=== PATIENT | female | born 1965 | race Caucasian/White ===

== ENCOUNTER 2017-12-05 13:42 | Inpatient (IN) | payer OTHER, SELFPAY ==
[2017-12-05 13:44] VITALS: BP 165/96; PULSE 108; RESP 18; TEMP 37.6; O2SAT 100; BMI 48.0
[2017-12-05 14:12] LABS: Bacteria 0 SEEN /hpf (None Seen); Mucous, Urine 0 SEEN /hpf (<or=2+); Red Blood Cells-Urine 0 SEEN /hpf (0-5); Squamous Epithelial Cells - UA 0 SEEN /hpf (5-10)
[2017-12-05 14:16] LABS: Color, Urine Yellow (Yellow); Glucose, Dipstick Normal (Normal); Ketone-Dipstick Negative (Negative); Leukocyte Esterase-Dipstick 500 /ul (Negative); Nitrite-Dipstick Negative (Negative); Occult Blood-Urine 150 /ul (Negative); Protein-Dipstick 100 mg/dl (Negative); Specific Gravity, Urine 1.005 (1.002-1.030); Urine Bilirubin Dipstick Negative (Negative); Urine Clarity Sl. Cloudy (Clear); Urine Urobilinogen Normal (Normal)
[2017-12-05 14:27] LABS: White Blood Cells 25-50 SEEN /hpf (0-5)
--- NOTE | 2017-12-05 15:10 | CT_ITS ---
STUDY: CT ABDOMEN AND PELVIS WITHOUT CONTRAST REASON FOR EXAM: Female, 52 years old. Bilateral flank pain RADIATION DOSAGE (If Supplied By Facility): CTDIvol = ( 32.87 ) mGy, DLP = ( 1847.12 ) mGycm TECHNIQUE: Transaxial images were obtained from the dome of the diaphragm to the symphysis pubis without oral contrast, and without intravenous contrast. Sagittal and coronal images were reconstructed. Individualized dose optimization techniques were used for this CT. COMPARISON: None. FINDINGS: The visualized lung bases are unremarkable. The visualized portions of the heart are within normal limits. Normal liver. There are surgical clips in the gallbladder fossa consistent with a prior cholecystectomy. Normal spleen. Normal pancreas. Normal bilateral adrenal glands. Large renal calculi noted in both lower poles of the kidneys. Moderate right renal atrophy. Bilateral perinephric fat stranding and edema. Mild bilateral hydronephrosis and hydroureter. No discrete evidence of stone in either ureter. Underdistended bladder with wall thickening. Cystitis with bilateral pyelonephritis cannot be excluded. Largest stone on the right measuring 1.4 cm and largest on the left measuring 1.1 cm. Normal visualized stomach. Normal small intestine. Normal colon. The appendix is visualized and appears normal. Normal abdominal aorta. Normal inferior vena cava. Normal retroperitoneum. Unremarkable uterus Normal abdominal wall. Normal osseous structures. CT/Abdomen/Pelvis without Cont IMPRESSION: Large bilateral lower pole nephrolithiasis. Bilateral hydronephrosis and hydroureter. No stones seen in either ureter. Underdistended bladder however, wall thickening suggesting cystitis. Findings are suggestive of infection. Electronically Signed: Rich Strauss DO at 15:52 EDT Tel , Service support ,
--- NOTE | 2017-12-05 15:12 | ED.VISSUMM ---
- ER Visit Summary Date of Service: 12/05/17 Chief Complaint: Urinary symptoms History of Present Illness: The patient is a 52 F who presents for 2 weeks of urinary symptoms, including dysuria, frequency and urgency. Patient has had intermittent symptoms with bilateral back pain, and has completed a course of Cipro and Macrobid without any improvement. For the last 2 days she has been having chills and urinary frequency. Today she is having nausea and bilateral flank pain radiating around into the abdomen. She has a prior history of kidney stones. She denies any chest pain or shortness of breath. No vomiting or diarrhea. Physical Examination: Vital signs: afebrile, hemodynamically stable, no hypoxia on room air General: well nourished, well developed, in no distress Skin: warm, dry, no rash, no pallor HEENT: normocephalic and atraumatic; PERRL, EOMI, moist mucous membranes Cardiovascular: Tachycardic rate and regular rhythm without murmurs, no peripheral edema, 2+ pulses all distal extremities Respiratory: No increased work of breathing, lungs are clear to auscultation bilaterally, no rales, rhonchi or wheezing Abdominal: Abdomen is soft, mildly tender with normoactive bowel sounds, no guarding or rebound, no masses, positive right-sided CVA tenderness MSK: Moves all extremities, no deformities, normal strength Neuro: Awake and alert, oriented ?4. No facial droop, sensation and motor function intact and symmetric Test Results: Abnormal Lab Results 12/05/17 12/05/17 12/05/17 14:05 14:25 14:25 WBC 7.6 RBC 3.94 L Hgb 10.9 L Hct 33.5 L MCV 85.0 MCH 27.7 MCHC 32.5 RDW 14.9 H RDW Differential 45.3 H Plt Count 202 MPV 10.8 Immature Gran % (Auto) 0.300 Neut % (Auto) 73.6 H Lymph % (Auto) 8.3 L [place] % (Auto) 10.3 H Eos % (Auto) 7.0 H Baso % (Auto) 0.5 Absolute Neuts (auto) 5.6 Absolute Lymphs (auto) 0.63 L Total Counted Not Reportable Sodium 140 Potassium 3.9 Chloride 109 H Carbon Dioxide 22.0 Anion Gap 9 BUN 29 H Creatinine 2.71 H Estim Creat Clear Calc 23.08 Est GFR (MDRD) Af Amer 24 L Est GFR (MDRD) Non-Af 19 L BUN/Creatinine Ratio 10.7 Glucose 100 Lactic Acid Calcium 8.5 Urine Color Yellow Urine Clarity Sl. Cloudy Urine pH 7.0 Ur Specific [place] 1.005 Urine Protein 100 H Urine Glucose (UA) Normal Urine Ketones Negative Urine Occult Blood 150 H Urine Nitrite Negative Urine Bilirubin Negative Urine Urobilinogen Normal Ur Leukocyte Esterase 500 H Urine RBC 0 SEEN Urine WBC 25-50 SEEN Ur Squamous Epith Cells 0 SEEN Urine Bacteria 0 SEEN Urine Mucus 0 SEEN 12/05/17 14:25 WBC RBC Hgb Hct MCV MCH MCHC RDW RDW Differential Plt Count MPV Immature Gran % (Auto) Neut % (Auto) Lymph % (Auto) [place] % (Auto) Eos % (Auto) Baso % (Auto) Absolute Neuts (auto) Absolute Lymphs (auto) Total Counted Sodium Potassium Chloride Carbon Dioxide Anion Gap BUN Creatinine Estim Creat Clear Calc Est GFR (MDRD) Af Amer Est GFR (MDRD) Non-Af BUN/Creatinine Ratio Glucose Lactic Acid 0.9 Calcium Urine Color Urine Clarity Urine pH Ur Specific [place] Urine Protein Urine Glucose (UA) Urine Ketones Urine Occult Blood Urine Nitrite Urine Bilirubin Urine Urobilinogen Ur Leukocyte Esterase Urine RBC Urine WBC Ur Squamous Epith Cells Urine Bacteria Urine Mucus Clinical Impression(s) from Imaging Studies Abdomen/Pelvis CT 12/05/17 15:10 IMPRESSION: Large bilateral lower pole nephrolithiasis. Bilateral hydronephrosis and hydroureter. No stones seen in either ureter. Underdistended bladder however, wall thickening suggesting cystitis. Findings are suggestive of infection. Electronically Signed: Rich Strauss DO at 15:52 EDT Tel , Service support , Medications Given Discontinued Medications Ceftriaxone Sodium (Rocephin) 1 gm in 50 mls @ 100 mls/hr IV X1 ONE Stop: 12/05/17 16:50 Last Admin: 12/05/17 16:34 Dose: 100 mls/hr Ketorolac Tromethamine (Toradol) 15 mg IV X1 ONE Stop: 12/05/17 15:11 Last Admin: 12/05/17 15:18 Dose: 15 mg Ondansetron HCl (Zofran) 4 mg IV X1 ONE Stop: 12/05/17 15:11 Last Admin: 12/05/17 15:18 Dose: 4 mg Emergency Department Course and Treatment: Patient presents with symptoms concerning for possible pyelonephritis. Urinalysis was positive for infection. Patient had no leukocytosis. Lactate was normal. Creatinine was 2.7, which is significantly elevated from patient's last measurement, however she has had remote creatinine elevation like this in the past. No hepatic derangements. Blood cultures and urine cultures pending. CT flank was performed to evaluate for any possible obstructing stones. It showed findings consistent with pyelonephritis and acute cystitis. Because patient has already been on a course of ciprofloxacin outpatient as well as Macrobid, she is failed outpatient treatment. She was started on Rocephin. Patient discussed with for admission for treatment of pyelonephritis, acute on chronic renal insufficiency, and failed outpatient treatment. Treatment Plan: [] Disposition: [] Impression: pyelonephritis, acute on chronic renal insufficiency failed outpatient treatment This note was generated with [employer] dictation software. It may contain incorrect words, spelling, and punctuation that were not noted in review of the chart prior to signing ED Disposition - Plan for ED Patient: Disposition: Acute Care [facility] Chief Complaint: Complaint
[2017-12-05] MEDS: Ketorolac 30 MG/ML Syringe 15 MG IV (15:18)
[2017-12-05] MEDS: 0.9% Normal Saline 1,000 ML 250 ML IV (15:18)
[2017-12-05] MEDS: Ondansetron 4 MG/2 ML Vial IV (15:18)
[2017-12-05 15:40] LABS: Absolute Lymphocyte Count 0.63 X10^3/ul (0.83-4.51); Absolute Neutrophil Count 5.6 X10^3/uL (2.0-7.7); Basophil# 0.04 X10^3/uL; Basophil% 0.5 % (0-1); Eosinophil# 0.53 X10^3/uL; Hematocrit 33.5 % (37-47); Hemoglobin 10.9 g/dl (12.0-15.0); Lymphocyte # 0.63 X10^3/ul (4.0); Lymphocyte % 8.3 % (19-41); Mean Corp Hgb Conc 32.5 g/gl (32-36); Mean Corpuscular Hgb 27.7 pg (27.0-32.0); Mean Platelet Vol. 10.8 fl (6.2-12.0); Monocyte# 0.78 X10^3/uL; Monocyte% 10.3 % (0-10); Neutrophil # 5.58 X10^3/uL (2.7-7.7); Neutrophil % 73.6 % (47-70); Platelet Count 202 K/mm3 (150-450); RBC Distribution Width CV 14.9 % (11.6-14.6); RBC Distribution Width SD 45.3 fl (35.1-43.9); Red Blood Count 3.94 M/mm3 (4.2-5.4); White Blood Count 7.6 K/mm3 (4.4-11.0)
[2017-12-05 15:42] LABS: Anion Gap 9 (5-15); BUN 29 mg/dL (7-18); BUN/Creat Ratio 10.7 RATIO (10-20); Calcium,Total 8.5 mg/dL (8.5-10.1); Chloride 109 mmol/L (98-107); Creatinine, Serum 2.71 mg/dL (0.55-1.02); EST Glomerular Filtration Rate 19 mL/min (>60); Est Glom Filt Rate - Afr Amer 24 mL/min (>60); Estimated Creatinine Clearance 23.08 ml/min; Glucose 100 mg/dL (74-106); POSITIVE COUNT NO; POSITIVE DIFFERENTIAL NO; POSITIVE MORPHOLOGY NO; Potassium 3.9 mmol/L (3.5-5.1); Sodium Level 140 mmol/L (136-145)
[2017-12-05 15:45] LABS: Lactic Acid 0.9 mmol/L (0.4-2.0)
--- NOTE | 2017-12-05 16:27 | HP.PCM_ITS ---
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 She started having symptoms of frequency of urination and dysuria 1 week ago was initially prescribed a 3- day course of ciprofloxacin by her PCP. However this is not work and so she was given another 5-day course of Macrobid but symptoms still persisted. One day ago she started experiencing fever and chills with Reiger's and had bilateral flank pain which gradually worsened. She has a long-standing history of recurrent kidney stools and last passed kidney stones about 2 years ago. She is also had several surgical procedures done by Dr. Talavera before he retired. She denied any shortness of breath, abdominal pain, chest pain, palpitations, diarrhea or vomiting. 12 point review of systems was otherwise negative. Vitals in the ED was significant for temperature of 99.7 Fahrenheit and BMP was significant for creatinine of 2.71 with baseline being around 2. CBC showed no leukocytosis and showed anemia with hemoglobin of 10.9. CT abdomen pelvis showed large renal calculi noted in both lower poles of the kidney with moderate right renal atrophy and bilateral perinephric fat stranding and edema. Also had mild bilateral hydronephrosis and hydroureter with no discrete evidence of stone in either ureter. She had under distended bladder with wall thickening and largest on the right measuring 1.4 cm. The largest on the left measured 1.1 cm. She was started on IV ceftriaxone in the ED and she has been admitted to be managed for pyelonephritis and FLORIN on CKD. [] Past Medical History Past Medical History (Chronic Problems): Chronic Problems Goiter (Chronic) Obesity (Chronic) Benign essential hypertension (Chronic) Allergies Penicillins [PCN] Allergy (Verified 12/05/17 13:43) Rash acetaminophen [From Percocet] Adverse Reaction (Verified 12/05/17 13:43) Vomiting oxycodone [From Percocet] Adverse Reaction (Verified 12/05/17 13:43) Vomiting Home Medications: Ambulatory Orders Medication Instructions Recorded Bumetanide 0.5 mg PO DAILY 12/05/17 Levothyroxine [Synthroid] 200 mcg PO DAILY 12/05/17 Omeprazole 40 mg PO DAILY 12/05/17 Surgical History: cholecystectomy, - - thyroidectomy, surgery for kidney stones Lives: With Family Smoking Status: Former smoker Alcohol: Occasional Drugs: None Review of Systems Constitutional: Reports: Chills, Fever, Malaise. Denies: Anorexia, Weight Change HEENT: Denies: Head Aches, Sinus Congestion, Sinus Drainage Cardiovascular: Denies: Chest Pain, Chest Pressure, Chest Tightness, Heaviness, Light Headedness, Palpitations Respiratory: Denies: Cough, Shortness of breath at rest, Sputum production Gastrointestinal: Reports: Nausea, - - bilateral costophrenic angle tenderness, worse on the left than right. Denies: Abdominal Pain, Diarrhea, Melena, Vomiting Genitourinary: Reports: Dysuria, Frequency. Denies: Incontinence, Nocturia, Urgency Musculoskeletal: Denies: Joint Pain, Joint Tenderness Skin: Denies: Rash, Wounds Neurological: Denies: Numbness, Tingling, Focal weakness Psychiatric: Denies: Anxiety, Depression, Homicidal Ideations, Suicidal Ideations Endocrine: Reports: - - history of thyroid mass and anterior mediastinal mass s/p thyroidectomy Hematologic/ Lymphatic: Denies: Easy Bruising, Easy Bleeding VTE Information - Inpt Only VTE Present on Admission: No VTE Mechan Device Prophylaxis: None VTE Pharm Prophylaxis ordered?: Yes - Physical Exam General: Alert, Oriented x3, Cooperative HEENT: Atraumatic, PERRLA, EOMI, Normocephalic Oral: Moist Mucosa Neck: Supple, No JVD, Negative Carotid Bruits Lungs: Clear to auscultation, Normal air movement, No rhonchi, No wheeze, No rales Cardiovascular: Regular rate, Regular Rhythm, Normal S1, Normal S2, No murmurs Abdomen: Bowel Sounds Present, Soft, Non Tender, Non-Distended, No Hepato- splenomegaly, Obese, - - bilateral costophrenic angle tenderness Extremities: No clubbing, No cyanosis, No edema, Capillary Refill Less than 3 Seconds Skin: No rashes, No breakdown Musculoskeletal: No Tenderness to Palpation of Joints or Extremities Lymphatic: No Cervical, Supraclavicular, or Inguinal Adenopathy Neurological: Cranial nerves II-XII grossly intact, Neuro grossly intact, Motor Exam 5/5 strength throughout Psych/Mental Status: Normal Affect, Appropriate, Alert and oriented to time, place, person, mood and affect Vital Signs Temp Pulse Resp BP Pulse Ox 99.7 F H 108 H 18 165/96 H 100 12/05/17 13:44 12/05/17 13:44 12/05/17 13:44 12/05/17 13:44 12/05/17 13:44 Oxygen Delivery Method Room Air Weight: 306 lb 14.135 oz Body Mass Index (BMI) 48.0 Laboratory Tests Past 24 Hrs 12/05/17 12/05/17 12/05/17 14:05 14:25 14:25 WBC 7.6 RBC 3.94 L Hgb 10.9 L Hct 33.5 L MCV 85.0 MCH 27.7 MCHC 32.5 RDW 14.9 H RDW Differential 45.3 H Plt Count 202 MPV 10.8 Immature Gran % (Auto) 0.300 Neut % (Auto) 73.6 H Lymph % (Auto) 8.3 L [place] % (Auto) 10.3 H Eos % (Auto) 7.0 H Baso % (Auto) 0.5 Absolute Neuts (auto) 5.6 Absolute Lymphs (auto) 0.63 L Total Counted Not Reportable Sodium 140 Potassium 3.9 Chloride 109 H Carbon Dioxide 22.0 Anion Gap 9 BUN 29 H Creatinine 2.71 H Estim Creat Clear Calc 23.08 Est GFR (MDRD) Af Amer 24 L Est GFR (MDRD) Non-Af 19 L BUN/Creatinine Ratio 10.7 Glucose 100 Lactic Acid Calcium 8.5 Urine Color Yellow Urine Clarity Sl. Cloudy Urine pH 7.0 Ur Specific [place] 1.005 Urine Protein 100 H Urine Glucose (UA) Normal Urine Ketones Negative Urine Occult Blood 150 H Urine Nitrite Negative Urine Bilirubin Negative Urine Urobilinogen Normal Ur Leukocyte Esterase 500 H Urine RBC 0 SEEN Urine WBC 25-50 SEEN Ur Squamous Epith Cells 0 SEEN Urine Bacteria 0 SEEN Urine Mucus 0 SEEN 12/05/17 14:25 WBC RBC Hgb Hct MCV MCH MCHC RDW RDW Differential Plt Count MPV Immature Gran % (Auto) Neut % (Auto) Lymph % (Auto) [place] % (Auto) Eos % (Auto) Baso % (Auto) Absolute Neuts (auto) Absolute Lymphs (auto) Total Counted Sodium Potassium Chloride Carbon Dioxide Anion Gap BUN Creatinine Estim Creat Clear Calc Est GFR (MDRD) Af Amer Est GFR (MDRD) Non-Af BUN/Creatinine Ratio Glucose Lactic Acid 0.9 Calcium Urine Color Urine Clarity Urine pH Ur Specific [place] Urine Protein Urine Glucose (UA) Urine Ketones Urine Occult Blood Urine Nitrite Urine Bilirubin Urine Urobilinogen Ur Leukocyte Esterase Urine RBC Urine WBC Ur Squamous Epith Cells Urine Bacteria Urine Mucus Diagnostic Data Abdomen/Pelvis CT 12/05/17 15:10 IMPRESSION: Large bilateral lower pole nephrolithiasis. Bilateral hydronephrosis and hydroureter. No stones seen in either ureter. Underdistended bladder however, wall thickening suggesting cystitis. Findings are suggestive of infection. Electronically Signed: Rich Strauss DO at 15:52 EDT Tel , Service support , Assessment/Plan All Active Problems Fever (Acute) Chills (Acute) Bilateral flank pain (Acute) 52-year-old female with a history of recurrent kidney stones and hypothyroidism after thyroidectomy presents with a 1 day history of fever and chills,and bilateral flank tenderness. after being unsuccessfully treated for UTI symptoms over the past week. 1. Bilateral pyelonephritis * fever and chills of 1 day * has bilateral costophrenic angle tenderness * CT abdomen: Bilateral large renal calculi in both lower poles of the kidneys with largest on the right measure 1.4 cm in largest on the left measuring 1.1 cm. Bilateral Fatty stranding and edema. Mild bilateral hydronephrosis and hydroureter. Underdistended bladder with wall thickening. * UA: wbc of 25-50, urine occult blood of 150, no bacteria seen. * Admit to MedSurg floor * Hydrated with IV fluids normal saline at 150 cc/h. * Blood and urine cultures ordered. * Continue IV ceftriaxone 1 g every 12 * Tylenol for fever * Urology consult, to have large bilateral kidney stones. Will benefit from shockwave lithotripsy as these stones wont be able to pass on their own due to size and location. * counselled to drink lots of fluid; ~ 3L every day * 2. FLORIN on CKD likely due to dehydration from nausea and decreased intake * Cr is 2.71; baseline is ~ 1.8 * will hydrate with IVF NS ~ 150cc/hr and monitor urine output * check urine urea and urine Cr to assess FeUrea; on bumetanide so wont check FeNa * 3. HYpothyroidism * s/p thyroidectomy anterior mediastinal mass which turned out to be thyroid * on synthroid 175mcg; will continue * 4.GERD: on PPI 5. GI prophylaxis: PPI 6. DVT prophylaxis: heparin Code status: full code. * Patient, and daughter counselled about different types of code status,and about differences between full code, DNRCC and DNRCCA. Patient elects to be full code. total face to face time 16 mins. * Code Visit Inpatient E&M: 56866 Subs Hosp L3 Procedures: 28686 Advncd Care Plan 30 Min
[2017-12-05] MEDS: Ceftriaxone 1 GM/50 ML BAG IV ×2 (16:34→21:39)
[2017-12-05 16:35] VITALS: BP 144/77; PULSE 98; RESP 14; O2SAT 100
[2017-12-05 17:17] VITALS: BMI 48.2
[2017-12-05 17:22] VITALS: BMI 48.2
[2017-12-05 18:11] LABS: Urea Nitrogen, Urine 190 mg/dL (NO RANGE EST.)
[2017-12-05 19:42] VITALS: BP 122/67; PULSE 87; RESP 16; TEMP 36.8; O2SAT 100
[2017-12-05] MEDS: Morphine 2 MG/ML Syringe 1 MG IV (19:43)
[2017-12-05] MEDS: 0.9% NaCl Peripheral Flush Adult/Peds IV (19:44)
[2017-12-05] MEDS: 0.9% Normal Saline 1,000 ML 150 ML IV (20:29)
[2017-12-05] MEDS: Heparin Injection (Vial) 5,000 UNIT/ML VIAL 5000 UNIT SC (21:40)
[2017-12-06] MEDS: 0.9% NaCl Peripheral Flush Adult/Peds IV (00:08)
[2017-12-06] MEDS: Morphine 2 MG/ML Syringe IV (00:09)
[2017-12-06 01:42] VITALS: BP 112/64; PULSE 86; RESP 16; TEMP 37.3; O2SAT 99
[2017-12-06] MEDS: 0.9% Normal Saline 1,000 ML 150 ML IV ×4 (03:33→23:45)
[2017-12-06 05:33] LABS: Absolute Lymphocyte Count 1.04 X10^3/ul (0.83-4.51); Absolute Neutrophil Count 3.2 X10^3/uL (2.0-7.7); Basophil# 0.03 X10^3/uL; Basophil% 0.5 % (0-1); Eosinophil# 0.59 X10^3/uL; Eosinophils% 10.7 % (0-5); Hemoglobin 9.6 g/dl (12.0-15.0); Lymphocyte # 1.04 X10^3/ul (4.0); Lymphocyte % 18.9 % (19-41); Mean Corpuscular Hgb 27.7 pg (27.0-32.0); Mean Corpuscular Volume 86.5 fL (81-99); Mean Platelet Vol. 10.6 fl (6.2-12.0); Monocyte# 0.66 X10^3/uL; Neutrophil # 3.18 X10^3/uL (2.7-7.7); Neutrophil % 57.7 % (47-70); Platelet Count 180 K/mm3 (150-450); RBC Distribution Width CV 15.1 % (11.6-14.6); RBC Distribution Width SD 45.7 fl (35.1-43.9); Red Blood Count 3.47 M/mm3 (4.2-5.4); White Blood Count 5.5 K/mm3 (4.4-11.0)
[2017-12-06 05:43] LABS: POSITIVE COUNT NO; POSITIVE DIFFERENTIAL NO; POSITIVE MORPHOLOGY NO
[2017-12-06] MEDS: Levothyroxine 100 MCG Tablet 200 MCG PO (05:44)
[2017-12-06 05:50] LABS: Anion Gap 10 (5-15); BUN 31 mg/dL (7-18); BUN/Creat Ratio 10.1 RATIO (10-20); Calcium,Total 8.1 mg/dL (8.5-10.1); Chloride 109 mmol/L (98-107); Creatinine, Serum 3.08 mg/dL (0.55-1.02); EST Glomerular Filtration Rate 17 mL/min (>60); Est Glom Filt Rate - Afr Amer 20 mL/min (>60); Estimated Creatinine Clearance 19.55 ml/min; Glucose 106 mg/dL (74-106); Potassium 4.1 mmol/L (3.5-5.1); Sodium Level 140 mmol/L (136-145)
[2017-12-06 07:19] VITALS: BP 97/52; PULSE 82; RESP 16; TEMP 36.8; O2SAT 96
--- NOTE | 2017-12-06 07:54 | CON.PCM_ITS ---
Problem List (1) Pyelonephritis Status: Acute Reason for Consult Date of Consultation: 12/06/17 Reason for Consultation: Pyelonephritis History of Present Illness: The patient is a 52 year old female who is known to me for prior staghorn calculus. In 2012 she had a 5 cm staghorn calculus that was removed percutaneously. At that time she had lower pole stones in both kidneys the stones are stuck in the parenchyma. On CT scan and comparing to 2013 stones have not changed. She is only had one infection in the last year and a half has not been having recurrent infections. However she developed pyelonephritis with fevers and chills and not feeling well and was admitted after failure to clear the infection with Cipro and Macrobid. Clinically she is stable but my concern is her creatinine is up to 3.08, recent baseline is reported to be a 1.8, in 2013 her creatinine is 1.2. She does have chronic renal insufficiency and I think she best served by seeing nephrology. She does not have any obstruction and therefore I am going to hold off on placing stents. She does not have any obstructing ureteral calculi she does have some mild dilation of the ureters but this is probably from pyelonephritis. Past Medical History Past Medical History (Chronic Problems): Chronic Problems Goiter (Chronic) Obesity (Chronic) Benign essential hypertension (Chronic) Allergies Penicillins [PCN] Allergy (Verified 12/05/17 13:43) Rash acetaminophen [From Percocet] Adverse Reaction (Verified 12/05/17 13:43) Vomiting oxycodone [From Percocet] Adverse Reaction (Verified 12/05/17 13:43) Vomiting Home Medications: Ambulatory Orders Medication Instructions Recorded Bumetanide 0.5 mg PO DAILY 12/05/17 Etodolac [Lodine] 400 mg PO TID PRN PRN 12/05/17 Levothyroxine [Synthroid] 200 mcg PO DAILY 12/05/17 Omeprazole 40 mg PO DAILY 12/05/17 Surgical History: cholecystectomy, - - thyroidectomy, surgery for kidney stones Psychiatric History: No pertinent psych hx 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 Lives: With Family Smoking Status: Former smoker Tobacco Use: Cigarettes Alcohol: Occasional Drugs: None Review of Systems Constitutional: Reports: Chills, Fever HEENT: Denies: Head Aches, Sinus Congestion, Sinus Drainage Cardiovascular: Denies: Chest Pain, Palpitations Respiratory: Denies: Cough, Shortness of breath at rest, Sputum production Gastrointestinal: Denies: Abdominal Pain, Nausea, Vomiting Genitourinary: Reports: Dysuria Musculoskeletal: Denies: Joint Pain, Joint Tenderness Skin: Denies: Rash, Wounds Neurological: Denies: Numbness, Tingling, Focal weakness Psychiatric: Denies: Anxiety, Depression, Homicidal Ideations, Suicidal Ideations Hematologic/ Lymphatic: Denies: Easy Bruising, Easy Bleeding Physical Exam - Physical Exam Vital Signs Temp 98.3 F 12/06/17 07:19 Pulse 82 12/06/17 07:19 Resp 16 12/06/17 07:19 BP 97/52 L 12/06/17 07:19 Pulse Ox 96 12/06/17 07:19 Intake & Output 12/04/17 12/05/17 12/06/17 23:59 23:59 23:59 Intake Total 5042 / 5042 Output Total 2049 Balance 2992 / 2992 Weight: 139.2 kg Intake: Oral 2920 / 2920 IV fluid/meds 2121 Output: Urine 2049 General: Alert, Oriented x3, Cooperative HEENT: Atraumatic Oral: Moist Mucosa Neck: Supple, No JVD Lungs: Normal air movement Cardiovascular: Regular rate, Regular Rhythm Abdomen: Soft, Obese Rectal: Exam deferred Psych/Mental Status: Normal Affect Laboratory Tests Past 24 Hrs 12/05/17 12/05/17 12/05/17 14:05 14:05 14:05 WBC RBC Hgb Hct MCV MCH MCHC RDW RDW Differential Plt Count MPV Immature Gran % (Auto) Neut % (Auto) Lymph % (Auto) [place] % (Auto) Eos % (Auto) Baso % (Auto) Absolute Neuts (auto) Absolute Lymphs (auto) Total Counted Sodium Potassium Chloride Carbon Dioxide Anion Gap BUN Creatinine Estim Creat Clear Calc Est GFR (MDRD) Af Amer Est GFR (MDRD) Non-Af BUN/Creatinine Ratio Glucose Lactic Acid Calcium Urine Color Yellow Urine Clarity Sl. Cloudy Urine pH 7.0 Ur Specific [place] 1.005 Urine Protein 100 H Urine Glucose (UA) Normal Urine Ketones Negative Urine Occult Blood 150 H Urine Nitrite Negative Urine Bilirubin Negative Urine Urobilinogen Normal Ur Leukocyte Esterase 500 H Urine RBC 0 SEEN Urine WBC 25-50 SEEN Ur Squamous Epith Cells 0 SEEN Urine Bacteria 0 SEEN Urine Mucus 0 SEEN Urine Creatinine 30.00 Urine Urea Nitrogen 190 12/05/17 12/05/17 12/05/17 14:25 14:25 14:25 WBC 7.6 RBC 3.94 L Hgb 10.9 L Hct 33.5 L MCV 85.0 MCH 27.7 MCHC 32.5 RDW 14.9 H RDW Differential 45.3 H Plt Count 202 MPV 10.8 Immature Gran % (Auto) 0.300 Neut % (Auto) 73.6 H Lymph % (Auto) 8.3 L [place] % (Auto) 10.3 H Eos % (Auto) 7.0 H Baso % (Auto) 0.5 Absolute Neuts (auto) 5.6 Absolute Lymphs (auto) 0.63 L Total Counted Not Reportable Sodium 140 Potassium 3.9 Chloride 109 H Carbon Dioxide 22.0 Anion Gap 9 BUN 29 H Creatinine 2.71 H Estim Creat Clear Calc 23.08 Est GFR (MDRD) Af Amer 24 L Est GFR (MDRD) Non-Af 19 L BUN/Creatinine Ratio 10.7 Glucose 100 Lactic Acid 0.9 Calcium 8.5 Urine Color Urine Clarity Urine pH Ur Specific [place] Urine Protein Urine Glucose (UA) Urine Ketones Urine Occult Blood Urine Nitrite Urine Bilirubin Urine Urobilinogen Ur Leukocyte Esterase Urine RBC Urine WBC Ur Squamous Epith Cells Urine Bacteria Urine Mucus Urine Creatinine Urine Urea Nitrogen 12/06/17 12/06/17 05:03 05:03 WBC 5.5 RBC 3.47 L Hgb 9.6 L Hct 30.0 L MCV 86.5 MCH 27.7 MCHC 32.0 RDW 15.1 H RDW Differential 45.7 H Plt Count 180 MPV 10.6 Immature Gran % (Auto) 0.200 Neut % (Auto) 57.7 Lymph % (Auto) 18.9 L [place] % (Auto) 12.0 H Eos % (Auto) 10.7 H Baso % (Auto) 0.5 Absolute Neuts (auto) 3.2 Absolute Lymphs (auto) 1.04 Total Counted Not Reportable Sodium 140 Potassium 4.1 Chloride 109 H Carbon Dioxide 21.0 Anion Gap 10 BUN 31 H Creatinine 3.08 H Estim Creat Clear Calc 19.55 Est GFR (MDRD) Af Amer 20 L Est GFR (MDRD) Non-Af 17 L BUN/Creatinine Ratio 10.1 Glucose 106 Lactic Acid Calcium 8.1 L Urine Color Urine Clarity Urine pH Ur Specific [place] Urine Protein Urine Glucose (UA) Urine Ketones Urine Occult Blood Urine Nitrite Urine Bilirubin Urine Urobilinogen Ur Leukocyte Esterase Urine RBC Urine WBC Ur Squamous Epith Cells Urine Bacteria Urine Mucus Urine Creatinine Urine Urea Nitrogen Assessment/Plan All Active Problems Fever (Acute) Chills (Acute) Bilateral flank pain (Acute) Pyelonephritis (Acute) 52-year-old female with a complicated history history of Staghorn calculus in the past required percutaneous removal, after the procedure she did failed to follow-up and keep appointments with me in the office. Presented to the hospital with probably pyelonephritis failed outpatient treatment. Cultures are pending. Her white blood count is really not that high for pyelonephritis. It be interesting to see what her cultures show out. She does have chronic renal sufficiency and a at this point has acute on chronic renal sufficiency because of the acute rise in creatinine is unclear could be for pyelonephritis could be from medications. I would recommend nephrology see the patient for further evaluation. For now I am not going to place any stents in her kidneys since she has no obstruction I think her creatinine probably will resolve with gentle hydration and time hopefully will return to her baseline. I am not sure if there is one episode of pyelonephritis is going to require removal of those stone fragments in both kidneys certainly their risk factors for getting more pyelonephritis. The stone fragments would be quite difficult to remove since there probably parenchymal stones and not clearly connected to the collecting system or probably an diverticular pockets in the lower pole of the kidneys. This could be accomplished if she gets more infections. At this point I am going to hold off on doing any intervention on the lower pole stone until her creatinine has returned to its baseline and her infection is completely clear. She can follow-up with nephrology. Call me with questions.
[2017-12-06] MEDS: Pantoprazole Sodium 40 MG Tablet PO (08:28)
--- NOTE | 2017-12-06 09:35 | PCM.PN.HOSP ---
Patient Problems: Active and Suspected Problems Pyelonephritis (Acute) Subjective: Patient seen and examined. She still had fever last night but denied any chills. She still has flank pain but is relatively better. She denies any cough or chest pain, shortness of breath, abdominal pain, diarrhea or vomiting. 12 point review of systems is otherwise negative. Labs and vitals reviewed. Creatinine noted to be trending up. Vitals/I&O's: Vital Signs Temp Pulse Resp BP Pulse Ox 98.3 F 82 16 97/52 L 96 12/06/17 07:19 12/06/17 07:19 12/06/17 07:19 12/06/17 07:19 12/06/17 07:19 Oxygen Delivery Method Room Air Weight: 306 lb 14.135 oz Body Mass Index (BMI) 48.2 Intake and Output for Last 24 Hours 12/04/17 12/05/17 12/06/17 23:59 23:59 23:59 Intake Total 5042 / 5042 Output Total 2049 / 2049 Balance 2992 / 2992 General: Alert, Oriented x3, Cooperative, No apparent distress HEENT: Atraumatic, PERRLA, EOMI, Normocephalic Oral: Moist Mucosa Neck: Supple, No JVD, Negative Carotid Bruits Lungs: Clear to auscultation, Normal air movement, No rhonchi, No wheeze, No rales Cardiovascular: Regular rate, Regular Rhythm, Normal S1, Normal S2, No murmurs Abdomen: Bowel Sounds Present, Soft, Non Tender, Non-Distended, No Hepato-splenomegaly, - - mild bilateral flank tenderness Extremities: No clubbing, No cyanosis, No edema, Capillary Refill Less than 3 Seconds Skin: No rashes, No breakdown Musculoskeletal: No Tenderness to Palpation of Joints or Extremities Lymphatic: No Cervical, Supraclavicular, or Inguinal Adenopathy Neurological: Cranial nerves II-XII grossly intact, Neuro grossly intact, Motor Exam 5/5 strength throughout Psych/Mental Status: Normal Affect, Appropriate, Alert and oriented to time, place, person, mood and affect Laboratory Results 12/05/17 14:05: Urine Color Yellow, Urine Clarity Sl. Cloudy, Urine pH 7.0, Ur Specific [place] 1.005, Urine Protein 100 H, Urine Glucose (UA) Normal, Urine Ketones Negative, Urine Occult Blood 150 H, Urine Nitrite Negative, Urine Bilirubin Negative, Urine Urobilinogen Normal, Ur Leukocyte Esterase 500 H, Urine RBC 0 SEEN, Urine WBC 25-50 SEEN, Ur Squamous Epith Cells 0 SEEN, Urine Bacteria 0 SEEN, Urine Mucus 0 SEEN 12/05/17 14:05: Urine Creatinine 30.00 12/05/17 14:05: Urine Urea Nitrogen 190 12/05/17 14:25: WBC 7.6, RBC 3.94 L, Hgb 10.9 L, Hct 33.5 L, MCV 85.0, MCH 27.7, MCHC 32.5, RDW 14.9 H, RDW Differential 45.3 H, Plt Count 202, MPV 10.8, Immature Gran % (Auto) 0.300, Neut % (Auto) 73.6 H, Lymph % (Auto) 8.3 L, [place] % (Auto) 10.3 H, Eos % (Auto) 7.0 H, Baso % (Auto) 0.5, Absolute Neuts (auto) 5.6, Absolute Lymphs (auto) 0.63 L, Total Counted Not Reportable 12/05/17 14:25: Sodium 140, Potassium 3.9, Chloride 109 H, Carbon Dioxide 22.0, Anion Gap 9, BUN 29 H, Creatinine 2.71 H, Estim Creat Clear Calc 23.08, Est GFR (MDRD) Af Amer 24 L, Est GFR (MDRD) Non-Af 19 L, BUN/Creatinine Ratio 10.7, Glucose 100, Calcium 8.5 12/05/17 14:25: Lactic Acid 0.9 12/06/17 05:03: WBC 5.5, RBC 3.47 L, Hgb 9.6 L, Hct 30.0 L, MCV 86.5, MCH 27.7, MCHC 32.0, RDW 15.1 H, RDW Differential 45.7 H, Plt Count 180, MPV 10.6, Immature Gran % (Auto) 0.200, Neut % (Auto) 57.7, Lymph % (Auto) 18.9 L, [place] % (Auto) 12.0 H, Eos % (Auto) 10.7 H, Baso % (Auto) 0.5, Absolute Neuts (auto) 3.2, Absolute Lymphs (auto) 1.04, Total Counted Not Reportable 12/06/17 05:03: Sodium 140, Potassium 4.1, Chloride 109 H, Carbon Dioxide 21.0, Anion Gap 10, BUN 31 H, Creatinine 3.08 H, Estim Creat Clear Calc 19.55, Est GFR (MDRD) Af Amer 20 L, Est GFR (MDRD) Non-Af 17 L, BUN/Creatinine Ratio 10.1, Glucose 106, Calcium 8.1 L Diagnostic Data Abdomen/Pelvis CT 12/05/17 15:10 IMPRESSION: Large bilateral lower pole nephrolithiasis. Bilateral hydronephrosis and hydroureter. No stones seen in either ureter. Underdistended bladder however, wall thickening suggesting cystitis. Findings are suggestive of infection. Electronically Signed: Rich Strauss DO at 15:52 EDT Tel , Service support , Current Medications Acetaminophen (Tylenol) 650 mg PO Q6H PRN PRN PRN Reason: Non-cardiac pain (mod-severe) Heparin Sodium (Porcine) (Heparin Na) 5,000 unit SC Q8 [facility] Last Admin: 12/06/17 05:25 Dose: Not Given Ceftriaxone Sodium (Rocephin) 1 gm in 50 mls @ 100 mls/hr IV Q12 [facility] Last Admin: 12/05/17 21:39 Dose: 100 mls/hr Sodium Chloride () 1,000 mls @ 150 mls/hr IV .Q6H40M [facility] Levothyroxine Sodium (Synthroid) 200 mcg PO DAILY@0600 [facility] Last Admin: 12/06/17 05:44 Dose: 200 mcg Magnesium Hydroxide (Milk Of Magnesia) 30 ml PO DAILY PRN PRN PRN Reason: Constipation Morphine Sulfate () 2 - 4 mg IV Q4H PRN PRN PRN Reason: SEVERE PAIN (6-10/10) Last Admin: 12/06/17 00:09 Dose: 4 mg Morphine Sulfate () 2 - 4 mg IV Q4H PRN PRN PRN Reason: SEVERE PAIN (6-10/10) Ondansetron HCl (Zofran) 4 mg IV Q6H PRN PRN PRN Reason: NAUSEA/VOMITING Oxycodone HCl (Oxyir) 5 - 10 mg PO Q4H PRN PRN PRN Reason: SEVERE PAIN (6-1010) Pantoprazole Sodium (Protonix) 40 mg PO DAILY [facility] Last Admin: 12/06/17 08:28 Dose: 40 mg Promethazine HCl (Phenergan) 12.5 mg IV Q4H PRN PRN PRN Reason: NAUSEA/VOMITING Sodium Chloride () 5 - 30 ml IV UD PRN PRN Reason: SALINE FLUSH Last Admin: 12/06/17 00:08 Dose: 10 ml Medical Necessity - Tobacco Use Smoking Status: Former smoker Tobacco Use: Cigarettes Assessment/Plan All Active Problems Fever (Acute) Chills (Acute) Bilateral flank pain (Acute) Pyelonephritis (Acute) 52-year-old female with a history of recurrent kidney stones and hypothyroidism after thyroidectomy presents with a 1 day history of fever and chills,and bilateral flank tenderness. after being unsuccessfully treated for UTI symptoms over the past week. 1. Bilateral pyelonephritis Had fever overnight but without chills. Still has mild bilateral costophrenic angle tenderness. Urine and blood cultures pending. IV ceftriaxone 1 g every 12. tylenol for fever 2. Recurrent kidney stones Has a long history of recurrent kidney stones. States she last passed stones about [address] abdomen showed Bilateral large renal calculi in both lower poles of the kidneys with largest on the right measure 1.4 cm in largest on the left measuring 1.1 cm. Bilateral Fatty stranding and edema. Mild bilateral hydronephrosis and hydroureter. Underdistended bladder with wall thickening. Urology consulted. Plan is for conservative managements now as location of stones is in the lower pole and is chronic, continue IVF administration and monitor counselled on adequate oral fluid intake 3. FLORIN on CKD likely due to dehydration from nausea and decreased intake Admitting Cr was 2.71; Cr trended up to 3 today. baseline is 1.8 FeUrea-59.2%, indicating intrinsic renal disease as it is >35% Patient had been on ciprofloxacin and Macrobid which may possibly have had an effect on the kidneys. Not sure if this is a worsening of her CKD and as such this may be her new baseline continue iVF and consult nephrology 4. HYpothyroidism s/p thyroidectomy anterior mediastinal mass which turned out to be thyroid mass on synthroid 175mcg; will continue 5. Anemia: Hb was 10.9 on admission, now down to 9.6 baseline seems to be around 8-9 Check iron panel. 6.GERD: on PPI 7. GI prophylaxis: PPI 8. DVT prophylaxis: heparin Code Visit Inpatient E&M: [id number] [facility] L3
--- NOTE | 2017-12-06 09:41 | PN_ITS ---
Patient Problems: Active and Suspected Problems Pyelonephritis (Acute) Subjective: Patient seen and examined. She still had fever last night but denied any chills. She still has flank pain but is relatively better. She denies any cough or chest pain, shortness of breath, abdominal pain, diarrhea or vomiting. 12 point review of systems is otherwise negative. Labs and vitals reviewed. Creatinine noted to be trending up. Vitals/I&O's: Vital Signs Temp Pulse Resp BP Pulse Ox 98.3 F 82 16 97/52 L 96 12/06/17 07:19 12/06/17 07:19 12/06/17 07:19 12/06/17 07:19 12/06/17 07:19 Oxygen Delivery Method Room Air Weight: 306 lb 14.135 oz Body Mass Index (BMI) 48.2 Intake and Output for Last 24 Hours 12/04/17 12/05/17 12/06/17 23:59 23:59 23:59 Intake Total 5042 / 5042 Output Total 2049 / 2049 Balance 2992 / 2992 General: Alert, Oriented x3, Cooperative, No apparent distress HEENT: Atraumatic, PERRLA, EOMI, Normocephalic Oral: Moist Mucosa Neck: Supple, No JVD, Negative Carotid Bruits Lungs: Clear to auscultation, Normal air movement, No rhonchi, No wheeze, No rales Cardiovascular: Regular rate, Regular Rhythm, Normal S1, Normal S2, No murmurs Abdomen: Bowel Sounds Present, Soft, Non Tender, Non-Distended, No Hepato- splenomegaly, - - mild bilateral flank tenderness Extremities: No clubbing, No cyanosis, No edema, Capillary Refill Less than 3 Seconds Skin: No rashes, No breakdown Musculoskeletal: No Tenderness to Palpation of Joints or Extremities Lymphatic: No Cervical, Supraclavicular, or Inguinal Adenopathy Neurological: Cranial nerves II-XII grossly intact, Neuro grossly intact, Motor Exam 5/5 strength throughout Psych/Mental Status: Normal Affect, Appropriate, Alert and oriented to time, place, person, mood and affect Laboratory Results 12/05/17 14:05: Urine Color Yellow, Urine Clarity Sl. Cloudy, Urine pH 7.0, Ur Specific [place] 1.005, Urine Protein 100 H, Urine Glucose (UA) Normal, Urine Ketones Negative, Urine Occult Blood 150 H, Urine Nitrite Negative, Urine Bilirubin Negative, Urine Urobilinogen Normal, Ur Leukocyte Esterase 500 H, Urine RBC 0 SEEN, Urine WBC 25-50 SEEN, Ur Squamous Epith Cells 0 SEEN, Urine Bacteria 0 SEEN, Urine Mucus 0 SEEN 12/05/17 14:05: Urine Creatinine 30.00 12/05/17 14:05: Urine Urea Nitrogen 190 12/05/17 14:25: WBC 7.6, RBC 3.94 L, Hgb 10.9 L, Hct 33.5 L, MCV 85.0, MCH 27.7, MCHC 32.5, RDW 14.9 H, RDW Differential 45.3 H, Plt Count 202, MPV 10.8, Immature Gran % (Auto) 0.300, Neut % (Auto) 73.6 H, Lymph % (Auto) 8.3 L, [place] % (Auto) 10.3 H, Eos % (Auto) 7.0 H, Baso % (Auto) 0.5, Absolute Neuts (auto) 5.6, Absolute Lymphs (auto) 0.63 L, Total Counted Not Reportable 12/05/17 14:25: Sodium 140, Potassium 3.9, Chloride 109 H, Carbon Dioxide 22.0, Anion Gap 9, BUN 29 H, Creatinine 2.71 H, Estim Creat Clear Calc 23.08, Est GFR (MDRD) Af Amer 24 L, Est GFR (MDRD) Non-Af 19 L, BUN/Creatinine Ratio 10.7, Glucose 100, Calcium 8.5 12/05/17 14:25: Lactic Acid 0.9 12/06/17 05:03: WBC 5.5, RBC 3.47 L, Hgb 9.6 L, Hct 30.0 L, MCV 86.5, MCH 27.7, MCHC 32.0, RDW 15.1 H, RDW Differential 45.7 H, Plt Count 180, MPV 10.6, Immature Gran % (Auto) 0.200, Neut % (Auto) 57.7, Lymph % (Auto) 18.9 L, [place] % (Auto) 12.0 H, Eos % (Auto) 10.7 H, Baso % (Auto) 0.5, Absolute Neuts (auto) 3.2, Absolute Lymphs (auto) 1.04, Total Counted Not Reportable 12/06/17 05:03: Sodium 140, Potassium 4.1, Chloride 109 H, Carbon Dioxide 21.0, Anion Gap 10, BUN 31 H, Creatinine 3.08 H, Estim Creat Clear Calc 19.55, Est GFR (MDRD) Af Amer 20 L, Est GFR (MDRD) Non-Af 17 L, BUN/Creatinine Ratio 10.1, Glucose 106, Calcium 8.1 L Diagnostic Data Abdomen/Pelvis CT 12/05/17 15:10 IMPRESSION: Large bilateral lower pole nephrolithiasis. Bilateral hydronephrosis and hydroureter. No stones seen in either ureter. Underdistended bladder however, wall thickening suggesting cystitis. Findings are suggestive of infection. Electronically Signed: Rich Strauss DO at 15:52 EDT Tel , Service support , Current Medications Acetaminophen (Tylenol) 650 mg PO Q6H PRN PRN PRN Reason: Non-cardiac pain (mod-severe) Heparin Sodium (Porcine) (Heparin Na) 5,000 unit SC Q8 [facility] Last Admin: 12/06/17 05:25 Dose: Not Given Ceftriaxone Sodium (Rocephin) 1 gm in 50 mls @ 100 mls/hr IV Q12 [facility] Last Admin: 12/05/17 21:39 Dose: 100 mls/hr Sodium Chloride () 1,000 mls @ 150 mls/hr IV .Q6H40M [facility] Levothyroxine Sodium (Synthroid) 200 mcg PO DAILY@0600 [facility] Last Admin: 12/06/17 05:44 Dose: 200 mcg Magnesium Hydroxide (Milk Of Magnesia) 30 ml PO DAILY PRN PRN PRN Reason: Constipation Morphine Sulfate () 2 - 4 mg IV Q4H PRN PRN PRN Reason: SEVERE PAIN (6-10/10) Last Admin: 12/06/17 00:09 Dose: 4 mg Morphine Sulfate () 2 - 4 mg IV Q4H PRN PRN PRN Reason: SEVERE PAIN (6-10/10) Ondansetron HCl (Zofran) 4 mg IV Q6H PRN PRN PRN Reason: NAUSEA/VOMITING Oxycodone HCl (Oxyir) 5 - 10 mg PO Q4H PRN PRN PRN Reason: SEVERE PAIN (6-10) Pantoprazole Sodium (Protonix) 40 mg PO DAILY [facility] Last Admin: 12/06/17 08:28 Dose: 40 mg Promethazine HCl (Phenergan) 12.5 mg IV Q4H PRN PRN PRN Reason: NAUSEA/VOMITING Sodium Chloride () 5 - 30 ml IV UD PRN PRN Reason: SALINE FLUSH Last Admin: 12/06/17 00:08 Dose: 10 ml Medical Necessity - Tobacco Use Smoking Status: Former smoker Tobacco Use: Cigarettes Assessment/Plan All Active Problems Fever (Acute) Chills (Acute) Bilateral flank pain (Acute) Pyelonephritis (Acute) 52-year-old female with a history of recurrent kidney stones and hypothyroidism after thyroidectomy presents with a 1 day history of fever and chills,and bilateral flank tenderness. after being unsuccessfully treated for UTI symptoms over the past week. 1. Bilateral pyelonephritis * Had fever overnight but without chills. * Still has mild bilateral costophrenic angle tenderness. * Urine and blood cultures pending. * IV ceftriaxone 1 g every 12. * tylenol for fever * 2. Recurrent kidney stones * Has a long history of recurrent kidney stones. States she last passed stones about 2 years ago. * CT abdomen showed Bilateral large renal calculi in both lower poles of the kidneys with largest on the right measure 1.4 cm in largest on the left measuring 1.1 cm. Bilateral Fatty stranding and edema. Mild bilateral hydronephrosis and hydroureter. Underdistended bladder with wall thickening. * Urology consulted. Plan is for conservative managements now as location of stones is in the lower pole and is chronic, * continue IVF administration and monitor * counselled on adequate oral fluid intake * * 3. FLORIN on CKD likely due to dehydration from nausea and decreased intake * Admitting Cr was 2.71; Cr trended up to 3 today. baseline is 1.8 * FeUrea-59.2%, indicating intrinsic renal disease as it is >35% * Patient had been on ciprofloxacin and Macrobid which may possibly have had an effect on the kidneys. * Not sure if this is a worsening of her CKD and as such this may be her new baseline * continue iVF and consult nephrology * * 4. HYpothyroidism * s/p thyroidectomy anterior mediastinal mass which turned out to be thyroid mass * on synthroid 175mcg; will continue * 5. Anemia: * Hb was 10.9 on admission, now down to 9.6 baseline seems to be around 8-9 * Check iron panel. 6.GERD: on PPI 7. GI prophylaxis: PPI 8. DVT prophylaxis: heparin Code Visit Inpatient E&M: [id number] [facility] L3
[2017-12-06] MEDS: Ceftriaxone 1 GM/50 ML BAG IV ×2 (10:07→21:43)
--- NOTE | 2017-12-06 11:34 | CM.UR ---
Met face to face with patient. introduced myself and explained my role. Denies any needs at this time. States that her is supposed to try to locate the living will and DPOA then he will bring it in. Instructed that case mgmt will remain available should any needs arise. Verb understanding. Yaron taylor RN, CCM.
[2017-12-06] MEDS: Heparin Injection (Vial) 5,000 UNIT/ML VIAL 5000 UNIT SC ×2 (13:07→21:44)
[2017-12-06 13:45] VITALS: BP 106/46; PULSE 81; RESP 18; TEMP 36.8; O2SAT 96
[2017-12-06] MEDS: Magnesium Hydroxide 30 ML UDC PO (13:51)
[2017-12-06 14:18] LABS: Ferritin 60 ng/mL (8-252); Iron 51 ug/dL (50-170); Iron Binding Capacity,Total 285 ug/dL (250-450); PERCENT IRON SATURATION 17.9 % (15.0-55.0)
--- NOTE | 2017-12-06 14:24 | CON.PCM_ITS ---
Consultation - Renal 12/06/17 PCP/ Referring MD: Requesting physician: Dr Karina CRABTREE Primary care physician: Bruce Rascon MD Reason for Consultation:: acute renal failure on chronic - History of Present Illness History of Present Illness: The patient is a 52 year old F with a history of kidney stones admitted on 12/05 for bilateral flank pain with fever, chills past several days. She complained of urinary frequency, urgency and dysuria 2 weeks ago treated with cipro for 3 days followed by Macrobid for 5 days due to persistent symptoms. She has a history of staghorn calculus years ago when she was in college. She has a long-standing history of recurrent kidney stones, passed kidney stones spontaneously about 2 years ago. She also had several surgical procedures done by Dr. Talavera before he retired. She had ureteral stents and PNT placement years ago. Creatinine was 2.71 on admit increased to 3.0 today. Baseline creatinine appears to be at 1.6-2.0 in 2013 on review of [facility] records. She had blood work done by her PCP early this year and thinks her creatinine was at 2.0. She was started on iv rocephin with iv hydration during hospitalization. CT abdomen pelvis w/o contrast showed large renal calculi noted in both lower poles of the kidney with moderate right renal atrophy and bilateral perinephric fat stranding and edema.Mild bilateral hydronephrosis and hydroureter with no discrete evidence of stone in either ureter. She denies gross hematuria. She has a FH significant for stones in her mother, daughter and son. She has no history of kidney disease in the family. She is on bumex at home. She stopped using NSAIDs early this year. - Allergies Allergies: Allergies Penicillins [PCN] Allergy (Verified 12/05/17 13:43) Rash acetaminophen [From Percocet] Adverse Reaction (Verified 12/05/17 13:43) Vomiting oxycodone [From Percocet] Adverse Reaction (Verified 12/05/17 13:43) Vomiting - Current Medications Current Medications: Current Medications Acetaminophen (Tylenol) 650 mg PO Q6H PRN PRN PRN Reason: Non-cardiac pain (mod-severe) Heparin Sodium (Porcine) (Heparin Na) 5,000 unit SC Q8 [facility] Last Admin: 12/06/17 13:07 Dose: 5,000 unit Ceftriaxone Sodium (Rocephin) 1 gm in 50 mls @ 100 mls/hr IV Q12 [facility] Last Admin: 12/06/17 10:07 Dose: 100 mls/hr Sodium Chloride () 1,000 mls @ 150 mls/hr IV .Q6H40M [facility] Last Admin: 12/06/17 10:07 Dose: 150 mls/hr Levothyroxine Sodium (Synthroid) 200 mcg PO DAILY@0600 [facility] Last Admin: 12/06/17 05:44 Dose: 200 mcg Magnesium Hydroxide (Milk Of Magnesia) 30 ml PO DAILY PRN PRN PRN Reason: Constipation Last Admin: 12/06/17 13:51 Dose: 30 ml Morphine Sulfate () 2 - 4 mg IV Q4H PRN PRN PRN Reason: SEVERE PAIN (6-10/10) Last Admin: 12/06/17 00:09 Dose: 4 mg Morphine Sulfate () 2 - 4 mg IV Q4H PRN PRN PRN Reason: SEVERE PAIN (6-10/10) Ondansetron HCl (Zofran) 4 mg IV Q6H PRN PRN PRN Reason: NAUSEA/VOMITING Oxycodone HCl (Oxyir) 5 - 10 mg PO Q4H PRN PRN PRN Reason: SEVERE PAIN (6-10/10) Pantoprazole Sodium (Protonix) 40 mg PO DAILY [facility] Last Admin: 12/06/17 08:28 Dose: 40 mg Promethazine HCl (Phenergan) 12.5 mg IV Q4H PRN PRN PRN Reason: NAUSEA/VOMITING Sodium Chloride () 5 - 30 ml IV UD PRN PRN Reason: SALINE FLUSH Last Admin: 12/06/17 00:08 Dose: 10 ml - Past Medical History Past Medical History (Chronic Problems): Chronic Problems Goiter (Chronic) Obesity (Chronic) Benign essential hypertension (Chronic) - Past Surgical History Surgical History: cholecystectomy, - - thyroidectomy, surgery for kidney stones, ureteral stent, PNT years ago - Social History Smoking Status: Former smoker Alcohol: Occasional Drugs: None - Family History Paternal History Items: Diabetes, Hypertension Maternal History Items: - - kidney stones Review of Systems Constitutional: Reports: Chills, Fever. Denies: Anorexia, Weakness Cardiovascular: Denies: Chest Pain, Edema Respiratory: Denies: Cough, Shortness of Breath Gastrointestinal: Denies: Abdominal Pain, Constipation, Diarrhea, Nausea, Vomiting Genitourinary: Reports: Dysuria, Frequency, - - hx stones. Denies: Hematuria, Hesitancy, Incontinence Musculoskeletal: Reports: Back Pain - flank pain Skin: Denies: Rash Neurological: Denies: Balance problems Psychiatric: Denies: Anxiety, Depression Hematologic/ Lymphatic: Reports: Anemia. Denies: Hx of blood clot Patient Problems: Active and Suspected Problems Hydronephrosis (Acute) Kidney stones (Acute) Pyelonephritis (Acute) - Physical Exam General: Alert, Oriented x3, Cooperative, No apparent distress, - - morbidly obese HEENT: PERRLA, EOMI Oral: Dry Mucosa Neck: Supple Lungs: Clear to auscultation Cardiovascular: Regular rate Abdomen: Bowel Sounds Present, Soft, Non Tender, Non-Distended, Obese Extremities: No edema Skin: No rashes, - - tattoo right foot Musculoskeletal: No Muscle Wasting Neurological: Cranial nerves II-XII grossly intact Psych/Mental Status: Normal Affect, Appropriate, Alert and oriented to time, place, person, mood and affect Vital Signs Temp Pulse Resp BP Pulse Ox 98.2 F 81 18 106/46 L 96 12/06/17 13:45 12/06/17 13:45 12/06/17 13:45 12/06/17 13:45 12/06/17 13:45 Oxygen Delivery Method Room Air Weight: 139.2 kg Body Mass Index (BMI) 48.2 Intake and Output for Last 24 Hours 12/04/17 12/05/17 12/06/17 23:59 23:59 23:59 Intake Total 7033 / 7033 Output Total 3050 / 3050 Balance 3983 / 3983 Laboratory Tests Past 24 Hrs 12/05/17 12/05/17 12/05/17 14:05 14:05 14:05 WBC RBC Hgb Hct MCV MCH MCHC RDW RDW Differential Plt Count MPV Immature Gran % (Auto) Neut % (Auto) Lymph % (Auto) Crawford % (Auto) Eos % (Auto) Baso % (Auto) Absolute Neuts (auto) Absolute Lymphs (auto) Total Counted Sodium Potassium Chloride Carbon Dioxide Anion Gap BUN Creatinine Estim Creat Clear Calc Est GFR (MDRD) Af Amer Est GFR (MDRD) Non-Af BUN/Creatinine Ratio Glucose Lactic Acid Calcium Iron TIBC Iron Saturation Ferritin Urine Color Yellow Urine Clarity Sl. Cloudy Urine pH 7.0 Ur Specific [employer] 1.005 Urine Protein 100 H Urine Glucose (UA) Normal Urine Ketones Negative Urine Occult Blood 150 H Urine Nitrite Negative Urine Bilirubin Negative Urine Urobilinogen Normal Ur Leukocyte Esterase 500 H Urine RBC 0 SEEN Urine WBC 25-50 SEEN Ur Squamous Epith Cells 0 SEEN Urine Bacteria 0 SEEN Urine Mucus 0 SEEN Urine Creatinine 30.00 Urine Urea Nitrogen 190 12/05/17 12/05/17 12/05/17 14:25 14:25 14:25 WBC 7.6 RBC 3.94 L Hgb 10.9 L Hct 33.5 L MCV 85.0 MCH 27.7 MCHC 32.5 RDW 14.9 H RDW Differential 45.3 H Plt Count 202 MPV 10.8 Immature Gran % (Auto) 0.300 Neut % (Auto) 73.6 H Lymph % (Auto) 8.3 L Crawford % (Auto) 10.3 H Eos % (Auto) 7.0 H Baso % (Auto) 0.5 Absolute Neuts (auto) 5.6 Absolute Lymphs (auto) 0.63 L Total Counted Not Reportable Sodium 140 Potassium 3.9 Chloride 109 H Carbon Dioxide 22.0 Anion Gap 9 BUN 29 H Creatinine 2.71 H Estim Creat Clear Calc 23.08 Est GFR (MDRD) Af Amer 24 L Est GFR (MDRD) Non-Af 19 L BUN/Creatinine Ratio 10.7 Glucose 100 Lactic Acid 0.9 Calcium 8.5 Iron TIBC Iron Saturation Ferritin Urine Color Urine Clarity Urine pH Ur Specific [employer] Urine Protein Urine Glucose (UA) Urine Ketones Urine Occult Blood Urine Nitrite Urine Bilirubin Urine Urobilinogen Ur Leukocyte Esterase Urine RBC Urine WBC Ur Squamous Epith Cells Urine Bacteria Urine Mucus Urine Creatinine Urine Urea Nitrogen 12/06/17 12/06/17 12/06/17 05:03 05:03 05:03 WBC 5.5 RBC 3.47 L Hgb 9.6 L Hct 30.0 L MCV 86.5 MCH 27.7 MCHC 32.0 RDW 15.1 H RDW Differential 45.7 H Plt Count 180 MPV 10.6 Immature Gran % (Auto) 0.200 Neut % (Auto) 57.7 Lymph % (Auto) 18.9 L Crawford % (Auto) 12.0 H Eos % (Auto) 10.7 H Baso % (Auto) 0.5 Absolute Neuts (auto) 3.2 Absolute Lymphs (auto) 1.04 Total Counted Not Reportable Sodium 140 Potassium 4.1 Chloride 109 H Carbon Dioxide 21.0 Anion Gap 10 BUN 31 H Creatinine 3.08 H Estim Creat Clear Calc 19.55 Est GFR (MDRD) Af Amer 20 L Est GFR (MDRD) Non-Af 17 L BUN/Creatinine Ratio 10.1 Glucose 106 Lactic Acid Calcium 8.1 L Iron Pending TIBC Pending Iron Saturation Pending Ferritin Pending Urine Color Urine Clarity Urine pH Ur Specific [employer] Urine Protein Urine Glucose (UA) Urine Ketones Urine Occult Blood Urine Nitrite Urine Bilirubin Urine Urobilinogen Ur Leukocyte Esterase Urine RBC Urine WBC Ur Squamous Epith Cells Urine Bacteria Urine Mucus Urine Creatinine Urine Urea Nitrogen Clinical Impression(s) from Imaging Studies Abdomen/Pelvis CT 12/05/17 15:10 IMPRESSION: Large bilateral lower pole nephrolithiasis. Bilateral hydronephrosis and hydroureter. No stones seen in either ureter. Underdistended bladder however, wall thickening suggesting cystitis. Findings are suggestive of infection. Electronically Signed: Rich Strauss DO at 15:52 EDT Tel , Service support , Assessment/Plan All Active Problems Hydronephrosis (Acute) Kidney stones (Acute) Fever (Acute) Chills (Acute) Bilateral flank pain (Acute) Pyelonephritis (Acute) 1. Acute on CKD stage 3 due to obstructive nephropathy, pyelonephritis. baseline creatinine 1.6-2.0 now at 3.0 with bilateral hydroureter and hydronephrosis on CT abdomen. Currently nonoliguric. Will continue with iv fluids and antibx. May need nephrostomy tubes if creatinine continues to worsen. Included in differential for FLORIN is FLORIN from antibiotics +/- infection. 2. Hx frequent kidney stones, staghorn stone with UTI. Continue with IV antibiotics. Consider 24-hour urine for metabolic workup at a later date as an outpatient. Advised to follow a low-sodium diet. Family history significant for kidney stones. Evaluate for Cystine stones. Check uric acid and intact PTH. 3. Hypertension with stable blood pressures on Bumex with history of fluid retention. Hold bumex 4. History of goiter status post thyroidectomy 5. Morbid obesity
[2017-12-06 20:42] VITALS: BP 112/67; PULSE 82; RESP 16; TEMP 36.9; O2SAT 99
[2017-12-06] MEDS: Acetaminophen 325 MG Tablet 650 MG PO (20:47)
[2017-12-07 03:30] VITALS: BP 113/73; PULSE 70; RESP 18; TEMP 36.4; O2SAT 100
[2017-12-07] MEDS: Levothyroxine 100 MCG Tablet 200 MCG PO (05:28)
[2017-12-07] MEDS: Heparin Injection (Vial) 5,000 UNIT/ML VIAL 5000 UNIT SC ×3 (05:28→22:31)
[2017-12-07] MEDS: Magnesium Hydroxide 30 ML UDC PO (05:29)
[2017-12-07] MEDS: 0.9% Normal Saline 1,000 ML 150 ML IV (05:29)
[2017-12-07 07:08] LABS: Albumin, Serum 2.4 g/dL (3.2-5.0); BUN 30 mg/dL (7-18); BUN/Creat Ratio 8.6 RATIO (10-20); Calcium,Total 7.9 mg/dL (8.5-10.1); Chloride 113 mmol/L (98-107); Creatinine, Serum 3.49 mg/dL (0.55-1.02); EST Glomerular Filtration Rate 15 mL/min (>60); Est Glom Filt Rate - Afr Amer 18 mL/min (>60); Estimated Creatinine Clearance 17.25 ml/min; Glucose 94 mg/dL (74-106); Phosphorus 4.2 mg/dL (2.5-4.9); Potassium 4.5 mmol/L (3.5-5.1); Sodium Level 143 mmol/L (136-145); Uric Acid 4.3 mg/dL (2.6-6.0)
--- NOTE | 2017-12-07 07:41 | PCM.PN.HOSP ---
Patient Problems: Active and Suspected Problems Hydronephrosis (Acute) Kidney stones (Acute) Pyelonephritis (Acute) Subjective: Patient was admitted for pyelonephritis. She has history of kidney stones in the past and had lithotripsy and nephrostomy tube. Today, patient denies flank pain. She had ultrasound of kidneys in the morning showed improvement in hydronephrosis. Denies burning micturition. Urine culture reported mixed gram-positive organism. Patient was seen by Dr. Salas and Dr. Berg. Vitals/I&O's: Vital Signs Temp Pulse Resp BP Pulse Ox 97.6 F L 70 18 113/73 100 12/07/17 03:30 12/07/17 03:30 12/07/17 03:30 12/07/17 03:30 12/07/17 03:30 Oxygen Delivery Method Room Air Weight: 306 lb 14.135 oz Body Mass Index (BMI) 48.2 Intake and Output for Last 24 Hours 12/05/17 12/06/17 12/07/17 23:59 23:59 23:59 Intake Total 9398 / 9398 1438 / 1438 Output Total 6075 / 6075 1100 / 1100 Balance 3323 / 3323 338 / 338 General: Alert, Oriented x3, Cooperative HEENT: Atraumatic, PERRLA, EOMI, Normocephalic Neck: Supple, No JVD, Negative Carotid Bruits Lungs: Clear to auscultation, Normal air movement Cardiovascular: Regular rate, Regular Rhythm, Normal S1, Normal S2, No murmurs Abdomen: Bowel Sounds Present, Soft, Non Tender, Non-Distended Extremities: No edema, Capillary Refill Less than 3 Seconds Skin: No rashes, No breakdown Musculoskeletal: No Tenderness to Palpation of Joints or Extremities Neurological: Cranial nerves II-XII grossly intact Psych/Mental Status: Normal Affect, Appropriate Laboratory Results 12/06/17 05:03: Iron 51, TIBC 285, Iron Saturation 17.9, Ferritin 60 12/07/17 06:10: Sodium 143, Potassium 4.5, Chloride 113 H, Carbon Dioxide 21.0, BUN 30 H, Creatinine 3.49 H, Estim Creat Clear Calc 17.25, Est GFR (MDRD) Af Amer 18 L, Est GFR (MDRD) Non-Af 15 L, BUN/Creatinine Ratio 8.6 L, Glucose 94, Uric Acid 4.3, Calcium 7.9 L, Phosphorus 4.2, Albumin 2.4 L 12/07/17 06:10: PTH Intact Pending Current Medications Acetaminophen (Tylenol) 650 mg PO Q6H PRN PRN PRN Reason: Non-cardiac pain (mod-severe) Last Admin: 12/06/17 20:47 Dose: 650 mg Heparin Sodium (Porcine) (Heparin Na) 5,000 unit SC Q8 [facility] Last Admin: 12/07/17 05:28 Dose: 5,000 unit Ceftriaxone Sodium (Rocephin) 1 gm in 50 mls @ 100 mls/hr IV Q12 [facility] Last Admin: 12/06/17 21:43 Dose: 100 mls/hr Sodium Chloride () 1,000 mls @ 150 mls/hr IV .Q6H40M [facility] Last Admin: 12/07/17 05:29 Dose: 150 mls/hr Levothyroxine Sodium (Synthroid) 200 mcg PO DAILY@0600 [facility] Last Admin: 12/07/17 05:28 Dose: 200 mcg Magnesium Hydroxide (Milk Of Magnesia) 30 ml PO DAILY PRN PRN PRN Reason: Constipation Last Admin: 12/07/17 05:29 Dose: 30 ml Morphine Sulfate () 2 - 4 mg IV Q4H PRN PRN PRN Reason: SEVERE PAIN (6-10/10) Last Admin: 12/06/17 00:09 Dose: 4 mg Morphine Sulfate () 2 - 4 mg IV Q4H PRN PRN PRN Reason: SEVERE PAIN (6-10/10) Ondansetron HCl (Zofran) 4 mg IV Q6H PRN PRN PRN Reason: NAUSEA/VOMITING Oxycodone HCl (Oxyir) 5 - 10 mg PO Q4H PRN PRN PRN Reason: SEVERE PAIN (6-10/10) Pantoprazole Sodium (Protonix) 40 mg PO DAILY [facility] Last Admin: 12/06/17 08:28 Dose: 40 mg Promethazine HCl (Phenergan) 12.5 mg IV Q4H PRN PRN PRN Reason: NAUSEA/VOMITING Sodium Chloride () 5 - 30 ml IV UD PRN PRN Reason: SALINE FLUSH Last Admin: 12/06/17 00:08 Dose: 10 ml Medical Necessity - Tobacco Use Smoking Status: Former smoker Tobacco Use: Cigarettes Assessment/Plan All Active Problems Hydronephrosis (Acute) Kidney stones (Acute) Fever (Acute) Chills (Acute) Bilateral flank pain (Acute) Pyelonephritis (Acute) 52-year-old female with a history of recurrent kidney stones and hypothyroidism after thyroidectomy was admitted with a 1 day history of fever and chills,and bilateral flank tenderness, features suggestive of bilateral pyelonephritis. CT abdomen showed bilateral large renal calculi in both lower poles of the kidneys with largest on the right measure 1.4 cm in largest on the left measuring 1.1 cm. Bilateral Fatty stranding and edema. Mild bilateral hydronephrosis and hydroureter. Underdistended bladder with wall thickening. Urologist and childcare provider were consulted. Prior to admission, patient was treated with 3 days of Cipro and 5 days of Macrobid. 1. Bilateral pyelonephritis Today, no renal angle tenderness. CT abdomen there is suspicion of cystitis and bilateral pyelonephritis, therefore continue IV antibiotics even though urine culture shows mixed gram-positive organism. Blood cultures x2 are pending negative for about 48 hours. IV ceftriaxone 1 g every 12. tylenol for fever 2. Acute kidney injury on CKD stage III most probably secondary to obstructive uropathy, ATN/pyelonephritis with high suspicion of AIN: CBC shows eosinophilia. Patient had Cipro. UA negative for isosthenuria. Discussed with the childcare provider, Dr. Berg. Advised prednisone 40 mg daily. UA for eosinophil ordered. As per urologist, there is no obstructive calculi but the stones are in the lower pole and is stuck to renal parenchyma. Ureters are not dilated. An acute kidney injury most probably secondary to ATN/pyelonephritis. Continue ceftriaxone. Creatinine worsened from 2.71-3.49 but still non-oliguric. Total urine output last 24 hours about 2800 mL 3. Recurrent kidney stones Has a long history of recurrent kidney stones. States she last passed stones about [address] abdomen showed Bilateral large renal calculi in both lower poles of the kidneys Urology consulted and rest as mentioned above. PTH 74. Albumin 2.4. 4. HYpothyroidism s/p thyroidectomy anterior mediastinal mass which turned out to be thyroid mass on synthroid 175mcg; will continue 5. Anemia: Hb was 10.9 on admission, 9.6. Iron profile is suggestive of anemia of chronic disease/CKD. 6.GERD: on PPI 7. GI prophylaxis: PPI 8. DVT prophylaxis: heparin Code Visit Inpatient E&M: 91862 Subs Hosp L3
[2017-12-07 08:41] LABS: PTHIN 74.3 pg/mL (18.4-80.1)
[2017-12-07] MEDS: Pantoprazole Sodium 40 MG Tablet PO (08:44)
[2017-12-07] MEDS: Ceftriaxone 1 GM/50 ML BAG IV ×2 (08:46→22:31)
[2017-12-07 08:58] VITALS: BP 103/59; PULSE 78; RESP 16; TEMP 36.6; O2SAT 98
--- NOTE | 2017-12-07 09:05 | US_ITS ---
STUDY: RENAL ULTRASOUND - COMPLETE REASON FOR EXAM: Female, 52 years old. History of hydronephrosis and bilateral renal calculi. TECHNIQUE: Ultrasound evaluation of the kidneys was performed with real-time and static schultz-scale imaging. COMPARISON: Comparison is made with prior CT scan of abdomen and pelvis dated December 05, 2017. FINDINGS: RIGHT KIDNEY: Normal location of the right kidney, which is normal in size. The right kidney measures 14.7 cm x 6.0 cm x 7.4 cm. There is a normal cortex of the right kidney. The renal cortex measures 1.7 cm. There is no right renal mass or cyst. There is a 1.9 cm x 1.7 cm calculus in the lower pole. There is no right hydronephrosis. DISTAL RIGHT URETER: There is non-visualization of the distal right ureter. There is no demonstrated right ureterovesical junction calculus. There is no demonstrated right ureteral jet. LEFT KIDNEY: Normal location of the left kidney, which is normal in size. The left kidney measures 14.2 cm x 7.6 cm x 6.8 cm. There is a normal cortex of the left kidney. The renal cortex measures 2.3 cm. There is no left renal mass or cyst. No calculi are seen in the lower pole calyx. The larger measures 2.2 cm x 2.1 cm x 1.9 cm. There is mild hydronephrosis of the left kidney. DISTAL LEFT URETER: There is non-visualization of the distal left ureter. There is no demonstrated left ureterovesical junction calculus. There is no demonstrated left ureteral jet. BLADDER: A Portillo catheter is seen within the urinary bladder. US/Kidney and Bladder IMPRESSION: Bilateral intrarenal calculi. Mild degree of left hydronephrosis. Electronically Signed: Jaime Bran MD at 15:53 EDT Tel [phone], Service support ,
[2017-12-07 09:09] VITALS: O2SAT 98
[2017-12-07 10:00] VITALS: BP 138/81; PULSE 80; RESP 16; TEMP 37; O2SAT 99
--- NOTE | 2017-12-07 11:38 | PN.RENAL_ITS ---
Subjective: renal fxn continues to decline. Creatinine 3.49 today. remains nonoliguric. No flank pain. Reviewed renal US that showed improvement in hydro. Currently without edema or uremic symptoms. - Physical Exam General: Alert, Oriented x3, Cooperative Lungs: Clear to auscultation Cardiovascular: Regular rate Abdomen: Bowel Sounds Present, Soft, Non Tender, Non-Distended, Obese Extremities: No edema Skin: No rashes Psych/Mental Status: Normal Affect, Appropriate, Alert and oriented to time, place, person, mood and affect Vital Signs Temp Pulse Resp BP Pulse Ox 97.8 F 78 16 103/59 L 98 12/07/17 08:58 12/07/17 08:58 12/07/17 08:58 12/07/17 08:58 12/07/17 09:09 Oxygen Delivery Method Room Air Weight: 139.2 kg Body Mass Index (BMI) 48.2 Intake and Output for Last 24 Hours 12/05/17 12/06/17 12/07/17 23:59 23:59 23:59 Intake Total 9398 / 9398 1438 / 1438 Output Total 6075 / 6075 1100 / 1100 Balance 3323 / 3323 338 / 338 Microbiology Past 72 Hours 12/05/17 14:05 Urine Culture - Final Urine, Clean Catch Mixed Gram Positive Organisms Laboratory Tests Past 24 Hrs 12/06/17 12/07/17 12/07/17 05:03 06:10 06:10 Sodium 143 Potassium 4.5 Chloride 113 H Carbon Dioxide 21.0 BUN 30 H Creatinine 3.49 H Estim Creat Clear Calc 17.25 Est GFR (MDRD) Af Amer 18 L Est GFR (MDRD) Non-Af 15 L BUN/Creatinine Ratio 8.6 L Glucose 94 Uric Acid 4.3 Calcium 7.9 L Phosphorus 4.2 Iron 51 TIBC 285 Iron Saturation 17.9 Ferritin 60 Albumin 2.4 L PTH Intact 74.3 Medical Necessity - Tobacco Use Smoking Status: Former smoker Tobacco Use: Cigarettes Assessment/Plan All Active Problems Hydronephrosis (Acute) Kidney stones (Acute) Fever (Acute) Chills (Acute) Bilateral flank pain (Acute) Pyelonephritis (Acute) 1. Acute on CKD stage 3 due to obstructive nephropathy, pyelonephritis, possible AIN. baseline creatinine 1.6-2.0 now at 3.5. Remains nonoliguric without uremic symptoms. No urgent indication for dialysis. Would continue with moreno to CD. Repeat renal US with improvement in bilateral hydroureter and hydronephrosis fro m today. Reviewed with radiology. Included in differential is FLORIN from AIN from antibiotics +/- infection. Pt with peripheral eosinophilia that can be from infection vs antibiotic related AIN. UA with leukocytosis without bacteria. Urine c/s mixed lucero. Check urine eosinphils. Consider empiric treatment with prednisone for possible AIN. Discussed potential side effects, risks, benefit of steroid therapy. Consider renal biopsy if renal fxn not improved 2. Hx frequent kidney stones, staghorn stone with UTI. Continue with IV antibiotics. Consider 24-hour urine for metabolic workup at a later date as an outpatient. Advised to follow a low-sodium diet. Family history significant for kidney stones. Check uric acid and intact PTH. 3. Hypertension with stable blood pressures on Bumex with history of fluid retention. Hold bumex. No edema. 4. Morbid obesity DW hospitalist and pt
[2017-12-07] MEDS: predniSONE 20 MG Tablet 40 MG PO (12:43)
[2017-12-07 16:13] VITALS: BP 111/67; PULSE 79; RESP 18; TEMP 36.8; O2SAT 94
[2017-12-07 20:11] VITALS: BP 125/71; PULSE 95; RESP 14; TEMP 36.6; O2SAT 96
[2017-12-08 03:06] VITALS: BP 115/54; PULSE 63; RESP 14; TEMP 36.6; O2SAT 97
[2017-12-08] MEDS: 0.9% NaCl Peripheral Flush Adult/Peds IV ×4 (03:08→22:33)
[2017-12-08] MEDS: Heparin Injection (Vial) 5,000 UNIT/ML VIAL 5000 UNIT SC ×3 (05:41→21:46)
[2017-12-08] MEDS: Levothyroxine 100 MCG Tablet 200 MCG PO (05:41)
[2017-12-08] MEDS: Acetaminophen 325 MG Tablet 650 MG PO (05:48)
[2017-12-08 06:26] LABS: Albumin, Serum 2.5 g/dL (3.2-5.0); BUN 29 mg/dL (7-18); BUN/Creat Ratio 8.8 RATIO (10-20); Calcium,Total 8.4 mg/dL (8.5-10.1); Chloride 113 mmol/L (98-107); EST Glomerular Filtration Rate 15 mL/min (>60); Est Glom Filt Rate - Afr Amer 19 mL/min (>60); Estimated Creatinine Clearance 18.24 ml/min; Glucose 106 mg/dL (74-106); Phosphorus 3.9 mg/dL (2.5-4.9); Potassium 4.6 mmol/L (3.5-5.1); Sodium Level 143 mmol/L (136-145)
--- NOTE | 2017-12-08 09:17 | PN_ITS ---
Patient Problems: Active and Suspected Problems Hydronephrosis (Acute) Kidney stones (Acute) Pyelonephritis (Acute) Subjective: Patient did not had fever. Ultrasound of kidneys shows decrease in bilateral hydronephrosis. Reviewed with Dr. Berg and Dr. Salas. Vitals/I&O's: Vital Signs Temp Pulse Resp BP Pulse Ox 97.9 F 63 14 115/54 L 97 12/08/17 03:06 12/08/17 03:06 12/08/17 03:06 12/08/17 03:06 12/08/17 03:06 Oxygen Delivery Method Room Air Weight: 306 lb 14.135 oz Body Mass Index (BMI) 48.2 Intake and Output for Last 24 Hours 12/06/17 12/07/17 12/08/17 23:59 23:59 23:59 Intake Total 9398 / 9398 3666 / 3666 1532 / 1532 Output Total 6075 / 6075 4525 / 4525 2750 / 2750 Balance 3323 / 3323 -859 / -859 -1218 / -1218 General: Alert, Oriented x3, Cooperative HEENT: Atraumatic, PERRLA, EOMI, Normocephalic Neck: Supple, No JVD, Negative Carotid Bruits Lungs: Clear to auscultation, Normal air movement Cardiovascular: Regular rate, Regular Rhythm, Normal S1, Normal S2, No murmurs Abdomen: Bowel Sounds Present, Soft, Non Tender, Non-Distended Extremities: No edema, Capillary Refill Less than 3 Seconds Skin: No rashes, No breakdown Musculoskeletal: No Tenderness to Palpation of Joints or Extremities Neurological: Cranial nerves II-XII grossly intact Psych/Mental Status: Normal Affect, Appropriate Microbiology Past 72 Hours 12/05/17 14:05 Urine, Clean Catch Urine Culture - Final Mixed Gram Positive Organisms Laboratory Results 12/07/17 12:20: Eos Smear Total Cells Pending 12/08/17 05:37: Sodium 143, Potassium 4.6, Chloride 113 H, Carbon Dioxide 23.0, BUN 29 H, Creatinine 3.30 H, Estim Creat Clear Calc 18.24, Est GFR (MDRD) Af Amer 19 L, Est GFR (MDRD) Non-Af 15 L, BUN/Creatinine Ratio 8.8 L, Glucose 106, Calcium 8.4 L, Phosphorus 3.9, Albumin 2.5 L Current Medications Acetaminophen (Tylenol) 650 mg PO Q6H PRN PRN PRN Reason: Non-cardiac pain (mod-severe) Last Admin: 12/08/17 05:48 Dose: 650 mg Heparin Sodium (Porcine) (Heparin Na) 5,000 unit SC Q8 [facility] Last Admin: 12/08/17 05:41 Dose: 5,000 unit Ceftriaxone Sodium (Rocephin) 1 gm in 50 mls @ 100 mls/hr IV Q12 [facility] Last Admin: 12/07/17 22:31 Dose: 100 mls/hr Levothyroxine Sodium (Synthroid) 200 mcg PO DAILY@0600 [facility] Last Admin: 12/08/17 05:41 Dose: 200 mcg Magnesium Hydroxide (Milk Of Magnesia) 30 ml PO DAILY PRN PRN PRN Reason: Constipation Last Admin: 12/07/17 05:29 Dose: 30 ml Morphine Sulfate () 2 - 4 mg IV Q4H PRN PRN PRN Reason: SEVERE PAIN (6-10/10) Last Admin: 12/06/17 00:09 Dose: 4 mg Morphine Sulfate () 2 - 4 mg IV Q4H PRN PRN PRN Reason: SEVERE PAIN (6-10/10) Ondansetron HCl (Zofran) 4 mg IV Q6H PRN PRN PRN Reason: NAUSEA/VOMITING Oxycodone HCl (Oxyir) 5 - 10 mg PO Q4H PRN PRN PRN Reason: SEVERE PAIN (6-10/10) Pantoprazole Sodium (Protonix) 40 mg PO DAILY [facility] Last Admin: 12/07/17 08:44 Dose: 40 mg Prednisone () 40 mg PO DAILY@0800 [facility] Last Admin: 12/07/17 12:43 Dose: 40 mg Promethazine HCl (Phenergan) 12.5 mg IV Q4H PRN PRN PRN Reason: NAUSEA/VOMITING Sodium Chloride () 5 - 30 ml IV UD PRN PRN Reason: SALINE FLUSH Last Admin: 12/08/17 03:08 Dose: 10 ml Medical Necessity - Tobacco Use Smoking Status: Former smoker Tobacco Use: Cigarettes Assessment/Plan All Active Problems Hydronephrosis (Acute) Kidney stones (Acute) Fever (Acute) Chills (Acute) Bilateral flank pain (Acute) Pyelonephritis (Acute) 52-year-old female with a history of recurrent kidney stones and hypothyroidism after thyroidectomy was admitted with a 1 day history of fever and chills,and bilateral flank tenderness, features suggestive of bilateral pyelonephritis. CT abdomen showed bilateral large renal calculi in both lower poles of the kidneys with largest on the right measure 1.4 cm in largest on the left measuring 1.1 cm. Bilateral Fatty stranding and edema. Mild bilateral hydronephrosis and hydroureter. Underdistended bladder with wall thickening. Urologist and project manager retail were consulted. Prior to admission, patient was treated with 3 days of Cipro and 5 days of Macrobid. 1. Bilateral pyelonephritis * Today, no renal angle tenderness. CT abdomen there is suspicion of cystitis and bilateral pyelonephritis, therefore continue IV antibiotics even though urine culture shows mixed gram-positive organism. * Ultrasound kidney shows mild left hydronephrosis. Right hydronephrosis resolved. * Discussed with urologist, Dr. Salas and advised remove Portillo catheter. * Blood cultures x2 are pending negative for about 48 hours. * IV ceftriaxone 1 g every 12. * tylenol for fever 2. Acute kidney injury on CKD stage III most probably secondary to obstructive uropathy, ATN/pyelonephritis with high suspicion of AIN: CBC shows eosinophilia. Patient had Cipro. UA negative for isosthenuria. Discussed with the project manager retail, Dr. Berg. Advised prednisone 40 mg daily. UA for eosinophil ordered. As per urologist, there is no obstructive calculi but the stones are in the lower pole and is stuck to renal parenchyma. Ureters are not dilated. An acute kidney injury most probably secondary to ATN/pyelonephritis. Continue ceftriaxone. Creatinine worsened from 2.71-3.49 and today improved to 3.3. Urine output is good. Last dose of prednisone tomorrow morning. 3. Recurrent kidney stones * Has a long history of recurrent kidney stones. States she last passed stones about 2 years ago. * CT abdomen showed Bilateral large renal calculi in both lower poles of the kidneys * Urology consulted and rest as mentioned above. PTH 74. Albumin 2.4. 4. 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 Anemia: * Hb was 10.9 on admission, 9.6. * Iron profile is suggestive of anemia of chronic disease/CKD. 6.GERD: on PPI 7. GI prophylaxis: PPI 8. DVT prophylaxis: heparin Microbiology Past 72 Hours 12/05/17 14:05 Urine, Clean Catch Urine Culture - Final Mixed Gram Positive Organisms Laboratory Results 12/07/17 12:20: Eos Smear Total Cells Pending 12/08/17 05:37: Sodium 143, Potassium 4.6, Chloride 113 H, Carbon Dioxide 23.0, BUN 29 H, Creatinine 3.30 H, Estim Creat Clear Calc 18.24, Est GFR (MDRD) Af Amer 19 L, Est GFR (MDRD) Non-Af 15 L, BUN/Creatinine Ratio 8.8 L, Glucose 106, Calcium 8.4 L, Phosphorus 3.9, Albumin 2.5 L Clinical Impression(s) from Imaging Studies Abdomen/Pelvis CT 12/05/17 15:10 IMPRESSION: Large bilateral lower pole nephrolithiasis. Bilateral hydronephrosis and hydroureter. No stones seen in either ureter. Underdistended bladder however, wall thickening suggesting cystitis. Findings are suggestive of infection. Renal Ultrasound 12/07/17 09:05 IMPRESSION: Bilateral intrarenal calculi. Mild degree of left hydronephrosis. Code Visit Inpatient E&M: 89588 Subs Hosp L3
[2017-12-08] MEDS: predniSONE 20 MG Tablet 40 MG PO (10:08)
[2017-12-08] MEDS: Pantoprazole Sodium 40 MG Tablet PO (10:08)
[2017-12-08] MEDS: Ceftriaxone 1 GM/50 ML BAG IV ×2 (10:08→21:47)
[2017-12-08 10:10] VITALS: BP 126/62; PULSE 72; RESP 16; TEMP 36.6; O2SAT 97
--- NOTE | 2017-12-08 10:33 | PCM.PN.REN ---
Patient Problems: Active and Suspected Problems Hydronephrosis (Acute) Kidney stones (Acute) Pyelonephritis (Acute) Subjective: Urine output good. Moreno in place. Creatinine slightly improved. Started on prednisone yesterday for possible AIN. - Physical Exam General: Alert, Oriented x3, Cooperative, No apparent distress Neck: Supple Lungs: Clear to auscultation Cardiovascular: Regular rate Abdomen: Bowel Sounds Present, Soft, Non Tender, Non-Distended, Obese Extremities: No edema Vital Signs Temp Pulse Resp BP Pulse Ox 97.8 F 72 16 126/62 H 97 12/08/17 10:10 12/08/17 10:10 12/08/17 10:10 12/08/17 10:10 12/08/17 10:10 Oxygen Delivery Method Room Air Weight: 139.2 kg Body Mass Index (BMI) 48.2 Intake and Output for Last 24 Hours 12/06/17 12/07/17 12/08/17 23:59 23:59 23:59 Intake Total 9398 / 9398 3666 / 3666 1532 / 1532 Output Total 6075 / 6075 4525 / 4525 2750 / 2750 Balance 3323 / 3323 -859 / -859 -1218 / -1218 Microbiology Past 72 Hours 12/05/17 14:05 Urine Culture - Final Urine, Clean Catch Mixed Gram Positive Organisms Laboratory Tests Past 24 Hrs 12/07/17 12/08/17 12:20 05:37 Eos Smear Total Cells Pending Sodium 143 Potassium 4.6 Chloride 113 H Carbon Dioxide 23.0 BUN 29 H Creatinine 3.30 H Estim Creat Clear Calc 18.24 Est GFR (MDRD) Af Amer 19 L Est GFR (MDRD) Non-Af 15 L BUN/Creatinine Ratio 8.8 L Glucose 106 Calcium 8.4 L Phosphorus 3.9 Albumin 2.5 L Medical Necessity - Tobacco Use Smoking Status: Former smoker Tobacco Use: Cigarettes Assessment/Plan All Active Problems Hydronephrosis (Acute) Kidney stones (Acute) Fever (Acute) Chills (Acute) Bilateral flank pain (Acute) Pyelonephritis (Acute) 1. Acute on CKD stage 3 due to obstructive nephropathy, pyelonephritis, possible AIN. baseline creatinine 1.6-2.0 now at 3.3. Remains nonoliguric without uremic symptoms. Prednisone 40mg today and tomorrow for possible AIN. Continue Moreno to CD 2. Hx frequent kidney stones, staghorn stone with UTI. Urine c/s no growth. 3. Hypertension with stable blood pressures on Bumex with history of fluid retention. Hold bumex. No edema. 4. Morbid obesity 5. Obstructive uropathy f/u with . Determine if dc to home with moreno
[2017-12-08 16:10] VITALS: BP 133/77; PULSE 81; RESP 16; TEMP 36.8; O2SAT 96
[2017-12-08 21:06] VITALS: BP 146/76; PULSE 65; RESP 20; TEMP 36.6; O2SAT 97
[2017-12-08 21:22] VITALS: PULSE 65
[2017-12-08] MEDS: 0.9% NaCl IVPB Med Flush (250 mL) 15 ML IV (22:33)
[2017-12-09 02:30] VITALS: BP 112/61; PULSE 60; RESP 18; TEMP 36.5; O2SAT 97
[2017-12-09] MEDS: Heparin Injection (Vial) 5,000 UNIT/ML VIAL 5000 UNIT SC (06:27)
[2017-12-09] MEDS: Levothyroxine 100 MCG Tablet 200 MCG PO (06:27)
[2017-12-09 06:47] LABS: Albumin, Serum 2.7 g/dL (3.2-5.0); BUN 29 mg/dL (7-18); BUN/Creat Ratio 10.1 RATIO (10-20); Calcium,Total 8.4 mg/dL (8.5-10.1); Chloride 112 mmol/L (98-107); Creatinine, Serum 2.87 mg/dL (0.55-1.02); EST Glomerular Filtration Rate 18 mL/min (>60); Est Glom Filt Rate - Afr Amer 22 mL/min (>60); Estimated Creatinine Clearance 20.98 ml/min; Glucose 85 mg/dL (74-106); Phosphorus 4.2 mg/dL (2.5-4.9); Potassium 4.4 mmol/L (3.5-5.1); Sodium Level 143 mmol/L (136-145)
[2017-12-09 08:05] VITALS: BP 149/76; PULSE 68; RESP 18; TEMP 36.4; O2SAT 98
[2017-12-09] MEDS: Pantoprazole Sodium 40 MG Tablet PO (08:10)
[2017-12-09] MEDS: predniSONE 20 MG Tablet 40 MG PO (08:10)
--- NOTE | 2017-12-09 08:55 | DCINST_ITS ---
- Discharge Diagnoses Current Active Problems: Current Active and Chronic Problems Pyelonephritis (Acute) You will use the following diet at home:: Cardiac Your food should be the consistency of: Regular Discharge Activity: Return to Normal Activity Call your doctor if you observe: Fever of 101 or Higher, Shortness of breath, Uncontrolled pain Allergies/Adverse Reactions: Allergies Penicillins [PCN] Allergy (Verified 12/05/17 13:43) Rash acetaminophen [From Percocet] Adverse Reaction (Verified 12/05/17 13:43) Vomiting oxycodone [From Percocet] Adverse Reaction (Verified 12/05/17 13:43) Vomiting Medications to take at Discharge Levothyroxine [Synthroid] 200 mcg PO DAILY 12/05/17 Omeprazole 40 mg PO DAILY 12/05/17 Bumetanide 0.5 mg PO DAILY PRN PRN #1 12/09/17 Cefadroxil [Duracef] 500 mg PO BID #6 cap 12/09/17 Etodolac [Lodine] 400 mg PO TID PRN PRN #0 12/09/17 The following prescriptions were given: Cefadroxil [Duracef] 500 mg PO BID #6 cap Primary Care Physician: Bruce Rascon MD [Primary Care Provider] - Please follow up with your Primary Care Physician in: in 2 weeks Test Results: Test results from this visit will be discussed in further detail at your follow- up appointment, if applicable. Please Follow Up With: Idalmis Berg DO When: in 2-4 weeks
--- NOTE | 2017-12-09 08:57 | DS.PCM_ITS ---
Discharge Date and Diagnosis Date of Admission: 12/05/17 Date of Discharge: 12/09/17 - Primary Discharge Diagnosis Active and Suspected Problems Pyelonephritis (Acute) - Secondary Discharge Diagnosis Chronic Problems Goiter (Chronic) Obesity (Chronic) Benign essential hypertension (Chronic) Hospital Course and Treatment Summary of Care Provided: The patient is a 52-year-old female with a history of recurrent kidney stones and hypothyroidism after thyroidectomy was admitted with a 1 day history of fever and chills,and bilateral flank tenderness, features suggestive of bilateral pyelonephritis. CT abdomen showed bilateral large renal calculi in both lower poles of the kidneys with largest on the right measure 1.4 cm in largest on the left measuring 1.1 cm. Bilateral Fatty stranding and edema. Mild bilateral hydronephrosis and hydroureter. Underdistended bladder with wall thickening. Urologist and rubber compounder formulator were consulted. Prior to admission, patient was treated with 3 days of Cipro and 5 days of Macrobid. Patient was seen and examined today. No complaint. No fever or renal angle pain. No fever General: Alert, Oriented x3, Cooperative HEENT: Atraumatic, PERRLA, EOMI, Normocephalic Neck: Supple, No JVD, Negative Carotid Bruits Lungs: Clear to auscultation, Normal air movement Cardiovascular: Regular rate, Regular Rhythm, Normal S1, Normal S2, No murmurs Abdomen: Bowel Sounds Present, Soft, Non Tender, Non-Distended, no renal angle tenderness/fullness. Extremities: No edema, Capillary Refill Less than 3 Seconds Skin: No rashes, No breakdown Musculoskeletal: No Tenderness to Palpation of Joints or Extremities Neurological: Cranial nerves II-XII grossly intact Psych/Mental Status: Normal Affect, Appropriate 1. Bilateral pyelonephritis * Today, no renal angle tenderness. CT abdomen there is suspicion of cystitis and bilateral pyelonephritis, therefore continue IV antibiotics even though urine culture shows mixed gram-positive organism * Ultrasound kidney shows mild left hydronephrosis. Right hydronephrosis resolved. * Discussed with urologist, Dr. Salas and advised remove Portillo catheter. * Blood cultures x2 are pending negative for about 48 hours. * IV ceftriaxone 1 g every 12. * tylenol for fever * Patient discharged on 3 more days of cefadroxil to complete a total of 7 days. 2. Acute kidney injury on CKD stage III most probably secondary to obstructive uropathy, ATN/pyelonephritis with high suspicion of AIN: CBC shows eosinophilia. Patient had Cipro. UA negative for isosthenuria. Discussed with the rubber compounder formulator, Dr. Berg. Advised prednisone 40 mg daily. UA for eosinophil ordered. As per urologist, there is no obstructive calculi but the stones are in the lower pole and is stuck to renal parenchyma. Ureters are not dilated. An acute kidney injury most probably secondary to ATN/pyelonephritis. Creatinine worsened from 2.71-3.49 and today improved to 2.87. Last dose of prednisone was given today. Patient had good urine output after removal of Portillo catheter. 3. Recurrent kidney stones * Has a long history of recurrent kidney stones. States she last passed stones about 2 years ago. * CT abdomen showed Bilateral large renal calculi in both lower poles of the kidneys * Urology consulted and rest as mentioned above. PTH 74. Albumin 2.4. 4. 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 Anemia: * Hb was 10.9 on admission, 9.6. * Iron profile is suggestive of anemia of chronic disease/CKD. 6.GERD: on PPI 7. GI prophylaxis: PPI 8. DVT prophylaxis: heparin Discussed with rubber compounder formulator. Patient is to follow-up with Dr. Berg with repeat renal lab panel on next Thursday. Discharge meds reconciliation done. Discharge follow-up instructions completed. Follow-up with the urologist, Dr. Salas in 2 weeks. Total time spent, exact 35 minutes on discharge meds reconciliation, examination, review of imaging and blood test and discussion with the patient on follow-up instructions. Discharge Activity: Return to Normal Activity Call your doctor if you observe: Fever of 101 or Higher, Shortness of breath, Uncontrolled pain Home Medications: Medications to take at Discharge Levothyroxine [Synthroid] 200 mcg PO DAILY 12/05/17 Omeprazole 40 mg PO DAILY 12/05/17 Bumetanide 0.5 mg PO DAILY PRN PRN #1 12/09/17 Cefadroxil [Duracef] 500 mg PO BID #6 cap 12/09/17 Etodolac [Lodine] 400 mg PO TID PRN PRN #0 12/09/17 Following Prescrptions Were Given to Patient: Cefadroxil [Duracef] 500 mg PO BID #6 cap Other Amb Orders: Renal Profile Time Frame: 12/14/17, Location: Laboratory Primary Care Physician: Bruce Rascon MD [Primary Care Provider] - Please follow up with your Primary Care Physician in: in 2 weeks Please Follow Up With: Idalmis Berg DO When: in 2-4 weeks Medical Necessity - Tobacco Use Smoking Status: Former smoker Tobacco Use: Cigarettes Meaningful Use Info Meaningful Use Diagnoses (Choose all that apply): None applicable Code Visit Inpatient E&M: 10017 Disch Hosp
--- NOTE | 2017-12-09 10:10 | CASEMGMT ---
Message received that [employer] Card pt has on file 12/07/17. KIRSTEN SCHULTE to room to talk to pt. Pt stated she is aware and handed KIRSTEN SCHULTE new [employer] Card. Copy made of card and card returned to pt. Faxed front and back of new [employer] Card to Registration and they confirmed they did receive it. Leonidas RENDON RN, CM
--- NOTE | 2017-12-09 10:53 | PCM.PN.REN ---
Subjective: moreno catheter removed last night. Renal function improved. Urine output good. Ok to dc to home with labs next week - Physical Exam General: Alert, Oriented x3, Cooperative, No apparent distress Lungs: Clear to auscultation Cardiovascular: Regular rate Extremities: No edema Vital Signs Temp Pulse Resp BP Pulse Ox 97.6 F L 68 18 149/76 H 98 12/09/17 08:05 12/09/17 08:05 12/09/17 08:05 12/09/17 08:05 12/09/17 08:05 Oxygen Delivery Method Room Air Weight: 139.2 kg Body Mass Index (BMI) 48.2 Intake and Output for Last 24 Hours 12/07/17 12/08/17 12/09/17 23:59 23:59 23:59 Intake Total 3666 / 3666 3032 / 3032 1130 / 1130 Output Total 4525 / 4525 7650 / 7650 2800 / 2800 Balance -859 / -859 -4618 / -4618 -1670 / -1670 Microbiology Past 72 Hours 12/05/17 15:40 Blood Culture - Preliminary Blood Culture (Wb) - Anticubital Right No growth in 48 hours. 12/05/17 14:25 Blood Culture - Preliminary Blood Culture (Wb) - Arm Left No growth in 48 hours. 12/05/17 14:05 Urine Culture - Final Urine, Clean Catch Mixed Gram Positive Organisms Laboratory Tests Past 24 Hrs 12/09/17 05:30 Sodium 143 Potassium 4.4 Chloride 112 H Carbon Dioxide 22.0 BUN 29 H Creatinine 2.87 H Estim Creat Clear Calc 20.98 Est GFR (MDRD) Af Amer 22 L Est GFR (MDRD) Non-Af 18 L BUN/Creatinine Ratio 10.1 Glucose 85 Calcium 8.4 L Phosphorus 4.2 Albumin 2.7 L Medical Necessity - Tobacco Use Smoking Status: Former smoker Tobacco Use: Cigarettes Assessment/Plan All Active Problems Hydronephrosis (Acute) Kidney stones (Acute) Fever (Acute) Chills (Acute) Bilateral flank pain (Acute) Pyelonephritis (Acute) 1. Acute on CKD stage 3 due to obstructive nephropathy, pyelonephritis, possible AIN. baseline creatinine 1.6-2.0, creatinine improved to 2.8 today. Moreno catheter removed last night. Follow up next week with labs. May need moreno reinserted if creatinine worse. 2. Hx frequent kidney stones, staghorn stone with UTI. Urine c/s no growth. 3. Hypertension with stable blood pressures on Bumex with history of fluid retention. Hold bumex. No edema.
[2017-12-09 11:49] LABS: Eosinophil Ct. Urine 33 % (.)
--- NOTE | 2017-12-10 16:02 | CASEMGMT ---
[facility] PHONE CALL NOTE. DC DATE: 12/09/2017 DISPOSITION: HOME LACE/STRATA: 02/09 Attempted call to home. no answer, and no machine to leave message. Kevan RENDON RN ACM
== END 2017-12-09 10:12 | disposition home or self-care (01) | DRG 690 ==
LOC: ED 15:11 → MS3 16:48
PROVIDERS: Internal Medicine Nephrology; Admitting Provider Student in an Organized Health Care Education/Training Program; Emergency Provider Emergency Medicine; Family Provider Family Medicine; PCP Family Medicine; Visit Provider Internal Medicine
DX: N13.6 Pyonephrosis (principal); Z68.42 Body mass index [BMI] 45.0-49.9, adult; E89.0 Postprocedural hypothyroidism; Z87.442 Personal history of urinary calculi; D63.1 Anemia in chronic kidney disease; I12.9 Hypertensive chronic kidney disease with stage 1 through stage 4 chronic kidney disease, or unspecified chronic kidney disease; N18.3 Chronic kidney disease, stage 3 (moderate); E66.01 Morbid (severe) obesity due to excess calories; N17.0 Acute kidney failure with tubular necrosis
CPT/HCPCS: 36415; 74176; 76770; 80048; 80069; 81001; 82570; 82728; 83540; 83550; 83605; 83970; 84540; 84550; 85025; 87040; 87086; 87088; 87205; 99282; J7030; J7050; A4216; J2405

== ENCOUNTER → 2017-12-14 16:17 | Outpatient (CLI) | payer OTHER, SELFPAY ==
[2017-12-14 18:03] LABS: Albumin, Serum 3.1 g/dL (3.2-5.0); BUN 31 mg/dL (7-18); BUN/Creat Ratio 13.3 RATIO (10-20); Calcium,Total 8.8 mg/dL (8.5-10.1); Chloride 111 mmol/L (98-107); Creatinine, Serum 2.33 mg/dL (0.55-1.02); EST Glomerular Filtration Rate 23 mL/min (>60); Est Glom Filt Rate - Afr Amer 28 mL/min (>60); Glucose 86 mg/dL (74-106); Phosphorus 4.1 mg/dL (2.5-4.9); Potassium 4.3 mmol/L (3.5-5.1); Sodium Level 141 mmol/L (136-145)
== END ==
PROVIDERS: Internal Medicine Nephrology; Family Provider Family Medicine; PCP Family Medicine
DX: N17.9 Acute kidney failure, unspecified (principal)
CPT/HCPCS: 36415; 80069

== ENCOUNTER → 2018-02-03 16:38 | Outpatient (CLI) | payer OTHER, SELFPAY ==
[2018-02-03 17:22] LABS: Hematocrit 34.3 % (37-47); Mean Corp Hgb Conc 32.1 g/gl (32-36); Mean Corpuscular Hgb 28.2 pg (27.0-32.0); Mean Corpuscular Volume 87.9 fL (81-99); Mean Platelet Vol. 10.8 fl (6.2-12.0); Platelet Count 250 K/mm3 (150-450); RBC Distribution Width CV 14.3 % (11.6-14.6); RBC Distribution Width SD 45.3 fl (35.1-43.9); White Blood Count 7.5 K/mm3 (4.4-11.0)
[2018-02-03 17:32] LABS: Albumin, Serum 3.4 g/dL (3.2-5.0); BUN 22 mg/dL (7-18); BUN/Creat Ratio 12.2 RATIO (10-20); Calcium,Total 8.5 mg/dL (8.5-10.1); Chloride 110 mmol/L (98-107); EST Glomerular Filtration Rate 31 mL/min (>60); Est Glom Filt Rate - Afr Amer 38 mL/min (>60); Glucose 87 mg/dL (74-106); Phosphorus 3.8 mg/dL (2.5-4.9); Potassium 3.9 mmol/L (3.5-5.1); Sodium Level 143 mmol/L (136-145)
[2018-02-03 17:34] LABS: Scan Indicated on CBC? Y/N NO
--- OUTSIDE RECORDS SUMMARY | 2018-04-01 02:43 | XMS RPT_ITS ---
:1965 Author Organization OHIP Support Name Relationship Address Phone VIKRAM SLADE Unavailable [address] + [place] [address] [employer] Unavailable [address] + [place] [address] VIKRAM SLADE Unavailable [address] + [place] [address] [employer] Unavailable [address] + [place] [address] EZVIKRAM LAMB Unavailable [address] + [place] [address] [employer] Unavailable [address] + [place] [address] VIKRAM SLADE Unavailable [address] + [place] [address] [employer] Unavailable [address] + [place] [address] EZVIKRAM LAMB Unavailable [address] + [place] [address] [employer] Unavailable [address] + [place] [address] YANYVIKRAM Unavailable [address] + [place] [address] [employer] Unavailable [address] + [place] [address] YANYVIKRAM Unavailable [address] + [place] [address] [employer] Unavailable [address] + [place] [address] VIKRAM SLADE Unavailable [address] + [place] [address] [employer] NSG Unavailable [address] + [place] [address] Care Team Providers Name Role Phone Clover Rascon Admitting Unavailable Clover Rascon Attending Unavailable Clover Rascon Primary Care Unavailable Stanton Lantigua Attending Unavailable CLOVER RASCON Primary Care Unavailable Koram, Jazmine Tala Admitting Unavailable Maritza, Charlie Consulting Unavailable Otis, Idalmis Consulting Unavailable Koram, Jazmine Tala Admitting Unavailable Karina, Jazmine Tala Attending Unavailable CLOVER RASCON Primary Care Unavailable Koram, Jazmine Tala Consulting Unavailable Koram, Jazmine Tala Admitting Unavailable Karina, Jazmine Murdocka Attending Unavailable CLOVER RASCON Primary Care Unavailable Maritza, Charlie Consulting Unavailable Otis, Idalmis Consulting Unavailable Koram, Jazmine Tala Consulting Unavailable Koram, Jazmine Tala Admitting Unavailable Grzegorz Stanton Attending Unavailable CLOVER RASCON Primary Care Unavailable Maritza, Charlie Consulting Unavailable Otis, Idalmis Consulting Unavailable Grzegorz, Stanton Consulting Unavailable Koram, Jazimne Tala Admitting Unavailable Kenji Lantiguash Attending Unavailable CLOVER RASCON Primary Care Unavailable Maritza, Charlie Consulting Unavailable Otis, Idalmis Consulting Unavailable Grzegorz, Stanton Consulting Unavailable Koram, Jazmine Tala Admitting Unavailable Grzegorz Stanton Attending Unavailable CLOVER RASCON Primary Care Unavailable Maritza, Charlie Consulting Unavailable Otis, Idalmis Consulting Unavailable Grzegorz, Stanton Consulting Unavailable LEANN PADRON Attending Unavailable LEANN PADRON Referring Unavailable CLOVER RASCON Primary Care Unavailable Idalmis Berg Attending Unavailable Israel Bergine Referring Unavailable CLOVER RASCON Primary Care Unavailable PROBLEMS PROBLEMS DATE TYPE CONDITION / CODE ATTENDING STATUS SOURCE 02/03/2018 Unknown N17.9 - Acute Idalmis Berg Active [facility] kidney failure, Community unspecified / Hospital N17.9(ICD-10) Repository 02/07/2018 Unknown N13.6 - Stanton Lantigua Active [facility] Pyonephrosis / Community N13.6(ICD-10) Hospital Repository PROCEDURES PROCEDURES No Procedure Records FoundRESULTS RESULTS RENAL PROFILE Collected: 02/03/2018 Status: F Source: [place] 4:48 PM [facility] REPOSITORY TYPE CODE TESTS RESULT OUT OF RANGE REFERENCE UNITS LAB L501.0100 74-106 mg/dL Normal GLU 87 Result Comment: Please note revised GLUCOSE reference range effective 2017. LAB L501.1000 7-18 mg/dL High BUN 22 LAB L501.1100 0.55-1.02 mg/dL High CREAT,SERUM 1.80 Result Comment: The validity of the calculated GFR AND GFRAA in patients over 70 years has not been determined. Clinical correlation is essential. LAB L501.1110 >60 mL/min Low EST GFR 31 Result Comment: Non- GFR Calc LAB L501.1115 >60 mL/min Low EST GFR - AA 38 Result Comment: GFR Calc LAB L501.1300 10-20 RATIO Normal BUN/CRE 12.2 LAB L501.1800 3.2-5.0 g/dL Normal ALB 3.4 LAB L501.2200 8.5-10.1 mg/dL CA Normal 8.5 LAB L501.2300 2.5-4.9 mg/dL Normal PHOS 3.8 LAB L501.5300 136-145 mmol/L NA Normal 143 LAB L501.5600 3.5-5.1 mmol/L K Normal 3.9 LAB L501.5900 98-107 mmol/L High CL 110 LAB L501.6100 21.0-32.0 mmol/L Normal CO2 24.0 Performed By: #### L500.3600 #### [facility] [address] [place], [address] CBC-COMPLETE BLOOD CNT Collected: 02/03/2018 Status: F Source: [place] NO DIFF 4:48 PM [facility] REPOSITORY TYPE CODE TESTS RESULT OUT OF RANGE REFERENCE UNITS LAB L100.1000 4.4-11.0 K/mm3 Normal WBC 7.5 LAB L100.1200 4.2-5.4 M/mm3 Low RBC 3.90 LAB L100.1300 12.0-15.0 g/dl Low HGB 11.0 LAB L100.1400 37-47 % Low HCT 34.3 LAB L100.1500 81-99 fL Normal MCV 87.9 LAB L100.1600 27.0-32.0 pg Normal MCH 28.2 LAB L100.1700 32-36 g/gl Normal MCHC 32.1 LAB L100.1810 11.6-14.6 % Normal RDW CV 14.3 LAB L100.1820 35.1-43.9 fl High RDW SD 45.3 LAB L100.1900 150-450 K/mm3 Normal PLT 250 LAB L100.2000 6.2-12.0 fl Normal MPV 10.8 Performed By: #### L100.0500 #### [facility] [address] [place], [place], [address] RENAL PROFILE Collected: 12/14/2017 Status: F Source: [place] 4:37 PM [facility] REPOSITORY Order Comment: Send Results To: Dr. Idalmis Berg, Blood Bank Technician Reason for Laboratory Test FLORIN TYPE CODE TESTS RESULT OUT OF RANGE REFERENCE UNITS LAB L501.0100 74-106 mg/dL Normal GLU 86 Result Comment: Please note revised GLUCOSE reference range effective 2017. LAB L501.1000 7-18 mg/dL High BUN 31 LAB L501.1100 0.55-1.02 mg/dL High CREAT,SERUM 2.33 Result Comment: The validity of the calculated GFR AND GFRAA in patients over 70 years has not been determined. Clinical correlation is essential. LAB L501.1110 >60 mL/min Low EST GFR 23 Result Comment: Non- GFR Calc LAB L501.1115 >60 mL/min Low EST GFR - AA 28 Result Comment: GFR Calc LAB L501.1300 10-20 RATIO Normal BUN/CRE 13.3 LAB L501.1800 3.2-5.0 g/dL Low ALB 3.1 LAB L501.2200 8.5-10.1 mg/dL CA Normal 8.8 LAB L501.2300 2.5-4.9 mg/dL Normal PHOS 4.1 LAB L501.5300 136-145 mmol/L NA Normal 141 LAB L501.5600 3.5-5.1 mmol/L K Normal 4.3 LAB L501.5900 98-107 mmol/L High CL 111 LAB L501.6100 21.0-32.0 mmol/L Normal CO2 23.0 Performed By: #### L500.3600 #### [facility] [address] [place], [address] DISCHARGE SUMMARY Observed: 12/09/2017 Status: F Source: [place] 5:36 PM [facility] REPOSITORY [facility] Medical Records Department [address] [place] [address] Discharge Summary 12/09/17 0856 MR#: [id number] Acct: [id number] Name: ALYSSA SLADE Rep #: [id number] : 1965 52 From: Stanton Lantigua MD PCP: Clover Rascon MD Status: DIS IN Y Location: [facility] [id number] Discharge Date and Diagnosis Date of Admission: 12/05/17 Date of Discharge: 12/09/17 - Primary Discharge Diagnosis Active and Suspected Problems Pyelonephritis (Acute) - Secondary Discharge Diagnosis Chronic Problems Goiter (Chronic) Obesity (Chronic) Benign essential hypertension (Chronic) Hospital Course and Treatment Summary of Care Provided: The patient is a 52-year-old female with a history of recurrent kidney stones and hypothyroidism after thyroidectomy was admitted with a 1 day history of fever and chills,and bilateral flank tenderness, features suggestive of bilateral pyelonephritis. CT abdomen showed bilateral large renal calculi in both lower poles of the kidneys with largest on the right measure 1.4 cm in largest on the left measuring 1.1 cm. Bilateral Fatty stranding and edema. Mild bilateral hydronephrosis and hydroureter. Underdistended bladder with wall thickening. Urologist and academic tutor were consulted. Prior to admission, patient was treated with 3 days of Cipro and 5 days of Macrobid. Patient was seen and examined today. No complaint. No fever or renal angle pain. No fever General: Alert, Oriented x3, Cooperative HEENT: Atraumatic, PERRLA, EOMI, Normocephalic Neck: Supple, No JVD, Negative Carotid Bruits Lungs: Clear to auscultation, Normal air movement Cardiovascular: Regular rate, Regular Rhythm, Normal S1, Normal S2, No murmurs Abdomen: Bowel Sounds Present, Soft, Non Tender, Non-Distended, no renal angle tenderness/fullness. Extremities: No edema, Capillary Refill Less than 3 Seconds Skin: No rashes, No breakdown Musculoskeletal: No Tenderness to Palpation of Joints or Extremities Neurological: Cranial nerves II-XII grossly intact Psych/Mental Status: Normal Affect, Appropriate 1. Bilateral pyelonephritis * Today, no renal angle tenderness. CT abdomen there is suspicion of cystitis and bilateral pyelonephritis, therefore continue IV antibiotics even though urine culture shows mixed gram-positive organism * Ultrasound kidney shows mild left hydronephrosis. Right hydronephrosis resolved. * Discussed with urologist, Dr. Salas and advised remove Portillo catheter. * Blood cultures x2 are pending negative for about 48 hours. * IV ceftriaxone 1 g every 12. * tylenol for fever * Patient discharged on 3 more days of cefadroxil to complete a total of 7 days. 2. Acute kidney injury on CKD stage III most probably secondary to obstructive uropathy, ATN/pyelonephritis with high suspicion of AIN: CBC shows eosinophilia. Patient had Cipro. UA negative for isosthenuria. Discussed with the academic tutor, Dr. Berg. Advised prednisone 40 mg daily. UA for eosinophil ordered. As per urologist, there is no obstructive calculi but the stones are in the lower pole and is stuck to renal parenchyma. Ureters are not dilated. An acute kidney injury most probably secondary to ATN/pyelonephritis. Creatinine worsened from 2.71-3.49 and today improved to 2.87. Last dose of prednisone was given today. Patient had good urine output after removal of Portillo catheter. 3. Recurrent kidney stones * Has a long history of recurrent kidney stones. States she last passed stones about 2 years ago. * CT abdomen showed Bilateral large renal calculi in both lower poles of the kidneys * Urology consulted and rest as mentioned above. PTH 74. Albumin 2.4. 4. 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 Anemia: * Hb was 10.9 on admission, 9.6. * Iron profile is suggestive of anemia of chronic disease/CKD. 6.GERD: on PPI 7. GI prophylaxis: PPI 8. DVT prophylaxis: heparin Discussed with academic tutor. Patient is to follow-up with Dr. Berg with repeat renal lab panel on next Thursday. Discharge meds reconciliation done. Discharge follow-up instructions completed. Follow-up with the urologist, Dr. Salas in 2 weeks. Total time spent, exact 35 minutes on discharge meds reconciliation, examination, review of imaging and blood test and discussion with the patient on follow-up instructions. Discharge Activity: Return to Normal Activity Call your doctor if you observe: Fever of 101 or Higher, Shortness of breath, Uncontrolled pain Home Medications: Medications to take at Discharge Levothyroxine [Synthroid] 200 mcg PO DAILY 12/05/17 Omeprazole 40 mg PO DAILY 12/05/17 Bumetanide 0.5 mg PO DAILY PRN PRN #1 12/09/17 Cefadroxil [Duracef] 500 mg PO BID #6 cap 12/09/17 Etodolac [Lodine] 400 mg PO TID PRN PRN #0 12/09/17 Following Prescrptions Were Given to Patient: Cefadroxil [Duracef] 500 mg PO BID #6 cap Other Amb Orders: Renal Profile Time Frame: 12/14/17, Location: Laboratory Primary Care Physician: Clover Rascon MD [Primary Care Provider] - Please follow up with your Primary Care Physician in: in 2 weeks Please Follow Up With: Idalmis Berg DO When: in 2-4 weeks Medical Necessity - Tobacco Use Smoking Status: Former smoker Tobacco Use: Cigarettes Meaningful Use Info Meaningful Use Diagnoses (Choose all that apply): None applicable Code Visit Inpatient E AND M: 09820 Disch Hosp 12/09/17 1736 <Electronically signed by Stanton Lantigua MD> Date Stanton Lantigua MD Cosigner Signature (if applicable): Date CC: Clover Rascon MD; Stanton Lantigua MD Signed DISCHARGE INSTRUCTION Observed: 12/09/2017 Status: F Source: [place] 9:09 AM [facility] REPOSITORY [facility] Medical Records Department [address] [place] [address] Instructions for Home/Discharge Instructions 12/09/17 0853 MR#: [id number] Acct: [id number] Name: ALYSSA SLADE Rep #: [id number] : 1965 52 From: Stanton Lantigua MD PCP: Clover Rascon MD Status: ADM IN ADDENDUM by Stanton Lantigua MD on 12/09/17 at 0909 F/U Urologist, Dr. Salas in 2 weeks 12/09/17 0909 Date Stanton Lantigua MD cc: Idalmis Berg DO; Clover Rascon MD; Hany Salas MD * Signed - Discharge Diagnoses Current Active Problems: Current Active and Chronic Problems Pyelonephritis (Acute) You will use the following diet at home:: Cardiac Your food should be the consistency of: Regular Discharge Activity: Return to Normal Activity Call your doctor if you observe: Fever of 101 or Higher, Shortness of breath, Uncontrolled pain Allergies/Adverse Reactions: Allergies Penicillins [PCN] Allergy (Verified 12/05/17 13:43) Rash acetaminophen [From Percocet] Adverse Reaction (Verified 12/05/17 13:43) Vomiting oxycodone [From Percocet] Adverse Reaction (Verified 12/05/17 13:43) Vomiting Medications to take at Discharge Levothyroxine [Synthroid] 200 mcg PO DAILY 12/05/17 Omeprazole 40 mg PO DAILY 12/05/17 Bumetanide 0.5 mg PO DAILY PRN PRN #1 12/09/17 Cefadroxil [Duracef] 500 mg PO BID #6 cap 12/09/17 Etodolac [Lodine] 400 mg PO TID PRN PRN #0 12/09/17 The following prescriptions were given: Cefadroxil [Duracef] 500 mg PO BID #6 cap Primary Care Physician: Clover Rascon MD [Primary Care Provider] - Please follow up with your Primary Care Physician in: in 2 weeks Test Results: Test results from this visit will be discussed in further detail at your follow-up appointment, if applicable. Please Follow Up With: Idalmis Berg DO When: in 2-4 weeks 12/09/17 0856 <Electronically signed by Stanton Lantigua MD> Date Stanton Lantigua MD CC: Idalmis Berg DO; Clover Rascon MD; Hany Salas MD RENAL PROFILE Collected: 12/09/2017 Status: F Source: [place] 5:30 AM [facility] REPOSITORY TYPE CODE TESTS RESULT OUT OF RANGE REFERENCE UNITS LAB L501.0100 74-106 mg/dL Normal GLU 85 Result Comment: Please note revised GLUCOSE reference range effective 2017. LAB L501.1000 7-18 mg/dL High BUN 29 LAB L501.1100 0.55-1.02 mg/dL High CREAT,SERUM 2.87 Result Comment: The validity of the calculated GFR AND GFRAA in patients over 70 years has not been determined. Clinical correlation is essential. LAB L501.1110 >60 mL/min Low EST GFR 18 Result Comment: Non- GFR Calc LAB L501.1115 >60 mL/min Low EST GFR - AA 22 Result Comment: GFR Calc LAB L501.1255 ml/min Normal Estimated CRCL 20.98 LAB L501.1300 10-20 RATIO Normal BUN/CRE 10.1 LAB L501.1800 3.2-5. g/dL Low 0 ALB 2.7 LAB L501.2200 8.5-10 mg/dL Low .1 CA 8.4 LAB L501.2300 2.5-4. mg/dL Normal 9 PHOS 4.2 LAB L501.5300 136-14 mmol/L Normal 5 NA 143 LAB L501.5600 3.5-5. mmol/L Normal 1 K 4.4 LAB L501.5900 98-107 mmol/L High CL 112 LAB L501.6100 21.0-3 mmol/L Normal 2.0 CO2 22.0 Performed By: #### L500.3600 #### [facility] [address] [place], [address] RENAL PROFILE Collected: 12/08/2017 Status: F Source: [place] 5:37 AM [facility] REPOSITORY TYPE CODE TESTS RESULT OUT OF RANGE REFERENCE UNITS LAB L501.0100 74-106 mg/dL Normal GLU 106 Result Comment: Fasting Glucose result from 100 to 125 mg/dL suggests IMPAIRED HOMEOSTASIS per A.D.A. criteria. Please note revised GLUCOSE reference range effective 2017. LAB L501.1000 7-18 mg/dL High BUN 29 LAB L501.1100 0.55-1.02 mg/dL High CREAT,SERUM 3.30 Result Comment: The validity of the calculated GFR AND GFRAA in patients over 70 years has not been determined. Clinical correlation is essential. LAB L501.1110 >60 mL/min Low EST GFR 15 Result Comment: Non- GFR Calc LAB L501.1115 >60 mL/min Low EST GFR - AA 19 Result Comment: GFR Calc LAB L501.1255 ml/min Normal Estimated CRCL 18.24 LAB L501.1300 10-20 RATIO Low BUN/CRE 8.8 LAB L501.1800 3.2-5. g/dL Low 0 ALB 2.5 LAB L501.2200 8.5-10 mg/dL Low .1 CA 8.4 LAB L501.2300 2.5-4. mg/dL Normal 9 PHOS 3.9 LAB L501.5300 136-14 mmol/L Normal 5 NA 143 LAB L501.5600 3.5-5. mmol/L Normal 1 K 4.6 LAB L501.5900 98-107 mmol/L High CL 113 LAB L501.6100 21.0-3 mmol/L Normal 2.0 CO2 23.0 Performed By: #### L500.3600 #### [facility] [address] [place], [address] URINE Collected: 12/07/2017 Status: F Source: [place] 12:20 PM [facility] REPOSITORY TYPE CODE TESTS RESULT OUT OF RANGE REFERENCE UNITS LAB L3100.6600 . % Normal [place] 467463 33 Result Comment: <5% few or none seen Performed at: - [facility], [place], [place] [id number] Accordion Maker: Eliazar Aaron PhD, Phone: [phone] Performed By: #### L3100.6600 #### [facility] (refer to report for specific site) refer to report for address and phone number CONSULTATION Observed: 12/07/2017 Status: F Source: [place] 9:16 AM [facility] REPOSITORY [facility] Medical Records Department [address] [place] [address] Consultation 12/06/17 1418 MR#: [id number] Acct: [id number] Name: ALYSSA SLADE Rep #: [id number] : 1965 52 From: Idalmis Berg DO PCP: Clover Rascon MD Status: ADM IN Y Location: [facility] [id number] Consultation - Renal 12/06/17 PCP/ Referring MD: Requesting physician: Dr Karina CRABTREE Primary care physician: Clover Rascon MD Reason for Consultation:: acute renal failure on chronic - History of Present Illness History of Present Illness: The patient is a 52 year old F with a history of kidney stones admitted on 12/05 for bilateral flank pain with fever, chills past several days. She complained of urinary frequency, urgency and dysuria 2 weeks ago treated with cipro for 3 days followed by Macrobid for 5 days due to persistent symptoms. She has a history of staghorn calculus years ago when she was in college. She has a long-standing history of recurrent kidney stones, passed kidney stones spontaneously about 2 years ago. She also had several surgical procedures done by Dr. Talavera before he retired. She had ureteral stents and PNT placement years ago. Creatinine was 2.71 on admit increased to 3.0 today. Baseline creatinine appears to be at 1.6-2.0 in 2012 on review of [facility] records. She had blood work done by her PCP early this year and thinks her creatinine was at 2.0. She was started on iv rocephin with iv hydration during hospitalization. CT abdomen pelvis w/o contrast showed large renal calculi noted in both lower poles of the kidney with moderate right renal atrophy and bilateral perinephric fat stranding and edema.Mild bilateral hydronephrosis and hydroureter with no discrete evidence of stone in either ureter. She denies gross hematuria. She has a FH significant for stones in her mother, daughter and son. She has no history of kidney disease in the family. She is on bumex at home. She stopped using NSAIDs early this year. - Allergies Allergies: Allergies Penicillins [PCN] Allergy (Verified 12/05/17 13:43) Rash acetaminophen [From Percocet] Adverse Reaction (Verified 12/05/17 13:43) Vomiting oxycodone [From Percocet] Adverse Reaction (Verified 12/05/17 13:43) Vomiting - Current Medications Current Medications: Current Medications Acetaminophen (Tylenol) 650 mg PO Q6H PRN PRN PRN Reason: Non-cardiac pain (mod-severe) Heparin Sodium (Porcine) (Heparin Na) 5,000 unit SC Q8 [facility] Last Admin: 12/06/17 13:07 Dose: 5,000 unit Ceftriaxone Sodium (Rocephin) 1 gm in 50 mls @ 100 mls/hr IV Q12 [facility] Last Admin: 12/06/17 10:07 Dose: 100 mls/hr Sodium Chloride () 1,000 mls @ 150 mls/hr IV .Q6H40M [facility] Last Admin: 12/06/17 10:07 Dose: 150 mls/hr Levothyroxine Sodium (Synthroid) 200 mcg PO DAILY@0600 [facility] Last Admin: 12/06/17 05:44 Dose: 200 mcg Magnesium Hydroxide (Milk Of Magnesia) 30 ml PO DAILY PRN PRN PRN Reason: Constipation Last Admin: 12/06/17 13:51 Dose: 30 ml Morphine Sulfate () 2 - 4 mg IV Q4H PRN PRN PRN Reason: SEVERE PAIN (6-10/10) Last Admin: 12/06/17 00:09 Dose: 4 mg Morphine Sulfate () 2 - 4 mg IV Q4H PRN PRN PRN Reason: SEVERE PAIN (6-10/10) Ondansetron HCl (Zofran) 4 mg IV Q6H PRN PRN PRN Reason: NAUSEA/VOMITING Oxycodone HCl (Oxyir) 5 - 10 mg PO Q4H PRN PRN PRN Reason: SEVERE PAIN (6-10/10) Pantoprazole Sodium (Protonix) 40 mg PO DAILY [facility] Last Admin: 12/06/17 08:28 Dose: 40 mg Promethazine HCl (Phenergan) 12.5 mg IV Q4H PRN PRN PRN Reason: NAUSEA/VOMITING Sodium Chloride () 5 - 30 ml IV UD PRN PRN Reason: SALINE FLUSH Last Admin: 12/06/17 00:08 Dose: 10 ml - Past Medical History Past Medical History (Chronic Problems): Chronic Problems Goiter (Chronic) Obesity (Chronic) Benign essential hypertension (Chronic) - Past Surgical History Surgical History: cholecystectomy, - - thyroidectomy, surgery for kidney stones, ureteral stent, PNT years ago - Social History Smoking Status: Former smoker Alcohol: Occasional Drugs: None - Family History Paternal History Items: Diabetes, Hypertension Maternal History Items: - - kidney stones Review of Systems Constitutional: Reports: Chills, Fever. Denies: Anorexia, Weakness Cardiovascular: Denies: Chest Pain, Edema Respiratory: Denies: Cough, Shortness of Breath Gastrointestinal: Denies: Abdominal Pain, Constipation, Diarrhea, Nausea, Vomiting Genitourinary: Reports: Dysuria, Frequency, - - hx stones. Denies: Hematuria, Hesitancy, Incontinence Musculoskeletal: Reports: Back Pain - flank pain Skin: Denies: Rash Neurological: Denies: Balance problems Psychiatric: Denies: Anxiety, Depression Hematologic/ Lymphatic: Reports: Anemia. Denies: Hx of blood clot Patient Problems: Active and Suspected Problems Hydronephrosis (Acute) Kidney stones (Acute) Pyelonephritis (Acute) - Physical Exam General: Alert, Oriented x3, Cooperative, No apparent distress, - - morbidly obese HEENT: PERRLA, EOMI Oral: Dry Mucosa Neck: Supple Lungs: Clear to auscultation Cardiovascular: Regular rate Abdomen: Bowel Sounds Present, Soft, Non Tender, Non-Distended, Obese Extremities: No edema Skin: No rashes, - - tattoo right foot Musculoskeletal: No Muscle Wasting Neurological: Cranial nerves II-XII grossly intact Psych/Mental Status: Normal Affect, Appropriate, Alert and oriented to time, place, person, mood and affect Vital Signs Temp Pulse Resp BP Pulse Ox 98.2 F 81 18 106/46 L 96 12/06/17 13:45 12/06/17 13:45 12/06/17 13:45 12/06/17 13:45 12/06/17 13:45 Oxygen Delivery Method Room Air Weight: 139.2 kg Body Mass Index (BMI) 48.2 Intake and Output for Last 24 Hours Intake Total 7033 / 7033 Output Total 3050 / 3050 Balance 3983 / 3983 Laboratory Tests Past 24 Hrs WBC 7.6 WBC 5.5 RBC 3.47 L Hgb 9.6 L Clinical Impression(s) from Imaging Studies Abdomen/Pelvis CT 12/05/17 15:10 IMPRESSION: Large bilateral lower pole nephrolithiasis. Bilateral hydronephrosis and hydroureter. No stones seen in either ureter. Underdistended bladder however, wall thickening suggesting cystitis. Findings are suggestive of infection. Electronically Signed: Rich Strauss DO at 15:52 EDT Tel , Service support , Assessment/Plan All Active Problems Hydronephrosis (Acute) Kidney stones (Acute) Fever (Acute) Chills (Acute) Bilateral flank pain (Acute) Pyelonephritis (Acute) 1. Acute on CKD stage 3 due to obstructive nephropathy, pyelonephritis. baseline creatinine 1.6-2.0 now at 3.0 with bilateral hydroureter and hydronephrosis on CT abdomen. Currently nonoliguric. Will continue with iv fluids and antibx. May need nephrostomy tubes if creatinine continues to worsen. Included in differential for FLORIN is FLORIN from antibiotics +/- infection. 2. Hx frequent kidney stones, staghorn stone with UTI. Continue with IV antibiotics. Consider 24-hour urine for metabolic workup at a later date as an outpatient. Advised to follow a low-sodium diet. Family history significant for kidney stones. Evaluate for Cystine stones. Check uric acid and intact PTH. 3. Hypertension with stable blood pressures on Bumex with history of fluid retention. Hold bumex 4. History of goiter status post thyroidectomy 5. Morbid obesity 12/07/17 0916 <Electronically signed by Idalmis Berg DO> Date Idalmis Berg DO Cosigner Signature (if applicable): Date CC: Idalmis Berg DO; Clover Rascon MD; Hany Salas MD Signed KIDNEY AND BLADDER Observed: 12/07/2017 Status: F Source: BILLY 9:06 AM [facility] REPOSITORY [facility] Imaging Services [address] [place] [address] Kidney and Bladder MR#: [id number] Acct: [id number] Name: ALYSSA SLADE Rep #: [id number] : 1965 F 52 From: Jaime Bran MD PCP: Clover Rascon MD Status: ADM IN Study: Kidney and Bladder Date of Exam: 12/07/17 Exam# [id number] Ordering Dr: Idalmis Berg DO STUDY: RENAL ULTRASOUND - COMPLETE REASON FOR EXAM: Female, 52 years old. History of hydronephrosis and bilateral renal calculi. TECHNIQUE: Ultrasound evaluation of the kidneys was performed with real-time and static schultz-scale imaging. COMPARISON: Comparison is made with prior CT scan of abdomen and pelvis dated December 05, 2017. FINDINGS: RIGHT KIDNEY: Normal location of the right kidney, which is normal in size. The right kidney measures 14.7 cm x 6.0 cm x 7.4 cm. There is a normal cortex of the right kidney. The renal cortex measures 1.7 cm. There is no right renal mass or cyst. There is a 1.9 cm x 1.7 cm calculus in the lower pole. There is no right hydronephrosis. DISTAL RIGHT URETER: There is non-visualization of the distal right ureter. There is no demonstrated right ureterovesical junction calculus. There is no demonstrated right ureteral jet. LEFT KIDNEY: Normal location of the left kidney, which is normal in size. The left kidney measures 14.2 cm x 7.6 cm x 6.8 cm. There is a normal cortex of the left kidney. The renal cortex measures 2.3 cm. There is no left renal mass or cyst. No calculi are seen in the lower pole calyx. The larger measures 2.2 cm x 2.1 cm x 1.9 cm. There is mild hydronephrosis of the left kidney. DISTAL LEFT URETER: There is non-visualization of the distal left ureter. There is no demonstrated left ureterovesical junction calculus. There is no demonstrated left ureteral jet. BLADDER: A Portillo catheter is seen within the urinary bladder. US/Kidney and Bladder IMPRESSION: Bilateral intrarenal calculi. Mild degree of left hydronephrosis. Electronically Signed: Jaime Bran MD at 15:53 EDT Tel [phone], Service support , CC: Idalmis Berg DO; Clover Rascon MD Tool And Die Maker: Signed RENAL PROFILE Collected: 12/07/2017 Status: F Source: BILLY 6:10 AM [facility] REPOSITORY TYPE CODE TESTS RESULT OUT OF RANGE REFERENCE UNITS LAB L501.0100 74-106 mg/dL Normal GLU 94 Result Comment: Please note revised GLUCOSE reference range effective 2017. LAB L501.1000 7-18 mg/dL High BUN 30 LAB L501.1100 0.55-1.02 mg/dL High CREAT,SERUM 3.49 Result Comment: The validity of the calculated GFR AND GFRAA in patients over 70 years has not been determined. Clinical correlation is essential. LAB L501.1110 >60 mL/min Low EST GFR 15 Result Comment: Non- GFR Calc LAB L501.1115 >60 mL/min Low EST GFR - AA 18 Result Comment: GFR Calc LAB L501.1255 ml/min Normal Estimated CRCL 17.25 LAB L501.1300 10-20 RATIO Low BUN/CRE 8.6 LAB L501.1800 3.2-5. g/dL Low 0 ALB 2.4 LAB L501.2200 8.5-10 mg/dL Low .1 CA 7.9 LAB L501.2300 2.5-4. mg/dL Normal 9 PHOS 4.2 LAB L501.5300 136-14 mmol/L Normal 5 NA 143 LAB L501.5600 3.5-5. mmol/L Normal 1 K 4.5 LAB L501.5900 98-107 mmol/L High CL 113 LAB L501.6100 21.0-3 mmol/L Normal 2.0 CO2 21.0 Performed By: #### L500.3600, L501.1400 #### [facility] [address] [place], [address] URIC ACID Collected: 12/07/2017 Status: F Source: BILLY 6:10 AM [facility] REPOSITORY TYPE CODE TESTS RESULT OUT OF RANGE REFERENCE UNITS LAB L501.1400 2.6-6.0 mg/dL Normal URIC 4.3 Result Comment: The drugs N-Acetylcysteine and Metamizole may falsely depress this assay. Performed By: #### L500.3600, L501.1400 #### [facility] [address] [place], [address] PTHIN Collected: 12/07/2017 Status: F Source: BILLY 6:10 AM [facility] REPOSITORY TYPE CODE TESTS RESULT OUT OF RANGE REFERENCE UNITS LAB L509.1000 18.4-80.1 pg/mL Normal PTHIN 74.3 Performed By: #### L509.1000 #### [facility] [address] [place], [address] CONSULTATION Observed: 12/06/2017 Status: F Source: BILLY 7:54 AM [facility] REPOSITORY [facility] Medical Records Department [address] [place] [address] Consultation 12/06/17 0747 MR#: [id number] Acct: [id number] Name: CARONYOUSIFALYSSA Stephanie Rep #: [id number] : 1965 52 From: Hany Salas MD PCP: Clover Rascon MD Status: ADM IN Location: [facility] GD422-2 Problem List (1) Pyelonephritis Status: Acute Reason for Consult Date of Consultation: 12/06/17 Reason for Consultation: Pyelonephritis History of Present Illness: The patient is a 52 year old female who is known to me for prior staghorn calculus. In 2012 she had a 5 cm staghorn calculus that was removed percutaneously. At that time she had lower pole stones in both kidneys the stones are stuck in the parenchyma. On CT scan and comparing to 2013 stones have not changed. She is only had one infection in the last year and a half has not been having recurrent infections. However she developed pyelonephritis with fevers and chills and not feeling well and was admitted after failure to clear the infection with Cipro and Macrobid. Clinically she is stable but my concern is her creatinine is up to 3.08, recent baseline is reported to be a 1.8, in 2013 her creatinine is 1.2. She does have chronic renal insufficiency and I think she best served by seeing nephrology. She does not have any obstruction and therefore I am going to hold off on placing stents. She does not have any obstructing ureteral calculi she does have some mild dilation of the ureters but this is probably from pyelonephritis. Past Medical History Past Medical History (Chronic Problems): Chronic Problems Goiter (Chronic) Obesity (Chronic) Benign essential hypertension (Chronic) Allergies Penicillins [PCN] Allergy (Verified 12/05/17 13:43) Rash acetaminophen [From Percocet] Adverse Reaction (Verified 12/05/17 13:43) Vomiting oxycodone [From Percocet] Adverse Reaction (Verified 12/05/17 13:43) Vomiting Home Medications: Ambulatory Orders Medication Instructions Recorded Surgical History: cholecystectomy, - - thyroidectomy, surgery for kidney stones Psychiatric History: No pertinent psych hx CERTIFIED SCRUM MASTER History: No pertinent CERTIFIED SCRUM MASTER history Lives: With Family Smoking Status: Former smoker Tobacco Use: Cigarettes Alcohol: Occasional Drugs: None Review of Systems Constitutional: Reports: Chills, Fever HEENT: Denies: Head Aches, Sinus Congestion, Sinus Drainage Cardiovascular: Denies: Chest Pain, Palpitations Respiratory: Denies: Cough, Shortness of breath at rest, Sputum production Gastrointestinal: Denies: Abdominal Pain, Nausea, Vomiting Genitourinary: Reports: Dysuria Musculoskeletal: Denies: Joint Pain, Joint Tenderness Skin: Denies: Rash, Wounds Neurological: Denies: Numbness, Tingling, Focal weakness Psychiatric: Denies: Anxiety, Depression, Homicidal Ideations, Suicidal Ideations Hematologic/ Lymphatic: Denies: Easy Bruising, Easy Bleeding Physical Exam - Physical Exam Vital Signs Temp 98.3 F 12/06/17 07:19 Pulse 82 12/06/17 07:19 Resp 16 12/06/17 07:19 BP 97/52 L 12/06/17 07:19 Pulse Ox 96 12/06/17 07:19 Intake AND Output Intake Total 5042 / 5042 General: Alert, Oriented x3, Cooperative HEENT: Atraumatic Oral: Moist Mucosa Neck: Supple, No JVD Lungs: Normal air movement Cardiovascular: Regular rate, Regular Rhythm Abdomen: Soft, Obese Rectal: Exam deferred Psych/Mental Status: Normal Affect Laboratory Tests Past 24 Hrs WBC RBC Hgb Hct MCV MCH MCHC RDW RDW Differential Plt Count WBC 5.5 RBC 3.47 L Hgb 9.6 L Hct 30.0 L MCV 86.5 MCH 27.7 MCHC 32.0 RDW 15.1 H Assessment/Plan All Active Problems Fever (Acute) Chills (Acute) Bilateral flank pain (Acute) Pyelonephritis (Acute) 52-year-old female with a complicated history history of Staghorn calculus in the past required percutaneous removal, after the procedure she did failed to follow-up and keep appointments with me in the office. Presented to the hospital with probably pyelonephritis failed outpatient treatment. Cultures are pending. Her white blood count is really not that high for pyelonephritis. It be interesting to see what her cultures show out. She does have chronic renal sufficiency and a at this point has acute on chronic renal sufficiency because of the acute rise in creatinine is unclear could be for pyelonephritis could be from medications. I would recommend nephrology see the patient for further evaluation. For now I am not going to place any stents in her kidneys since she has no obstruction I think her creatinine probably will resolve with gentle hydration and time hopefully will return to her baseline. I am not sure if there is one episode of pyelonephritis is going to require removal of those stone fragments in both kidneys certainly their risk factors for getting more pyelonephritis. The stone fragments would be quite difficult to remove since there probably parenchymal stones and not clearly connected to the collecting system or probably an diverticular pockets in the lower pole of the kidneys. This could be accomplished if she gets more infections. At this point I am going to hold off on doing any intervention on the lower pole stone until her creatinine has returned to its baseline and her infection is completely clear. She can follow-up with nephrology. Call me with questions. 12/06/17 9184 <Electronically signed by Hany Salas MD> Date Hany Salas MD Cosigner Signature (if applicable): Date CC: Clover Rascon MD; Hany Salas MD Signed CBC W/DIFF, AUTOMATED Collected: 12/06/2017 Status: F Source: BILLY 5:03 AM [facility] REPOSITORY TYPE CODE TESTS RESULT OUT OF RANGE REFERENCE UNITS LAB L100.1000 4.4-11.0 K/mm3 Normal WBC 5.5 LAB L100.1200 4.2-5.4 M/mm3 Low RBC 3.47 LAB L100.1300 12.0-15.0 g/dl Low HGB 9.6 LAB L100.1400 37-47 % Low HCT 30.0 LAB L100.1500 81-99 fL Normal MCV 86.5 LAB L100.1600 27.0-32.0 pg Normal MCH 27.7 LAB L100.1700 32-36 g/gl Normal MCHC 32.0 LAB L100.1810 11.6-14.6 % High RDW CV 15.1 LAB L100.1820 35.1-43.9 fl High RDW SD 45.7 LAB L100.1900 150-450 K/mm3 Normal PLT 180 LAB L100.2000 6.2-12.0 fl Normal MPV 10.6 LAB L100.2100 47-70 % Normal NEUT% 57.7 LAB L100.2200 19-41 % Low LY% 18.9 LAB L100.2300 0-10 % High MONO% 12.0 LAB L100.2400 0-5 % High EO% 10.7 LAB L100.2500 0-1 % Normal BASO% 0.5 LAB L100.2550 0.0-0.9 % Normal IM GRAN % 0.200 Result Comment: IG% - Immature Granulocytes (promyelocytes, myelocytes and metamyelocytes) > 1% indicates that a LEFT SHIFT is Present. LAB L100.2620 2.0-7.7 X10 3/uL Normal Absolute Neut 3.2 LAB L100.2720 0.83-4.51 X10 3/ul Normal Absolute Lymph 1.04 Performed By: #### L100.0100 #### [facility] [address] [place], [address] BASIC METABOLIC Collected: 12/06/2017 Status: F Source: [place] PROFILE (BMP) 5:03 AM [facility] REPOSITORY TYPE CODE TESTS RESULT OUT OF RANGE REFERENCE UNITS LAB L501.0100 74-106 mg/dL Normal GLU 106 Result Comment: Fasting Glucose result from 100 to 125 mg/dL suggests IMPAIRED HOMEOSTASIS per A.D.A. criteria. Please note revised GLUCOSE reference range effective 2017. LAB L501.1000 7-18 mg/dL High BUN 31 LAB L501.1100 0.55-1.02 mg/dL High CREAT,SERUM 3.08 Result Comment: The validity of the calculated GFR AND GFRAA in patients over 70 years has not been determined. Clinical correlation is essential. LAB L501.1110 >60 mL/min Low EST GFR 17 Result Comment: Non- GFR Calc LAB L501.1115 >60 mL/min Low EST GFR - AA 20 Result Comment: GFR Calc LAB L501.1255 ml/min Normal Estimated CRCL 19.55 LAB L501.1300 10-20 RATIO Normal BUN/CRE 10.1 LAB L501.2200 8.5-10 mg/dL Low .1 CA 8.1 LAB L501.5300 136-14 mmol/L Normal 5 NA 140 LAB L501.5600 3.5-5. mmol/L Normal 1 K 4.1 LAB L501.5900 98-107 mmol/L High CL 109 LAB L501.6100 21.0-3 mmol/L Normal 2.0 CO2 21.0 LAB L501.6200 5-15 Normal GAP 10 Performed By: #### L500.2500 #### [facility] [address] [place], [address] IRON+IRON BINDING Collected: 12/06/2017 Status: F Source: BILLY CAPACITY 5:03 AM [facility] REPOSITORY TYPE CODE TESTS RESULT OUT OF RANGE REFERENCE UNITS LAB L503.6075 250-450 ug/dL TIBC Normal 285 LAB L503.6150 50-170 ug/dL IRON Normal 51 LAB L503.6250 15.0-55.0 % IRON Normal SATURATION 17.9 Performed By: #### L503.6030, L503.6550 #### [facility] [address] [place], [address] FERRITIN Collected: 12/06/2017 Status: F Source: [place] 5:03 AM [facility] REPOSITORY TYPE CODE TESTS RESULT OUT OF RANGE REFERENCE UNITS LAB L503.6550 8-252 ng/mL Normal FERRITIN 60 Performed By: #### L503.6030, L503.6550 #### [facility] [address] [place], [address] EMERGENCY DEPARTMENT Observed: 12/05/2017 Status: F Source: [place] SUMMARY 5:31 PM [facility] REPOSITORY [facility] Medical Records Department [address] [facility] [place] [address] Emergency Department Summary 12/05/17 1512 MR#: [id number] Acct: [id number] Name: ALYSSA SLADE Rep #: [id number] : 1965 52 From: Elva Jimenez MD PCP: Clover Rascon MD Status: ADM IN - ER Visit Summary Date of Service: 12/05/17 Chief Complaint: Urinary symptoms History of Present Illness: The patient is a 52 F who presents for 2 weeks of urinary symptoms, including dysuria, frequency and urgency. Patient has had intermittent symptoms with bilateral back pain, and has completed a course of Cipro and Macrobid without any improvement. For the last 2 days she has been having chills and urinary frequency. Today she is having nausea and bilateral flank pain radiating around into the abdomen. She has a prior history of kidney stones. She denies any chest pain or shortness of breath. No vomiting or diarrhea. Physical Examination: Vital signs: afebrile, hemodynamically stable, no hypoxia on room air General: well nourished, well developed, in no distress Skin: warm, dry, no rash, no pallor HEENT: normocephalic and atraumatic; PERRL, EOMI, moist mucous membranes Cardiovascular: Tachycardic rate and regular rhythm without murmurs, no peripheral edema, 2+ pulses all distal extremities Respiratory: No increased work of breathing, lungs are clear to auscultation bilaterally, no rales, rhonchi or wheezing Abdominal: Abdomen is soft, mildly tender with normoactive bowel sounds, no guarding or rebound, no masses, positive right-sided CVA tenderness MSK: Moves all extremities, no deformities, normal strength Neuro: Awake and alert, oriented 4. No facial droop, sensation and motor function intact and symmetric Test Results: Abnormal Lab Results WBC 7.6 RBC 3.94 L Hgb 10.9 L WBC RBC Hgb Clinical Impression(s) from Imaging Studies Abdomen/Pelvis CT 12/05/17 15:10 IMPRESSION: Large bilateral lower pole nephrolithiasis. Bilateral hydronephrosis and hydroureter. No stones seen in either ureter. Underdistended bladder however, wall thickening suggesting cystitis. Findings are suggestive of infection. Electronically Signed: Rich Strauss DO at 15:52 EDT Tel , Service support , Medications Given Discontinued Medications Ceftriaxone Sodium (Rocephin) 1 gm in 50 mls @ 100 mls/hr IV X1 ONE Stop: 12/05/17 16:50 Last Admin: 12/05/17 16:34 Dose: 100 mls/hr Ketorolac Tromethamine (Toradol) 15 mg IV X1 ONE Stop: 12/05/17 15:11 Last Admin: 12/05/17 15:18 Dose: 15 mg Ondansetron HCl (Zofran) 4 mg IV X1 ONE Stop: 12/05/17 15:11 Last Admin: 12/05/17 15:18 Dose: 4 mg Emergency Department Course and Treatment: Patient presents with symptoms concerning for possible pyelonephritis. Urinalysis was positive for infection. Patient had no leukocytosis. Lactate was normal. Creatinine was 2.7, which is significantly elevated from patient's last measurement, however she has had remote creatinine elevation like this in the past. No hepatic derangements. Blood cultures and urine cultures pending. CT flank was performed to evaluate for any possible obstructing stones. It showed findings consistent with pyelonephritis and acute cystitis. Because patient has already been on a course of ciprofloxacin outpatient as well as Macrobid, she is failed outpatient treatment. She was started on Rocephin. Patient discussed with for admission for treatment of pyelonephritis, acute on chronic renal insufficiency, and failed outpatient treatment. Treatment Plan: [] Disposition: [] Impression: pyelonephritis, acute on chronic renal insufficiency failed outpatient treatment This note was generated with [employer] dictation software. It may contain incorrect words, spelling, and punctuation that were not noted in review of the chart prior to signing ED Disposition - Plan for ED Patient: Disposition: [facility] Chief Complaint: Complaint What to do if you have Problems For any increased pain, shortness of breath, bleeding, nausea or vomiting, chest pain, or any unexpected problems, contact your Primary Care Provider. Call [facility] ([phone]) or report to the closest Emergency Room. Call 911 if necessary. 12/05/17 5191 <Electronically signed by Elva Jimenez MD> Date Elva Jimenez MD Cosigner Signature (If Indicated): Date CC: Clover Rascon MD HISTORY AND PHYSICAL Observed: 12/05/2017 Status: F Source: [place] EXAM 5:09 PM [facility] REPOSITORY [facility] Medical Records Department [address] [place] [address] History and Physical 12/05/17 1627 MR#: [id number] Acct: [id number] Name: ALYSSA SLADE Rep #: [id number] : 1965 52 From: Jazmine Collisn MD PCP: Clover Rascon MD Status: ADM IN Location: 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 She started having symptoms of frequency of urination and dysuria 1 week ago was initially prescribed a 3-day course of ciprofloxacin by her PCP. However this is not work and so she was given another 5-day course of Macrobid but symptoms still persisted. One day ago she started experiencing fever and chills with Reiger's and had bilateral flank pain which gradually worsened. She has a long-standing history of recurrent kidney stools and last passed kidney stones about 2 years ago. She is also had several surgical procedures done by Dr. Talavera before he retired. She denied any shortness of breath, abdominal pain, chest pain, palpitations, diarrhea or vomiting. 12 point review of systems was otherwise negative. Vitals in the ED was significant for temperature of 99.7 Fahrenheit and BMP was significant for creatinine of 2.71 with baseline being around 2. CBC showed no leukocytosis and showed anemia with hemoglobin of 10.9. CT abdomen pelvis showed large renal calculi noted in both lower poles of the kidney with moderate right renal atrophy and bilateral perinephric fat stranding and edema. Also had mild bilateral hydronephrosis and hydroureter with no discrete evidence of stone in either ureter. She had under distended bladder with wall thickening and largest on the right measuring 1.4 cm. The largest on the left measured 1.1 cm. She was started on IV ceftriaxone in the ED and she has been admitted to be managed for pyelonephritis and FLORIN on CKD. [] Past Medical History Past Medical History (Chronic Problems): Chronic Problems Goiter (Chronic) Obesity (Chronic) Benign essential hypertension (Chronic) Allergies Penicillins [PCN] Allergy (Verified 12/05/17 13:43) Rash acetaminophen [From Percocet] Adverse Reaction (Verified 12/05/17 13:43) Vomiting oxycodone [From Percocet] Adverse Reaction (Verified 12/05/17 13:43) Vomiting Home Medications: Ambulatory Orders Medication Instructions Recorded Bumetanide 0.5 mg PO DAILY 12/05/17 Levothyroxine [Synthroid] 200 mcg PO DAILY 12/05/17 Omeprazole 40 mg PO DAILY 12/05/17 Surgical History: cholecystectomy, - - thyroidectomy, surgery for kidney stones Lives: With Family Smoking Status: Former smoker Alcohol: Occasional Drugs: None Review of Systems Constitutional: Reports: Chills, Fever, Malaise. Denies: Anorexia, Weight Change HEENT: Denies: Head Aches, Sinus Congestion, Sinus Drainage Cardiovascular: Denies: Chest Pain, Chest Pressure, Chest Tightness, Heaviness, Light Headedness, Palpitations Respiratory: Denies: Cough, Shortness of breath at rest, Sputum production Gastrointestinal: Reports: Nausea, - - bilateral costophrenic angle tenderness, worse on the left than right. Denies: Abdominal Pain, Diarrhea, Melena, Vomiting Genitourinary: Reports: Dysuria, Frequency. Denies: Incontinence, Nocturia, Urgency Musculoskeletal: Denies: Joint Pain, Joint Tenderness Skin: Denies: Rash, Wounds Neurological: Denies: Numbness, Tingling, Focal weakness Psychiatric: Denies: Anxiety, Depression, Homicidal Ideations, Suicidal Ideations Endocrine: Reports: - - history of thyroid mass and anterior mediastinal mass s/p thyroidectomy Hematologic/ Lymphatic: Denies: Easy Bruising, Easy Bleeding VTE Information - Inpt Only VTE Present on Admission: No VTE Mechan Device Prophylaxis: None VTE Pharm Prophylaxis ordered?: Yes - Physical Exam General: Alert, Oriented x3, Cooperative HEENT: Atraumatic, PERRLA, EOMI, Normocephalic Oral: Moist Mucosa Neck: Supple, No JVD, Negative Carotid Bruits Lungs: Clear to auscultation, Normal air movement, No rhonchi, No wheeze, No rales Cardiovascular: Regular rate, Regular Rhythm, Normal S1, Normal S2, No murmurs Abdomen: Bowel Sounds Present, Soft, Non Tender, Non-Distended, No Hepato-splenomegaly, Obese, - - bilateral costophrenic angle tenderness Extremities: No clubbing, No cyanosis, No edema, Capillary Refill Less than 3 Seconds Skin: No rashes, No breakdown Musculoskeletal: No Tenderness to Palpation of Joints or Extremities Lymphatic: No Cervical, Supraclavicular, or Inguinal Adenopathy Neurological: Cranial nerves II-XII grossly intact, Neuro grossly intact, Motor Exam 5/5 strength throughout Psych/Mental Status: Normal Affect, Appropriate, Alert and oriented to time, place, person, mood and affect Vital Signs Temp Pulse Resp BP Pulse Ox 99.7 F H 108 H 18 165/96 H 100 12/05/17 13:44 12/05/17 13:44 12/05/17 13:44 12/05/17 13:44 12/05/17 13:44 Oxygen Delivery Method Room Air Weight: 306 lb 14.135 oz Body Mass Index (BMI) 48.0 Laboratory Tests Past 24 Hrs WBC 7.6 RBC 3.94 L Hgb 10.9 L WBC RBC Hgb Hct Diagnostic Data Abdomen/Pelvis CT 12/05/17 15:10 IMPRESSION: Large bilateral lower pole nephrolithiasis. Bilateral hydronephrosis and hydroureter. No stones seen in either ureter. Underdistended bladder however, wall thickening suggesting cystitis. Findings are suggestive of infection. Electronically Signed: Rich Strauss DO at 15:52 EDT Tel , Service support , Assessment/Plan All Active Problems Fever (Acute) Chills (Acute) Bilateral flank pain (Acute) 52-year-old female with a history of recurrent kidney stones and hypothyroidism after thyroidectomy presents with a 1 day history of fever and chills,and bilateral flank tenderness. after being unsuccessfully treated for UTI symptoms over the past week. 1. Bilateral pyelonephritis * fever and chills of 1 day * has bilateral costophrenic angle tenderness * CT abdomen: Bilateral large renal calculi in both lower poles of the kidneys with largest on the right measure 1.4 cm in largest on the left measuring 1.1 cm. Bilateral Fatty stranding and edema. Mild bilateral hydronephrosis and hydroureter. Underdistended bladder with wall thickening. * UA: wbc of 25-50, urine occult blood of 150, no bacteria seen. * Admit to MedSurg floor * Hydrated with IV fluids normal saline at 150 cc/h. * Blood and urine cultures ordered. * Continue IV ceftriaxone 1 g every 12 * Tylenol for fever * Urology consult, to have large bilateral kidney stones. Will benefit from shockwave lithotripsy as these stones wont be able to pass on their own due to size and location. * counselled to drink lots of fluid; 3L every day * 2. FLORIN on CKD likely due to dehydration from nausea and decreased intake * Cr is 2.71; baseline is 1.8 * will hydrate with IVF NS 150cc/hr and monitor urine output * check urine urea and urine Cr to assess FeUrea; on bumetanide so wont check FeNa * 3. HYpothyroidism * s/p thyroidectomy anterior mediastinal mass which turned out to be thyroid * on synthroid 175mcg; will continue * 4.GERD: on PPI 5. GI prophylaxis: PPI 6. DVT prophylaxis: heparin Code status: full code. * Patient, and daughter counselled about different types of code status,and about differences between full code, DNRCC and DNRCCA. Patient elects to be full code. total face to face time 16 mins. * Code Visit Inpatient E AND M: 23427 Subs Hosp L3 Procedures: 32073 Advncd Care Plan 30 Min 12/05/17 1709 <Electronically signed by Jazmine Collins MD> Date Jazmine Collins MD Cosigner Signature: Date (if applicable) CC: Clover Rascon MD; Jazmine Collins MD Signed Observed: 12/05/2017 Status: F Source: BILLY CULTURE, BLOOD (WB) 3:40 PM [facility] REPOSITORY BC No growth in 5 days. Performed By: #### M200.1000 #### [facility] [address] [place], [place], [address] ABDOMEN/PELVIS WITHOUT Observed: 12/05/2017 Status: F Source: BILLY CONT 3:11 PM [facility] REPOSITORY [facility] Imaging Services [address] [place] [address] Abdomen/Pelvis without Cont MR#: [id number] Acct: [id number] Name: ALYSSA SLADE Rep #: [id number] : 1965 F 52 From: Rich Strauss DO PCP: Clover Rascon MD Status: REG ER Study: Abdomen/Pelvis without Cont Date of Exam: 12/05/17 Exam# [id number] Ordering Dr: Elva Jimenez MD STUDY: CT ABDOMEN AND PELVIS WITHOUT CONTRAST REASON FOR EXAM: Female, 52 years old. Bilateral flank pain RADIATION DOSAGE (If Supplied By Facility): CTDIvol = ( 32.87 ) mGy, DLP = ( 1847.12 ) mGycm TECHNIQUE: Transaxial images were obtained from the dome of the diaphragm to the symphysis pubis without oral contrast, and without intravenous contrast. Sagittal and coronal images were reconstructed. Individualized dose optimization techniques were used for this CT. COMPARISON: None. FINDINGS: The visualized lung bases are unremarkable. The visualized portions of the heart are within normal limits. Normal liver. There are surgical clips in the gallbladder fossa consistent with a prior cholecystectomy. Normal spleen. Normal pancreas. Normal bilateral adrenal glands. Large renal calculi noted in both lower poles of the kidneys. Moderate right renal atrophy. Bilateral perinephric fat stranding and edema. Mild bilateral hydronephrosis and hydroureter. No discrete evidence of stone in either ureter. Underdistended bladder with wall thickening. Cystitis with bilateral pyelonephritis cannot be excluded. Largest stone on the right measuring 1.4 cm and largest on the left measuring 1.1 cm. Normal visualized stomach. Normal small intestine. Normal colon. The appendix is visualized and appears normal. Normal abdominal aorta. Normal inferior vena cava. Normal retroperitoneum. Unremarkable uterus Normal abdominal wall. Normal osseous structures. CT/Abdomen/Pelvis without Cont IMPRESSION: Large bilateral lower pole nephrolithiasis. Bilateral hydronephrosis and hydroureter. No stones seen in either ureter. Underdistended bladder however, wall thickening suggesting cystitis. Findings are suggestive of infection. Electronically Signed: Rich Strauss DO at 15:52 EDT Tel , Service support , CC: Clover Rascon MD; Elva Jimenez MD Tool And Die Maker: Signed BASIC METABOLIC Collected: 12/05/2017 Status: F Source: STERLING PROFILE (BMP) 2:25 PM [facility] REPOSITORY TYPE CODE TESTS RESULT OUT OF RANGE REFERENCE UNITS LAB L501.0100 74-106 mg/dL Normal GLU 100 Result Comment: Fasting Glucose result from 100 to 125 mg/dL suggests IMPAIRED HOMEOSTASIS per A.D.A. criteria. Please note revised GLUCOSE reference range effective 2017. LAB L501.1000 7-18 mg/dL High BUN 29 LAB L501.1100 0.55-1.02 mg/dL High CREAT,SERUM 2.71 Result Comment: The validity of the calculated GFR AND GFRAA in patients over 70 years has not been determined. Clinical correlation is essential. LAB L501.1110 >60 mL/min Low EST GFR 19 Result Comment: Non- GFR Calc LAB L501.1115 >60 mL/min Low EST GFR - AA 24 Result Comment: GFR Calc LAB L501.1255 ml/min Normal Estimated CRCL 23.08 LAB L501.1300 10-20 RATIO Normal BUN/CRE 10.7 LAB L501.2200 8.5-10 mg/dL Normal .1 CA 8.5 LAB L501.5300 136-14 mmol/L Normal 5 NA 140 LAB L501.5600 3.5-5. mmol/L Normal 1 K 3.9 LAB L501.5900 98-107 mmol/L High CL 109 LAB L501.6100 21.0-3 mmol/L Normal 2.0 CO2 22.0 LAB L501.6200 5-15 Normal GAP 9 Performed By: #### L500.2500 #### [facility] [address] [place], [place], [address] CBC W/DIFF, AUTOMATED Collected: 12/05/2017 Status: F Source: STERLING 2:25 PM [facility] REPOSITORY TYPE CODE TESTS RESULT OUT OF RANGE REFERENCE UNITS LAB L100.1000 4.4-11.0 K/mm3 Normal WBC 7.6 LAB L100.1200 4.2-5.4 M/mm3 Low RBC 3.94 LAB L100.1300 12.0-15.0 g/dl Low HGB 10.9 LAB L100.1400 37-47 % Low HCT 33.5 LAB L100.1500 81-99 fL Normal MCV 85.0 LAB L100.1600 27.0-32.0 pg Normal MCH 27.7 LAB L100.1700 32-36 g/gl Normal MCHC 32.5 LAB L100.1810 11.6-14.6 % High RDW CV 14.9 LAB L100.1820 35.1-43.9 fl High RDW SD 45.3 LAB L100.1900 150-450 K/mm3 Normal PLT 202 LAB L100.2000 6.2-12.0 fl Normal MPV 10.8 LAB L100.2100 47-70 % High NEUT% 73.6 LAB L100.2200 19-41 % Low LY% 8.3 LAB L100.2300 0-10 % High MONO% 10.3 LAB L100.2400 0-5 % High EO% 7.0 LAB L100.2500 0-1 % Normal BASO% 0.5 LAB L100.2550 0.0-0.9 % Normal IM GRAN % 0.300 Result Comment: IG% - Immature Granulocytes (promyelocytes, myelocytes and metamyelocytes) > 1% indicates that a LEFT SHIFT is Present. LAB L100.2620 2.0-7.7 X10 3/uL Normal Absolute Neut 5.6 LAB L100.2720 0.83-4.51 X10 3/ul Low Absolute Lymph 0.63 Performed By: #### L100.0100 #### [facility] [address] [place], [place], [id number] LACTIC ACID Collected: 12/05/2017 Status: F Source: STERLING 2:25 PM [facility] REPOSITORY Order Comment: Yes/No query for Sepsis Lactate Rule Y TYPE CODE TESTS RESULT OUT OF RANGE REFERENCE UNITS LAB L503.6005 0.4-2.0 mmol/L Normal LACTIC ACID 0.9 Performed By: #### L503.6005 #### [facility] [address] [place], [place], [address] Observed: 12/05/2017 Status: F Source: BILLY CULTURE, BLOOD (WB) 2:25 PM [facility] REPOSITORY BC No growth in 5 days. Performed By: #### M200.1000 #### [facility] [address] [place], [place], [id number] URINALYSIS, COMPLETE Collected: 12/05/2017 Status: F Source: BILLY 2:05 PM [facility] REPOSITORY Order Comment: Order Date: 12/05/17 How was Urine Obtained? CLEAN CATCH TYPE CODE TESTS RESULT OUT OF RANGE REFERENCE UNITS LAB L400.3000 Yellow COLOR Normal Yellow LAB L400.3050 Clear Normal CLARITY Sl. Cloudy LAB L400.3200 Normal mg/dl Normal GLUCOSE, UR Normal LAB L400.3300 Negative mg/dL Normal BILIRUBIN URINE Negative LAB L400.3400 Negative mg/dl Normal KETONE UR Negative LAB L400.3465 1.002-1.030 Normal SP.GR. DIPSTX 1.005 LAB L400.3550 5.0 - 8.0 pH UR Normal 7.0 LAB L400.3600 Negative mg/dl High PROT DIPSTX 100 LAB L400.3700 Normal mg/dl Normal UROBILI Normal LAB L400.3750 Negative Normal NITRITE UR Negative LAB L400.3780 Negative /ul High OCCULT BLOOD-UR 150 LAB L400.3800 Negative /ul High LEUK ESTERASE 500 LAB L400.4050 0-5 /hpf WBC Normal 25-50 SEEN LAB L400.4100 0-5 /hpf 0 Normal RBC-UA SEEN LAB L400.4150 5-10 /hpf SQUAM 0 Normal EPI SEEN LAB L400.4300 None Seen /hpf 0 Normal BACTERIA SEEN LAB L400.4350 <or=2+ /hpf 0 Normal MUCUS, URINE SEEN Performed By: #### L400.0001 #### [facility] [address] [place], [place], [id number] CREATININE, URINE Collected: 12/05/2017 Status: F Source: BILLY 2:05 PM [facility] REPOSITORY TYPE CODE TESTS RESULT OUT OF RANGE REFERENCE UNITS LAB L502.0300 NO RANGE EST. mg/dL Normal URINE 30.00 CREAT Performed By: #### L502.0300 #### [facility] [address] [place], [address] UREA NITROGEN, URINE Collected: 12/05/2017 Status: F Source: BILLY 2:05 PM [facility] REPOSITORY TYPE CODE TESTS RESULT OUT OF RANGE REFERENCE UNITS LAB L502.0715 NO RANGE EST. mg/dL Normal URINE 190 UREA Performed By: #### L502.0715 #### [facility] [address] [place], [address] Observed: 12/05/2017 Status: F Source: BILLY CULTURE, URINE 2:05 PM [facility] REPOSITORY Urine Culture ORGANISM 1: Mixed Gram Positive Organisms [place] Count 1000-10,000 MIX CULTURE Mixed contaminants. Submit a new specimen if indicated. Performed By: #### M100.0650 #### [facility] [address] [place], [address] XR KNEE COMPLETE LEFT Observed: 05/12/2017 Status: F Source: SHINTO 10:06 AM [facility] REPOSITORY Exam Date/Time: 05/12/2017 10:20 EST Reason for Exam: bilat knee pain Report EXAM: XR KNEE COMPLETE RIGHT, XR KNEE COMPLETE LEFT REASON FOR EXAM: Bilat knee pain. TECHNIQUE: Erect AP, lateral, and both oblique views of the right and of the left knee. COMPARISON: None. FINDINGS: No fracture or dislocation is seen. There is bilateral tricompartmental degenerative joint disease finding with joint space narrowing, periarticular spurring, and mild sclerosis. This is most notable on the left involving the medial and patellofemoral articulation. This is also prominent involving the right medial and patellofemoral articulations. No prominent joint effusion or joint calcifications are seen on either side. IMPRESSION: Bilateral tricompartmental degenerative joint disease finding being most notable at the medial and patellofemoral compartments and greater on the left than the right. FINAL REPORT Dictated: 05/12/2017 3:01 pm Jhonatan Nath DO Signed (Electronic Signature): 05/12/2017 3:01 pm Signed by: Jhonatan Nath DO Technologist: ROSANNA XR KNEE COMPLETE Observed: 05/12/2017 Status: F Source: SHINTO RIGHT 10:06 AM [facility] REPOSITORY Exam Date/Time: 05/12/2017 10:20 EST Reason for Exam: bilat knee pain Report EXAM: XR KNEE COMPLETE RIGHT, XR KNEE COMPLETE LEFT REASON FOR EXAM: Bilat knee pain. TECHNIQUE: Erect AP, lateral, and both oblique views of the right and of the left knee. COMPARISON: None. FINDINGS: No fracture or dislocation is seen. There is bilateral tricompartmental degenerative joint disease finding with joint space narrowing, periarticular spurring, and mild sclerosis. This is most notable on the left involving the medial and patellofemoral articulation. This is also prominent involving the right medial and patellofemoral articulations. No prominent joint effusion or joint calcifications are seen on either side. IMPRESSION: Bilateral tricompartmental degenerative joint disease finding being most notable at the medial and patellofemoral compartments and greater on the left than the right. FINAL REPORT Dictated: 05/12/2017 3:01 pm Jhonatan Nath DO Signed (Electronic Signature): 05/12/2017 3:01 pm Signed by: Jhonatan Nath DO Technologist: HLR ALLERGIES ALLERGIES DATE TYPE / CODE NAME / CODE REACTION SEVERITY SOURCE 12/05/2017 Drug Penicillins/ [id number] 32227(SNOMED XNORM) Repository CT) 12/05/2017 Drug oxycodone/F0 Vomiting Unknown [facility] Allergy/4160 [id number](RXN Hospital 65714(SNOMED ORM) Repository CT) 12/05/2017 Drug acetaminophe Vomiting Unknown [facility] Allergy/4160 n/[id number] Hospital [facility](SNOMED (RXNORM) Repository CT) ENCOUNTERS ENCOUNTERS ADMIT/DISCHARGE ACCOUNT ADMITTING ENCOUNTER LOCATION SOURCE NUMBER CLASS 02/03/2018 [id number] Ambulatory [facility] ing:LAB Repository 12/14/2017 [id number] Ambulatory [facility] ing:LAB Repository 12/05/2017/12/10/19 [id number] Jazmine Collins Inpatient Billy Billy 18 Tala Encounter [facility] ing:GA6Rxqn: Repository NR682Ahg: 1 12/05/2017 [id number] Koram, Jazmine Ambulatory [facility]:B Billy Edgar [facility] Repository 12/05/2017 [id number] Koram, Jazmine Ambulatory BMSBuilding:Lynsey Edgar [facility] Repository 12/05/2017 [id number] Koram, Jazmine Ambulatory [facility]MSBuilding:B Billy Edgar [facility] Repository 12/05/2017 [id number] Koram, Jazmine Ambulatory [facility]MSBuilding:B Billy Edgar [facility] Repository 12/05/2017 [id number] Koram, Jazmine Ambulatory BMSBuilding:B Billy Edgar [facility] Repository 05/12/2017/05/13/19 [id number] [place], Ambulatory [address] [facility] Repository PAYERS PAYERS ENCOUNTER GUARANTOR PAYER SUBSCRIBER SOURCE 02/03/2018 ALYSSA Brown Primary ALYSSA K Billy [id number] N Insurance:MEDICAL ACHAMIREDOB: [facility] [id number], Number: [place]ository [place] [address]Rds: [id number] Date:8425-00-99TC [address] () [address], [place] [address]OC: 02/03/2018 Secondary NOT GIVENUNK [place] Insurance:SELF PAY [facility] Number: Effective Repository Date:2018-02-03 12/14/2017 ALYSSA Brown Primary ALYSSA Brown [place] [id number] N Insurance:MEDICAL ACHAMIREDOB: [facility] [id number], Number: [place] [address]Yve: [id number] Date:5914-55-74VZ [address]OX (ZD) [address], [place] [address]WG: 12/14/2017 Secondary NOT GIVENUNK Billy Insurance:SELF PAY [facility] Number: Effective Repository Date:2017-12-14 12/05/2017 ALYSSA K Primary ALYSSA K [place] [id number] N Insurance:MEDICAL ACHAMIREDOB: [facility] [id number] [facility], Number: Repository [place] [address]Kjt: [id number] Date:3204-45-18RQ [address] (HP) [address], [place] [address]UW: 12/05/2017 Secondary NOT GIVENUNK Billy Insurance:SELF PAY [facility] Number: Effective Repository Date:2017-12-05 12/05/2017 ALYSSA K Primary ALYSSA K Billy [id number] N Insurance:AETNAPolicy ACHAMIREDOB: [facility] Number: [id number] [facility], [id number] Repository [place] [address]Uog: Date:3528-02-40EY [address] KIM () [address]JG: 12/05/2017 Secondary NOT GIVENUNK [place] Insurance:SELF PAY [facility] Number: Effective Repository Date:2017-12-05 12/05/2017 ALYSSA K Primary ALYSSA K [place] [id number] N Insurance:AETNAPolicy ACHAMIREDOB: [facility] Number: [id number] [facility], [id number] Repository [place] [address]Dea: Date:9710-92-78SZ [address] [place] [address] KIRILL ALVARADO () [address]TN: 12/05/2017 Secondary NOT GIVENUNK Billy Insurance:SELF PAY [facility] Number: Effective Repository Date:2017-12-05 12/05/2017 ALYSSA K Primary ALYSSA K Billy [id number] N Insurance:MEDICAL ACHAMIREDOB: [facility] [id number] [facility], Number: Repository [place] [address]Jba: [id number] Date:9562-61-25SA [address] (RH) [address], [place] [address]NV: 12/05/2017 Secondary NOT GIVENUNK Billy Insurance:SELF PAY [facility] Number: Effective Repository Date:2017-12-05 12/05/2017 ALYSSA K Primary ALYSSA K [place] [id number] N Insurance:MEDICAL ACHAMIREDOB: [facility] [id number] [facility], Number: [place]ository [place] [address]Agw: [id number] Date:4099-60-06QT [address] (HP) [address], [place] [address]LA: 12/05/2017 Secondary NOT GIVENUNK [place] Insurance:SELF PAY [facility] Number: Effective Repository Date:2017-12-05 12/05/2017 ALYSSA K Primary ALYSSA K Billy [id number] N Insurance:MEDICAL ACHAMIREDOB: [facility] [id number] [facility], Number: [place] [address]Uwo: [id number] Date:7714-34-46AT [address] (HP) [address], [place] [address]BR: 12/05/2017 Secondary NOT GIVENUNK Billy Insurance:SELF PAY [facility] Number: Effective Repository Date:2017-12-05 05/12/2017 ALYSSA K Primary ALYSSA K Caodaism ACHAMIREDOB: Insurance:AETNAPolicy ACHAMIREDOB: [facility] N Number: Effective [id number] [facility] Date:2017-05-12 [facility] 3111-02-[place] Name:CD:[id number] [place] [address]Nlt: [id number] KIRILL [place]AD[place] [address]Tyh: [id number]: [phone] (HP) [phone] (HP) (WP)
== END ==
PROVIDERS: Family Provider Family Medicine; PCP Family Medicine; Referring Provider Internal Medicine Nephrology; Visit Provider Internal Medicine Nephrology
DX: N17.9 Acute kidney failure, unspecified (principal)
CPT/HCPCS: 36415; 80069; 85027

== ENCOUNTER 2020-12-21 01:18 | Emergency (ER) | payer SELFPAY ==
[2020-12-21 01:19] VITALS: BP 143/71; PULSE 75; RESP 16; TEMP 37; O2SAT 100; BMI 49.7
--- NOTE | 2020-12-21 01:31 | EKG12_ITS ---
Test Reason : CP Blood Pressure : / mmHG Vent. Rate : 066 BPM Atrial Rate : 066 BPM P-R Int : 180 ms QRS Dur : 102 ms QT Int : 412 ms P-R-T Axes : 025 020 016 degrees QTc Int : 431 ms Normal sinus rhythm Normal ECG Confirmed by CATRINA CRABTREE, OLIVER ([id number]), staff editor MARTHA DICKEY ([id number]) on 12/25/2020 7:48:08 AM Referred By: Confirmed By:OLIVER FRITZ MD
--- NOTE | 2020-12-21 01:35 | EX.ED.DYSGE1 ---
HPI History of Present Illness Chief Complaint: Chest Pain Informant: patient and EMS Narrative Narrative: 55-year-old female states that around 2200 hrs. she is having a severe pain in her right calf. She states all of a sudden she felt something go and she got really flush sensation up her chest and down both arms. States she got really lightheaded like she was going to pass out. She states that she called the ambulance and she currently is feeling much better no longer has the pain in the calf. The patient notes that she has had a prior DVT in the right arm following a surgical procedure at [facility] in the past. She is not on any blood thinners currently. Patient denies being diaphoretic. [facility] Medical History Depression GERD (gastroesophageal reflux disease) Hypothyroidism Kidney stones Home Medications levothyroxine 200 mcg PO DAILY 12/05/17 [History Last Taken 12/04/17] omeprazole 40 mg PO DAILY 12/05/17 [History Last Taken 12/04/17] cefadroxil 500 mg PO BID #6 cap 12/09/17 [Rx Last Taken Unknown] rosuvastatin 5 mg PO DAILY 12/21/20 [History Last Taken Unknown] Allergy/AdvReac Type Severity Reaction Status Date / Time Penicillins [PCN] Allergy Rash Verified 12/21/20 01:23 acetaminophen [From Percocet] AdvReac Vomiting Verified 12/21/20 01:23 oxycodone [From Percocet] AdvReac Vomiting Verified 12/21/20 01:23 Surgical History History of appendectomy History of cholecystectomy History of thyroidectomy Social History (Updated 12/21/20 @ 01:[address] Cristobal Baltazar DO) Smoking Status: Former smoker substance use type: does not use ROS ROS ED Constitutional Constitutional ED: Denies chills or weight loss Eyes Eyes: Denies change in vision or diplopia ENT ENT ED: Denies ear pain, rhinorrhea or sore throat Cardiovascular Cardiovascular: Reports chest pain; Denies orthopnea, palpitations or racing heartbeat Respiratory/Chest Respiratory/Chest: Denies cough, dyspnea or orthopnea Gastrointestinal Gastrointestinal: Denies abdominal pain, diarrhea, nausea or vomiting Genitourinary Genitourinary ED: Denies dysuria, hematuria or urinary frequency Musculoskeletal Musculoskeletal: Denies arthralgias or myalgias Integumentary Reports other Details: Left calf pain ; Denies abscess or rash Neurologic Neurologic: Denies headache(s) or weakness Psychiatric Psychiatric: Denies anxiety, depression, suicidal ideation or suicidal thoughts Endocrine Endocrinology: Denies polydipsia, polyphagia or polyuria Allergic/Immunologic Allergic/Immunologic ED: Denies mouth swelling, tongue swelling or urticaria EXAM Physical Exam Const Vital Signs: 12/21/20 01:19 12/21/20 01:23 12/21/20 03:26 Temperature 98.6 F Temperature Source Temporal Pulse Rate 75 79 Respiratory Rate 16 18 Respiratory Effort Normal Respiratory Pattern Normal Blood Pressure 143/71 H Blood Pressure Mean 95 Pulse Ox 100 97 Oxygen Delivery Method Room Air Room Air Positive well nourished, well developed and obese General Appearance ED: well developed Nutritional Appearance: obese HEENT Reports normocephalic, head/scalp atraumatic and moist mucous membranes Eyes PERRL and EOMs intact bilaterally Neck no lymphadenopathy, supple and no JVD Resp normal respiratory effort and clear to auscultation bilaterally Cardio regular rate, regular rhythm and no murmurs GI normal to inspection, nondistended, normoactive bowel sounds and non-tender Palpation: soft Back/Spine no CVA tenderness and normal ROM Extremity normal to inspection General Extremety ED: Negative for edema General Extremity: Negative for edema Neuro oriented x3 and CN's II-XII intact bilaterally Sensorium / Orientation: alert Motor Exam: strength 5/5 throughout Psych mental status grossly normal Mood & Affect: Negative for depressed or tearful Skin no rashes or lesions noted and no wounds MDM MDM MDM Narrative Medical decision making narrative: CBC BMP showed creatinine 1.77 troponin high-sensitivity 7. Hemoglobin 11.4. Patient's had no events on the monitor. CTA of the chest is negative for pulmonary embolism. This point I believe the patient had pain in her calf which resulted in a vasovagal near syncopal episode. I think the patient can be discharged home Lab Data Attestation: I reviewed the patient's lab results. Labs: Laboratory Results - last 24 hr 12/21/20 12/21/20 01:38 01:38 WBC 7.9 RBC 4.00 L Hgb 11.4 L Hct 35.5 L MCV 88.8 MCH 28.5 MCHC 32.1 RDW Std Deviation 42.6 RDW Coeff of German 13.1 Plt Count 209 MPV 10.3 Immature Gran % (Auto) 0.100 Neut % (Auto) 52.9 Lymph % (Auto) 37.3 [place] % (Auto) 8.2 Eos % (Auto) 1.0 Baso % (Auto) 0.5 Absolute Neuts (auto) 4.2 Absolute Lymphs (auto) 2.94 Nucleated RBC % 0 Sodium 139 Potassium 3.6 Chloride 109 H Carbon Dioxide 22.0 Anion Gap 8 BUN 20 H Creatinine 1.77 H Estim Creat Clear Calc 35.37 Est GFR (MDRD) Af Amer 38 L Est GFR (MDRD) Non-Af 31 L BUN/Creatinine Ratio 11.3 Glucose 110 H Calcium 8.6 Troponin I High Sens 7 Radiography Diagnostic Testing: Clinical Impression(s) from Imaging Studies Chest CTA 12/21/20 02:21 IMPRESSION: No acute finding in the chest with no evidence of pulmonary embolism. Electronically Signed: Miah Goss MD at 3:25 EDT Tel , Service support , EKG Initial EKG: Attestation: I personally reviewed and interpreted this EKG as follows: Comments: Sinus rhythm with a ventricular rate of 66 bpm Discharge Plan Triage Chief Complaint: Chest Pain ED Provider: Cristobal Baltazar Dx/Rx/DC Orders Clinical Impression: Vasovagal near syncope Instructions: ED Near-Fainting- Vagal Reaction Prescriptions: No Action levothyroxine 175 MCG tablet 200 mcg PO DAILY RF: 0 omeprazole 40 MG capsule,delayed release(DR/EC) 40 mg PO DAILY RF: 0 cefadroxil 500 MG capsule 500 mg PO BID Qty: 6 RF: 0 rosuvastatin 5 mg Tablet 5 mg PO DAILY RF: 0 Primary Care Provider: Bruce Rascon Referrals: Bruce Rascon MD [Primary Care Provider] - As Needed Disposition Disposition: Home, Self Care
[2020-12-21 01:44] LABS: Absolute Lymphocyte Count 2.94 X10^3/uL (0.83-4.51); Absolute Neutrophil Count 4.2 X10^3/uL (2.0-7.7); Basophil# 0.04 X10^3/uL; Basophil% 0.5 % (0-1); Eosinophil# 0.08 X10^3/uL; Hematocrit 35.5 % (37-47); Hemoglobin 11.4 g/dL (12.0-15.0); Lymphocyte # 2.94 X10^3/ul (0.83-4.51); Lymphocyte % 37.3 % (19-41); Mean Corp Hgb Conc 32.1 g/dL (32-36); Mean Corpuscular Hgb 28.5 pg (27.0-32.0); Mean Corpuscular Volume 88.8 fL (81-99); Mean Platelet Vol. 10.3 fl (6.2-12.0); Monocyte# 0.65 X10^3/uL; Monocyte% 8.2 % (0-10); NRBC Flagged by Analyzer 0 % (0-5); Neutrophil # 4.17 X10^3/uL (2.7-7.7); Neutrophil % 52.9 % (47-70); Platelet Count 209 K/mm3 (150-450); RBC Distribution Width CV 13.1 % (11.6-14.6); RBC Distribution Width SD 42.6 fl (35.1-43.9); White Blood Count 7.9 K/mm3 (4.4-11.0)
[2020-12-21 02:02] LABS: Anion Gap 8 (5-15); BUN 20 mg/dL (7-18); BUN/Creat Ratio 11.3 RATIO (10-20); Calcium,Total 8.6 mg/dL (8.5-10.1); Chloride 109 mmol/L (98-107); Creatinine, Serum 1.77 mg/dL (0.55-1.02); EST Glomerular Filtration Rate 31 mL/min (>60); Est Glom Filt Rate - Afr Amer 38 mL/min (>60); Estimated Creatinine Clearance 35.37 ml/min; Glucose 110 mg/dL (74-106); Potassium 3.6 mmol/L (3.5-5.1); Sodium Level 139 mmol/L (136-145); Troponin-I HS 7 pg/mL (3.0-54.0)
--- NOTE | 2020-12-21 02:21 | CT_ITS ---
STUDY: CTA CHEST REASON FOR EXAM: Female, 55 years old. Shortness of breath, rule out PE RADIATION DOSAGE (If Supplied By Facility): CTDIvol = ( 12.67 ) mGy, DLP = ( 529.56 ) mGycm TECHNIQUE: The examination was performed with the intravenous administration of IV 100mL Isovue-370. Post-processing of the angiographic images was performed, with multiplanar reformation and 3D reconstruction. Individualized dose optimization techniques were used for this CT. COMPARISON: None. FINDINGS: No filling defect in the pulmonary arteries to suggest pulmonary embolism. Atherosclerosis of the thoracic aorta and coronary arteries noted. No pericardial or pleural effusion. No pneumothorax. Status post thyroidectomy. No adenopathy. A stable punctate peripheral granuloma/nodule in the right middle lobe, image #118. This is benign and does not require further follow-up imaging. No suspicious nodule, mass, or consolidation. Minimal bibasilar dependent atelectasis. Sections through the upper abdomen demonstrate evidence of prior cholecystectomy. Multilevel thoracic spondylosis. Borderline an seen T6 and T5 vertebral bodies. CT/CTA Chest W/WO Contrast IMPRESSION: No acute finding in the chest with no evidence of pulmonary embolism. Electronically Signed: Miah Goss MD at 3:25 EDT Tel , Service support ,
[2020-12-21 03:26] VITALS: PULSE 79; RESP 18; O2SAT 97
[2020-12-21 03:32] VITALS: BP 143/71; PULSE 79; RESP 18; O2SAT 96
== END 2020-12-21 03:33 | disposition home or self-care (01) ==
PROVIDERS: Emergency Provider Emergency Medicine; PCP Family Medicine
DX: R55 Syncope and collapse (principal); E66.9 Obesity, unspecified; R07.9 Chest pain, unspecified; F32.A Depression, unspecified; K21.9 Gastro-esophageal reflux disease without esophagitis; E89.0 Postprocedural hypothyroidism; Z86.718 Personal history of other venous thrombosis and embolism; Z87.891 Personal history of nicotine dependence; Z90.49 Acquired absence of other specified parts of digestive tract
CPT/HCPCS: 71275; 80048; 84484; 85025; 93005; 99285; Q9967; A4216

== ENCOUNTER → 2023-06-04 | Outpatient (CLI) | payer OTHER, SELFPAY ==
[2023-06-04 16:05] LABS: Mucous, Urine 0 SEEN /hpf (<or=2+)
[2023-06-04 16:08] LABS: Color, Urine Yellow (Yellow); Glucose, Dipstick Normal (Normal); Ketone-Dipstick Negative (Negative); Leukocyte Esterase-Dipstick 500 /ul (Negative); Nitrite-Dipstick Negative (Negative); Occult Blood-Urine 25 /ul (Negative); Protein-Dipstick 30 mg/dl (Negative); Urine Bilirubin Dipstick Negative (Negative); Urine Clarity Cloudy (Clear); Urine Urobilinogen Normal (Normal); Urine pH 6.5 (5.0 - 8.0)
[2023-06-04 16:21] LABS: Bacteria 2+ /hpf (None Seen); Squamous Epithelial Cells - UA 5-10 SEEN /hpf (5-10); White Blood Cells >100 SEEN /hpf (0-5)
[2023-06-04 16:22] LABS: Red Blood Cells-Urine 0-5 SEEN /hpf (0-5)
== END | disposition home or self-care (01) ==
PROVIDERS: PCP Family Medicine; Referring Provider Physician Assistant Surgical; Visit Provider Physician Assistant Surgical
DX: R30.0 Dysuria (principal)
CPT/HCPCS: 81001; 87077; 87086; 87088; 87186

== ENCOUNTER → 2023-07-10 | Outpatient (CLI) | payer OTHER, SELFPAY | END | disposition home or self-care (01) | LOC: LABSPEC 12:18 | PROVIDERS: Referring Provider Physician Assistant Surgical; Visit Provider Physician Assistant Surgical | DX: N39.0 Urinary tract infection, site not specified (principal) | CPT/HCPCS: 87077; 87086; 87088; 87186 ==

== ENCOUNTER → 2023-08-11 | Outpatient (CLI) | payer OTHER, SELFPAY ==
--- NOTE | 2023-08-11 19:05 | CT_ITS ---
STUDY: CT ABDOMEN AND PELVIS WITHOUT CONTRAST REASON FOR EXAM: Female, 58 years old. UTI, kidney stones RADIATION DOSAGE (If Supplied By Facility): CTDIvol = ( 23.36 ) mGy, DLP = ( 1196.61 ) mGycm TECHNIQUE: Transaxial images were obtained from the dome of the diaphragm to the symphysis pubis without oral contrast, and without intravenous contrast. Sagittal and coronal images were reconstructed. Individualized dose optimization techniques were used for this CT. COMPARISON: None. FINDINGS: The visualized lung bases are unremarkable. The visualized portions of the heart are within normal limits. Normal liver. Status post cholecystectomy. No dilatation of the extrahepatic biliary system. Normal spleen. Normal pancreas. Normal bilateral adrenal glands. Up to 1.9 cm calculi in the right kidney. Up to 2.1 cm calculi in the left kidney. Normal visualized stomach. Normal small intestine. Diverticulosis of the colon. Mild mesenteric stranding adjacent to the mid sigmoid colon. The appendix is nonvisualized. Normal abdominal aorta. Normal inferior vena cava. Normal retroperitoneum. Normal urinary bladder. Normal abdominal wall. Normal osseous structures. CT/Abdomen/Pelvis without Cont IMPRESSION: Bilateral nonobstructive renal calculi. Diverticulosis of the colon. Mild mesenteric stranding adjacent to the mid sigmoid colon. Early diverticulitis cannot be excluded. Electronically Signed: Darrell Garcia DO at 19:33 EDT ,
== END | disposition home or self-care (01) ==
LOC: CT 19:01
PROVIDERS: Referring Provider Urology; Visit Provider Urology
DX: N20.0 Calculus of kidney (principal); N39.0 Urinary tract infection, site not specified
CPT/HCPCS: 74176

== ENCOUNTER 2023-09-24 07:01 | Day surgery (SDC) | payer OTHER, SELFPAY ==
[2023-09-18 13:35] LABS: Hematocrit 38.7 % (37-47); Hemoglobin 12.4 g/dL (12.0-15.0); Mean Corpuscular Hgb 28.8 pg (27.0-32.0); Mean Platelet Vol. 10.1 fl (6.2-12.0); Platelet Count 283 K/mm3 (150-450); RBC Distribution Width CV 14.1 % (11.6-14.6); RBC Distribution Width SD 45.9 fl (35.1-43.9); White Blood Count 8.9 K/mm3 (4.4-11.0)
[2023-09-18 14:03] LABS: ALB/GLOB Ratio 0.9 RATIO (0.9-2.4); AST(SGOT) 14 U/L (15-37); Alanine Aminotransfer ALT/SGPT 21 U/L (13-56); Albumin, Serum 3.7 g/dL (3.2-5.0); Alkaline Phosphatase 151 U/L (45-117); Anion Gap 8 (5-15); BUN 24 mg/dL (7-18); Calcium,Total 9.3 mg/dL (8.5-10.1); Chloride 111 mmol/L (98-107); Creatinine, Serum 2.18 mg/dL (0.55-1.02); EST Glomerular Filtration Rate 24 mL/min (>60); Est Glom Filt Rate - Afr Amer 30 mL/min (>60); Globulin 3.9 g/dL (2.2-4.2); Glucose 109 mg/dL (74-106); Potassium 3.8 mmol/L (3.5-5.1); Protein, Total 7.6 g/dL (6.4-8.2); Sodium Level 140 mmol/L (136-145)
[2023-09-24] VITALS (7 sets, daily range): BP systolic 135–147; BP diastolic 58–92; PULSE 73–86; RESP 14–16; TEMP 36.1–36.6; O2SAT 98–100; BMI 49.6
[2023-09-24] MEDS: Lactated Ringers 1,000 ML 15 ML IV (07:15)
--- NOTE | 2023-09-24 07:57 | PCM.PRE.AN2 ---
ASA Classification* ASA Classification ASA Classification: 3 Assessment & Plan Anesthesia* Anesthesia Assessment Anesthesia Assessment: Discussed sedation and/or anesthesia options, risks, benefits, and alternatives with patient/parents/legal guardian/POA. Questions invited. The patient/parents/legal guardian/POA seems to understand and agrees to proceed with anesthesia plan. Reviewed the physical assessment, medical history, allergy history and patient home medications list prior to surgery/procedure/anesthetic and documented any changes. Performed airway and anesthesia risk assessments. Anesthesia Type Anesthesia Type: General (see written pre-anesthesia assessment) Anesthesia Focused Assessment* Temperature: 97.2 F Pulse Rate: 86 Blood Pressure: 137/92 Respiratory Rate: 16 Pulse Ox: 98 Airway Assessment Mouth opens: >3 cm Mallampati Score: II Focused Labs Anesthesia Preop lab: CBC WBC 8.9 K/mm3 (4.4-11.0) 09/18/23 13:06 RBC 4.30 M/mm3 (4.2-5.4) 09/18/23 13:06 Hgb 12.4 g/dL (12.0-15.0) 09/18/23 13:06 Hct 38.7 % (37-47) 09/18/23 13:06 Plt Count 283 K/mm3 (150-450) 09/18/23 13:06 CHEMISTRY Potassium 3.8 mmol/L (3.5-5.1) 09/18/23 13:06 Sodium 140 mmol/L (136-145) 09/18/23 13:06 Phosphorus 3.8 mg/dL (2.5-4.9) 02/03/18 16:48 BUN 24 mg/dL (7-18) H 09/18/23 13:06 Creatinine 2.18 mg/dL (0.55-1.02) H 09/18/23 13:06 Glucose 109 mg/dL (74-106) H 09/18/23 13:06 TSH 8.44 uIU/mL (0.358-3.74) H 02/26/12 05:00 COAG Pre-Assessment Diagnosis/Proposed Procedure Planned Operative Procedure(s): ESWL, cysto stent Anesthesia History 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 When Was Last Pacemaker Check QUESTION #4 FULL TEXT: You/Your Family Experience fever (hyperthermia) with Anesthesia Last Oral Intake Last Oral intake: Last Oral Intake NPO since 00:00 09/24/23 07:18 Meds taken in AM with sips of water? Meds patient instructed to take am of surgery PONV PONV - senior android software engineer: PONV - senior android software engineer Female Yes 09/15/23 15:40 HX of Motion Sickness No 09/15/23 15:40 HX of N/V After Surgery No 09/15/23 15:40 Non-Smoker Yes 09/15/23 15:40 Duration of Surgery greater No 09/15/23 15:40 than 60 minutes Number of Risk Factors 2 09/15/23 15:40 PONV Score Moderate Risk 09/15/23 15:40 Height & Weight Height & Weight: Anesthesia: Height & Weight Height 5 ft 7 in 09/24/23 07:18 Weight: 143.789 kg 09/24/23 07:18 Body Mass Index (BMI) 49.6 09/24/23 07:18 Respiratory Assessment Respiratory Assessment - senior android software engineer: Respiratory Tract Infection Hx - senior android software engineer Hx Respiratory Tract Infection No 09/15/23 15:40 STOP Sleep Apnea STOP Sleep Apnea - senior android software engineer: STOP Sleep Apnea - senior android software engineer Hx Hypertension No 09/15/23 15:40 Hx Sleep Apnea No 09/15/23 15:40 CPAP No 12/05/17 17:17 BIPAP Yes: not used since mass 12/05/17 17:17 removal. Do you snore loudly (louder No 09/15/23 15:40 than talking or can be heard Do you often feel tired/ No 09/15/23 15:40 fatigued/ sleepy during daytime? Has anyone observed you stop No 09/15/23 15:40 breathing during sleep? STOP Results Negative 09/15/23 15:40 QUESTION #5 FULL TEXT : Do you snore loudly (louder than talking or can be heard through closed doors)? 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 Specify any problems Hx of Preganancy in last 3 N/A 09/15/23 15:40 Months Nurse Filling Out Transfusion NBUCHER 09/15/23 15:40 & Questions: Date: 09/15/23 09/15/23 15:40 Time: 15:43 09/15/23 15:40 Patient unable to answer at this time (ie. confused, unrespo /Reproduction History /Reproductive History - senior android software engineer: /Reproductive Hx- senior android software engineer Hx Now No 09/15/23 15:40 Gestational Age (in weeks): EDC: Hx Hx Para Hx Section SAB No 09/15/23 15:40 Active Medications Active Medications: Current Medications Generic Name Dose Route Start Last Admin Trade Name Freq PRN Reason Stop Dose Admin Ciprofloxacin 400 mg in 200 mls @ 200 mls/hr 09/24/23 08:50 Cipro IV 09/24/23 09:49 PREOP ONE Lactated Ringer's 1,000 mls @ 15 mls/hr 09/24/23 07:15 IV .Q48H BERYL PFSH Medical History Wears glasses Post-menopausal Arthritis Thyroid disease History of renal disease Anemia History of diverticulosis Former smoker History of stress test History of benign mediastinal tumor Depression Hypothyroidism Kidney stones GERD (gastroesophageal reflux disease) Home Medications ?Medication ?Instructions ?Recorded ?Last Taken ?Type levothyroxine 175 mcg tablet 200 mcg PO DAILY thyroid medication 12/05/17 12/04/17 History omeprazole 40 mg capsule,delayed 20 mg PO DAILY acid reflex 12/05/17 12/04/17 History release rosuvastatin 5 mg tablet 5 mg PO DAILY 12/21/20 Unknown History potassium citrate 10 mEq (1,080 20 meq PO BID 06/04/23 Unknown History mg) tablet,extended release d-mannose 500 mg capsule (AZO 500 mg PO DAILY 09/15/23 Unknown History D-Mannose) escitalopram oxalate 10 mg tablet 10 mg PO DAILY 09/15/23 Unknown History (Lexapro) vitamin B complex (Complex B-100 1 tab PO DAILY 09/15/23 Unknown History tablet,extended release) Allergy/AdvReac Type Severity Reaction Status Date / Time Penicillins (PCN) Allergy Rash Verified 09/24/23 07:17 oxycodone (From Percocet) AdvReac Vomiting Verified 09/24/23 07:17 Surgical History History of lithotripsy History of History of colonoscopy History of extraction of renal calculus History of thyroidectomy History of appendectomy History of cholecystectomy Social History Smoking Status: Former smoker substance use type: does not use Review of Systems (Anesthesia) ROS Narrative System reviewed and no additional complaints, except as documented.
[2023-09-24] MEDS: Ciprofloxacin 400 MG/200 ML BAG 200 MG IV (08:54)
--- NOTE | 2023-09-24 08:54 | EX.PCM.DISCH ---
Discharge Instructions Diet Discharge Diet: No restrictions Activity Discharge Activity: Return to Normal Activity Dressing / Incision Call your doctor if you observe: Fever of 101 or Higher, Inability to urinate and Inability to have a bowel movement Follow Up Care Please Follow Up With: Shantel Griggs MD When: The office will make arrangements for follow up. Test Results: Test results from this visit will be discussed in further detail at your follow-up appointment, if applicable. Discharge Plan Admission Attending Provider: Shantel Griggs Primary Care Provider: Care PhysicianPauline Primary Instructions Print Language: Turkish Discharge Orders/Prescriptions Prescriptions: New phenazopyridine 100 mg tablet 100 mg PO TID Qty: 30 3RF ondansetron 4 mg tablet,disintegrating 4 mg PO Q8H PRN (Reason: nausea and vomiting) Qty: 10 0RF oxycodone-acetaminophen [Percocet] 5-325 mg tablet 1 tab PO Q8H PRN (Reason: pain) 5 Days Qty: 15 0RF Continued potassium citrate 10 mEq (1,080 mg) tablet extended release 20 meq PO BID levothyroxine 175 MCG tablet 200 mcg PO DAILY omeprazole 40 MG capsule,delayed release(DR/EC) 20 mg PO DAILY rosuvastatin 5 mg Tablet 5 mg PO DAILY escitalopram oxalate [Lexapro] 10 mg tablet 10 mg PO DAILY AZO D-Mannose 500 mg capsule 500 mg PO DAILY Complex B-100 Tablet Extended Release 1 tab PO DAILY Referrals / Follow Up: Care PhysicianPauline Primary [Primary Care Provider] - Disposition Disposition (needs filled in before D/C Order can be placed): Home, Self Care
--- NOTE | 2023-09-24 08:59 | PCM.OPRPT ---
Report of Operation Date of Procedure: 09/24/23 Pre-Operative Diagnosis: bilateral kidney stones Post-Operative Diagnosis: same Surgery/Procedure Performed:: cystoscopy left ureteral stent insertion, left extracorporal shockwave lithotripsy Surgeon: Shantel Griggs Type of Anesthesia: General Specimen's removed: None Description of Procedure: The patient is a 58-year-old female with a longstanding history of significant nephrolithiasis. She presents with a large stone burden in each side. She is here for management of the left side today with a cystoscopy with left ureteral stent insertion and a shockwave lithotripsy. Informed consent was obtained. The patient was taken the operating room and placed on the operating room table. Anesthesia monitored the head, neck, airway, IV access and vital signs throughout the case. Once anesthesia was appropriately administered, she was placed into dorsolithotomy position and was prepped and draped in usual sterile fashion. The cystoscope was inserted through the urethra under direct visualization into the urinary bladder. The bladder mucosa was visualized in its entirety finding no evidence of mass, erythema, or ulceration or foreign body. A 0.035 Glidewire was inserted into the left ureteral orifice and advanced easily into the renal pelvis. A 4.5 [place] by 28 cm JJ stent was placed over the wire with good positioning in the renal pelvis and the urinary bladder. The patient's bladder was then emptied and the cystoscope was removed. She was repositioned on the table. The stone burden was easily identified. 3000 shocks were applied and the stones appeared to be fragmented at the conclusion of the case. The patient was then awakened and taken to the recovery room in good condition. There were no complications during this procedure. Grafts/Implants Used: 4.5 [place] by 28 cm JJ stent Complications None Admit VTE Documentation VTE Present on Admission: Yes VTE Mechan Device Prophylaxis: SCD's Reason prophylaxis not ordered:: Treatment Not Indicated
--- NOTE | 2023-09-24 10:05 | PCM.POST.ANE ---
Anesthesia: Postop Eval I Current Vital Signs Temperature: 97 F Pulse Rate: 77 Blood Pressure: 147/72 Respiratory Rate: 14 Pulse Ox: 100 Oxygen Delivery Method: Room Air Assessment Airway patent: Yes Spontaneous unlabored respirations: Yes Mental status: Awake and Calm nausea: No Vomiting: No Anesthesia Complication: No Fluid Hydration Crystalloid volume administer (ml): 500 Total IV fluid infused: 500 Progress Note Anesthesia document: Postop Eval 1 completed: Yes
--- NOTE | 2023-09-24 10:33 | POSTOPAN2_ITS ---
Anesthesia Postop Eval I Sum Postop Eval Completion status Anesthesia document: Postop Eval 1 completed: Yes Anesthesia Postop Eval I Summary Anesthesia Postop Eval I Summary: Anesthesia Postop Eval I: Assessment Summary Airway patent Yes 09/24/23 10:06 [employer]CEAN [employer]SPORTATION INTERMEDIARY.MITRA Spontaneous unlabored Yes 09/24/23 10:06 OCEAN TRANSPORTATION INTERMEDIARYSURJIT respirations Mental status Awake,Calm 09/24/23 10:06 OCEAN TRANSPORTATION INTERMEDIARY.MITRA nausea No 09/24/23 10:06 OCEAN TRANSPORTATION INTERMEDIARY.MITRA Vomiting No 09/24/23 10:06 OCEAN TRANSPORTATION INTERMEDIARYSURJIT Anesthesia Postop Eval I: Fluid Summary Crystalloid volume administer 500 09/24/23 10:06 OCEAN TRANSPORTATION INTERMEDIARY.MITRA (ml) Colloids volume administered ( ml) Blood Product volume administered (ml) Total IV fluid infused 500 09/24/23 10:06 OCEAN TRANSPORTATION INTERMEDIARY.MITRA Anesthesia Postop Eval I: Summary Notes Anesthesia Complication No 09/24/23 10:06 OCEAN TRANSPORTATION INTERMEDIARYSURJIT Anesthesia Complication Comment: Post-operative progress note Anesthesia: Postop Eval II Evaluation Mental status: Awake Pain Level: 0 nausea: No Vomiting: No
--- NOTE | 2023-09-24 10:33 | PCM.POSTANE2 ---
Anesthesia Postop Eval I Sum Postop Eval Completion status Anesthesia document: Postop Eval 1 completed: Yes Anesthesia Postop Eval I Summary Anesthesia Postop Eval I Summary: Anesthesia Postop Eval I: Assessment Summary Airway patent Yes 09/24/23 10:06 PRACTICE ARCHITECT.MITRA Spontaneous unlabored Yes 09/24/23 10:06 PRACTICE ARCHITECTSURJIT respirations Mental status Awake,Calm 09/24/23 10:06 PRACTICE ARCHITECT.MITRA nausea No 09/24/23 10:06 PRACTICE ARCHITECT.MITRA Vomiting No 09/24/23 10:06 PRACTICE ARCHITECTSURJIT Anesthesia Postop Eval I: Fluid Summary Crystalloid volume administer 500 09/24/23 10:06 PRACTICE ARCHITECT.MITRA (ml) Colloids volume administered ( ml) Blood Product volume administered (ml) Total IV fluid infused 500 09/24/23 10:06 PRACTICE ARCHITECT.MITRA Anesthesia Postop Eval I: Summary Notes Anesthesia Complication No 09/24/23 10:06 PRACTICE ARCHITECTSURJIT Anesthesia Complication Comment: Post-operative progress note Anesthesia: Postop Eval II Evaluation Mental status: Awake Pain Level: 0 nausea: No Vomiting: No
--- NOTE | 2023-09-24 11:06 | EX.PCM.DISCH ---
Discharge Instructions Diet Discharge Diet: No restrictions Dressing / Incision Call your doctor if you observe: Fever of 101 or Higher, Inability to urinate and Inability to have a bowel movement Follow Up Care Please Follow Up With: Shantel Griggs MD Test Results: Test results from this visit will be discussed in further detail at your follow-up appointment, if applicable. Discharge Plan Admission Attending Provider: Shantel Griggs Primary Care Provider: Care Physician,Pauline Primary Instructions Print Language: South African Discharge Orders/Prescriptions Prescriptions: New phenazopyridine 100 mg tablet 100 mg PO TID Qty: 30 3RF ondansetron 4 mg tablet,disintegrating 4 mg PO Q8H PRN (Reason: nausea and vomiting) Qty: 10 0RF oxycodone-acetaminophen [Percocet] 5-325 mg tablet 1 tab PO Q8H PRN (Reason: pain) 5 Days Qty: 15 0RF tramadol 50 mg tablet 50 mg PO Q8H PRN (Reason: pain) 3 Days Qty: 10 0RF Continued potassium citrate 10 mEq (1,080 mg) tablet extended release 20 meq PO BID levothyroxine 175 MCG tablet 200 mcg PO DAILY omeprazole 40 MG capsule,delayed release(DR/EC) 20 mg PO DAILY rosuvastatin 5 mg Tablet 5 mg PO DAILY escitalopram oxalate [Lexapro] 10 mg tablet 10 mg PO DAILY AZO D-Mannose 500 mg capsule 500 mg PO DAILY Complex B-100 Tablet Extended Release 1 tab PO DAILY Referrals / Follow Up: Care Physician,No Primary [Primary Care Provider] - Disposition Disposition (needs filled in before D/C Order can be placed): Home, Self Care
== END 2023-09-24 11:19 | disposition home or self-care (01) ==
LOC: SDC 07:01 → AC 07:02
PROVIDERS: Referring Provider Urology; Visit Provider Urology
PROC: (CPT 50590; principal; 2023-09-24 08:40)
DX: N20.0 Calculus of kidney (principal); N18.4 Chronic kidney disease, stage 4 (severe); I12.9 Hypertensive chronic kidney disease with stage 1 through stage 4 chronic kidney disease, or unspecified chronic kidney disease; R35.1 Nocturia; F32.A Depression, unspecified; E03.9 Hypothyroidism, unspecified; Z79.899 Other long term (current) drug therapy; Z87.891 Personal history of nicotine dependence
CPT/HCPCS: 52356; 00918; 36415; 80053; 85027; J7120; J0744; J2405

== ENCOUNTER 2023-10-08 06:23 | Day surgery (SDC) | payer MEDICAID, SELFPAY ==
[2023-10-08] VITALS (8 sets, daily range): BP systolic 117–136; BP diastolic 62–93; PULSE 78–89; RESP 14–18; TEMP 36.3–36.6; O2SAT 85–100; BMI 48.9
--- NOTE | 2023-10-08 06:38 | PCM.PRE.AN2 ---
ASA Classification* ASA Classification ASA Classification: 3 Assessment & Plan Anesthesia* Anesthesia Assessment Anesthesia Assessment: Discussed sedation and/or anesthesia options, risks, benefits, and alternatives with patient/parents/legal guardian/POA. Questions invited. The patient/parents/legal guardian/POA seems to understand and agrees to proceed with anesthesia plan. Reviewed the physical assessment, medical history, allergy history and patient home medications list prior to surgery/procedure/anesthetic and documented any changes. Performed airway and anesthesia risk assessments. Anesthesia Type Anesthesia Type: General Anesthesia Focused Assessment* Airway Assessment Mouth opens: >3 cm Mallampati Score: II Focused Labs Anesthesia Preop lab: CBC WBC 8.9 K/mm3 (4.4-11.0) 09/18/23 13:06 RBC 4.30 M/mm3 (4.2-5.4) 09/18/23 13:06 Hgb 12.4 g/dL (12.0-15.0) 09/18/23 13:06 Hct 38.7 % (37-47) 09/18/23 13:06 Plt Count 283 K/mm3 (150-450) 09/18/23 13:06 CHEMISTRY Potassium 3.8 mmol/L (3.5-5.1) 09/18/23 13:06 Sodium 140 mmol/L (136-145) 09/18/23 13:06 Phosphorus 3.8 mg/dL (2.5-4.9) 02/03/18 16:48 BUN 24 mg/dL (7-18) H 09/18/23 13:06 Creatinine 2.18 mg/dL (0.55-1.02) H 09/18/23 13:06 Glucose 109 mg/dL (74-106) H 09/18/23 13:06 TSH 8.44 uIU/mL (0.358-3.74) H 02/26/12 05:00 COAG Pre-Assessment Diagnosis/Proposed Procedure Planned Operative Procedure(s): ESWL Anesthesia History Anesthesia History - hospital medical biller: Anesthesia History - hospital medical biller Hx Hospitalization No 10/01/23 11:05 Any Problems With Anesthesia No 10/01/23 11:05 Cholinesterase deficiency No 10/01/23 11:05 You/Your Family Experience No 10/01/23 11:05 fever (hyperthermia) with Relationship Recent Exposure to Contagious No 09/24/23 07:18 Disease Does patient have nerve No 10/01/23 11:05 stimulator Patient instructed to have device shut off --Does patient have Pacemaker or ICD? When Was Last Pacemaker Check QUESTION #4 FULL TEXT: You/Your Family Experience fever (hyperthermia) with Anesthesia Last Oral Intake Last Oral intake: Last Oral Intake NPO since Meds taken in AM with sips of water? Meds patient instructed to take am of surgery PONV PONV - hospital medical biller: PONV - hospital medical biller Female Yes 10/01/23 11:05 HX of Motion Sickness No 10/01/23 11:05 HX of N/V After Surgery No 10/01/23 11:05 Non-Smoker No 10/01/23 11:05 Duration of Surgery greater No 10/01/23 11:05 than 60 minutes Number of Risk Factors 1 10/01/23 11:05 PONV Score Low Risk 10/01/23 11:05 Height & Weight Height & Weight: Anesthesia: Height & Weight Height 5 ft 7 in 09/24/23 07:18 Respiratory Assessment Respiratory Assessment - hospital medical biller: Respiratory Tract Infection Hx - hospital medical biller Hx Respiratory Tract Infection No 10/01/23 11:05 STOP Sleep Apnea STOP Sleep Apnea - hospital medical biller: STOP Sleep Apnea - hospital medical biller Hx Hypertension No 10/01/23 11:05 Hx Sleep Apnea No 10/01/23 11:05 CPAP No 09/24/23 10:00 BIPAP Yes: not used since mass 12/05/17 17:17 removal. Do you snore loudly (louder No 10/01/23 11:05 than talking or can be heard Do you often feel tired/ No 10/01/23 11:05 fatigued/ sleepy during daytime? Has anyone observed you stop No 10/01/23 11:05 breathing during sleep? STOP Results Negative 10/01/23 11:05 QUESTION #5 FULL TEXT : Do you snore loudly (louder than talking or can be heard through closed doors)? 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 Specify any problems Hx of Preganancy in last 3 No 10/01/23 11:05 Months Nurse Filling Out Transfusion [facility] 10/01/23 11:05 & Questions: Date: 10/01/23 10/01/23 11:05 Time: 11:08 10/01/23 11:05 Patient unable to answer at this time (ie. confused, unrespo /Reproduction History /Reproductive History - hospital medical biller: /Reproductive Hx- hospital medical biller Hx Now No 10/01/23 11:05 Gestational Age (in weeks): EDC: Hx Hx Para Hx Section SAB No 10/01/23 11:05 Active Medications Active Medications: Current Medications Generic Name Dose Route Start Last Admin Trade Name Freq PRN Reason Stop Dose Admin Ciprofloxacin 400 mg in 200 mls @ 200 mls/hr 10/08/23 08:00 Cipro IV 10/08/23 08:59 PREOP ONE Lactated Ringer's 1,000 mls @ 15 mls/hr 10/08/23 06:30 IV .Q48H BERYL PFSH Medical History Chronic cough Wears glasses Post-menopausal Arthritis Thyroid disease History of renal disease Anemia History of diverticulosis Former smoker History of stress test History of benign mediastinal tumor Depression Hypothyroidism Kidney stones GERD (gastroesophageal reflux disease) Home Medications ?Medication ?Instructions ?Recorded ?Last Taken ?Type rosuvastatin 5 mg tablet 5 mg PO DAILY 12/21/20 Unknown History potassium citrate 10 mEq (1,080 20 meq PO BID 06/04/23 Unknown History mg) tablet,extended release d-mannose 500 mg capsule (AZO 500 mg PO DAILY 09/15/23 Unknown History D-Mannose) escitalopram oxalate 10 mg tablet 10 mg PO DAILY 09/15/23 Unknown History (Lexapro) vitamin B complex (Complex B-100 1 tab PO DAILY 09/15/23 Unknown History tablet,extended release) ondansetron 4 mg disintegrating 4 mg PO Q8H PRN nausea and 09/24/23 Unknown Rx tablet vomiting #10 tabs phenazopyridine 100 mg tablet 100 mg PO TID #30 TABLETS 09/24/23 Unknown Rx tramadol 50 mg tablet 50 mg PO Q8H PRN pain 3 days #10 09/24/23 Unknown Rx tabs NEW LIFE PROBIOTIC 1 cap PO DAILY 10/01/23 Unknown History levothyroxine 200 mcg tablet 200 mcg PO DAILY 10/01/23 Unknown History omeprazole 20 mg capsule,delayed 20 mg PO DAILY 10/01/23 Unknown History release Allergy/AdvReac Type Severity Reaction Status Date / Time Penicillins (PCN) Allergy Rash Verified 10/01/23 10:57 oxycodone (From Percocet) AdvReac Vomiting Verified 10/01/23 10:57 Surgical History History of lithotripsy History of History of colonoscopy History of extraction of renal calculus History of thyroidectomy History of appendectomy History of cholecystectomy Social History Smoking Status: Former smoker substance use type: does not use Review of Systems (Anesthesia) ROS Narrative System reviewed and no additional complaints, except as documented.
[2023-10-08] MEDS: Lactated Ringers 1,000 ML 15 ML IV (07:21)
[2023-10-08] MEDS: Ciprofloxacin 400 MG/200 ML BAG 200 MG IV (08:00)
--- NOTE | 2023-10-08 08:08 | OP.PCM_ITS ---
Problems Associated Problem List Diagnoses (1) Kidney stones: Report of Operation Date of Procedure: 10/08/23 Pre-Operative Diagnosis: bilateral renal stones Post-Operative Diagnosis: same Surgery/Procedure Performed:: cystoscopy with right ureteral stent insertion, right renal extracorporeal shockwave lithotripsy Surgeon: Shantel Griggs Type of Anesthesia: General Description of Procedure: The patient is a 58-year-old female with significant stone history who presents for management of her right-sided large renal calculus. Informed consent has been obtained. The patient was taken to the operating room and placed on the operating room table. Anesthesia monitored the head, neck, airway, IV access and vital signs throughout the case. Once anesthesia was appropriate administered, she was placed into dorsolithotomy position was prepped and draped in usual sterile fashion. The cystoscope was inserted through the urethra under direct visualization into the urinary bladder. The right ureteral orifice was identified and intubated gently with a 0.035 Glidewire. A 4.5 Portuguese by 28 cm JJ stent was placed over the wire with good positioning in the renal pelvis as well as the urinary bladder. The bladder was then emptied and the cystoscope was removed. She was repositioned on the table. The stone was aligned with the lithotripter and 3000 shocks were applied. The stone is quite large and did appear to be fragmented at the conclusion of the case. The patient was then awakened and taken to the recovery room in good condition. There were no complications during this procedure. Grafts/Implants Used: 4.5 Portuguese x 28 cm JJ stent Complications none Admit VTE Documentation VTE Present on Admission: Yes VTE Mechan Device Prophylaxis: SCD's VTE Pharm Prophylaxis ordered?: No Reason prophylaxis not ordered:: Treatment Not Indicated
--- NOTE | 2023-10-08 08:27 | EX.PCM.DISCH ---
Discharge Instructions Diet Discharge Diet: No restrictions Activity Discharge Activity: Return to Normal Activity Dressing / Incision Call your doctor if you observe: Fever of 101 or Higher, Inability to urinate and Inability to have a bowel movement Follow Up Care Please Follow Up With: Shantel Griggs MD When: The office will call to make arrangements. Test Results: Test results from this visit will be discussed in further detail at your follow-up appointment, if applicable. Discharge Plan Admission Attending Provider: Shantel Griggs Primary Care Provider: Care PhysicianPauline Primary Instructions Print Language: Comoran Discharge Orders/Prescriptions Prescriptions: New tramadol 50 mg tablet 50 mg PO Q8H PRN (Reason: pain) 3 Days Qty: 10 0RF Continued potassium citrate 10 mEq (1,080 mg) tablet extended release 20 meq PO BID rosuvastatin 5 mg Tablet 5 mg PO DAILY escitalopram oxalate [Lexapro] 10 mg tablet 10 mg PO DAILY AZO D-Mannose 500 mg capsule 500 mg PO DAILY Complex B-100 Tablet Extended Release 1 tab PO DAILY phenazopyridine 100 mg tablet 100 mg PO TID Qty: 30 3RF ondansetron 4 mg tablet,disintegrating 4 mg PO Q8H PRN (Reason: nausea and vomiting) Qty: 10 0RF tramadol 50 mg tablet 50 mg PO Q8H PRN (Reason: pain) 3 Days Qty: 10 0RF levothyroxine 200 mcg tablet 200 mcg PO DAILY omeprazole 20 mg capsule,delayed release(DR/EC) 20 mg PO DAILY NEW LIFE PROBIOTIC capsule 1 cap PO DAILY ciprofloxacin HCl 250 mg tablet 250 mg PO BID Referrals / Follow Up: Care Physician,Pauline Primary [Primary Care Provider] - Disposition Disposition (needs filled in before D/C Order can be placed): Home, Self Care
--- NOTE | 2023-10-08 09:13 | PCM.POST.ANE ---
Anesthesia: Postop Eval I Current Vital Signs Temperature: 97.8 F Pulse Rate: 89 Blood Pressure: 117/93 Respiratory Rate: 14 Pulse Ox: 95 Oxygen Delivery Method: Room Air Assessment Airway patent: Yes Spontaneous unlabored respirations: Yes Mental status: Awake and Calm nausea: No Vomiting: No Anesthesia Complication: No Fluid Hydration Crystalloid volume administer (ml): 700 Total IV fluid infused: 700 Progress Note Anesthesia document: Postop Eval 1 completed: Yes
[2023-10-08] MEDS: Ketorolac 15 MG/ML Vial IV (09:28)
--- NOTE | 2023-10-08 09:41 | POSTOPAN2_ITS ---
Anesthesia Postop Eval I Sum Postop Eval Completion status Anesthesia document: Postop Eval 1 completed: Yes Anesthesia Postop Eval I Summary Anesthesia Postop Eval I Summary: Anesthesia Postop Eval I: Assessment Summary Airway patent Yes 10/08/23 09:13 VENEER [email or web address] Spontaneous unlabored Yes 10/08/23 09:13 VENEER GRADER.OT respirations Mental status Awake,Calm 10/08/23 09:13 VENEER GRADER.MDOT nausea No 10/08/23 09:13 VENEER GRADER.MDOT Vomiting No 10/08/23 09:13 VENEER [email or web address] Anesthesia Postop Eval I: Fluid Summary Crystalloid volume administer 700 10/08/23 09:13 VENEER GRADER.MDOT (ml) Colloids volume administered ( ml) Blood Product volume administered (ml) Total IV fluid infused 700 10/08/23 09:13 VENEER [email or web address] Anesthesia Postop Eval I: Summary Notes Anesthesia Complication No 10/08/23 09:13 VENEER [email or web address] Anesthesia Complication Comment: Post-operative progress note Anesthesia: Postop Eval II Evaluation Mental status: Awake Pain Level: 0 nausea: No Vomiting: No
--- NOTE | 2023-10-08 09:41 | PCM.POSTANE2 ---
Anesthesia Postop Eval I Sum Postop Eval Completion status Anesthesia document: Postop Eval 1 completed: Yes Anesthesia Postop Eval I Summary Anesthesia Postop Eval I Summary: Anesthesia Postop Eval I: Assessment Summary Airway patent Yes 10/08/23 09:13 LEAD [email or web address] Spontaneous unlabored Yes 10/08/23 09:13 LEAD TELLER.OT respirations Mental status Awake,Calm 10/08/23 09:13 LEAD TELLER.MDOT nausea No 10/08/23 09:13 LEAD TELLER.MDOT Vomiting No 10/08/23 09:13 LEAD [email or web address] Anesthesia Postop Eval I: Fluid Summary Crystalloid volume administer 700 10/08/23 09:13 LEAD TELLER.MDOT (ml) Colloids volume administered ( ml) Blood Product volume administered (ml) Total IV fluid infused 700 10/08/23 09:13 LEAD [email or web address] Anesthesia Postop Eval I: Summary Notes Anesthesia Complication No 10/08/23 09:13 LEAD [email or web address] Anesthesia Complication Comment: Post-operative progress note Anesthesia: Postop Eval II Evaluation Mental status: Awake Pain Level: 0 nausea: No Vomiting: No
== END 2023-10-08 10:05 | disposition home or self-care (01) ==
LOC: SDC 06:36 → AC 08:03
PROVIDERS: Referring Provider Urology; Visit Provider Urology
PROC: (CPT 50590; principal; 2023-10-08 07:50)
DX: N20.0 Calculus of kidney (principal); N18.4 Chronic kidney disease, stage 4 (severe); I12.9 Hypertensive chronic kidney disease with stage 1 through stage 4 chronic kidney disease, or unspecified chronic kidney disease; R35.1 Nocturia; F32.A Depression, unspecified; E03.9 Hypothyroidism, unspecified; Z79.899 Other long term (current) drug therapy; Z87.891 Personal history of nicotine dependence
CPT/HCPCS: 52356; 00873; J7120; J0744; J2405

== ENCOUNTER 2023-10-10 15:34 | Observation (INO) | payer MEDICAID, SELFPAY ==
[2023-10-10] VITALS (7 sets, daily range): BP systolic 111–158; BP diastolic 54–83; PULSE 74–91; RESP 15–22; TEMP 36.1–36.7; O2SAT 97–100; BMI 53.4; BMI 49.6
--- NOTE | 2023-10-10 15:54 | CT_ITS ---
EXAM: CT ABDOMEN AND PELVIS WITHOUT INTRAVENOUS CONTRAST CLINICAL INDICATION: left flank pain TECHNIQUE: Helically acquired images were obtained of the abdomen and pelvis without intravenous contrast. This CT exam was performed using one or more of the following dose reduction techniques: automated exposure control, adjustment of the mA and/or kV according to patient size, and/or use of iterative reconstruction technique. COMPARISON: 08/11/2023 CT abdomen and pelvis. FINDINGS: LOWER THORAX: No significant abnormality. Lung bases are clear. No cardiomegaly. No significant pericardial effusion. ABDOMEN: LIVER: No significant abnormality. Homogeneous. GALLBLADDER AND BILE DUCTS: Status post cholecystectomy. No intra- or extrahepatic biliary ductal dilation. PANCREAS: No significant abnormality. No focal cystic mass. SPLEEN: No significant abnormality. Normal size without focal cystic or solid mass. ADRENALS: No significant abnormality. No nodules. KIDNEYS AND URETERS: Bilateral ureteral stents are present. No right-sided hydronephrosis. Mild to moderate left-sided hydroureteronephrosis. Bilateral nephrolithiasis, at the lower poles seemingly increased on the right compared to the prior examination. No definite ureteral stone. Multifocal scarring in the bilateral kidneys. No perinephric stranding or evidence of acute infection on this noncontrast examination. STOMACH AND BOWEL: Colonic diverticulosis without evidence of acute diverticulitis. No stomach or bowel distention. PELVIS: APPENDIX: No evidence of acute appendicitis. BLADDER: No significant abnormality. REPRODUCTIVE: Normal as visualized. No mass. ABDOMEN and PELVIS: INTRAPERITONEAL SPACE: No significant abnormality. No ascites or other fluid collection. No free air. BONES/JOINTS: Degenerative changes in the spine. No suspicious lytic or blastic abnormality. SOFT TISSUES: No significant abnormality. No discrete abdominal or pelvic wall hernia. VASCULATURE: No significant abnormality. Abdominal aorta is non-dilated. LYMPH NODES: No significant abnormality. No enlarged lymph nodes. CT/Abdomen/Pelvis without Cont IMPRESSION: 1. Bilateral ureteral stents are present. No right-sided hydronephrosis. Mild to moderate left-sided hydroureteronephrosis. Bilateral nephrolithiasis, at the lower poles seemingly increased on the right compared to the prior examination. No definite ureteral stone. 2. Multifocal scarring in the bilateral kidneys. No perinephric stranding or evidence of acute infection on this noncontrast examination. 3. Colonic diverticulosis without evidence of acute diverticulitis. Electronically Signed: Kirby Bain DO at 17:07 EDT ,
--- NOTE | 2023-10-10 15:54 | EX.ED.DYSGE1 ---
HPI History of Present Illness Chief Complaint: Flank Pain Detail of Chief Complaint: Flank pain Informant: patient Narrative Narrative: Patient presents emergency department complaint of left-sided flank pain that started around 11 AM. Patient states that she had lithotripsy on the left side on the 18th of last month and on the right side on the first of this month. Patient was doing well until around 11 AM when she started having more severe pain on the left. Patient denies nausea or vomiting. She denies urinary symptoms. She does have history of multiple kidney stones and has seen Dr. Griggs for this. [facility] Medical History (Updated 10/10/23 @ 18:[address] Radha Shaikh, DO) Difficult intravenous access Chronic cough Wears glasses Post-menopausal Arthritis Thyroid disease History of renal disease Anemia History of diverticulosis Former smoker History of stress test History of benign mediastinal tumor Depression Hypothyroidism Kidney stones GERD (gastroesophageal reflux disease) Home Medications ?Medication ?Instructions ?Recorded ?Last Taken ?Type rosuvastatin 5 mg tablet 5 mg PO DAILY 12/21/20 Unknown History potassium citrate 10 mEq (1,080 20 meq PO BID 06/04/23 10/07/23 History mg) tablet,extended release d-mannose 500 mg capsule (AZO 500 mg PO DAILY 09/15/23 10/06/23 History D-Mannose) escitalopram oxalate 10 mg tablet 10 mg PO DAILY 09/15/23 Unknown History (Lexapro) vitamin B complex (Complex B-100 1 tab PO DAILY 09/15/23 10/07/23 History tablet,extended release) ondansetron 4 mg disintegrating 4 mg PO Q8H PRN nausea and 09/24/23 Unknown Rx tablet vomiting #10 tabs phenazopyridine 100 mg tablet 100 mg PO TID #30 TABLETS 09/24/23 10/07/23 Rx tramadol 50 mg tablet 50 mg PO Q8H PRN pain 3 days #10 09/24/23 10/07/23 20:00 Rx tabs NEW LIFE PROBIOTIC 1 cap PO DAILY 10/01/23 10/07/23 History levothyroxine 200 mcg tablet 200 mcg PO DAILY 10/01/23 10/07/23 History omeprazole 20 mg capsule,delayed 20 mg PO DAILY 10/01/23 10/07/23 History release ciprofloxacin HCl 250 mg tablet 250 mg PO BID 10/08/23 10/07/23 History tramadol 50 mg tablet 50 mg PO Q8H PRN pain 3 days #10 10/08/23 Unknown Rx tabs Allergy/AdvReac Type Severity Reaction Status Date / Time Penicillins (PCN) Allergy Rash Verified 10/08/23 06:43 oxycodone (From Percocet) AdvReac Vomiting Verified 10/08/23 06:43 Surgical History History of lithotripsy History of History of colonoscopy History of extraction of renal calculus History of thyroidectomy History of appendectomy History of cholecystectomy Social History Smoking Status: Former smoker substance use type: does not use ROS ROS ED Review of Systems ROS Unobtainable: other Constitutional Constitutional ED: Reports lethargy; Denies chills, fever(s), sweats or weight loss Eyes Eyes: Denies blurry vision, change in vision or diplopia ENT ENT ED: Denies rhinorrhea or sore throat Cardiovascular Cardiovascular: Denies chest pain, orthopnea or racing heartbeat Respiratory/Chest Respiratory/Chest: Denies cough, dyspnea, dyspnea on exertion, orthopnea or sputum Gastrointestinal Gastrointestinal: Denies abdominal pain, diarrhea, nausea or vomiting Genitourinary Genitourinary ED: Denies dysuria, hematuria or urinary frequency Musculoskeletal Musculoskeletal: Reports back pain; Denies arthralgias, myalgias or neck pain Integumentary Denies abscess, Abrasions or rash Neurologic Neurologic: Denies headache(s) or weakness Psychiatric Psychiatric: Denies anxiety, depression or suicidal thoughts Endocrine Endocrinology: Denies polydipsia, polyphagia or polyuria Hematologic/Lymphatic Hematologic/Lymphatic: Denies easy bleeding, easy bruising or lymphadenopathy Allergic/Immunologic Allergic/Immunologic ED: Denies mouth swelling, tongue swelling or urticaria EXAM Physical Exam Narrative Exam Narrative: Standing in room and pacing as I enter. Const Vital Signs: 10/10/23 15:34 10/10/23 16:36 Temperature 96.9 F L 98.1 F Temperature Source Temporal Oral Pulse Rate 91 78 Respiratory Rate 22 H 19 H Blood Pressure 155/83 H 158/80 H Blood Pressure Mean 107 106 Pulse Ox 100 98 Oxygen Delivery Method Room Air Room Air Positive well nourished and well developed General Appearance ED: well developed and NAD HEENT Reports TM's clear and moist mucous membranes normocephalic and atraumatic; Negative for trauma or tenderness Tympanic Membrane ED: Yes TM's clear Eyes PERRL and EOMs intact bilaterally General Eye ED: Negative for pale conjunctiva or scleral icterus Neck no lymphadenopathy, supple and no JVD General: Negative for tenderness Chest Wall inspection of chest normal and palpation of chest normal Chest: Negative for tenderness Resp normal respiratory effort and clear to auscultation bilaterally Effort and Inspection: Negative for respiratory distress or pain with movement Auscultation: Negative for rhonchi, wheezes or diminished lung sounds Cardio regular rate, regular rhythm, S1 normal heart sound, S2 normal heart sound and no murmurs Peripheral Pulses: pulses 2+ throughout GI normal to inspection, nondistended, normoactive bowel sounds, soft to palpation, non-tender, non-distended and no masses Back/Spine no thoracic nor lumbar tenderness General Back: CVA tenderness left Extremity normal to inspection General Extremety ED: Negative for edema General Extremity: Negative for edema Neuro oriented x3, CN's II-XII intact bilaterally, no sensory deficits noted and gait normal Sensorium / Orientation: awake, alert, oriented to person, oriented to place and oriented to time Motor Exam: strength 5/5 throughout and strength abnormal Psych mental status grossly normal Skin no rashes or lesions noted and no wounds MDM MDM MDM Narrative Medical decision making narrative: Patient presents with left flank pain with history of kidney stones and ureteral stents. Patient being seen by urology. She was doing well until around 11 AM today where she started having more significant pain. IV line established. Patient was medicated with Dilaudid and Zofran. CBC with differential obtained showed a white count of 10.9 with hemoglobin 10.7 and platelet count of 254. Chemistries unremarkable. BUN 36 and creatinine 2.4. Urinalysis positive for nitrites as well as 500 leukocyte esterase and 50-100 WBCs with no bacteria seen. Urine culture was sent. Patient had a CT scan of the abdomen pelvis without contrast showed bilateral ureteral stents present no right-sided hydronephrosis there was mild to moderate left-sided hydronephrosis and bilateral nephrolithiasis. I discussed results with patient initially she had good pain relief and now having more pain. Discussed case with her urologist Dr. Yeison Vaughan who was concerned that her left ureteral stent could potentially be obstructed and recommended admitting her for symptomatic treatment of pain and likely exchanging her ureteral stent tomorrow. Lab Data Attestation: I reviewed the patient's lab results. Labs: Laboratory Results - last 24 hr 10/10/23 10/10/23 16:04 16:35 WBC 10.9 RBC 3.70 L Hgb 10.7 L Hct 33.6 L MCV 90.8 MCH 28.9 MCHC 31.8 L RDW Std Deviation 46.5 H RDW Coeff of German 14.3 Plt Count 254 MPV 10.3 Immature Gran % (Auto) 0.600 Neut % (Auto) 61.1 Lymph % (Auto) 27.2 [place] % (Auto) 8.5 Eos % (Auto) 2.0 Baso % (Auto) 0.6 Absolute Neuts (auto) 6.7 Absolute Lymphs (auto) 2.96 Nucleated RBC % 0 Sodium 139 Potassium 3.7 Chloride 108 H Carbon Dioxide 23.0 Anion Gap 8 BUN 36 H Creatinine 2.41 H Estim Creat Clear Calc 39.99 Est GFR (MDRD) Af Amer 26 L Est GFR (MDRD) Non-Af 22 L BUN/Creatinine Ratio 14.9 Glucose 98 Calcium 8.8 Urine Color Yellow Urine Clarity Sl Cloudy Urine pH 6.0 Ur Specific [place] 1.015 Urine Protein 100 H Urine Glucose (UA) Normal Urine Ketones Negative Urine Occult Blood 250 H Urine Nitrite Positive H Urine Bilirubin Negative Urine Urobilinogen Normal Ur Leukocyte Esterase 500 H Urine RBC 10-25 SEEN Urine WBC 50-100 SEEN Ur Squamous Epith Cells 0-5 SEEN Ur Renal Epithelial Cell 0-5 SEEN Urine Bacteria 0 SEEN Urine Mucus 0 SEEN Urine Yeast 1+ Radiography Diagnostic Testing: Clinical Impression(s) from Imaging Studies Abdomen/Pelvis CT 10/10/23 15:54 IMPRESSION: 1. Bilateral ureteral stents are present. No right-sided hydronephrosis. Mild to moderate left-sided hydroureteronephrosis. Bilateral nephrolithiasis, at the lower poles seemingly increased on the right compared to the prior examination. No definite ureteral stone. 2. Multifocal scarring in the bilateral kidneys. No perinephric stranding or evidence of acute infection on this noncontrast examination. 3. Colonic diverticulosis without evidence of acute diverticulitis. Electronically Signed: Kirby Bain DO at 17:07 EDT , Discharge Plan Triage Chief Complaint: Flank Pain ED Provider: Radha Shaikh Dx/Rx/DC Orders Clinical Impression: Intractable pain, Hydronephrosis, History of renal calculi Prescriptions: No Action potassium citrate 10 mEq (1,080 mg) tablet extended release 20 meq PO BID rosuvastatin 5 mg Tablet 5 mg PO DAILY escitalopram oxalate [Lexapro] 10 mg tablet 10 mg PO DAILY AZO D-Mannose 500 mg capsule 500 mg PO DAILY Complex B-100 Tablet Extended Release 1 tab PO DAILY phenazopyridine 100 mg tablet 100 mg PO TID Qty: 30 3RF ondansetron 4 mg tablet,disintegrating 4 mg PO Q8H PRN (Reason: nausea and vomiting) Qty: 10 0RF tramadol 50 mg tablet 50 mg PO Q8H PRN (Reason: pain) 3 Days Qty: 10 0RF levothyroxine 200 mcg tablet 200 mcg PO DAILY omeprazole 20 mg capsule,delayed release(DR/EC) 20 mg PO DAILY NEW LIFE PROBIOTIC capsule 1 cap PO DAILY ciprofloxacin HCl 250 mg tablet 250 mg PO BID tramadol 50 mg tablet 50 mg PO Q8H PRN (Reason: pain) 3 Days Qty: 10 0RF Primary Care Provider: Care Physician,No Primary Referrals: Care Physician,No Primary [Primary Care Provider] - Print Language: Albanian Disposition Disposition: Acute Care Hospital [facility]
[2023-10-10 16:12] LABS: Bacteria 0 SEEN /hpf (None Seen); Mucous, Urine 0 SEEN /hpf (<or=2+)
[2023-10-10 16:26] LABS: Glucose, Dipstick Normal (Normal); Ketone-Dipstick Negative (Negative); Leukocyte Esterase-Dipstick 500 /ul (Negative); Nitrite-Dipstick Positive (Negative); Occult Blood-Urine 250 /ul (Negative); Protein-Dipstick 100 mg/dl (Negative); Specific Gravity, Urine 1.015 (1.002-1.030); Urine Bilirubin Dipstick Negative (Negative); Urine Urobilinogen Normal (Normal)
[2023-10-10] MEDS: 0.9% Normal Saline (1000mL) 1,000 ML 150 ML IV (16:42)
[2023-10-10] MEDS: Ketorolac 15 MG/ML Vial IV (16:43)
[2023-10-10] MEDS: HYDROmorphone 1 MG/ML Syringe IV ×2 (16:44→19:38)
[2023-10-10] MEDS: Ondansetron 4 MG/2 ML Vial IV ×2 (16:44→23:35)
[2023-10-10 16:46] LABS: Color, Urine Yellow (Yellow); Urine Clarity Sl Cloudy (Clear)
[2023-10-10 16:47] LABS: White Blood Cells 50-100 SEEN /hpf (0-5)
[2023-10-10 16:48] LABS: Red Blood Cells-Urine 10-25 SEEN /hpf (0-5)
[2023-10-10 16:49] LABS: Renal Epithelial Cells 0-5 SEEN /hpf (0-5); Squamous Epithelial Cells - UA 0-5 SEEN /hpf (5-10); Yeast-Urine 1+ /hpf (None Seen)
[2023-10-10 16:50] LABS: Absolute Lymphocyte Count 2.96 X10^3/uL (0.83-4.51); Absolute Neutrophil Count 6.7 X10^3/uL (2.0-7.7); Basophil# 0.06 X10^3/uL; Basophil% 0.6 % (0-1); Eosinophil# 0.22 X10^3/uL; Hematocrit 33.6 % (37-47); Hemoglobin 10.7 g/dL (12.0-15.0); Lymphocyte # 2.96 X10^3/ul (0.83-4.51); Lymphocyte % 27.2 % (19-41); Mean Corp Hgb Conc 31.8 g/dL (32-36); Mean Corpuscular Hgb 28.9 pg (27.0-32.0); Mean Corpuscular Volume 90.8 fL (81-99); Mean Platelet Vol. 10.3 fl (6.2-12.0); Monocyte# 0.93 X10^3/uL; Monocyte% 8.5 % (0-10); NRBC Flagged by Analyzer 0 % (0-5); Neutrophil # 6.66 X10^3/uL (2.7-7.7); Neutrophil % 61.1 % (47-70); Platelet Count 254 K/mm3 (150-450); RBC Distribution Width CV 14.3 % (11.6-14.6); RBC Distribution Width SD 46.5 fl (35.1-43.9); White Blood Count 10.9 K/mm3 (4.4-11.0)
[2023-10-10 17:10] LABS: Anion Gap 8 (5-15); BUN 36 mg/dL (7-18); BUN/Creat Ratio 14.9 RATIO (10-20); Calcium,Total 8.8 mg/dL (8.5-10.1); Chloride 108 mmol/L (98-107); Creatinine, Serum 2.41 mg/dL (0.55-1.02); EST Glomerular Filtration Rate 22 mL/min (>60); Est Glom Filt Rate - Afr Amer 26 mL/min (>60); Estimated Creatinine Clearance 39.99 ml/min; Glucose 98 mg/dL (74-106); Potassium 3.7 mmol/L (3.5-5.1); Sodium Level 139 mmol/L (136-145)
[2023-10-10] MEDS: Ceftriaxone 1 GM/50 ML BAG IV (18:53)
[2023-10-10] MEDS: Lactated Ringers 1,000 ML 100 ML IV (23:37)
[2023-10-10] MEDS: HYDROmorphone 0.5 MG/0.5 ML SYRINGE IV (23:37)
[2023-10-11] VITALS (13 sets, daily range): BP systolic 103–160; BP diastolic 41–82; PULSE 71–97; RESP 15–18; TEMP 36.3–37.3; O2SAT 93–100; BMI 51.0
[2023-10-11] MEDS: Acetaminophen 500 MG Tablet 1000 MG PO ×2 (00:19→15:14)
[2023-10-11 04:05] LABS: Absolute Neutrophil Count 6.8 X10^3/uL (2.0-7.7); Basophil# 0.04 X10^3/uL; Basophil% 0.4 % (0-1); Eosinophil# 0.17 X10^3/uL; Eosinophils% 1.6 % (0-5); Hematocrit 29.5 % (37-47); Hemoglobin 9.3 g/dL (12.0-15.0); Lymphocyte % 23.5 % (19-41); Mean Corp Hgb Conc 31.5 g/dL (32-36); Mean Corpuscular Hgb 28.8 pg (27.0-32.0); Mean Corpuscular Volume 91.3 fL (81-99); Mean Platelet Vol. 10.2 fl (6.2-12.0); Monocyte# 1.04 X10^3/uL; Monocyte% 9.8 % (0-10); NRBC Flagged by Analyzer 0 % (0-5); Neutrophil # 6.83 X10^3/uL (2.7-7.7); Neutrophil % 64.3 % (47-70); Platelet Count 218 K/mm3 (150-450); RBC Distribution Width CV 14.6 % (11.6-14.6); RBC Distribution Width SD 47.7 fl (35.1-43.9); Red Blood Count 3.23 M/mm3 (4.2-5.4); White Blood Count 10.6 K/mm3 (4.4-11.0)
[2023-10-11 04:40] LABS: Anion Gap 8 (5-15); BUN 37 mg/dL (7-18); BUN/Creat Ratio 15.5 RATIO (10-20); Calcium,Total 8.2 mg/dL (8.5-10.1); Chloride 107 mmol/L (98-107); Creatinine, Serum 2.38 mg/dL (0.55-1.02); EST Glomerular Filtration Rate 22 mL/min (>60); Est Glom Filt Rate - Afr Amer 27 mL/min (>60); Estimated Creatinine Clearance 38.16 ml/min; Glucose 107 mg/dL (74-106); Potassium 4.4 mmol/L (3.5-5.1); Sodium Level 137 mmol/L (136-145)
[2023-10-11 04:52] LABS: Thyroid Stim Hormone (TSH) 4.55 uIU/mL (0.358-3.74)
[2023-10-11] MEDS: Cefazolin 1 GM/50 ML BAG IV ×2 (05:59→13:36)
[2023-10-11] MEDS: HYDROmorphone 0.5 MG/0.5 ML SYRINGE IV ×2 (06:06→10:02)
[2023-10-11] MEDS: Lactated Ringers 1,000 ML 100 ML IV ×2 (10:02→17:19)
--- NOTE | 2023-10-11 12:56 | PCM.PRE.AN2 ---
ASA Classification* ASA Classification ASA Classification: 3 and E Assessment & Plan Anesthesia* Anesthesia Assessment Anesthesia Assessment: Discussed sedation and/or anesthesia options, risks, benefits, and alternatives with patient/parents/legal guardian/POA. Questions invited. The patient/parents/legal guardian/POA seems to understand and agrees to proceed with anesthesia plan. Reviewed the physical assessment, medical history, allergy history and patient home medications list prior to surgery/procedure/anesthetic and documented any changes. Performed airway and anesthesia risk assessments. Anesthesia Type Anesthesia Type: MAC (*see written pre anesthesia record for full assessment) Anesthesia Focused Assessment* Temperature: 98.2 F Pulse Rate: 79 Blood Pressure: 144/82 Respiratory Rate: 18 Pulse Ox: 96 Airway Assessment Mouth opens: >3 cm Mallampati Score: III Focused Labs Anesthesia Preop lab: CBC WBC 10.6 K/mm3 (4.4-11.0) 10/11/23 03:42 RBC 3.23 M/mm3 (4.2-5.4) L 10/11/23 03:42 Hgb 9.3 g/dL (12.0-15.0) L 10/11/23 03:42 Hct 29.5 % (37-47) L 10/11/23 03:42 Plt Count 218 K/mm3 (150-450) 10/11/23 03:42 CHEMISTRY Potassium 4.4 mmol/L (3.5-5.1) 10/11/23 03:42 Sodium 137 mmol/L (136-145) 10/11/23 03:42 Phosphorus 3.8 mg/dL (2.5-4.9) 02/03/18 16:48 BUN 37 mg/dL (7-18) H 10/11/23 03:42 Creatinine 2.38 mg/dL (0.55-1.02) H 10/11/23 03:42 Glucose 107 mg/dL (74-106) H 10/11/23 03:42 TSH 4.55 uIU/mL (0.358-3.74) H 10/11/23 03:42 COAG Pre-Assessment Diagnosis/Proposed Procedure Planned Operative Procedure(s): cysto stent e Anesthesia History Anesthesia History - supervisor in charge: Anesthesia History - supervisor in charge Hx Hospitalization No 10/01/23 11:05 Any Problems With Anesthesia No 10/11/23 00:14 Cholinesterase deficiency No 10/11/23 00:14 You/Your Family Experience No 10/11/23 00:14 fever (hyperthermia) with Relationship Recent Exposure to Contagious No 10/11/23 00:14 Disease Does patient have nerve No 10/11/23 00:14 stimulator Patient instructed to have device shut off --Does patient have Pacemaker No 10/11/23 08:21 or ICD? When Was Last Pacemaker Check QUESTION #4 FULL TEXT: You/Your Family Experience fever (hyperthermia) with Anesthesia Last Oral Intake Last Oral intake: Last Oral Intake NPO since 00:00 10/11/23 08:21 Meds taken in AM with sips of water? Meds patient instructed to take am of surgery PONV PONV - supervisor in charge: PONV - supervisor in charge Female HX of Motion Sickness HX of N/V After Surgery Non-Smoker Duration of Surgery greater than 60 minutes Number of Risk Factors PONV Score Height & Weight Height & Weight: Anesthesia: Height & Weight Height 5 ft 7 in 10/11/23 08:21 Weight: 148 kg 10/11/23 08:21 Body Mass Index (BMI) 51.0 10/11/23 08:21 Respiratory Assessment Respiratory Assessment - supervisor in charge: Respiratory Tract Infection Hx - supervisor in charge Hx Respiratory Tract Infection No 10/11/23 00:14 STOP Sleep Apnea STOP Sleep Apnea - supervisor in charge: STOP Sleep Apnea - supervisor in charge Hx Hypertension No 10/10/23 19:25 Hx Sleep Apnea No 10/10/23 19:25 CPAP No 10/08/23 09:10 BIPAP Yes: not used since mass 12/05/17 17:17 removal. Do you snore loudly (louder No 10/10/23 19:25 than talking or can be heard Do you often feel tired/ No 10/10/23 19:25 fatigued/ sleepy during daytime? Has anyone observed you stop No 10/10/23 19:25 breathing during sleep? STOP Results Negative 10/10/23 19:25 QUESTION #5 FULL TEXT : Do you snore loudly (louder than talking or can be heard through closed doors)? 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 Specify any problems Hx of Preganancy in last 3 N/A 10/10/23 19:25 Months Nurse Filling Out Transfusion [email or web address] 10/10/23 19:25 & Questions: Date: 10/10/23 10/10/23 19:25 Time: 20:18 10/10/23 19:25 Patient unable to answer at this time (ie. confused, unrespo /Reproduction History /Reproductive History - supervisor in charge: /Reproductive Hx- supervisor in charge Hx Now No 10/11/23 00:14 Gestational Age (in weeks): EDC: Hx Hx Para Hx Section SAB No 10/01/23 11:05 Active Medications Active Medications: Current Medications Generic Name Dose Route Start Last Admin Trade Name Freq PRN Reason Stop Dose Admin Acetaminophen 1,000 mg 10/10/23 22:00 10/11/23 05:47 Acetaminophen 500 Mg Tablet PO Not Given Q8 BERYL Hydromorphone HCl 0.5 mg 10/10/23 20:56 10/11/23 10:02 Hydromorphone 0.5 Mg/0.5 Ml Syringe IV 0.5 mg Q3H PRN PRN Administration Pain Score 6-10 Sodium Chloride 1,000 mls @ 150 mls/hr 10/10/23 15:55 10/11/23 05:46 IV Not Given .[id number] BERYL Sodium Chloride 250 mls @ 15 mls/hr 10/10/23 20:21 IV .[id number] PRN Additional IVPB Infusion Sodium Chloride 250 mls @ 15 mls/hr 10/10/23 20:21 IV .[id number] PRN Saline Flush Lactated Ringer's 1,000 mls @ 100 mls/hr 10/10/23 21:00 10/11/23 10:02 IV 100 mls/hr .Q10H BERYL Administration Cefazolin Sodium 1 gm in 50 mls @ 100 mls/hr 10/11/23 06:00 10/11/23 06:29 IV Infused Q8 BERYL Infusion Ondansetron HCl 4 mg 10/10/23 20:56 10/10/23 23:35 Ondansetron 4 Mg/2 Ml Vial IV 4 mg Q8H PRN PRN Administration NAUSEA/VOMITING Sodium Chloride 10 - 40 ml 10/10/23 20:21 0.9% Saline Lock 10 Ml Syringe IV UD PRN SALINE FLUSH PFSH Medical History Difficult intravenous access Chronic cough Wears glasses Post-menopausal Arthritis Thyroid disease History of renal disease Anemia History of diverticulosis Former smoker History of stress test History of benign mediastinal tumor Depression Hypothyroidism Kidney stones GERD (gastroesophageal reflux disease) Home Medications ?Medication ?Instructions ?Recorded ?Last Taken ?Type rosuvastatin 5 mg tablet 5 mg PO DAILY 12/21/20 Unknown History potassium citrate 10 mEq (1,080 20 meq PO BID 06/04/23 10/07/23 History mg) tablet,extended release d-mannose 500 mg capsule (AZO 500 mg PO DAILY 09/15/23 10/06/23 History D-Mannose) escitalopram oxalate 10 mg tablet 10 mg PO DAILY 09/15/23 Unknown History (Lexapro) vitamin B complex (Complex B-100 1 tab PO DAILY 09/15/23 10/07/23 History tablet,extended release) tramadol 50 mg tablet 50 mg PO Q8H PRN pain 3 days #10 09/24/23 10/07/23 20:00 Rx tabs NEW LIFE PROBIOTIC 1 cap PO DAILY 10/01/23 10/07/23 History levothyroxine 200 mcg tablet 200 mcg PO DAILY 10/01/23 10/07/23 History omeprazole 20 mg capsule,delayed 20 mg PO DAILY 10/01/23 10/07/23 History release tramadol 50 mg tablet 50 mg PO Q8H PRN pain 3 days #10 10/08/23 Unknown Rx tabs cephalexin .ROUTE TID 10/10/23 Unknown History Allergy/AdvReac Type Severity Reaction Status Date / Time Penicillins (PCN) Allergy Rash Verified 10/08/23 06:43 oxycodone (From Percocet) AdvReac Vomiting Verified 10/08/23 06:43 Surgical History History of lithotripsy History of History of colonoscopy History of extraction of renal calculus History of thyroidectomy History of appendectomy History of cholecystectomy Social History Smoking Status: Former smoker substance use type: does not use Review of Systems (Anesthesia) ROS Narrative System reviewed and no additional complaints, except as documented.
--- NOTE | 2023-10-11 13:02 | PCM.HP.STD ---
HPI - General General Date of Admission: 10/10/23 Date of Service: 10/11/23 Chief Complaint: Left flank pain HPI Narrative ALYSSA SLADE, is a 58 F who presented to the emergency room yesterday with complaints of uncontrolled left flank pain. She has recently undergone bilateral ureteral stent insertion and bilateral extracorporal shockwave lithotripsy. The left side was performed a few weeks ago, the right side a few days ago. All of her pain is on the left side. She was evaluated in the emergency room and found to have left side hydronephrosis consistent with her stent not draining. She denies fever and chills and has been taking her antibiotics as prescribed. [facility] Medical History Difficult intravenous access Chronic cough Wears glasses Post-menopausal Arthritis Thyroid disease History of renal disease Anemia History of diverticulosis Former smoker History of stress test History of benign mediastinal tumor Depression Hypothyroidism Kidney stones GERD (gastroesophageal reflux disease) Home Medications ?Medication ?Instructions ?Recorded ?Last Taken ?Type rosuvastatin 5 mg tablet 5 mg PO DAILY 12/21/20 Unknown History potassium citrate 10 mEq (1,080 20 meq PO BID 06/04/23 10/07/23 History mg) tablet,extended release d-mannose 500 mg capsule (AZO 500 mg PO DAILY 09/15/23 10/06/23 History D-Mannose) escitalopram oxalate 10 mg tablet 10 mg PO DAILY 09/15/23 Unknown History (Lexapro) vitamin B complex (Complex B-100 1 tab PO DAILY 09/15/23 10/07/23 History tablet,extended release) tramadol 50 mg tablet 50 mg PO Q8H PRN pain 3 days #10 09/24/23 10/07/23 20:00 Rx tabs NEW LIFE PROBIOTIC 1 cap PO DAILY 10/01/23 10/07/23 History levothyroxine 200 mcg tablet 200 mcg PO DAILY 10/01/23 10/07/23 History omeprazole 20 mg capsule,delayed 20 mg PO DAILY 10/01/23 10/07/23 History release tramadol 50 mg tablet 50 mg PO Q8H PRN pain 3 days #10 10/08/23 Unknown Rx tabs cephalexin .ROUTE TID 10/10/23 Unknown History Allergy/AdvReac Type Severity Reaction Status Date / Time Penicillins (PCN) Allergy Rash Verified 10/08/23 06:43 oxycodone (From Percocet) AdvReac Vomiting Verified 10/08/23 06:43 Surgical History History of lithotripsy History of History of colonoscopy History of extraction of renal calculus History of thyroidectomy History of appendectomy History of cholecystectomy Social History Smoking Status: Former smoker substance use type: does not use ROS Constitutional Constitutional: Reports systems reviewed and no addt'l complaints, except as documented Eyes Eyes: Reports systems reviewed and no addt'l complaints, except as documented ENT HEENT: Reports systems reviewed and no addt'l complaints, except as documented Cardiovascular Cardiovascular: Denies chest pain or dyspnea Respiratory/Chest Respiratory/Chest: Reports systems reviewed and no addt'l complaints, except as documented; Denies chest tightness or dyspnea Gastrointestinal Gastrointestinal: Reports abdominal pain and nausea Genitourinary Genitourinary: Reports abdominal discomfort, flank pain and urinary urgency; Denies burning urination Musculoskeletal Musculoskeletal: Reports back pain Integumentary Integumentary: Reports systems reviewed and no addt'l complaints, except as documented Neurologic Neurologic: Reports systems reviewed and no addt'l complaints, except as documented Psychiatric Psychiatric: Reports systems reviewed and no addt'l complaints, except as documented Endocrine Endocrinology: Reports systems reviewed and no addt'l complaints, except as documented Hematologic/Lymphatic Hematologic/Lymphatic: Reports systems reviewed and no addt'l complaints, except as documented Allergic/Immunologic Allergic/Immunologic: Reports systems reviewed and no addt'l complaints, except as documented Vital Signs Vital Signs Vital Signs: 10/10/23 15:34 10/10/23 16:36 10/10/23 18:36 Temperature 96.9 F L 98.1 F 97.8 F Temperature Source Temporal Oral Pulse Rate 91 78 78 Pulse Strength Respiratory Rate 22 H 19 H 18 Respiratory Effort Respiratory Depth Respiratory Pattern Blood Pressure 155/83 H 158/80 H 111/54 L Blood Pressure Mean 107 106 73 Blood Pressure Source Blood Pressure Position Blood Pressure Location Pulse Ox 100 98 98 Oxygen Delivery Method Room Air Room Air 10/10/23 18:51 10/10/23 19:25 10/10/23 19:40 Temperature 97.8 F Temperature Source Oral Pulse Rate 77 Pulse Strength Respiratory Rate 18 15 Respiratory Effort Normal Non-Labored Respiratory Depth Normal Respiratory Pattern Irregular Blood Pressure 111/56 L 141/60 H Blood Pressure Mean 74 87 Blood Pressure Source Blood Pressure Position Blood Pressure Location Pulse Ox 98 Oxygen Delivery Method Room Air Room Air 10/10/23 20:12 10/10/23 22:00 10/10/23 22:55 Temperature 97.8 F Temperature Source Oral Pulse Rate 74 Pulse Strength Normal (2+) Respiratory Rate 18 Respiratory Effort Respiratory Depth Respiratory Pattern Blood Pressure 121/70 H Blood Pressure Mean 87 Blood Pressure Source Monitor Blood Pressure Position Semi-Fowlers Blood Pressure Location Right Forearm Pulse Ox 97 Oxygen Delivery Method Room Air Room Air 10/11/23 00:10 10/11/23 04:00 10/11/23 06:10 Temperature 98.4 F 97.3 F L Temperature Source Oral Temporal Pulse Rate 77 71 Pulse Strength Respiratory Rate 15 15 Respiratory Effort Normal Non-Labored Respiratory Depth Normal Respiratory Pattern Normal Blood Pressure 120/62 117/68 Blood Pressure Mean 81 84 Blood Pressure Source Monitor Monitor Blood Pressure Position Sitting Semi-Fowlers Blood Pressure Location Right Forearm Left Forearm Pulse Ox 100 100 100 Oxygen Delivery Method Room Air Room Air Room Air 10/11/23 07:53 10/11/23 08:03 10/11/23 08:06 Temperature 98.2 F Temperature Source Oral Pulse Rate 79 Pulse Strength Respiratory Rate 18 Respiratory Effort Normal Non-Labored Respiratory Depth Normal Respiratory Pattern Normal Blood Pressure 144/82 H Blood Pressure Mean 102 Blood Pressure Source Monitor Blood Pressure Position Semi-Fowlers Blood Pressure Location Left Arm Pulse Ox 96 Oxygen Delivery Method Room Air Room Air Room Air 10/11/23 10:00 10/11/23 12:55 10/11/23 12:56 Temperature 98.6 F 98.2 F Temperature Source Oral Pulse Rate 91 79 Pulse Strength Normal (2+) Respiratory Rate 18 18 Respiratory Effort Respiratory Depth Respiratory Pattern Blood Pressure 160/68 H 144/82 H Blood Pressure Mean 98 Blood Pressure Source Monitor Blood Pressure Position Semi-Fowlers Blood Pressure Location Left Arm Pulse Ox 97 96 Oxygen Delivery Method Room Air Weight Weight: 148 kg Body Mass Index (BMI) 51.0 Physical Exam Const alert, oriented x3 and no apparent distress HEENT normocephalic, head/scalp atraumatic, hearing grossly normal bilaterally, external ears normal, external nose normal and moist oral mucous membranes Eyes General Eye: normal appearance of both eyes Neck supple General: normal visual inspection and trachea midline Lymph Lymphatic: no lymphedema noted Chest inspection of chest normal Resp normal respiratory effort, normal air movement and no retractions Cardio regular rate and regular rhythm GI soft to palpation and non-tender Bladder / Kidney Exam: CVA tenderness left Extremity normal to inspection Skin no rashes or lesions noted, no wounds, no jaundice, no petechiae and no mottling Neuro oriented x3, CN's II-XII intact bilaterally and moves all extremities Psych mental status grossly normal and thought process normal Results Lab / Micro Data 10/11/23 03:42 10/11/23 03:42 Labs: Laboratory Results - last 24 hr 10/10/23 16:04: Urine Color Yellow, Urine Clarity Sl Cloudy, Urine pH 6.0, Ur Specific [place] 1.015, Urine Protein 100 H, Urine Glucose (UA) Normal, Urine Ketones Negative, Urine Occult Blood 250 H, Urine Nitrite Positive H, Urine Bilirubin Negative, Urine Urobilinogen Normal, Ur Leukocyte Esterase 500 H, Urine RBC 10-25 SEEN, Urine WBC 50-100 SEEN, Ur Squamous Epith Cells 0-5 SEEN, Ur Renal Epithelial Cell 0-5 SEEN, Urine Bacteria 0 SEEN, Urine Mucus 0 SEEN, Urine Yeast 1+ 10/10/23 16:35: WBC 10.9, RBC 3.70 L, Hgb 10.7 L, Hct 33.6 L, MCV 90.8, MCH 28.9, MCHC 31.8 L, RDW Std Deviation 46.5 H, RDW Coeff of [place] 14.3, Plt Count 254, MPV 10.3, Immature Gran % (Auto) 0.600, Neut % (Auto) 61.1, Lymph % (Auto) 27.2, [place] % (Auto) 8.5, Eos % (Auto) 2.0, Baso % (Auto) 0.6, Absolute Neuts (auto) 6.7, Absolute Lymphs (auto) 2.96, Nucleated RBC % 0, Sodium 139, Potassium 3.7, Chloride 108 H, Carbon Dioxide 23.0, Anion Gap 8, BUN 36 H, Creatinine 2.41 H, Estim Creat Clear Calc 39.99, Est GFR (MDRD) Af Amer 26 L, Est GFR (MDRD) Non-Af 22 L, BUN/Creatinine Ratio 14.9, Glucose 98, Calcium 8.8 10/11/23 03:42: WBC 10.6, RBC 3.23 L, Hgb 9.3 L, Hct 29.5 L, MCV 91.3, MCH 28.8, MCHC 31.5 L, RDW Std Deviation 47.7 H, RDW Coeff of [place] 14.6, Plt Count 218, MPV 10.2, Immature Gran % (Auto) 0.400, Neut % (Auto) 64.3, Lymph % (Auto) 23.5, [place] % (Auto) 9.8, Eos % (Auto) 1.6, Baso % (Auto) 0.4, Absolute Neuts (auto) 6.8, Absolute Lymphs (auto) 2.50, Nucleated RBC % 0, Sodium 137, Potassium 4.4, Chloride 107, Carbon Dioxide 22.0, Anion Gap 8, BUN 37 H, Creatinine 2.38 H, Estim Creat Clear Calc 38.16, Est GFR (MDRD) Af Amer 27 L, Est GFR (MDRD) Non-Af 22 L, BUN/Creatinine Ratio 15.5, Glucose 107 H, Calcium 8.2 L, TSH 4.55 H Micro: Microbiology 10/10/23 18:05 Urine, Clean Catch Urine Culture - Preliminary GPC Poss Enterococcus sp Imaging Radiology Impression Abdomen/Pelvis CT 10/10/23 15:54 IMPRESSION: 1. Bilateral ureteral stents are present. No right-sided hydronephrosis. Mild to moderate left-sided hydroureteronephrosis. Bilateral nephrolithiasis, at the lower poles seemingly increased on the right compared to the prior examination. No definite ureteral stone. 2. Multifocal scarring in the bilateral kidneys. No perinephric stranding or evidence of acute infection on this noncontrast examination. 3. Colonic diverticulosis without evidence of acute diverticulitis. Electronically Signed: Kirby Bain DO at 17:07 EDT , Assessment & Plan Assessment/Plan (1) Hydronephrosis: (2) Intractable pain: (3) Kidney stones: PLAN: Plan Plan for cystoscopy with left ureteral stent change Continue supportive care Complete antibiotics as prescribed Home later today
--- NOTE | 2023-10-11 13:06 | OP.PCM_ITS ---
Report of Operation Date of Procedure: 10/11/23 Pre-Operative Diagnosis: Bilateral renal calculi, left hydronephrosis Post-Operative Diagnosis: Same Surgery/Procedure Performed:: Cystoscopy, bilateral ureteral stent change Surgeon: Shantel Griggs Type of Anesthesia: MAC Description of Procedure: The patient is a 58-year-old female who had previous bilateral extracorporal shockwave lithotripsy with ureteral stent insertion. The left side does not appear to be draining correctly and she has developed hydronephrosis with intractable flank pain. She presents for cystoscopy with stent change. She still has a significant stone burden remaining. Informed consent was obtained. The patient was taken to the operating room and placed on the operating room table. Anesthesia monitored the head, neck, airway, IV access and vital signs throughout the case. Once anesthesia was appropriately administered, she was placed into dorsolithotomy position and was prepped and draped in usual sterile fashion. The cystoscope was inserted through the urethra under direct visualization into the urinary bladder. The left ureteral stent was observed. A 0.035 Glidewire was passed alongside the stent and advanced to the level of the renal pelvis is seen on fluoroscopy. The indwelling stent was removed and the Glidewire was utilized for placing a new 6 [place] 28 cm JJ stent, larger [place] then the last stent. The right ureteral stent was observed to be lower than anticipated and the decision was made to change the stent as well. It was removed in the same fashion as the left side and the new stent placed was a 6 [place] by 28 cm JJ stent with good positioning in the renal pelvis as well as the urinary bladder. The bladder was then emptied and the cystoscope was removed. She was awakened and taken to the recovery room in good condition. There were no complications during this procedure. Grafts/Implants Used: 6 [place] by 28 cm JJ stent x 2 Complications None Admit VTE Documentation VTE Present on Admission: Yes VTE Mechan Device Prophylaxis: SCD's VTE Pharm Prophylaxis ordered?: No Reason prophylaxis not ordered:: Treatment Not Indicated
--- NOTE | 2023-10-11 13:35 | DCINST_ITS ---
Discharge Instructions Diet Discharge Diet: No restrictions Activity Discharge Activity: Return to Normal Activity Dressing / Incision Call your doctor if you observe: Fever of 101 or Higher, Inability to urinate and Inability to have a bowel movement Follow Up Care Please Follow Up With: Shantel Griggs MD When: the office will call her to schedule. thank you. Test Results: Test results from this visit will be discussed in further detail at your follow- up appointment, if applicable. Discharge Plan Admission Admit Date/Time: 10/11/23 13:09 Attending Provider: Shantel Griggs Primary Care Provider: Care PhysicianPauline Primary Discharge Orders/Prescriptions Prescriptions: Continued potassium citrate 10 mEq (1,080 mg) tablet extended release 20 meq PO BID rosuvastatin 5 mg Tablet 5 mg PO DAILY escitalopram oxalate [Lexapro] 10 mg tablet 10 mg PO DAILY AZO D-Mannose 500 mg capsule 500 mg PO DAILY Complex B-100 Tablet Extended Release 1 tab PO DAILY levothyroxine 200 mcg tablet 200 mcg PO DAILY omeprazole 20 mg capsule,delayed release(DR/EC) 20 mg PO DAILY NEW LIFE PROBIOTIC capsule 1 cap PO DAILY tramadol 50 mg tablet 50 mg PO Q8H PRN (Reason: pain) 3 Days Qty: 10 0RF cephalexin .ROUTE TID tramadol 50 mg tablet 50 mg PO Q8H PRN (Reason: pain) 3 Days Qty: 10 0RF Referrals / Follow Up: Care Physician,Pauline Primary [Primary Care Provider] - Disposition Disposition (needs filled in before D/C Order can be placed): Home, Self Care
[2023-10-11] MEDS: POTASSIUM CITRATE 10 MEQ TABLET.ER 20 MEQ PO (17:18)
[2023-10-12 11:14] VITALS: BP 0/0; PULSE 0; RESP 0; TEMP -17.7; TEMP 0; O2SAT 0
--- NOTE | 2023-10-12 11:14 | PCM.POST.ANE ---
Anesthesia: Postop Eval I Current Vital Signs Temperature: 0 F Pulse Rate: 0 Blood Pressure: 0/0 Respiratory Rate: 0 Pulse Ox: 0 Assessment Airway patent: Yes Spontaneous unlabored respirations: Yes nausea: No Vomiting: No Anesthesia Complication: No Fluid Hydration Crystalloid volume administer (ml): 1 Total IV fluid infused: 1 Progress Note Anesthesia document: Postop Eval 1 completed: No
--- NOTE | 2023-10-12 11:15 | PCM.POSTANE2 ---
Anesthesia Postop Eval I Sum Postop Eval Completion status Anesthesia document: Postop Eval 1 completed: No Anesthesia Postop Eval I Summary Anesthesia Postop Eval I Summary: Anesthesia Postop Eval I: Assessment Summary Airway patent Yes 10/12/23 11:14 Spontaneous unlabored Yes 10/12/23 11:14 respirations Mental status nausea No 10/12/23 11:14 Vomiting No 10/12/23 11:14 Anesthesia Postop Eval I: Fluid Summary Crystalloid volume administer 1 10/12/23 11:14 (ml) Colloids volume administered ( ml) Blood Product volume administered (ml) Total IV fluid infused 1 10/12/23 11:14 Anesthesia Postop Eval I: Summary Notes Anesthesia Complication No 10/12/23 11:14 Anesthesia Complication Comment: Post-operative progress note Anesthesia: Postop Eval II Evaluation Mental status: Awake Pain Level: 0 nausea: No Vomiting: No
== END 2023-10-11 18:52 | disposition home or self-care (01) ==
LOC: ED 18:29 → MS3 21:04
PROVIDERS: Anesthesiology; Admitting Provider Urology; Emergency Provider Emergency Medicine; Visit Provider Urology
PROC: (CPT 52332; principal; 2023-10-11 17:15)
DX: N13.2 Hydronephrosis with renal and ureteral calculous obstruction (principal); Z87.891 Personal history of nicotine dependence; E03.9 Hypothyroidism, unspecified; K21.9 Gastro-esophageal reflux disease without esophagitis; Z79.899 Other long term (current) drug therapy; Z79.890 Hormone replacement therapy
CPT/HCPCS: 52332; 00910; 36415; 74176; 76000; 80048; 81001; 84443; 85025; 87077; 87086; 87088; 87186; 94668; 96361; 96365; 96367; 96375; 96376; 99221; 99283; J7030; J7120; A4216; G0378; J2405

== ENCOUNTER 2023-10-23 17:35 | Inpatient (IN) | payer MEDICAID, SELFPAY ==
[2023-10-23] VITALS (7 sets, daily range): BP systolic 96–151; BP diastolic 47–92; PULSE 97–113; RESP 16–18; TEMP 36.8–37.2; O2SAT 94–100; BMI 50.4; BMI 50.3
[2023-10-23 18:21] LABS: Bacteria 0 SEEN /hpf (None Seen); Mucous, Urine 0 SEEN /hpf (<or=2+); Red Blood Cells-Urine 0 SEEN /hpf (0-5); Squamous Epithelial Cells - UA 0 SEEN /hpf (5-10)
[2023-10-23 18:29] LABS: Color, Urine Yellow (Yellow); Glucose, Dipstick Normal (Normal); Ketone-Dipstick Negative (Negative); Leukocyte Esterase-Dipstick 500 /ul (Negative); Nitrite-Dipstick Negative (Negative); Occult Blood-Urine 250 /ul (Negative); Protein-Dipstick 100 mg/dl (Negative); Urine Bilirubin Dipstick Negative (Negative); Urine Clarity Turbid (Clear); Urine Urobilinogen Normal (Normal)
[2023-10-23 18:53] LABS: White Blood Cells >100 SEEN /hpf (0-5)
--- NOTE | 2023-10-23 19:16 | ED.VIS.FEGU ---
HPI HPI - Female History of Present Illness Chief Complaint: Flank Pain PFSH PFSH Medical History (Updated 10/23/23 @ 22:41 by Ashleigh Durán) tubal ligation planned Difficult intravenous access Chronic cough Wears glasses Post-menopausal Arthritis Thyroid disease History of renal disease Anemia History of diverticulosis Former smoker History of stress test History of benign mediastinal tumor Depression Hypothyroidism Kidney stones GERD (gastroesophageal reflux disease) Home Medications ?Medication ?Instructions ?Recorded ?Last Taken ?Type rosuvastatin 5 mg tablet 5 mg PO DAILY 12/21/20 Unknown History potassium citrate 10 mEq (1,080 20 meq PO BID 06/04/23 10/07/23 History mg) tablet,extended release d-mannose 500 mg capsule (AZO 500 mg PO DAILY 09/15/23 10/06/23 History D-Mannose) escitalopram oxalate 10 mg tablet 10 mg PO DAILY 09/15/23 Unknown History (Lexapro) vitamin B complex (Complex B-100 1 tab PO DAILY 09/15/23 10/07/23 History tablet,extended release) NEW LIFE PROBIOTIC 1 cap PO DAILY 10/01/23 10/07/23 History levothyroxine 200 mcg tablet 200 mcg PO DAILY 10/01/23 10/07/23 History omeprazole 20 mg capsule,delayed 20 mg PO DAILY 10/01/23 10/07/23 History release tramadol 50 mg tablet 50 mg PO Q8H PRN pain 3 days #10 10/08/23 Unknown Rx tabs tramadol 50 mg tablet 50 mg PO Q8H PRN pain 3 days #10 10/11/23 Unknown Rx tabs Allergy/AdvReac Type Severity Reaction Status Date / Time Penicillins (PCN) Allergy Rash Verified 10/23/23 17:36 oxycodone (From Percocet) AdvReac Vomiting Verified 10/23/23 17:36 Surgical History History of lithotripsy History of History of colonoscopy History of extraction of renal calculus History of thyroidectomy History of appendectomy History of cholecystectomy Social History Smoking Status: Former smoker substance use type: does not use EXAM Physical Exam Const Vital Signs: 10/23/23 17:36 10/23/23 19:35 10/23/23 21:00 Temperature 98.2 F Temperature Source Temporal Pulse Rate 113 H 104 H 99 Respiratory Rate 18 16 16 Blood Pressure 132/92 H 151/92 H 96/47 L Blood Pressure Mean 105 111 63 Pulse Ox 100 98 94 Oxygen Delivery Method Room Air Room Air Room Air 10/23/23 21:47 10/23/23 21:48 10/23/23 21:49 Temperature 98.6 F 98.6 F Temperature Source Oral Pulse Rate 100 99 98 Respiratory Rate 16 18 16 Blood Pressure 100/64 100/64 100/64 Blood Pressure Mean 76 76 76 Pulse Ox 94 95 95 Oxygen Delivery Method Room Air Room Air [facility] Narrative Medical decision making narrative: HISTORY OF PRESENT ILLNESS: 58 F here with Flank pain. Endorses Left-sided flank pain. Notes history of kidney stones that were diagnosed approximately 2 weeks ago stents placed. Notes increasing pain. Notes painful urination. Fevers or chills. Denies vomiting or diarrhea. REVIEW OF SYSTEMS: Pertinent positives: Flank pain, dysuria, fever, chills Pertinent negatives: As per HPI PHYSICAL EXAM: Nursing triage notes reviewed, Vital signs reviewed Constitutional: please see mdm HENT: MMM Eyes: Pupils equal round and reactive to light, Extraocular muscles intact Neck: No stridor, no JVD, full neck ROM Lungs: Clear to auscultation, No wheezing or rales. No increased work of breathing, no conversational dyspnea, no accessory muscle use, no nasal flaring. No respiratory distress noted Heart: Regular rate and rhythm, No murmurs, No rubs and No gallops, 2+ distal pulses (radial, femoral, posterior tibial) in all extremities Abdomen: Soft, there is no tenderness, rigidity, rebound or guarding, no obvious peritoneal signs, no palpable pulsatile abdominal masses, no auscultated abdominal bruit : No CVAT Extremities: No edema Neuro: No focal neurological deficits, cranial nerves II through XII intact, 5/5 strength in all extremities. Intact sensation to light touch in all extremities, 2+ reflexes bilateral patella tendons. Normal gait. No ataxia. Skin: No rash or lesions noted MEDICAL DECISION MAKING: Chief Complaint: Flank pain External records reviewed: Prior ED visit reviewed: Seen on 10/10/2023 for left-sided flank pain. At this time she received a CT scan of the abdomen pelvis showed bilateral ureteral stents, mild left-sided hydronephrosis. This time urology was consulted. Her urologist is Dr. Griggs. She recommended admission for potential stent intervention. Factors affecting care: Nephrolithiasis status with lithotripsy and stent Social determinants of health: none History obtained from others: none Consults: Urology (Dr. Griggs) [facility] Narrative: The patient was initially tachycardic rate of 113 otherwise afebrile and nontoxic-appearing. Exam with left CVA tenderness. Lower abdominal TTP as well. I considered the following differential diagnosis: Stent occlusion, nephrolithiasis, pyelonephritis, UTI I obtained a broad lab and imaging work up to further elucidate etiology the patient complaint. Urinalysis was placed per protocol orders I added CBC, BMP, CT scan noncontrast ALL IMAGES (IF OBTAINED) HAVE BEEN PERSONALLY REVIEWED AND INTERPRETED BY MYSELF. UA with evidence of inflammation, hematuria, there is no bacteria or white blood cells. Will treat with ceftriaxone and send for culture. CBC with leukocytosis suggestive of systemic inflammation, mild anemia, no thrombocytopenia BMP without significant electrolyte disturbances, noted FLORIN on CKD CT scan of the abdomen pelvis without contrast shows the following: IMPRESSION: Nonobstructing right renal calculi status post ureterovesical stent placement. Persistent moderate left hydroureteronephrosis secondary to tiny ureteral stone in association with ureterovesical stent On reevaluation the patient's heart rate improved to 97 The synthesis of the patient's history, physical exam, labs, and images suggest an infected ureteral stone as well as stent causing pyelonephritis flank pain and elevated white blood cell count. Discussed the case with the patient's urologist Dr. Griggs who recommended hospitalization for ongoing antimicrobial therapy and possible surgical intervention. Patient was admitted in stable condition. The patient and/or family, caregivers express understanding. The patient and/or family, caregivers agrees with the plan. Shared decision making: I will have a discussion with the patient and or visitors regarding risk/benefits of further testing or admission. They will be made aware of of the risk/benefits inherent in this decision they will be given the opportunity to voice understanding. Total critical care time today provided was at least 0 minutes. This excludes separately billable procedures. Critical care time (if documented) is secondary to the patient having high probability of clinically significant/life threatening deterioration in the patient's condition which required my urgent intervention. Impression: 1. Pyelonephritis 2. Nephrolithiasis 3. Hydronephrosis 4. History of ureteral stent Dispo: Admit under urology service This note was generated with [employer] dictation software. It may contain incorrect words, spelling, and punctuation that were not noted in review of the chart prior to signing. Lab Data Labs: Laboratory Results - last 24 hr 10/23/23 10/23/23 18:16 19:15 WBC 13.1 H RBC 3.85 L Hgb 11.1 L Hct 34.9 L MCV 90.6 MCH 28.8 MCHC 31.8 L RDW Std Deviation 48.3 H RDW Coeff of [place] 14.8 H Plt Count 288 MPV 10.5 Immature Gran % (Auto) 0.500 Neut % (Auto) 70.9 H Lymph % (Auto) 19.0 [place] % (Auto) 7.9 Eos % (Auto) 1.4 Baso % (Auto) 0.3 Absolute Neuts (auto) 9.3 H Absolute Lymphs (auto) 2.49 Nucleated RBC % 0 Sodium 136 Potassium 4.0 Chloride 106 Carbon Dioxide 24.0 Anion Gap 6 BUN 28 H Creatinine 2.80 H Estim Creat Clear Calc 32.17 Est GFR (MDRD) Af Amer 22 L Est GFR (MDRD) Non-Af 18 L BUN/Creatinine Ratio 10.0 Glucose 117 H Calcium 9.9 Urine Color Yellow Urine Clarity Turbid Urine pH 6.0 Ur Specific [place] 1.010 Urine Protein 100 H Urine Glucose (UA) Normal Urine Ketones Negative Urine Occult Blood 250 H Urine Nitrite Negative Urine Bilirubin Negative Urine Urobilinogen Normal Ur Leukocyte Esterase 500 H Urine RBC 0 SEEN Urine WBC >100 SEEN Ur Squamous Epith Cells 0 SEEN Urine Bacteria 0 SEEN Urine Mucus 0 SEEN Radiography Diagnostic Testing: Clinical Impression(s) from Imaging Studies Abdomen/Pelvis CT 10/23/23 19:20 IMPRESSION: Nonobstructing right renal calculi status post ureterovesical stent placement. Persistent moderate left hydroureteronephrosis secondary to tiny ureteral stone in association with ureterovesical stent Electronically Signed: Jordan Hernadez MD at 21:02 EDT , Discharge Plan Disposition Disposition: Acute Care Hospital [facility] Discharge Date/Time: 10/23/23 22:18
--- NOTE | 2023-10-23 19:20 | CT_ITS ---
STUDY: CT ABDOMEN AND PELVIS WITHOUT CONTRAST REASON FOR EXAM: Female, 58 years old. Kidney Stone RADIATION DOSAGE (If Supplied By Facility): CTDIvol = ( 22.43 ) mGy, DLP = ( 1238.67 ) mGycm TECHNIQUE: Transaxial images were obtained from the dome of the diaphragm to the symphysis pubis without oral contrast, and without intravenous contrast. Sagittal and coronal images were reconstructed. Individualized dose optimization techniques were used for this CT. COMPARISON: October 10, 2023 FINDINGS: The visualized lung bases are unremarkable. The visualized portions of the heart are within normal limits. Liver is mildly enlarged but homogeneous attenuation without mass or bile duct dilatation. The gallbladder is not visualized secondary to cholecystectomy. Nonspecific mild splenomegaly.. Normal pancreas. Normal bilateral adrenal glands. There is multifocal cortical scarring of the right kidney consistent with old inflammatory disease. There is a calcification in the right lower pole. There is no evidence for renal obstruction at this time status post placement of vesicoureteral stent.. The left kidney also demonstrates multifocal cortical scarring but is generally enlarged and demonstrates diffuse stranding in the perinephric fat. There are nonobstructing calculi in the lower pole collecting system. However, there is also moderate renal pelvocaliectasis and hydroureter status post ureterovesical stent in addition to a tiny stone distal ureter Normal visualized stomach. Normal small intestine. Diverticular changes of the descending colon without evidence for acute diverticulitis. Appendix not visualized status post appendectomy Normal abdominal aorta. Normal inferior vena cava. Normal retroperitoneum. Normal urinary bladder. Normal abdominal wall. Lumbar spine demonstrates degenerative changes The appearance of the right kidney has improved when compared with previous exam. There is increasing perinephric stranding on the left when compared with previous exam CT/Abdomen/Pelvis without Cont IMPRESSION: Nonobstructing right renal calculi status post ureterovesical stent placement. Persistent moderate left hydroureteronephrosis secondary to tiny ureteral stone in association with ureterovesical stent Electronically Signed: Jordan Hernadez MD at 21:02 EDT ,
[2023-10-23] MEDS: Ondansetron 4 MG/2 ML Vial IV (19:43)
[2023-10-23] MEDS: Ketorolac 15 MG/ML Vial IV (19:43)
[2023-10-23] MEDS: Morphine 4 MG/ML Syringe IV (19:56)
[2023-10-23 20:14] LABS: Absolute Lymphocyte Count 2.49 X10^3/uL (0.83-4.51); Absolute Neutrophil Count 9.3 X10^3/uL (2.0-7.7); Basophil# 0.04 X10^3/uL; Basophil% 0.3 % (0-1); Eosinophil# 0.18 X10^3/uL; Eosinophils% 1.4 % (0-5); Hematocrit 34.9 % (37-47); Hemoglobin 11.1 g/dL (12.0-15.0); Lymphocyte # 2.49 X10^3/ul (0.83-4.51); Mean Corp Hgb Conc 31.8 g/dL (32-36); Mean Corpuscular Hgb 28.8 pg (27.0-32.0); Mean Corpuscular Volume 90.6 fL (81-99); Mean Platelet Vol. 10.5 fl (6.2-12.0); Monocyte# 1.03 X10^3/uL; Monocyte% 7.9 % (0-10); NRBC Flagged by Analyzer 0 % (0-5); Neutrophil % 70.9 % (47-70); Platelet Count 288 K/mm3 (150-450); RBC Distribution Width CV 14.8 % (11.6-14.6); RBC Distribution Width SD 48.3 fl (35.1-43.9); Red Blood Count 3.85 M/mm3 (4.2-5.4); White Blood Count 13.1 K/mm3 (4.4-11.0)
[2023-10-23] MEDS: Ceftriaxone 1 GM/50 ML BAG IV (20:25)
[2023-10-23 20:34] LABS: Anion Gap 6 (5-15); BUN 28 mg/dL (7-18); Calcium,Total 9.9 mg/dL (8.5-10.1); Chloride 106 mmol/L (98-107); EST Glomerular Filtration Rate 18 mL/min (>60); Est Glom Filt Rate - Afr Amer 22 mL/min (>60); Estimated Creatinine Clearance 32.17 ml/min; Glucose 117 mg/dL (74-106); Sodium Level 136 mmol/L (136-145)
[2023-10-24] MEDS: 0.9% Saline Lock 10 ML Syringe IV (00:34)
[2023-10-24] MEDS: Acetaminophen 500 MG Tablet 1000 MG PO ×4 (00:34→21:50)
[2023-10-24] MEDS: Lactated Ringers 1,000 ML 125 ML IV ×3 (00:34→18:04)
[2023-10-24] MEDS: Ciprofloxacin 200 MG/100 ML BAG 100 MG IV ×3 (00:34→21:51)
[2023-10-24 04:25] VITALS: BP 131/54; PULSE 91; RESP 16; TEMP 37.4; O2SAT 98
[2023-10-24] MEDS: Ketorolac 15 MG/ML Vial IV (05:43)
[2023-10-24 08:33] VITALS: BP 99/60; PULSE 89; RESP 18; TEMP 36.7; O2SAT 94
[2023-10-24 10:56] VITALS: O2SAT 94
--- NOTE | 2023-10-24 13:45 | CASEMGMT ---
KIRSTEN SCHULTE Assessment: Face to Face with pt for initial transition planning/care coordination assessment. RN FRANCA introduced self and role at [facility], pt voices understanding and consents to assessment. Pt is A&O x4 and answers all questions appropriately at this time. Pt sitting up in bed in no distress. Care providers, pharmacy, and demographics verified/updated. Strata: 2 Admitting Dx: UTI kidney stones PCP: No PCP, provided list of local physicians Specialists: [facility]; [employer] [facility] Compliance Specialist. [facility]erred [facility]acy: [facility] Insurance: [employer] Prescription Benefit: yes LNOK: Living Arrangements: Pt lives with in a 2 story home with 4 steps to enter. ADLs: Pt reports I with ADLs and IADLs. Transportation: Pt drives self and denies concerns with transportation. DME: [employer], but does not use it. HHC/SNF: Denies Hx of. Pt states no concerns with going home at time of dc. Pt states no further concerns/needs. CM to follow. Advised pt to ask CM if any further question/concerns/needs arise, voices understanding. Pt Goal: Home Plan: Home, Follow plan of care. Dmitry CURTIS CM
[2023-10-24 13:59] VITALS: BP 96/76; PULSE 100; RESP 18; TEMP 38.3; O2SAT 94
--- NOTE | 2023-10-24 17:25 | PCM.HP.STD ---
HPI - General General Date of Admission: 10/23/23 Date of Service: 10/24/23 Chief Complaint: flank pain HPI Narrative ALYSSA SLADE, is a 58 F who presented to the ER with uncontrolled left flank pain and nausea. She has bilateral stones with multiple recent procedures including a cystoscopy with bilateral stent change 2 weeks ago. She was doing ok at home until yesterday morning when her pain significantly increased. [facility] Medical History (Updated 10/24/23 @ 17:[address] Shantel Griggs MD) Urinary tract infection tubal ligation planned Difficult intravenous access Chronic cough Wears glasses Post-menopausal Arthritis Thyroid disease History of renal disease Anemia History of diverticulosis Former smoker History of stress test History of benign mediastinal tumor Depression Hypothyroidism Kidney stones GERD (gastroesophageal reflux disease) Home Medications ?Medication ?Instructions ?Recorded ?Last Taken ?Type rosuvastatin 5 mg tablet 5 mg PO DAILY 12/21/20 Unknown History potassium citrate 10 mEq (1,080 20 meq PO BID 06/04/23 10/07/23 History mg) tablet,extended release d-mannose 500 mg capsule (AZO 500 mg PO DAILY 09/15/23 10/06/23 History D-Mannose) escitalopram oxalate 10 mg tablet 10 mg PO DAILY 09/15/23 Unknown History (Lexapro) vitamin B complex (Complex B-100 1 tab PO DAILY 09/15/23 10/07/23 History tablet,extended release) NEW LIFE PROBIOTIC 1 cap PO DAILY 10/01/23 10/07/23 History levothyroxine 200 mcg tablet 200 mcg PO DAILY 10/01/23 10/07/23 History omeprazole 20 mg capsule,delayed 20 mg PO DAILY 10/01/23 10/07/23 History release tramadol 50 mg tablet 50 mg PO Q8H PRN pain 3 days #10 10/08/23 Unknown Rx tabs tramadol 50 mg tablet 50 mg PO Q8H PRN pain 3 days #10 10/11/23 Unknown Rx tabs Allergy/AdvReac Type Severity Reaction Status Date / Time Penicillins (PCN) Allergy Rash Verified 10/23/23 17:36 oxycodone (From Percocet) AdvReac Vomiting Verified 10/23/23 17:36 Surgical History History of lithotripsy History of History of colonoscopy History of extraction of renal calculus History of thyroidectomy History of appendectomy History of cholecystectomy Social History Smoking Status: Former smoker substance use type: does not use ROS Constitutional Constitutional: Reports fever(s) Eyes Eyes: Reports systems reviewed and no addt'l complaints, except as documented ENT HEENT: Reports systems reviewed and no addt'l complaints, except as documented Cardiovascular Cardiovascular: Reports systems reviewed and no addt'l complaints, except as documented Respiratory/Chest Respiratory/Chest: Reports systems reviewed and no addt'l complaints, except as documented Gastrointestinal Gastrointestinal: Reports abdominal pain and nausea Genitourinary Genitourinary: Reports abdominal discomfort, flank pain and low back pain; Denies burning urination or difficulty urinating Musculoskeletal Musculoskeletal: Reports systems reviewed and no addt'l complaints, except as documented Integumentary Integumentary: Reports systems reviewed and no addt'l complaints, except as documented Neurologic Neurologic: Reports systems reviewed and no addt'l complaints, except as documented Psychiatric Psychiatric: Reports systems reviewed and no addt'l complaints, except as documented Endocrine Endocrinology: Reports systems reviewed and no addt'l complaints, except as documented Hematologic/Lymphatic Hematologic/Lymphatic: Reports systems reviewed and no addt'l complaints, except as documented Allergic/Immunologic Allergic/Immunologic: Reports systems reviewed and no addt'l complaints, except as documented Vital Signs Vital Signs Vital Signs: 10/23/23 17:36 10/23/23 19:35 10/23/23 21:00 Temperature 98.2 F Temperature Source Temporal Pulse Rate 113 H 104 H 99 Respiratory Rate 18 16 16 Respiratory Effort Respiratory Depth Respiratory Pattern Blood Pressure 132/92 H 151/92 H 96/47 L Blood Pressure Mean 105 111 63 Blood Pressure Source Blood Pressure Position Blood Pressure Location Pulse Ox 100 98 94 Oxygen Delivery Method Room Air Room Air Room Air 10/23/23 21:47 10/23/23 21:48 10/23/23 21:49 Temperature 98.6 F 98.6 F Temperature Source Oral Pulse Rate 100 99 98 Respiratory Rate 16 18 16 Respiratory Effort Respiratory Depth Respiratory Pattern Blood Pressure 100/64 100/64 100/64 Blood Pressure Mean 76 76 76 Blood Pressure Source Blood Pressure Position Blood Pressure Location Pulse Ox 94 95 95 Oxygen Delivery Method Room Air Room Air 10/23/23 22:24 08/16/24 23:11 10/24/23 04:25 Temperature 98.9 F 99.3 F H Temperature Source Oral Temporal Pulse Rate 97 91 Respiratory Rate 18 16 Respiratory Effort Normal Non-Labored Respiratory Depth Normal Respiratory Pattern Normal Blood Pressure 110/69 131/54 H Blood Pressure Mean 82 79 Blood Pressure Source Monitor Blood Pressure Position Semi-Fowlers Blood Pressure Location Left Forearm Pulse Ox 95 98 Oxygen Delivery Method Room Air Room Air Room Air 10/24/23 08:33 10/24/23 10:56 10/24/23 13:59 Temperature 98.1 F 101 F H Temperature Source Oral Axillary Pulse Rate 89 100 Respiratory Rate 18 18 Respiratory Effort Respiratory Depth Respiratory Pattern Blood Pressure 99/60 96/76 Blood Pressure Mean 73 82 Blood Pressure Source Monitor Monitor Blood Pressure Position Semi-Fowlers Semi-Fowlers Blood Pressure Location Left Forearm Left Forearm Pulse Ox 94 94 94 Oxygen Delivery Method Room Air Room Air Room Air Weight Weight: 145.7 kg Body Mass Index (BMI) 50.3 Physical Exam Const alert, oriented x3 and no apparent distress General Appearance: cooperative, comfortable and well kempt HEENT normocephalic, head/scalp atraumatic, hearing grossly normal bilaterally, external ears normal, external nose normal and moist oral mucous membranes Eyes General Eye: normal appearance of both eyes Neck supple General: normal visual inspection Lymph Lymphatic: no lymphedema noted Chest inspection of chest normal Chest: symmetrical chest wall rise Resp normal respiratory effort, normal air movement and no retractions Cardio regular rate GI soft to palpation and non-distended Bladder / Kidney Exam: CVA tenderness left Extremity normal to inspection Skin no rashes or lesions noted, no jaundice, no petechiae and no mottling Neuro oriented x3, CN's II-XII intact bilaterally and moves all extremities Psych mental status grossly normal Results Lab / Micro Data 10/23/23 19:15 10/23/23 19:15 Labs: Laboratory Results - last 24 hr 10/23/23 18:16: Urine Color Yellow, Urine Clarity Turbid, Urine pH 6.0, Ur Specific [place] 1.010, Urine Protein 100 H, Urine Glucose (UA) Normal, Urine Ketones Negative, Urine Occult Blood 250 H, Urine Nitrite Negative, Urine Bilirubin Negative, Urine Urobilinogen Normal, Ur Leukocyte Esterase 500 H, Urine RBC 0 SEEN, Urine WBC >100 SEEN, Ur Squamous Epith Cells 0 SEEN, Urine Bacteria 0 SEEN, Urine Mucus 0 SEEN 10/23/23 19:15: WBC 13.1 H, RBC 3.85 L, Hgb 11.1 L, Hct 34.9 L, MCV 90.6, MCH 28.8, MCHC 31.8 L, RDW Std Deviation 48.3 H, RDW Coeff of [place] 14.8 H, Plt Count 288, MPV 10.5, Immature Gran % (Auto) 0.500, Neut % (Auto) 70.9 H, Lymph % (Auto) 19.0, [place] % (Auto) 7.9, Eos % (Auto) 1.4, Baso % (Auto) 0.3, Absolute Neuts (auto) 9.3 H, Absolute Lymphs (auto) 2.49, Nucleated RBC % 0, Sodium 136, Potassium 4.0, Chloride 106, Carbon Dioxide 24.0, Anion Gap 6, BUN 28 H, Creatinine 2.80 H, Estim Creat Clear Calc 32.17, Est GFR (MDRD) Af Amer 22 L, Est GFR (MDRD) Non-Af 18 L, BUN/Creatinine Ratio 10.0, Glucose 117 H, Calcium 9.9 Micro: Microbiology 10/23/23 18:16 Urine, Clean Catch Urine Culture - Preliminary Gram negative christal Imaging Radiology Impression Abdomen/Pelvis CT 10/23/23 19:20 IMPRESSION: Nonobstructing right renal calculi status post ureterovesical stent placement. Persistent moderate left hydroureteronephrosis secondary to tiny ureteral stone in association with ureterovesical stent Electronically Signed: Jordan Hernadez MD at 21:02 EDT Reading Location ID and State: [facility] / ID Tel , Service support , Assessment & Plan Assessment/Plan (1) History of renal calculi: (2) Hydronephrosis: (3) Bilateral flank pain: (4) Fever: (5) Urinary tract infection: PLAN: Plan await culture results continue antibiotics continue supportive care plan for surgical intervention, will check labs
[2023-10-24 18:27] VITALS: BP 102/54; PULSE 92; RESP 18; TEMP 37.3; O2SAT 98
[2023-10-24 19:01] LABS: Absolute Neutrophil Count 5.6 X10^3/uL (2.0-7.7); Basophil# 0.02 X10^3/uL; Basophil% 0.2 % (0-1); Eosinophil# 0.17 X10^3/uL; Eosinophils% 2.1 % (0-5); Hematocrit 28.8 % (37-47); Hemoglobin 9.4 g/dL (12.0-15.0); Lymphocyte % 18.5 % (19-41); Mean Corp Hgb Conc 32.6 g/dL (32-36); Mean Corpuscular Hgb 29.7 pg (27.0-32.0); Mean Corpuscular Volume 91.1 fL (81-99); Mean Platelet Vol. 9.8 fl (6.2-12.0); Monocyte# 0.81 X10^3/uL; NRBC Flagged by Analyzer 0 % (0-5); Neutrophil # 5.55 X10^3/uL (2.7-7.7); Neutrophil % 68.7 % (47-70); POSITIVE MORPHOLOGY YES; Platelet Count 180 K/mm3 (150-450); RBC Distribution Width SD 50.1 fl (35.1-43.9); Red Blood Count 3.16 M/mm3 (4.2-5.4); White Blood Count 8.1 K/mm3 (4.4-11.0)
[2023-10-24 19:12] LABS: Differential Indicated SCAN CRITERIA MET
[2023-10-24 19:21] LABS: Anion Gap 8 (5-15); BUN 35 mg/dL (7-18); BUN/Creat Ratio 9.4 RATIO (10-20); Calcium,Total 8.6 mg/dL (8.5-10.1); Chloride 105 mmol/L (98-107); Creatinine, Serum 3.74 mg/dL (0.55-1.02); EST Glomerular Filtration Rate 13 mL/min (>60); Est Glom Filt Rate - Afr Amer 16 mL/min (>60); Estimated Creatinine Clearance 24.05 ml/min; Glucose 139 mg/dL (74-106); Potassium 4.1 mmol/L (3.5-5.1); Sodium Level 135 mmol/L (136-145)
[2023-10-24 19:33] LABS: Differential Comment SCANNED
[2023-10-24] MEDS: Escitalopram Oxalate 10 MG Tablet PO (21:51)
[2023-10-24] MEDS: Atorvastatin Calcium 10 MG Tablet PO (21:52)
[2023-10-24] MEDS: Morphine 2 MG/ML Syringe IV (23:04)
--- NOTE | 2023-10-24 23:18 | EKG12_ITS ---
Test Reason : AM EKG Blood Pressure : / mmHG Vent. Rate : 095 BPM Atrial Rate : 095 BPM P-R Int : 164 ms QRS Dur : 094 ms QT Int : 344 ms P-R-T Axes : 019 032 011 degrees QTc Int : 432 ms Normal sinus rhythm Nonspecific ST abnormality Abnormal ECG Confirmed by VICTORINO CRABTREE, PAWAN ([id number]), features editor MARTHA DICKEY ([id number]) on 10/30/2023 9:57:14 AM Referred By: Shantel Griggs Confirmed By:GERRY GLEASON MD
[2023-10-25] VITALS (14 sets, daily range): BP systolic 89–140; BP diastolic 52–81; PULSE 67–98; RESP 15–18; TEMP 36.6–37.6; O2SAT 92–98; BMI 50.3
[2023-10-25] MEDS: Lactated Ringers 1,000 ML 125 ML IV ×3 (02:05→22:05)
[2023-10-25] MEDS: Morphine 2 MG/ML Syringe IV (04:49)
[2023-10-25 06:27] LABS: Absolute Lymphocyte Count 1.43 X10^3/uL (0.83-4.51); Absolute Neutrophil Count 4.8 X10^3/uL (2.0-7.7); Basophil# 0.02 X10^3/uL; Basophil% 0.3 % (0-1); Eosinophils% 2.8 % (0-5); Hematocrit 29.1 % (37-47); Hemoglobin 9.2 g/dL (12.0-15.0); Lymphocyte # 1.43 X10^3/ul (0.83-4.51); Lymphocyte % 19.7 % (19-41); Mean Corp Hgb Conc 31.6 g/dL (32-36); Mean Corpuscular Hgb 29.1 pg (27.0-32.0); Mean Corpuscular Volume 92.1 fL (81-99); Mean Platelet Vol. 10.2 fl (6.2-12.0); Monocyte# 0.76 X10^3/uL; Monocyte% 10.5 % (0-10); NRBC Flagged by Analyzer 0 % (0-5); Neutrophil # 4.82 X10^3/uL (2.7-7.7); Neutrophil % 66.4 % (47-70); Platelet Count 179 K/mm3 (150-450); RBC Distribution Width CV 15.1 % (11.6-14.6); RBC Distribution Width SD 50.4 fl (35.1-43.9); Red Blood Count 3.16 M/mm3 (4.2-5.4); White Blood Count 7.3 K/mm3 (4.4-11.0)
[2023-10-25 06:44] LABS: International Normalized Ratio 1.3; Partial Thromboplast Time 33.9 Seconds (24.1-36.2); Prothrombin Time (Protime)PT. 16.3 SECONDS (11.7-14.9)
[2023-10-25 07:04] LABS: Anion Gap 7 (5-15); BUN 35 mg/dL (7-18); BUN/Creat Ratio 10.1 RATIO (10-20); Calcium,Total 8.9 mg/dL (8.5-10.1); Chloride 106 mmol/L (98-107); Creatinine, Serum 3.45 mg/dL (0.55-1.02); EST Glomerular Filtration Rate 14 mL/min (>60); Est Glom Filt Rate - Afr Amer 17 mL/min (>60); Estimated Creatinine Clearance 26.07 ml/min; Glucose 106 mg/dL (74-106); Potassium 4.2 mmol/L (3.5-5.1); Sodium Level 137 mmol/L (136-145)
--- NOTE | 2023-10-25 07:26 | PCM.PRE.AN2 ---
ASA Classification* ASA Classification ASA Classification: 3 and E Assessment & Plan Anesthesia* Anesthesia Assessment Anesthesia Assessment: Discussed sedation and/or anesthesia options, risks, benefits, and alternatives with patient/parents/legal guardian/POA. Questions invited. The patient/parents/legal guardian/POA seems to understand and agrees to proceed with anesthesia plan. Reviewed the physical assessment, medical history, allergy history and patient home medications list prior to surgery/procedure/anesthetic and documented any changes. Performed airway and anesthesia risk assessments. Anesthesia Type Anesthesia Type: MAC Anesthesia Focused Assessment* Temperature: 99.1 F Pulse Rate: 92 Blood Pressure: 102/54 Respiratory Rate: 18 Pulse Ox: 98 Airway Assessment Mouth opens: >3 cm Mallampati Score: III Focused Labs Anesthesia Preop lab: CBC WBC 7.3 K/mm3 (4.4-11.0) 10/25/23 05:30 RBC 3.16 M/mm3 (4.2-5.4) L 10/25/23 05:30 Hgb 9.2 g/dL (12.0-15.0) L 10/25/23 05:30 Hct 29.1 % (37-47) L 10/25/23 05:30 Plt Count 179 K/mm3 (150-450) 10/25/23 05:30 CHEMISTRY Potassium 4.2 mmol/L (3.5-5.1) 10/25/23 05:30 Sodium 137 mmol/L (136-145) 10/25/23 05:30 Phosphorus 3.8 mg/dL (2.5-4.9) 02/03/18 16:48 BUN 35 mg/dL (7-18) H 10/25/23 05:30 Creatinine 3.45 mg/dL (0.55-1.02) H 10/25/23 05:30 Glucose 106 mg/dL (74-106) 10/25/23 05:30 TSH 24.600 uIU/mL (0.358-3.740) H 10/25/23 05:30 COAG PT 16.3 SECONDS (11.7-14.9) H 10/25/23 05:30 Pre-Assessment Diagnosis/Proposed Procedure Planned Operative Procedure(s): Cystoscopy stent exchange Anesthesia History Anesthesia History - manager export: Anesthesia History - manager export Hx Hospitalization No 10/01/23 11:05 Any Problems With Anesthesia No 10/23/23 22:39 Cholinesterase deficiency No 10/23/23 22:39 You/Your Family Experience No 10/23/23 22:39 fever (hyperthermia) with Relationship Recent Exposure to Contagious No 10/23/23 22:39 Disease Does patient have nerve No 10/23/23 22:39 stimulator Patient instructed to have No 10/23/23 22:39 device shut off --Does patient have Pacemaker or ICD? When Was Last Pacemaker Check QUESTION #4 FULL TEXT: You/Your Family Experience fever (hyperthermia) with Anesthesia Any additional information?: No Last Oral Intake Last Oral intake: Last Oral Intake NPO since mn Meds taken in AM with sips of water? Meds patient instructed to take am of surgery Any additional information?: No PONV PONV - manager export: PONV - manager export Female HX of Motion Sickness HX of N/V After Surgery Non-Smoker Duration of Surgery greater than 60 minutes Number of Risk Factors PONV Score Any additional information?: No Height & Weight Height & Weight: Anesthesia: Height & Weight Height 5 ft 7 in 10/23/23 22:23 Weight: 145.7 kg 10/23/23 22:23 Body Mass Index (BMI) 50.3 10/23/23 22:23 Respiratory Assessment Respiratory Assessment - manager export: Respiratory Tract Infection Hx - manager export Hx Respiratory Tract Infection No 10/23/23 22:39 Any additional information?: No STOP Sleep Apnea STOP Sleep Apnea - manager export: STOP Sleep Apnea - manager export Hx Hypertension No 10/23/23 22:32 Hx Sleep Apnea No 10/23/23 22:32 CPAP No 10/08/23 09:10 BIPAP Yes: not used since mass 12/05/17 17:17 removal. Do you snore loudly (louder No 10/23/23 22:32 than talking or can be heard Do you often feel tired/ No 10/23/23 22:32 fatigued/ sleepy during daytime? Has anyone observed you stop No 10/23/23 22:32 breathing during sleep? STOP Results Negative 10/23/23 22:32 QUESTION #5 FULL TEXT : Do you snore loudly (louder than talking or can be heard through closed doors)? 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 Specify any problems Hx of Preganancy in last 3 No 10/23/23 22:32 Months Nurse Filling Out Transfusion MMELUCH 10/23/23 22:32 & Questions: Date: 10/23/23 10/23/23 22:32 Time: 22:33 10/23/23 22:32 Patient unable to answer at this time (ie. confused, unrespo Any additional information?: No /Reproduction History /Reproductive History - manager export: /Reproductive Hx- manager export Hx Now No 10/23/23 22:39 Gestational Age (in weeks): EDC: Hx Hx Para Hx Section SAB No 10/01/23 11:05 Any additional information?: No Active Medications Active Medications: Current Medications Generic Name Dose Route Start Last Admin Trade Name Freq PRN Reason Stop Dose Admin Acetaminophen 1,000 mg 10/24/23 06:00 10/25/23 05:56 Acetaminophen 500 Mg Tablet PO Not Given Q8 BERYL Atorvastatin Calcium 10 mg 10/24/23 22:00 10/24/23 21:52 Atorvastatin Calcium 10 Mg Tablet PO 10 mg 2200 BERYL Administration Escitalopram Oxalate 10 mg 10/24/23 19:45 10/24/23 21:51 Escitalopram Oxalate 10 Mg Tablet PO 10 mg DAILY BERYL Administration Sodium Chloride 250 mls @ 15 mls/hr 10/23/23 22:27 IV .[id number] PRN Additional IVPB Infusion Lactated Ringer's 1,000 mls @ 125 mls/hr 10/23/23 23:45 10/25/23 02:05 IV 125 mls/hr .Q8H BERYL Administration Ciprofloxacin 200 mg in 100 mls @ 100 mls/hr 10/23/23 23:45 10/24/23 21:51 Cipro IV 100 mls/hr Q12 BERYL Administration Ketorolac Tromethamine 15 mg 10/23/23 23:48 10/24/23 05:43 Ketorolac 15 Mg/Ml Vial IV 15 mg Q8H PRN PRN Administration Pain Score 1-10 Levothyroxine Sodium 200 mcg 10/25/23 06:00 Levothyroxine 100 Mcg Tablet PO 0600 BERYL Magnesium Hydroxide 30 ml 10/23/23 23:43 Magnesium Hydroxide 30 Ml Udc PO DAILY PRN PRN Constipation Morphine Sulfate 2 - 4 mg 10/23/23 23:48 10/25/23 04:49 Morphine 2 Mg/Ml Syringe IV 2 mg Q3H PRN PRN Administration Pain Score 6-10 Morphine Sulfate 2 - 4 mg 10/24/23 00:16 Morphine 4 Mg/Ml Syringe IV Q3H PRN PRN Pain Score 6-10 Ondansetron HCl 4 mg 10/23/23 23:43 Ondansetron 4 Mg/2 Ml Vial IV Q8H PRN PRN NAUSEA/VOMITING Pantoprazole Sodium 20 mg 10/25/23 10:00 Pantoprazole Sodium 20 Mg Tablet PO DAILY [facility] Potassium Citrate 20 meq 10/25/23 08:00 Potassium Citrate 10 Meq Tablet.Er PO BIDCM [facility] Sodium Chloride 10 - 40 ml 10/23/23 22:27 10/24/23 00:34 0.9% Saline Lock 10 Ml Syringe IV 10 ml UD PRN Administration SALINE FLUSH PFSH Medical History Urinary tract infection tubal ligation planned Difficult intravenous access Chronic cough Wears glasses Post-menopausal Arthritis Thyroid disease History of renal disease Anemia History of diverticulosis Former smoker History of stress test History of benign mediastinal tumor Depression Hypothyroidism Kidney stones GERD (gastroesophageal reflux disease) Home Medications ?Medication ?Instructions ?Recorded ?Last Taken ?Type rosuvastatin 5 mg tablet 5 mg PO DAILY 12/21/20 Unknown History potassium citrate 10 mEq (1,080 20 meq PO BID 06/04/23 10/07/23 History mg) tablet,extended release d-mannose 500 mg capsule (AZO 500 mg PO DAILY 09/15/23 10/06/23 History D-Mannose) escitalopram oxalate 10 mg tablet 10 mg PO DAILY 09/15/23 Unknown History (Lexapro) vitamin B complex (Complex B-100 1 tab PO DAILY 09/15/23 10/07/23 History tablet,extended release) NEW LIFE PROBIOTIC 1 cap PO DAILY 10/01/23 10/07/23 History levothyroxine 200 mcg tablet 200 mcg PO DAILY 10/01/23 10/07/23 History omeprazole 20 mg capsule,delayed 20 mg PO DAILY 10/01/23 10/07/23 History release tramadol 50 mg tablet 50 mg PO Q8H PRN pain 3 days #10 10/08/23 Unknown Rx tabs tramadol 50 mg tablet 50 mg PO Q8H PRN pain 3 days #10 10/11/23 Unknown Rx tabs Allergy/AdvReac Type Severity Reaction Status Date / Time Penicillins (PCN) Allergy Rash Verified 10/23/23 17:36 oxycodone (From Percocet) AdvReac Vomiting Verified 10/23/23 17:36 Surgical History History of lithotripsy History of History of colonoscopy History of extraction of renal calculus History of thyroidectomy History of appendectomy History of cholecystectomy Social History Smoking Status: Former smoker substance use type: does not use Review of Systems (Anesthesia) ROS Narrative System reviewed and no additional complaints, except as documented.
--- NOTE | 2023-10-25 07:29 | PCM.PRE.AN2 ---
ASA Classification* ASA Classification ASA Classification: 3 and E Assessment & Plan Anesthesia* Anesthesia Assessment Anesthesia Assessment: Discussed sedation and/or anesthesia options, risks, benefits, and alternatives with patient/parents/legal guardian/POA. Questions invited. The patient/parents/legal guardian/POA seems to understand and agrees to proceed with anesthesia plan. Reviewed the physical assessment, medical history, allergy history and patient home medications list prior to surgery/procedure/anesthetic and documented any changes. Performed airway and anesthesia risk assessments. Anesthesia Type Anesthesia Type: MAC History Source History Obtained from:: Patient and Chart Anesthesia Focused Assessment* Temperature: 99.1 F Pulse Rate: 92 Blood Pressure: 102/54 Respiratory Rate: 18 Pulse Ox: 98 Oxygen Delivery Method: Room Air Airway Assessment Mouth opens: >3 cm Mallampati Score: III Teeth Condition: Intact Pertinent Findings EKG Pertinent Findings:: 12/27 NSR Focused Labs Anesthesia Preop lab: CBC WBC 7.3 K/mm3 (4.4-11.0) 10/25/23 05:30 RBC 3.16 M/mm3 (4.2-5.4) L 10/25/23 05:30 Hgb 9.2 g/dL (12.0-15.0) L 10/25/23 05:30 Hct 29.1 % (37-47) L 10/25/23 05:30 Plt Count 179 K/mm3 (150-450) 10/25/23 05:30 CHEMISTRY Potassium 4.2 mmol/L (3.5-5.1) 10/25/23 05:30 Sodium 137 mmol/L (136-145) 10/25/23 05:30 Phosphorus 3.8 mg/dL (2.5-4.9) 02/03/18 16:48 BUN 35 mg/dL (7-18) H 10/25/23 05:30 Creatinine 3.45 mg/dL (0.55-1.02) H 10/25/23 05:30 Glucose 106 mg/dL (74-106) 10/25/23 05:30 TSH 24.600 uIU/mL (0.358-3.740) H 10/25/23 05:30 COAG PT 16.3 SECONDS (11.7-14.9) H 10/25/23 05:30 Pre-Assessment Diagnosis/Proposed Procedure Planned Operative Procedure(s): Cystoscopy stent exchange Anesthesia History Anesthesia History - section hand: Anesthesia History - section hand Hx Hospitalization No 10/01/23 11:05 Any Problems With Anesthesia No 10/23/23 22:39 Cholinesterase deficiency No 10/23/23 22:39 You/Your Family Experience No 10/23/23 22:39 fever (hyperthermia) with Relationship Recent Exposure to Contagious No 10/23/23 22:39 Disease Does patient have nerve No 10/23/23 22:39 stimulator Patient instructed to have No 10/23/23 22:39 device shut off --Does patient have Pacemaker or ICD? When Was Last Pacemaker Check QUESTION #4 FULL TEXT: You/Your Family Experience fever (hyperthermia) with Anesthesia Last Oral Intake Last Oral intake: Last Oral Intake NPO since Meds taken in AM with sips of water? Meds patient instructed to take am of surgery PONV PONV - section hand: PONV - section hand Female HX of Motion Sickness HX of N/V After Surgery Non-Smoker Duration of Surgery greater than 60 minutes Number of Risk Factors PONV Score Height & Weight Height & Weight: Anesthesia: Height & Weight Height 5 ft 7 in 10/23/23 22:23 Weight: 145.7 kg 10/23/23 22:23 Body Mass Index (BMI) 50.3 10/23/23 22:23 Respiratory Assessment Respiratory Assessment - section hand: Respiratory Tract Infection Hx - section hand Hx Respiratory Tract Infection No 10/23/23 22:39 STOP Sleep Apnea STOP Sleep Apnea - section hand: STOP Sleep Apnea - section hand Hx Hypertension No 10/23/23 22:32 Hx Sleep Apnea No 10/23/23 22:32 CPAP No 10/08/23 09:10 BIPAP Yes: not used since mass 12/05/17 17:17 removal. Do you snore loudly (louder No 10/23/23 22:32 than talking or can be heard Do you often feel tired/ No 10/23/23 22:32 fatigued/ sleepy during daytime? Has anyone observed you stop No 10/23/23 22:32 breathing during sleep? STOP Results Negative 10/23/23 22:32 QUESTION #5 FULL TEXT : Do you snore loudly (louder than talking or can be heard through closed doors)? 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 Specify any problems Hx of Preganancy in last 3 No 10/23/23 22:32 Months Nurse Filling Out Transfusion [email or web address] 10/23/23 22:32 & Questions: Date: 10/23/23 10/23/23 22:32 Time: 22:33 10/23/23 22:32 Patient unable to answer at this time (ie. confused, unrespo /Reproduction History /Reproductive History - section hand: /Reproductive Hx- section hand Hx Now No 10/23/23 22:39 Gestational Age (in weeks): EDC: Hx Hx Para Hx Section SAB No 10/01/23 11:05 Active Medications Active Medications: Current Medications Generic Name Dose Route Start Last Admin Trade Name Freq PRN Reason Stop Dose Admin Acetaminophen 1,000 mg 10/24/23 06:00 10/25/23 05:56 Acetaminophen 500 Mg Tablet PO Not Given Q8 BERYL Atorvastatin Calcium 10 mg 10/24/23 22:00 10/24/23 21:52 Atorvastatin Calcium 10 Mg Tablet PO 10 mg 2200 BERYL Administration Escitalopram Oxalate 10 mg 10/24/23 19:45 10/24/23 21:51 Escitalopram Oxalate 10 Mg Tablet PO 10 mg DAILY BERYL Administration Sodium Chloride 250 mls @ 15 mls/hr 10/23/23 22:27 IV .[id number] PRN Additional IVPB Infusion Lactated Ringer's 1,000 mls @ 125 mls/hr 10/23/23 23:45 10/25/23 02:05 IV 125 mls/hr .Q8H BERYL Administration Ciprofloxacin 200 mg in 100 mls @ 100 mls/hr 10/23/23 23:45 10/24/23 21:51 Cipro IV 100 mls/hr Q12 BERYL Administration Ketorolac Tromethamine 15 mg 10/23/23 23:48 10/24/23 05:43 Ketorolac 15 Mg/Ml Vial IV 15 mg Q8H PRN PRN Administration Pain Score 1-10 Levothyroxine Sodium 200 mcg 10/25/23 06:00 Levothyroxine 100 Mcg Tablet PO 0600 BERYL Magnesium Hydroxide 30 ml 10/23/23 23:43 Magnesium Hydroxide 30 Ml Udc PO DAILY PRN PRN Constipation Morphine Sulfate 2 - 4 mg 10/23/23 23:48 10/25/23 04:49 Morphine 2 Mg/Ml Syringe IV 2 mg Q3H PRN PRN Administration Pain Score 6-10 Morphine Sulfate 2 - 4 mg 10/24/23 00:16 Morphine 4 Mg/Ml Syringe IV Q3H PRN PRN Pain Score 6-10 Ondansetron HCl 4 mg 10/23/23 23:43 Ondansetron 4 Mg/2 Ml Vial IV Q8H PRN PRN NAUSEA/VOMITING Pantoprazole Sodium 20 mg 10/25/23 10:00 Pantoprazole Sodium 20 Mg Tablet PO DAILY [facility] Potassium Citrate 20 meq 10/25/23 08:00 Potassium Citrate 10 Meq Tablet.Er PO BIDCM [facility] Sodium Chloride 10 - 40 ml 10/23/23 22:27 10/24/23 00:34 0.9% Saline Lock 10 Ml Syringe IV 10 ml UD PRN Administration SALINE FLUSH PFSH Medical History Urinary tract infection tubal ligation planned Difficult intravenous access Chronic cough Wears glasses Post-menopausal Arthritis Thyroid disease History of renal disease Anemia History of diverticulosis Former smoker History of stress test History of benign mediastinal tumor Depression Hypothyroidism Kidney stones GERD (gastroesophageal reflux disease) Home Medications ?Medication ?Instructions ?Recorded ?Last Taken ?Type rosuvastatin 5 mg tablet 5 mg PO DAILY 12/21/20 Unknown History potassium citrate 10 mEq (1,080 20 meq PO BID 03/28/24 07/31/24 History mg) tablet,extended release d-mannose 500 mg capsule (AZO 500 mg PO DAILY 09/15/23 10/06/23 History D-Mannose) escitalopram oxalate 10 mg tablet 10 mg PO DAILY 09/15/23 Unknown History (Lexapro) vitamin B complex (Complex B-100 1 tab PO DAILY 09/15/23 10/07/23 History tablet,extended release) NEW LIFE PROBIOTIC 1 cap PO DAILY 10/01/23 10/07/23 History levothyroxine 200 mcg tablet 200 mcg PO DAILY 10/01/23 10/07/23 History omeprazole 20 mg capsule,delayed 20 mg PO DAILY 10/01/23 10/07/23 History release tramadol 50 mg tablet 50 mg PO Q8H PRN pain 3 days #10 10/08/23 Unknown Rx tabs tramadol 50 mg tablet 50 mg PO Q8H PRN pain 3 days #10 10/11/23 Unknown Rx tabs Allergy/AdvReac Type Severity Reaction Status Date / Time Penicillins (PCN) Allergy Rash Verified 10/23/23 17:36 oxycodone (From Percocet) AdvReac Vomiting Verified 10/23/23 17:36 Surgical History History of lithotripsy History of History of colonoscopy History of extraction of renal calculus History of thyroidectomy History of appendectomy History of cholecystectomy Social History Smoking Status: Former smoker substance use type: does not use Review of Systems (Anesthesia) ROS Narrative System reviewed and no additional complaints, except as documented. Review of Systems ROS Unobtainable: Denies due to encephalopathy, due to endotracheal tube, due to mental condition, due to mental status or other Constitutional Constitutional: Denies change in weight, fever(s), snoring or stops breathing during sleep Eyes Eyes: Denies irritation, itchy eyes or requires corrective lenses ENT HEENT: Denies loss taste/smell, otalgia or sore throat Cardiovascular Cardiovascular: Denies chest pain, dyspnea, hypertension or palpitations Respiratory/Chest Respiratory/Chest: Denies chest congestion, cough or wheezing Gastrointestinal Gastrointestinal: Denies heartburn, nausea or vomiting Musculoskeletal Musculoskeletal: Denies muscle weakness or neck pain Integumentary Integumentary: Denies rash, sores, unusual bruising or wounds Neurologic Neurologic: Denies abnormal movements, abnormal speech, behavior changes, confusion, restless legs or seizures Psychiatric Psychiatric: Denies abnormal sleep pattern, anxiety or confusion Hematologic/Lymphatic Hematologic/Lymphatic: Denies easy bleeding or easy bruising Allergic/Immunologic Allergic/Immunologic: Denies asthma Physical Exam Const alert and oriented x3; Negative for average body habitus Nutritional Appearance: morbidly obese HEENT dentition normal Face and Sinus: TMJ findings TMJ Findings: non-tender: bilateral Nose: nasal discharge Mouth: dry mucous membranes Teeth and Gingiva: caries Throat: uvula midline Eyes Cornea: cornea normal Neck full ROM General: normal visual inspection Resp normal respiratory effort Cardio regular rate, regular rhythm and no murmurs Back/Spine normal ROM and thoraco-lumbar ROM normal Extremity full ROM Neuro oriented x3 and moves all extremities Motor Exam: muscle tone normal throughout
--- NOTE | 2023-10-25 08:02 | PRE.ANES_ITS ---
ASA Classification* ASA Classification ASA Classification: 3 and E Assessment & Plan Anesthesia* Anesthesia Assessment Anesthesia Assessment: Discussed sedation and/or anesthesia options, risks, benefits, and alternatives with patient/parents/legal guardian/POA. Questions invited. The patient/parents/legal guardian/POA seems to understand and agrees to proceed with anesthesia plan. Reviewed the physical assessment, medical history, allergy history and patient home medications list prior to surgery/procedure/anesthetic and documented any changes. Performed airway and anesthesia risk assessments. Anesthesia Type Anesthesia Type: MAC Anesthesia Focused Assessment* Temperature: 99.6 F Pulse Rate: 98 Blood Pressure: 119/68 Respiratory Rate: 18 Pulse Ox: 94 Airway Assessment Mouth opens: >3 cm Mallampati Score: III Focused Labs Anesthesia Preop lab: CBC WBC 7.3 K/mm3 (4.4-11.0) 10/25/23 05:30 RBC 3.16 M/mm3 (4.2-5.4) L 10/25/23 05:30 Hgb 9.2 g/dL (12.0-15.0) L 10/25/23 05:30 Hct 29.1 % (37-47) L 10/25/23 05:30 Plt Count 179 K/mm3 (150-450) 10/25/23 05:30 CHEMISTRY Potassium 4.2 mmol/L (3.5-5.1) 10/25/23 05:30 Sodium 137 mmol/L (136-145) 10/25/23 05:30 Phosphorus 3.8 mg/dL (2.5-4.9) 02/03/18 16:48 BUN 35 mg/dL (7-18) H 10/25/23 05:30 Creatinine 3.45 mg/dL (0.55-1.02) H 10/25/23 05:30 Glucose 106 mg/dL (74-106) 10/25/23 05:30 TSH 24.600 uIU/mL (0.358-3.740) H 10/25/23 05:30 COAG PT 16.3 SECONDS (11.7-14.9) H 10/25/23 05:30 Pre-Assessment Diagnosis/Proposed Procedure Planned Operative Procedure(s): Cystoscopy stent exchange Anesthesia History 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 When Was Last Pacemaker Check QUESTION #4 FULL TEXT: You/Your Family Experience fever (hyperthermia) with Anesthesia Last Oral Intake Last Oral intake: Last Oral Intake NPO since 00:00 10/25/23 07:47 Meds taken in AM with sips of No 10/25/23 07:47 water? Meds patient instructed to take am of surgery PONV PONV - wood setter: PONV - wood setter Female HX of Motion Sickness HX of N/V After Surgery Non-Smoker Duration of Surgery greater than 60 minutes Number of Risk Factors PONV Score Height & Weight Height & Weight: Anesthesia: Height & Weight Height 5 ft 7 in 10/25/23 07:47 Weight: 145.7 kg 10/25/23 07:47 Body Mass Index (BMI) 50.3 10/25/23 07:47 Respiratory Assessment Respiratory Assessment - wood setter: Respiratory Tract Infection Hx - wood setter Hx Respiratory Tract Infection No 10/23/23 22:39 STOP Sleep Apnea STOP Sleep Apnea - wood setter: STOP Sleep Apnea - wood setter Hx Hypertension No 10/23/23 22:32 Hx Sleep Apnea No 10/23/23 22:32 CPAP No 10/08/23 09:10 BIPAP Yes: not used since mass 12/05/17 17:17 removal. Do you snore loudly (louder No 10/23/23 22:32 than talking or can be heard Do you often feel tired/ No 10/23/23 22:32 fatigued/ sleepy during daytime? Has anyone observed you stop No 10/23/23 22:32 breathing during sleep? STOP Results Negative 10/23/23 22:32 QUESTION #5 FULL TEXT : Do you snore loudly (louder than talking or can be heard through closed doors)? 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 Specify any problems Hx of Preganancy in last 3 No 10/23/23 22:32 Months Nurse Filling Out Transfusion [email or web address] 10/23/23 22:32 & Questions: Date: 10/23/23 10/23/23 22:32 Time: 22:33 10/23/23 22:32 Patient unable to answer at this time (ie. confused, unrespo /Reproduction History /Reproductive History - wood setter: /Reproductive Hx- wood setter Hx Now No 10/23/23 22:39 Gestational Age (in weeks): EDC: Hx Hx Para Hx Section SAB No 10/01/23 11:05 Active Medications Active Medications: Current Medications Generic Name Dose Route Start Last Admin Trade Name Freq PRN Reason Stop Dose Admin Acetaminophen 1,000 mg 10/24/23 06:00 10/25/23 05:56 Acetaminophen 500 Mg Tablet PO Not Given Q8 BERYL Atorvastatin Calcium 10 mg 10/24/23 22:00 10/24/23 21:52 Atorvastatin Calcium 10 Mg Tablet PO 10 mg 2200 BERYL Administration Escitalopram Oxalate 10 mg 10/24/23 19:45 10/24/23 21:51 Escitalopram Oxalate 10 Mg Tablet PO 10 mg DAILY BERYL Administration Sodium Chloride 250 mls @ 15 mls/hr 10/23/23 22:27 IV .[id number] PRN Additional IVPB Infusion Lactated Ringer's 1,000 mls @ 125 mls/hr 10/23/23 23:45 10/25/23 02:05 IV 125 mls/hr .Q8H BERYL Administration Ciprofloxacin 200 mg in 100 mls @ 100 mls/hr 10/23/23 23:45 10/25/23 07:35 Cipro IV Infused Q12 BERYL Infusion Ketorolac Tromethamine 15 mg 10/23/23 23:48 10/24/23 05:43 Ketorolac 15 Mg/Ml Vial IV 15 mg Q8H PRN PRN Administration Pain Score 1-10 Levothyroxine Sodium 200 mcg 10/25/23 06:00 10/25/23 07:35 Levothyroxine 100 Mcg Tablet PO Not Given 0600 BERYL Magnesium Hydroxide 30 ml 10/23/23 23:43 Magnesium Hydroxide 30 Ml Udc PO DAILY PRN PRN Constipation Morphine Sulfate 2 - 4 mg 10/23/23 23:48 10/25/23 04:49 Morphine 2 Mg/Ml Syringe IV 2 mg Q3H PRN PRN Administration Pain Score 6-10 Morphine Sulfate 2 - 4 mg 10/24/23 00:16 Morphine 4 Mg/Ml Syringe IV Q3H PRN PRN Pain Score 6-10 Ondansetron HCl 4 mg 10/23/23 23:43 Ondansetron 4 Mg/2 Ml Vial IV Q8H PRN PRN NAUSEA/VOMITING Pantoprazole Sodium 20 mg 10/25/23 10:00 Pantoprazole Sodium 20 Mg Tablet PO DAILY BERYL Potassium Citrate 20 meq 10/25/23 08:00 10/25/23 07:36 Potassium Citrate 10 Meq Tablet.Er PO Not Given BIDCM [facility] Sodium Chloride 10 - 40 ml 10/23/23 22:27 10/24/23 00:34 0.9% Saline Lock 10 Ml Syringe IV 10 ml UD PRN Administration SALINE FLUSH PFSH Medical History Urinary tract infection tubal ligation planned Difficult intravenous access Chronic cough Wears glasses Post-menopausal Arthritis Thyroid disease History of renal disease Anemia History of diverticulosis Former smoker History of stress test History of benign mediastinal tumor Depression Hypothyroidism Kidney stones GERD (gastroesophageal reflux disease) Home Medications ?Medication ?Instructions ?Recorded ?Last Taken ?Type rosuvastatin 5 mg tablet 5 mg PO DAILY 12/21/20 Unknown History potassium citrate 10 mEq (1,080 20 meq PO BID 06/04/23 10/07/23 History mg) tablet,extended release d-mannose 500 mg capsule (AZO 500 mg PO DAILY 09/15/23 10/06/23 History D-Mannose) escitalopram oxalate 10 mg tablet 10 mg PO DAILY 09/15/23 Unknown History (Lexapro) vitamin B complex (Complex B-100 1 tab PO DAILY 09/15/23 10/07/23 History tablet,extended release) NEW LIFE PROBIOTIC 1 cap PO DAILY 10/01/23 10/07/23 History levothyroxine 200 mcg tablet 200 mcg PO DAILY 10/01/23 10/07/23 History omeprazole 20 mg capsule,delayed 20 mg PO DAILY 10/01/23 10/07/23 History release tramadol 50 mg tablet 50 mg PO Q8H PRN pain 3 days #10 10/08/23 Unknown Rx tabs tramadol 50 mg tablet 50 mg PO Q8H PRN pain 3 days #10 10/11/23 Unknown Rx tabs Allergy/AdvReac Type Severity Reaction Status Date / Time Penicillins (PCN) Allergy Rash Verified 10/23/23 17:36 oxycodone (From Percocet) AdvReac Vomiting Verified 10/23/23 17:36 Surgical History History of lithotripsy History of History of colonoscopy History of extraction of renal calculus History of thyroidectomy History of appendectomy History of cholecystectomy Social History Smoking Status: Former smoker substance use type: does not use Review of Systems (Anesthesia) ROS Narrative System reviewed and no additional complaints, except as documented.
--- NOTE | 2023-10-25 08:02 | PRE.ANES_ITS ---
ASA Classification* ASA Classification ASA Classification: 3 and E Assessment & Plan Anesthesia* Anesthesia Assessment Anesthesia Assessment: Discussed sedation and/or anesthesia options, risks, benefits, and alternatives with patient/parents/legal guardian/POA. Questions invited. The patient/parents/legal guardian/POA seems to understand and agrees to proceed with anesthesia plan. Reviewed the physical assessment, medical history, allergy history and patient home medications list prior to surgery/procedure/anesthetic and documented any changes. Performed airway and anesthesia risk assessments. Anesthesia Type Anesthesia Type: MAC Anesthesia Focused Assessment* Temperature: 99.6 F Pulse Rate: 98 Blood Pressure: 119/68 Respiratory Rate: 18 Pulse Ox: 94 Airway Assessment Mouth opens: >3 cm Mallampati Score: III Focused Labs Anesthesia Preop lab: CBC WBC 7.3 K/mm3 (4.4-11.0) 10/25/23 05:30 RBC 3.16 M/mm3 (4.2-5.4) L 10/25/23 05:30 Hgb 9.2 g/dL (12.0-15.0) L 10/25/23 05:30 Hct 29.1 % (37-47) L 10/25/23 05:30 Plt Count 179 K/mm3 (150-450) 10/25/23 05:30 CHEMISTRY Potassium 4.2 mmol/L (3.5-5.1) 10/25/23 05:30 Sodium 137 mmol/L (136-145) 10/25/23 05:30 Phosphorus 3.8 mg/dL (2.5-4.9) 02/03/18 16:48 BUN 35 mg/dL (7-18) H 10/25/23 05:30 Creatinine 3.45 mg/dL (0.55-1.02) H 10/25/23 05:30 Glucose 106 mg/dL (74-106) 10/25/23 05:30 TSH 24.600 uIU/mL (0.358-3.740) H 10/25/23 05:30 COAG PT 16.3 SECONDS (11.7-14.9) H 10/25/23 05:30 Pre-Assessment Diagnosis/Proposed Procedure Planned Operative Procedure(s): Cystoscopy stent exchange Anesthesia History 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 When Was Last Pacemaker Check QUESTION #4 FULL TEXT: You/Your Family Experience fever (hyperthermia) with Anesthesia Last Oral Intake Last Oral intake: Last Oral Intake NPO since 00:00 10/25/23 07:47 Meds taken in AM with sips of No 10/25/23 07:47 water? Meds patient instructed to take am of surgery PONV PONV - chemic mangler: PONV - chemic mangler Female HX of Motion Sickness HX of N/V After Surgery Non-Smoker Duration of Surgery greater than 60 minutes Number of Risk Factors PONV Score Height & Weight Height & Weight: Anesthesia: Height & Weight Height 5 ft 7 in 10/25/23 07:47 Weight: 145.7 kg 10/25/23 07:47 Body Mass Index (BMI) 50.3 10/25/23 07:47 Respiratory Assessment Respiratory Assessment - chemic mangler: Respiratory Tract Infection Hx - chemic mangler Hx Respiratory Tract Infection No 10/23/23 22:39 STOP Sleep Apnea STOP Sleep Apnea - chemic mangler: STOP Sleep Apnea - chemic mangler Hx Hypertension No 10/23/23 22:32 Hx Sleep Apnea No 10/23/23 22:32 CPAP No 10/08/23 09:10 BIPAP Yes: not used since mass 12/05/17 17:17 removal. Do you snore loudly (louder No 10/23/23 22:32 than talking or can be heard Do you often feel tired/ No 10/23/23 22:32 fatigued/ sleepy during daytime? Has anyone observed you stop No 10/23/23 22:32 breathing during sleep? STOP Results Negative 10/23/23 22:32 QUESTION #5 FULL TEXT : Do you snore loudly (louder than talking or can be heard through closed doors)? 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 Specify any problems Hx of Preganancy in last 3 No 10/23/23 22:32 Months Nurse Filling Out Transfusion [email or web address] 10/23/23 22:32 & Questions: Date: 10/23/23 10/23/23 22:32 Time: 22:33 10/23/23 22:32 Patient unable to answer at this time (ie. confused, unrespo /Reproduction History /Reproductive History - chemic mangler: /Reproductive Hx- chemic mangler Hx Now No 10/23/23 22:39 Gestational Age (in weeks): EDC: Hx Hx Para Hx Section SAB No 10/01/23 11:05 Active Medications Active Medications: Current Medications Generic Name Dose Route Start Last Admin Trade Name Freq PRN Reason Stop Dose Admin Acetaminophen 1,000 mg 10/24/23 06:00 10/25/23 05:56 Acetaminophen 500 Mg Tablet PO Not Given Q8 BERYL Atorvastatin Calcium 10 mg 10/24/23 22:00 10/24/23 21:52 Atorvastatin Calcium 10 Mg Tablet PO 10 mg 2200 BERYL Administration Escitalopram Oxalate 10 mg 10/24/23 19:45 10/24/23 21:51 Escitalopram Oxalate 10 Mg Tablet PO 10 mg DAILY BERYL Administration Sodium Chloride 250 mls @ 15 mls/hr 10/23/23 22:27 IV .[id number] PRN Additional IVPB Infusion Lactated Ringer's 1,000 mls @ 125 mls/hr 10/23/23 23:45 10/25/23 02:05 IV 125 mls/hr .Q8H BERYL Administration Ciprofloxacin 200 mg in 100 mls @ 100 mls/hr 10/23/23 23:45 10/25/23 07:35 Cipro IV Infused Q12 BERYL Infusion Ketorolac Tromethamine 15 mg 10/23/23 23:48 10/24/23 05:43 Ketorolac 15 Mg/Ml Vial IV 15 mg Q8H PRN PRN Administration Pain Score 1-10 Levothyroxine Sodium 200 mcg 10/25/23 06:00 10/25/23 07:35 Levothyroxine 100 Mcg Tablet PO Not Given 0600 BERYL Magnesium Hydroxide 30 ml 10/23/23 23:43 Magnesium Hydroxide 30 Ml Udc PO DAILY PRN PRN Constipation Morphine Sulfate 2 - 4 mg 10/23/23 23:48 10/25/23 04:49 Morphine 2 Mg/Ml Syringe IV 2 mg Q3H PRN PRN Administration Pain Score 6-10 Morphine Sulfate 2 - 4 mg 10/24/23 00:16 Morphine 4 Mg/Ml Syringe IV Q3H PRN PRN Pain Score 6-10 Ondansetron HCl 4 mg 10/23/23 23:43 Ondansetron 4 Mg/2 Ml Vial IV Q8H PRN PRN NAUSEA/VOMITING Pantoprazole Sodium 20 mg 10/25/23 10:00 Pantoprazole Sodium 20 Mg Tablet PO DAILY BERYL Potassium Citrate 20 meq 10/25/23 08:00 10/25/23 07:36 Potassium Citrate 10 Meq Tablet.Er PO Not Given BIDCM [facility] Sodium Chloride 10 - 40 ml 10/23/23 22:27 10/24/23 00:34 0.9% Saline Lock 10 Ml Syringe IV 10 ml UD PRN Administration SALINE FLUSH PFSH Medical History Urinary tract infection tubal ligation planned Difficult intravenous access Chronic cough Wears glasses Post-menopausal Arthritis Thyroid disease History of renal disease Anemia History of diverticulosis Former smoker History of stress test History of benign mediastinal tumor Depression Hypothyroidism Kidney stones GERD (gastroesophageal reflux disease) Home Medications ?Medication ?Instructions ?Recorded ?Last Taken ?Type rosuvastatin 5 mg tablet 5 mg PO DAILY 12/21/20 Unknown History potassium citrate 10 mEq (1,080 20 meq PO BID 06/04/23 10/07/23 History mg) tablet,extended release d-mannose 500 mg capsule (AZO 500 mg PO DAILY 09/15/23 10/06/23 History D-Mannose) escitalopram oxalate 10 mg tablet 10 mg PO DAILY 09/15/23 Unknown History (Lexapro) vitamin B complex (Complex B-100 1 tab PO DAILY 09/15/23 10/07/23 History tablet,extended release) NEW LIFE PROBIOTIC 1 cap PO DAILY 10/01/23 10/07/23 History levothyroxine 200 mcg tablet 200 mcg PO DAILY 10/01/23 10/07/23 History omeprazole 20 mg capsule,delayed 20 mg PO DAILY 10/01/23 10/07/23 History release tramadol 50 mg tablet 50 mg PO Q8H PRN pain 3 days #10 10/08/23 Unknown Rx tabs tramadol 50 mg tablet 50 mg PO Q8H PRN pain 3 days #10 10/11/23 Unknown Rx tabs Allergy/AdvReac Type Severity Reaction Status Date / Time Penicillins (PCN) Allergy Rash Verified 10/23/23 17:36 oxycodone (From Percocet) AdvReac Vomiting Verified 10/23/23 17:36 Surgical History History of lithotripsy History of History of colonoscopy History of extraction of renal calculus History of thyroidectomy History of appendectomy History of cholecystectomy Social History Smoking Status: Former smoker substance use type: does not use Review of Systems (Anesthesia) ROS Narrative System reviewed and no additional complaints, except as documented.
--- NOTE | 2023-10-25 08:02 | PRE.ANES_ITS ---
ASA Classification* ASA Classification ASA Classification: 3 and E Assessment & Plan Anesthesia* Anesthesia Assessment Anesthesia Assessment: Discussed sedation and/or anesthesia options, risks, benefits, and alternatives with patient/parents/legal guardian/POA. Questions invited. The patient/parents/legal guardian/POA seems to understand and agrees to proceed with anesthesia plan. Reviewed the physical assessment, medical history, allergy history and patient home medications list prior to surgery/procedure/anesthetic and documented any changes. Performed airway and anesthesia risk assessments. Anesthesia Type Anesthesia Type: MAC Anesthesia Focused Assessment* Temperature: 99.6 F Pulse Rate: 98 Blood Pressure: 119/68 Respiratory Rate: 18 Pulse Ox: 94 Airway Assessment Mouth opens: >3 cm Mallampati Score: III Focused Labs Anesthesia Preop lab: CBC WBC 7.3 K/mm3 (4.4-11.0) 10/25/23 05:30 RBC 3.16 M/mm3 (4.2-5.4) L 10/25/23 05:30 Hgb 9.2 g/dL (12.0-15.0) L 10/25/23 05:30 Hct 29.1 % (37-47) L 10/25/23 05:30 Plt Count 179 K/mm3 (150-450) 10/25/23 05:30 CHEMISTRY Potassium 4.2 mmol/L (3.5-5.1) 10/25/23 05:30 Sodium 137 mmol/L (136-145) 10/25/23 05:30 Phosphorus 3.8 mg/dL (2.5-4.9) 02/03/18 16:48 BUN 35 mg/dL (7-18) H 10/25/23 05:30 Creatinine 3.45 mg/dL (0.55-1.02) H 10/25/23 05:30 Glucose 106 mg/dL (74-106) 10/25/23 05:30 TSH 24.600 uIU/mL (0.358-3.740) H 10/25/23 05:30 COAG PT 16.3 SECONDS (11.7-14.9) H 10/25/23 05:30 Pre-Assessment Diagnosis/Proposed Procedure Planned Operative Procedure(s): Cystoscopy stent exchange Anesthesia History Anesthesia History - non destructive testing engineer: Anesthesia History - non destructive testing engineer Hx Hospitalization No 10/01/23 11:05 Any Problems With Anesthesia No 10/23/23 22:39 Cholinesterase deficiency No 10/23/23 22:39 You/Your Family Experience No 10/23/23 22:39 fever (hyperthermia) with Relationship Recent Exposure to Contagious No 10/23/23 22:39 Disease Does patient have nerve No 10/23/23 22:39 stimulator Patient instructed to have No 10/23/23 22:39 device shut off --Does patient have Pacemaker or ICD? When Was Last Pacemaker Check QUESTION #4 FULL TEXT: You/Your Family Experience fever (hyperthermia) with Anesthesia Last Oral Intake Last Oral intake: Last Oral Intake NPO since 00:00 10/25/23 07:47 Meds taken in AM with sips of No 10/25/23 07:47 water? Meds patient instructed to take am of surgery PONV PONV - non destructive testing engineer: PONV - non destructive testing engineer Female HX of Motion Sickness HX of N/V After Surgery Non-Smoker Duration of Surgery greater than 60 minutes Number of Risk Factors PONV Score Height & Weight Height & Weight: Anesthesia: Height & Weight Height 5 ft 7 in 10/25/23 07:47 Weight: 145.7 kg 10/25/23 07:47 Body Mass Index (BMI) 50.3 10/25/23 07:47 Respiratory Assessment Respiratory Assessment - non destructive testing engineer: Respiratory Tract Infection Hx - non destructive testing engineer Hx Respiratory Tract Infection No 10/23/23 22:39 STOP Sleep Apnea STOP Sleep Apnea - non destructive testing engineer: STOP Sleep Apnea - non destructive testing engineer Hx Hypertension No 10/23/23 22:32 Hx Sleep Apnea No 10/23/23 22:32 CPAP No 10/08/23 09:10 BIPAP Yes: not used since mass 12/05/17 17:17 removal. Do you snore loudly (louder No 10/23/23 22:32 than talking or can be heard Do you often feel tired/ No 10/23/23 22:32 fatigued/ sleepy during daytime? Has anyone observed you stop No 10/23/23 22:32 breathing during sleep? STOP Results Negative 10/23/23 22:32 QUESTION #5 FULL TEXT : Do you snore loudly (louder than talking or can be heard through closed doors)? 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 Specify any problems Hx of Preganancy in last 3 No 10/23/23 22:32 Months Nurse Filling Out Transfusion [email or web address] 10/23/23 22:32 & Questions: Date: 10/23/23 10/23/23 22:32 Time: 22:33 10/23/23 22:32 Patient unable to answer at this time (ie. confused, unrespo /Reproduction History /Reproductive History - non destructive testing engineer: /Reproductive Hx- non destructive testing engineer Hx Now No 10/23/23 22:39 Gestational Age (in weeks): EDC: Hx Hx Para Hx Section SAB No 10/01/23 11:05 Active Medications Active Medications: Current Medications Generic Name Dose Route Start Last Admin Trade Name Freq PRN Reason Stop Dose Admin Acetaminophen 1,000 mg 10/24/23 06:00 10/25/23 05:56 Acetaminophen 500 Mg Tablet PO Not Given Q8 BERYL Atorvastatin Calcium 10 mg 10/24/23 22:00 10/24/23 21:52 Atorvastatin Calcium 10 Mg Tablet PO 10 mg 2200 BERYL Administration Escitalopram Oxalate 10 mg 10/24/23 19:45 10/24/23 21:51 Escitalopram Oxalate 10 Mg Tablet PO 10 mg DAILY BERYL Administration Sodium Chloride 250 mls @ 15 mls/hr 10/23/23 22:27 IV .[id number] PRN Additional IVPB Infusion Lactated Ringer's 1,000 mls @ 125 mls/hr 10/23/23 23:45 10/25/23 02:05 IV 125 mls/hr .Q8H BERYL Administration Ciprofloxacin 200 mg in 100 mls @ 100 mls/hr 10/23/23 23:45 10/25/23 07:35 Cipro IV Infused Q12 BERYL Infusion Ketorolac Tromethamine 15 mg 10/23/23 23:48 10/24/23 05:43 Ketorolac 15 Mg/Ml Vial IV 15 mg Q8H PRN PRN Administration Pain Score 1-10 Levothyroxine Sodium 200 mcg 10/25/23 06:00 10/25/23 07:35 Levothyroxine 100 Mcg Tablet PO Not Given 0600 BERYL Magnesium Hydroxide 30 ml 10/23/23 23:43 Magnesium Hydroxide 30 Ml Udc PO DAILY PRN PRN Constipation Morphine Sulfate 2 - 4 mg 10/23/23 23:48 10/25/23 04:49 Morphine 2 Mg/Ml Syringe IV 2 mg Q3H PRN PRN Administration Pain Score 6-10 Morphine Sulfate 2 - 4 mg 10/24/23 00:16 Morphine 4 Mg/Ml Syringe IV Q3H PRN PRN Pain Score 6-10 Ondansetron HCl 4 mg 10/23/23 23:43 Ondansetron 4 Mg/2 Ml Vial IV Q8H PRN PRN NAUSEA/VOMITING Pantoprazole Sodium 20 mg 10/25/23 10:00 Pantoprazole Sodium 20 Mg Tablet PO DAILY BERYL Potassium Citrate 20 meq 10/25/23 08:00 10/25/23 07:36 Potassium Citrate 10 Meq Tablet.Er PO Not Given BIDCM [facility] Sodium Chloride 10 - 40 ml 10/23/23 22:27 10/24/23 00:34 0.9% Saline Lock 10 Ml Syringe IV 10 ml UD PRN Administration SALINE FLUSH PFSH Medical History Urinary tract infection tubal ligation planned Difficult intravenous access Chronic cough Wears glasses Post-menopausal Arthritis Thyroid disease History of renal disease Anemia History of diverticulosis Former smoker History of stress test History of benign mediastinal tumor Depression Hypothyroidism Kidney stones GERD (gastroesophageal reflux disease) Home Medications ?Medication ?Instructions ?Recorded ?Last Taken ?Type rosuvastatin 5 mg tablet 5 mg PO DAILY 12/21/20 Unknown History potassium citrate 10 mEq (1,080 20 meq PO BID 06/04/23 10/07/23 History mg) tablet,extended release d-mannose 500 mg capsule (AZO 500 mg PO DAILY 09/15/23 10/06/23 History D-Mannose) escitalopram oxalate 10 mg tablet 10 mg PO DAILY 09/15/23 Unknown History (Lexapro) vitamin B complex (Complex B-100 1 tab PO DAILY 09/15/23 10/07/23 History tablet,extended release) NEW LIFE PROBIOTIC 1 cap PO DAILY 10/01/23 10/07/23 History levothyroxine 200 mcg tablet 200 mcg PO DAILY 10/01/23 10/07/23 History omeprazole 20 mg capsule,delayed 20 mg PO DAILY 10/01/23 10/07/23 History release tramadol 50 mg tablet 50 mg PO Q8H PRN pain 3 days #10 10/08/23 Unknown Rx tabs tramadol 50 mg tablet 50 mg PO Q8H PRN pain 3 days #10 10/11/23 Unknown Rx tabs Allergy/AdvReac Type Severity Reaction Status Date / Time Penicillins (PCN) Allergy Rash Verified 10/23/23 17:36 oxycodone (From Percocet) AdvReac Vomiting Verified 10/23/23 17:36 Surgical History History of lithotripsy History of History of colonoscopy History of extraction of renal calculus History of thyroidectomy History of appendectomy History of cholecystectomy Social History Smoking Status: Former smoker substance use type: does not use Review of Systems (Anesthesia) ROS Narrative System reviewed and no additional complaints, except as documented.
--- NOTE | 2023-10-25 08:03 | PRE.ANES_ITS ---
ASA Classification* ASA Classification ASA Classification: 3 and E Assessment & Plan Anesthesia* Anesthesia Assessment Anesthesia Assessment: Discussed sedation and/or anesthesia options, risks, benefits, and alternatives with patient/parents/legal guardian/POA. Questions invited. The patient/parents/legal guardian/POA seems to understand and agrees to proceed with anesthesia plan. Reviewed the physical assessment, medical history, allergy history and patient home medications list prior to surgery/procedure/anesthetic and documented any changes. Performed airway and anesthesia risk assessments. Anesthesia Type Anesthesia Type: MAC (mac) Anesthesia Focused Assessment* Temperature: 99.6 F Pulse Rate: 98 Blood Pressure: 119/68 Respiratory Rate: 18 Pulse Ox: 94 Airway Assessment Mouth opens: >3 cm Mallampati Score: III Focused Labs Anesthesia Preop lab: CBC WBC 7.3 K/mm3 (4.4-11.0) 10/25/23 05:30 RBC 3.16 M/mm3 (4.2-5.4) L 10/25/23 05:30 Hgb 9.2 g/dL (12.0-15.0) L 10/25/23 05:30 Hct 29.1 % (37-47) L 10/25/23 05:30 Plt Count 179 K/mm3 (150-450) 10/25/23 05:30 CHEMISTRY Potassium 4.2 mmol/L (3.5-5.1) 10/25/23 05:30 Sodium 137 mmol/L (136-145) 10/25/23 05:30 Phosphorus 3.8 mg/dL (2.5-4.9) 02/03/18 16:48 BUN 35 mg/dL (7-18) H 10/25/23 05:30 Creatinine 3.45 mg/dL (0.55-1.02) H 10/25/23 05:30 Glucose 106 mg/dL (74-106) 10/25/23 05:30 TSH 24.600 uIU/mL (0.358-3.740) H 10/25/23 05:30 COAG PT 16.3 SECONDS (11.7-14.9) H 10/25/23 05:30 Pre-Assessment Diagnosis/Proposed Procedure Planned Operative Procedure(s): Cystoscopy stent exchange Anesthesia History 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 When Was Last Pacemaker Check QUESTION #4 FULL TEXT: You/Your Family Experience fever (hyperthermia) with Anesthesia Last Oral Intake Last Oral intake: Last Oral Intake NPO since 00:00 10/25/23 07:47 Meds taken in AM with sips of No 10/25/23 07:47 water? Meds patient instructed to take am of surgery PONV PONV - refractory grinder operator: PONV - refractory grinder operator Female HX of Motion Sickness HX of N/V After Surgery Non-Smoker Duration of Surgery greater than 60 minutes Number of Risk Factors PONV Score Height & Weight Height & Weight: Anesthesia: Height & Weight Height 5 ft 7 in 10/25/23 07:47 Weight: 145.7 kg 10/25/23 07:47 Body Mass Index (BMI) 50.3 10/25/23 07:47 Respiratory Assessment Respiratory Assessment - refractory grinder operator: Respiratory Tract Infection Hx - refractory grinder operator Hx Respiratory Tract Infection No 10/23/23 22:39 STOP Sleep Apnea STOP Sleep Apnea - refractory grinder operator: STOP Sleep Apnea - refractory grinder operator Hx Hypertension No 10/23/23 22:32 Hx Sleep Apnea No 10/23/23 22:32 CPAP No 10/08/23 09:10 BIPAP Yes: not used since mass 12/05/17 17:17 removal. Do you snore loudly (louder No 10/23/23 22:32 than talking or can be heard Do you often feel tired/ No 10/23/23 22:32 fatigued/ sleepy during daytime? Has anyone observed you stop No 10/23/23 22:32 breathing during sleep? STOP Results Negative 10/23/23 22:32 QUESTION #5 FULL TEXT : Do you snore loudly (louder than talking or can be heard through closed doors)? 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 Specify any problems Hx of Preganancy in last 3 No 10/23/23 22:32 Months Nurse Filling Out Transfusion [email or web address] 10/23/23 22:32 & Questions: Date: 10/23/23 10/23/23 22:32 Time: 22:33 10/23/23 22:32 Patient unable to answer at this time (ie. confused, unrespo /Reproduction History /Reproductive History - refractory grinder operator: /Reproductive Hx- refractory grinder operator Hx Now No 10/23/23 22:39 Gestational Age (in weeks): EDC: Hx Hx Para Hx Section SAB No 10/01/23 11:05 Active Medications Active Medications: Current Medications Generic Name Dose Route Start Last Admin Trade Name Freq PRN Reason Stop Dose Admin Acetaminophen 1,000 mg 10/24/23 06:00 10/25/23 05:56 Acetaminophen 500 Mg Tablet PO Not Given Q8 BERYL Atorvastatin Calcium 10 mg 10/24/23 22:00 10/24/23 21:52 Atorvastatin Calcium 10 Mg Tablet PO 10 mg 2200 BERYL Administration Escitalopram Oxalate 10 mg 10/24/23 19:45 10/24/23 21:51 Escitalopram Oxalate 10 Mg Tablet PO 10 mg DAILY BERYL Administration Sodium Chloride 250 mls @ 15 mls/hr 10/23/23 22:27 IV .[id number] PRN Additional IVPB Infusion Lactated Ringer's 1,000 mls @ 125 mls/hr 10/23/23 23:45 10/25/23 02:05 IV 125 mls/hr .Q8H BERYL Administration Ciprofloxacin 200 mg in 100 mls @ 100 mls/hr 10/23/23 23:45 10/25/23 07:35 Cipro IV Infused Q12 BERYL Infusion Ketorolac Tromethamine 15 mg 10/23/23 23:48 10/24/23 05:43 Ketorolac 15 Mg/Ml Vial IV 15 mg Q8H PRN PRN Administration Pain Score 1-10 Levothyroxine Sodium 200 mcg 10/25/23 06:00 10/25/23 07:35 Levothyroxine 100 Mcg Tablet PO Not Given 0600 BERYL Magnesium Hydroxide 30 ml 10/23/23 23:43 Magnesium Hydroxide 30 Ml Udc PO DAILY PRN PRN Constipation Morphine Sulfate 2 - 4 mg 10/23/23 23:48 10/25/23 04:49 Morphine 2 Mg/Ml Syringe IV 2 mg Q3H PRN PRN Administration Pain Score 6-10 Morphine Sulfate 2 - 4 mg 10/24/23 00:16 Morphine 4 Mg/Ml Syringe IV Q3H PRN PRN Pain Score 6-10 Ondansetron HCl 4 mg 10/23/23 23:43 Ondansetron 4 Mg/2 Ml Vial IV Q8H PRN PRN NAUSEA/VOMITING Pantoprazole Sodium 20 mg 10/25/23 10:00 Pantoprazole Sodium 20 Mg Tablet PO DAILY [facility] Potassium Citrate 20 meq 10/25/23 08:00 10/25/23 07:36 Potassium Citrate 10 Meq Tablet.Er PO Not Given BIDCM [facility] Sodium Chloride 10 - 40 ml 10/23/23 22:27 10/24/23 00:34 0.9% Saline Lock 10 Ml Syringe IV 10 ml UD PRN Administration SALINE FLUSH PFSH Medical History Urinary tract infection tubal ligation planned Difficult intravenous access Chronic cough Wears glasses Post-menopausal Arthritis Thyroid disease History of renal disease Anemia History of diverticulosis Former smoker History of stress test History of benign mediastinal tumor Depression Hypothyroidism Kidney stones GERD (gastroesophageal reflux disease) Home Medications ?Medication ?Instructions ?Recorded ?Last Taken ?Type rosuvastatin 5 mg tablet 5 mg PO DAILY 12/21/20 Unknown History potassium citrate 10 mEq (1,080 20 meq PO BID 06/04/23 10/07/23 History mg) tablet,extended release d-mannose 500 mg capsule (AZO 500 mg PO DAILY 09/15/23 10/06/23 History D-Mannose) escitalopram oxalate 10 mg tablet 10 mg PO DAILY 09/15/23 Unknown History (Lexapro) vitamin B complex (Complex B-100 1 tab PO DAILY 09/15/23 10/07/23 History tablet,extended release) NEW LIFE PROBIOTIC 1 cap PO DAILY 10/01/23 10/07/23 History levothyroxine 200 mcg tablet 200 mcg PO DAILY 10/01/23 10/07/23 History omeprazole 20 mg capsule,delayed 20 mg PO DAILY 10/01/23 10/07/23 History release tramadol 50 mg tablet 50 mg PO Q8H PRN pain 3 days #10 10/08/23 Unknown Rx tabs tramadol 50 mg tablet 50 mg PO Q8H PRN pain 3 days #10 10/11/23 Unknown Rx tabs Allergy/AdvReac Type Severity Reaction Status Date / Time Penicillins (PCN) Allergy Rash Verified 10/23/23 17:36 oxycodone (From Percocet) AdvReac Vomiting Verified 10/23/23 17:36 Surgical History History of lithotripsy History of History of colonoscopy History of extraction of renal calculus History of thyroidectomy History of appendectomy History of cholecystectomy Social History Smoking Status: Former smoker substance use type: does not use Review of Systems (Anesthesia) ROS Narrative System reviewed and no additional complaints, except as documented.
--- NOTE | 2023-10-25 08:03 | PRE.ANES_ITS ---
ASA Classification* ASA Classification ASA Classification: 3 and E Assessment & Plan Anesthesia* Anesthesia Assessment Anesthesia Assessment: Discussed sedation and/or anesthesia options, risks, benefits, and alternatives with patient/parents/legal guardian/POA. Questions invited. The patient/parents/legal guardian/POA seems to understand and agrees to proceed with anesthesia plan. Reviewed the physical assessment, medical history, allergy history and patient home medications list prior to surgery/procedure/anesthetic and documented any changes. Performed airway and anesthesia risk assessments. Anesthesia Type Anesthesia Type: MAC Anesthesia Focused Assessment* Temperature: 99.6 F Pulse Rate: 98 Blood Pressure: 119/68 Respiratory Rate: 18 Pulse Ox: 94 Airway Assessment Mouth opens: >3 cm Mallampati Score: III Focused Labs Anesthesia Preop lab: CBC WBC 7.3 K/mm3 (4.4-11.0) 10/25/23 05:30 RBC 3.16 M/mm3 (4.2-5.4) L 10/25/23 05:30 Hgb 9.2 g/dL (12.0-15.0) L 10/25/23 05:30 Hct 29.1 % (37-47) L 10/25/23 05:30 Plt Count 179 K/mm3 (150-450) 10/25/23 05:30 CHEMISTRY Potassium 4.2 mmol/L (3.5-5.1) 10/25/23 05:30 Sodium 137 mmol/L (136-145) 10/25/23 05:30 Phosphorus 3.8 mg/dL (2.5-4.9) 02/03/18 16:48 BUN 35 mg/dL (7-18) H 10/25/23 05:30 Creatinine 3.45 mg/dL (0.55-1.02) H 10/25/23 05:30 Glucose 106 mg/dL (74-106) 10/25/23 05:30 TSH 24.600 uIU/mL (0.358-3.740) H 10/25/23 05:30 COAG PT 16.3 SECONDS (11.7-14.9) H 10/25/23 05:30 Pre-Assessment Diagnosis/Proposed Procedure Planned Operative Procedure(s): Cystoscopy stent exchange Anesthesia History Anesthesia History - corporate planner: Anesthesia History - corporate planner Hx Hospitalization No 10/01/23 11:05 Any Problems With Anesthesia No 10/23/23 22:39 Cholinesterase deficiency No 10/23/23 22:39 You/Your Family Experience No 10/23/23 22:39 fever (hyperthermia) with Relationship Recent Exposure to Contagious No 10/23/23 22:39 Disease Does patient have nerve No 10/23/23 22:39 stimulator Patient instructed to have No 10/23/23 22:39 device shut off --Does patient have Pacemaker or ICD? When Was Last Pacemaker Check QUESTION #4 FULL TEXT: You/Your Family Experience fever (hyperthermia) with Anesthesia Last Oral Intake Last Oral intake: Last Oral Intake NPO since 00:00 10/25/23 07:47 Meds taken in AM with sips of No 10/25/23 07:47 water? Meds patient instructed to take am of surgery PONV PONV - corporate planner: PONV - corporate planner Female HX of Motion Sickness HX of N/V After Surgery Non-Smoker Duration of Surgery greater than 60 minutes Number of Risk Factors PONV Score Height & Weight Height & Weight: Anesthesia: Height & Weight Height 5 ft 7 in 10/25/23 07:47 Weight: 145.7 kg 10/25/23 07:47 Body Mass Index (BMI) 50.3 10/25/23 07:47 Respiratory Assessment Respiratory Assessment - corporate planner: Respiratory Tract Infection Hx - corporate planner Hx Respiratory Tract Infection No 10/23/23 22:39 STOP Sleep Apnea STOP Sleep Apnea - corporate planner: STOP Sleep Apnea - corporate planner Hx Hypertension No 10/23/23 22:32 Hx Sleep Apnea No 10/23/23 22:32 CPAP No 10/08/23 09:10 BIPAP Yes: not used since mass 12/05/17 17:17 removal. Do you snore loudly (louder No 10/23/23 22:32 than talking or can be heard Do you often feel tired/ No 10/23/23 22:32 fatigued/ sleepy during daytime? Has anyone observed you stop No 10/23/23 22:32 breathing during sleep? STOP Results Negative 10/23/23 22:32 QUESTION #5 FULL TEXT : Do you snore loudly (louder than talking or can be heard through closed doors)? Tobacco Use History Tobacco Use History - corporate planner: Tobacco Use History - corporate planner Tobacco Use Non-smoker 12/21/20 01:19 Smoking Status Former smoker 10/23/23 22:32 Hx Tobacco Use No 10/23/23 22:32 Years Smoking Packs Smoked per Day Smoking Cessation Date was No - quit smoking greater 10/23/23 22:32 within the last 15 years than 15 years ago Hx Smoking Cessation Date 12/07/89 10/23/23 22:32 Hx Smoking Cessation Counseling Hematologic Medial History Hematologic Hx - corporate planner: Hematologic Medical Hx - interventional nurse Hx of Blood Transfusion Yes 10/23/23 22:32 Hx of Transfusion in last 3 No 10/23/23 22:32 Months Date of Last Transfusion (if within last 3 months) Ever experience any problems No 10/23/23 22:32 with transfusion(s)? Specify any problems Hx of Preganancy in last 3 No 10/23/23 22:32 Months Nurse Filling Out Transfusion [email or web address] 10/23/23 22:32 & Questions: Date: 10/23/23 10/23/23 22:32 Time: 22:33 10/23/23 22:32 Patient unable to answer at this time (ie. confused, unrespo /Reproduction History /Reproductive History - corporate planner: /Reproductive Hx- corporate planner Hx Now No 10/23/23 22:39 Gestational Age (in weeks): EDC: Hx Hx Para Hx Section SAB No 10/01/23 11:05 Active Medications Active Medications: Current Medications Generic Name Dose Route Start Last Admin Trade Name Freq PRN Reason Stop Dose Admin Acetaminophen 1,000 mg 10/24/23 06:00 10/25/23 05:56 Acetaminophen 500 Mg Tablet PO Not Given Q8 BERYL Atorvastatin Calcium 10 mg 10/24/23 22:00 10/24/23 21:52 Atorvastatin Calcium 10 Mg Tablet PO 10 mg 2200 BERYL Administration Escitalopram Oxalate 10 mg 10/24/23 19:45 10/24/23 21:51 Escitalopram Oxalate 10 Mg Tablet PO 10 mg DAILY BERYL Administration Sodium Chloride 250 mls @ 15 mls/hr 10/23/23 22:27 IV .[id number] PRN Additional IVPB Infusion Lactated Ringer's 1,000 mls @ 125 mls/hr 10/23/23 23:45 10/25/23 02:05 IV 125 mls/hr .Q8H BERYL Administration Ciprofloxacin 200 mg in 100 mls @ 100 mls/hr 10/23/23 23:45 10/25/23 07:35 Cipro IV Infused Q12 BERYL Infusion Ketorolac Tromethamine 15 mg 10/23/23 23:48 10/24/23 05:43 Ketorolac 15 Mg/Ml Vial IV 15 mg Q8H PRN PRN Administration Pain Score 1-10 Levothyroxine Sodium 200 mcg 10/25/23 06:00 10/25/23 07:35 Levothyroxine 100 Mcg Tablet PO Not Given 0600 BERYL Magnesium Hydroxide 30 ml 10/23/23 23:43 Magnesium Hydroxide 30 Ml Udc PO DAILY PRN PRN Constipation Morphine Sulfate 2 - 4 mg 10/23/23 23:48 10/25/23 04:49 Morphine 2 Mg/Ml Syringe IV 2 mg Q3H PRN PRN Administration Pain Score 6-10 Morphine Sulfate 2 - 4 mg 10/24/23 00:16 Morphine 4 Mg/Ml Syringe IV Q3H PRN PRN Pain Score 6-10 Ondansetron HCl 4 mg 10/23/23 23:43 Ondansetron 4 Mg/2 Ml Vial IV Q8H PRN PRN NAUSEA/VOMITING Pantoprazole Sodium 20 mg 10/25/23 10:00 Pantoprazole Sodium 20 Mg Tablet PO DAILY BERYL Potassium Citrate 20 meq 10/25/23 08:00 10/25/23 07:36 Potassium Citrate 10 Meq Tablet.Er PO Not Given BIDCM [facility] Sodium Chloride 10 - 40 ml 10/23/23 22:27 10/24/23 00:34 0.9% Saline Lock 10 Ml Syringe IV 10 ml UD PRN Administration SALINE FLUSH PFSH Medical History Urinary tract infection tubal ligation planned Difficult intravenous access Chronic cough Wears glasses Post-menopausal Arthritis Thyroid disease History of renal disease Anemia History of diverticulosis Former smoker History of stress test History of benign mediastinal tumor Depression Hypothyroidism Kidney stones GERD (gastroesophageal reflux disease) Home Medications ?Medication ?Instructions ?Recorded ?Last Taken ?Type rosuvastatin 5 mg tablet 5 mg PO DAILY 12/21/20 Unknown History potassium citrate 10 mEq (1,080 20 meq PO BID 06/04/23 10/07/23 History mg) tablet,extended release d-mannose 500 mg capsule (AZO 500 mg PO DAILY 09/15/23 10/06/23 History D-Mannose) escitalopram oxalate 10 mg tablet 10 mg PO DAILY 09/15/23 Unknown History (Lexapro) vitamin B complex (Complex B-100 1 tab PO DAILY 09/15/23 10/07/23 History tablet,extended release) NEW LIFE PROBIOTIC 1 cap PO DAILY 10/01/23 10/07/23 History levothyroxine 200 mcg tablet 200 mcg PO DAILY 10/01/23 10/07/23 History omeprazole 20 mg capsule,delayed 20 mg PO DAILY 10/01/23 10/07/23 History release tramadol 50 mg tablet 50 mg PO Q8H PRN pain 3 days #10 10/08/23 Unknown Rx tabs tramadol 50 mg tablet 50 mg PO Q8H PRN pain 3 days #10 10/11/23 Unknown Rx
--- NOTE | 2023-10-25 08:06 | PCM.PN.GU ---
Subjective Subjective Feeling blah but pain is slightly improved. Mild nausea, no vomiting. She feels bloated. Last bowel movement was 2 days ago. Objective Data Objective Data Vital Signs: Vital Signs Temp Pulse Resp BP Pulse Ox O2 Del Method 99.6 F H 98 18 119/68 94 Room Air 10/25/23 08:03 10/25/23 08:03 10/25/23 08:03 10/25/23 08:03 10/25/23 08:03 10/25/23 07:47 Oxygen Delivery Method Room Air Weight: 145.7 kg Body Mass Index (BMI) 50.3 Intake & Output: Intake and Output for Last 24 Hours 10/23/23 10/24/23 10/25/23 23:59 23:59 23:59 Intake Total 50 / 50 2529.59 / 2529.59 1100 / 1100 Output Total 500 / 500 Balance 50 / -150 2029.59 / 202.59 1100 / 1100 Lab / Micro Data 10/25/23 05:30 10/25/23 05:30 Labs: Laboratory Results - last 24 hr 10/24/23 18:45: WBC 8.1, RBC 3.16 L, Hgb 9.4 L, Hct 28.8 L, MCV 91.1, MCH 29.7, MCHC 32.6, RDW Std Deviation 50.1 H, RDW Coeff of German 15.0 H, Plt Count 180, MPV 9.8, Immature Gran % (Auto) 0.500, Neut % (Auto) 68.7, Lymph % (Auto) 18.5 L, [place] % (Auto) 10.0, Eos % (Auto) 2.1, Baso % (Auto) 0.2, Absolute Neuts (auto) 5.6, Absolute Lymphs (auto) 1.50, Nucleated RBC % 0, Differential Comment SCANNED, Sodium 135 L, Potassium 4.1, Chloride 105, Carbon Dioxide 22.0, Anion Gap 8, BUN 35 H, Creatinine 3.74 H, Estim Creat Clear Calc 24.05, Est GFR (MDRD) Af Amer 16 L, Est GFR (MDRD) Non-Af 13 L, BUN/Creatinine Ratio 9.4 L, Glucose 139 H, Calcium 8.6 10/25/23 05:30: WBC 7.3, RBC 3.16 L, Hgb 9.2 L, Hct 29.1 L, MCV 92.1, MCH 29.1, MCHC 31.6 L, RDW Std Deviation 50.4 H, RDW Coeff of German 15.1 H, Plt Count 179, MPV 10.2, Immature Gran % (Auto) 0.300, Neut % (Auto) 66.4, Lymph % (Auto) 19.7, [place] % (Auto) 10.5 H, Eos % (Auto) 2.8, Baso % (Auto) 0.3, Absolute Neuts (auto) 4.8, Absolute Lymphs (auto) 1.43, Nucleated RBC % 0, PT 16.3 H, INR 1.3, APTT 33.9, Sodium 137, Potassium 4.2, Chloride 106, Carbon Dioxide 24.0, Anion Gap 7, BUN 35 H, Creatinine 3.45 H, Estim Creat Clear Calc 26.07, Est GFR (MDRD) Af Amer 17 L, Est GFR (MDRD) Non-Af 14 L, BUN/Creatinine Ratio 10.1, Glucose 106, Calcium 8.9, TSH 24.600 H Micro: Microbiology 10/23/23 18:16 Urine, Clean Catch Urine Culture - Preliminary Gram negative christal Physical Exam Const alert, oriented x3 and no apparent distress HEENT normocephalic and head/scalp atraumatic Eyes General Eye: normal appearance of both eyes Neck supple General: normal visual inspection Lymph Lymphatic: no lymphedema noted Chest inspection of chest normal Chest: symmetrical chest wall rise Resp normal respiratory effort, normal air movement and no retractions Cardio regular rate GI soft to palpation and non-tender GI Narrative: mildly distended Bladder / Kidney Exam: catheter in place and CVA tenderness left Extremity Extremity Narrative: SCD's were placed in the OR, but ordered yesterday Skin no rashes or lesions noted, no wounds, no jaundice, no petechiae and no mottling Neuro oriented x3, CN's II-XII intact bilaterally and moves all extremities Psych mental status grossly normal, thought process normal and cooperative Assessment & Plan Assessment/Plan (1) Urinary tract infection: (2) Hydronephrosis: (3) Kidney stones: (4) Pyelonephritis: PLAN: Plan stent change today with larger diameter stent continue antibiotics and await culture results continue moreno catheter consult nephrology repeat imaging in 1-2 days and if hydronephrosis is still present, will consult IR for percutaneous nephrostomy tube consideration
--- NOTE | 2023-10-25 08:10 | CALC_PTH ---
PATIENT: ALYSSA SLADE LOC: MS3 U#:[id number] AGE/SX: 58/F ROOM: [facility] RE10/23/[address]: Dr. Shantel Griggs MD : 1965 BED: 1 DIS: 10/26/2023 SPEC #: [id number] RECD: 10/26/23 07:48 STATUS: DARLINE LAMBPamela #: [id number] MILAD: 10/25/23 08:[address]: Shantel Griggs DEPT: SURGICAL PATHOLOGY RECD BY: Matilda Araya ENTERED: 10/26/23 07:48 SP TYPE: Calculi OT DR: No Primary Care Phys Tissues: CALCULI Procedures: Surgery Specimen Level I HEADER OPERATION: Left ureter stent change PRE-OP DIAGNOSIS: Bilateral flank pain, post left ureteral stent change TISSUE SUBMITTED: Renal stone GROSS DIAGNOSIS A fragment of stone, clinically renal stone (gross only). COMMENT The calculus is submitted in its entirety for chemical stone analysis. The results from this study will be reported separately. GROSS DESCRIPTION Received without fixative labeled with the patient's name and designated Renal stone. The specimen consists of a fragment of light nicole stone measuring 0.3 x 0.3 x 0.2cm. The entire specimen is submitted for stone analysis. BERT/ 10/26/2023 CPT: 67017
--- NOTE | 2023-10-25 08:32 | PCM.OPRPT ---
Report of Operation Date of Procedure: 10/25/23 Pre-Operative Diagnosis: left renal stones, hydronephrosis and urinary tract infection, renal failure Post-Operative Diagnosis: same Surgery/Procedure Performed:: cystoscopy with left ureteral stone extraction, left ureteral stent change Surgeon: Shantel Griggs Type of Anesthesia: MAC Specimen's removed: ureteral stone Description of Procedure: The patient is a 58-year-old female with large bilateral renal stones who recently underwent shockwave lithotripsy. She has been having persistent left hydronephrosis and flank pain and now with fevers. She was admitted for antibiotics and hydration and found to have worsening renal function and fevers. The decision was made to change the ureteral stent to a larger caliber to see if this would help alleviate the hydronephrosis and insufficient renal drainage. The patient was taken to the operating room and placed on the operating room table. Anesthesia monitored the head, neck, airway, IV access and vital signs throughout the case. Once anesthesia was appropriate ministered, the patient was placed into dorsolithotomy position was prepped and draped in usual sterile fashion. The cystoscope was inserted through the urethra under direct visualization into the urinary bladder. The left ureteral orifice was identified and intubated with a 0.035 Glidewire alongside the indwelling ureteral stent which was then removed with graspers. At this time a large left ureteral calculus was identified. It was grasped with a basket and removed without difficulty. At this time cloudy urine was seen exiting from the left ureteral orifice. A new 7 [place] 28 cm JJ stent was placed with good positioning in the renal pelvis as well as the urinary bladder. The cystoscope was then removed and a 16 [place] Port[place] catheter was inserted to straight drain. She was then awakened and taken to the recovery room in good condition. There were no complications during this procedure. Grafts/Implants Used: 7 [place] 28 cm JJ stent Complications None Admit VTE Documentation VTE Present on Admission: Yes VTE Mechan Device Prophylaxis: SCD's VTE Pharm Prophylaxis ordered?: No Reason prophylaxis not ordered:: Treatment Not Indicated
--- NOTE | 2023-10-25 08:43 | PCM.POST.ANE ---
Anesthesia: Postop Eval I Current Vital Signs Temperature: 98.5 F Pulse Rate: 97 Blood Pressure: 96/64 Respiratory Rate: 15 Pulse Ox: 94 Oxygen Delivery Method: Room Air Assessment Airway patent: Yes Spontaneous unlabored respirations: Yes Mental status: Awake nausea: No Vomiting: No Anesthesia Complication: No Fluid Hydration Crystalloid volume administer (ml): 300 Total IV fluid infused: 300 Progress Note Post-operative progress note: Pt to PACU awake, denies pain vss Anesthesia document: Postop Eval 1 completed: Yes
--- NOTE | 2023-10-25 08:47 | POSTOPAN2_ITS ---
Anesthesia Postop Eval I Sum Postop Eval Completion status Anesthesia document: Postop Eval 1 completed: Yes Anesthesia Postop Eval I Summary Anesthesia Postop Eval I Summary: Anesthesia Postop Eval I: Assessment Summary Airway patent Yes 10/25/23 08:46 MANAGER [email or web address] Spontaneous unlabored Yes 10/25/23 08:46 MANAGER SUSTAINABILITY.AVTARL respirations Mental status Awake 10/25/23 08:46 MANAGER SUSTAINABILITY.SHOL nausea No 10/25/23 08:46 MANAGER SUSTAINABILITY.SHOL Vomiting No 10/25/23 08:46 MANAGER SUSTAINABILITY.SHOL Anesthesia Postop Eval I: Fluid Summary Crystalloid volume administer 300 10/25/23 08:46 MANAGER SUSTAINABILITY.SHOL (ml) Colloids volume administered ( ml) Blood Product volume administered (ml) Total IV fluid infused 300 10/25/23 08:46 MANAGER SUSTAINABILITY.SHOL Anesthesia Postop Eval I: Summary Notes Anesthesia Complication No 10/25/23 08:46 MANAGER SUSTAINABILITYDimitrySHOL Anesthesia Complication Comment: Post-operative progress note Pt to PACU awake, 10/25/23 08:46 MANAGER SUSTAINABILITYNELSON denies pain vss Anesthesia: Postop Eval II Evaluation Mental status: Awake and Calm Pain Level: 3 (Annoying from the catheter) nausea: No Vomiting: No Complications Anesthesia Complication: No
--- NOTE | 2023-10-25 08:47 | PCM.POSTANE2 ---
Anesthesia Postop Eval I Sum Postop Eval Completion status Anesthesia document: Postop Eval 1 completed: Yes Anesthesia Postop Eval I Summary Anesthesia Postop Eval I Summary: Anesthesia Postop Eval I: Assessment Summary Airway patent Yes 10/25/23 08:46 DERRICK BOAT LEVER OPERATOR.SHOL Spontaneous unlabored Yes 10/25/23 08:46 DERRICK BOAT LEVER OPERATOR.AVTARL respirations Mental status Awake 10/25/23 08:46 DERRICK BOAT LEVER OPERATOR.SHOL nausea No 10/25/23 08:46 DERRICK BOAT LEVER OPERATOR.SHOL Vomiting No 10/25/23 08:46 DERRICK BOAT LEVER OPERATOR.SHOL Anesthesia Postop Eval I: Fluid Summary Crystalloid volume administer 300 10/25/23 08:46 DERRICK BOAT LEVER OPERATOR.SHOL (ml) Colloids volume administered ( ml) Blood Product volume administered (ml) Total IV fluid infused 300 10/25/23 08:46 DERRICK BOAT LEVER OPERATOR.SHOL Anesthesia Postop Eval I: Summary Notes Anesthesia Complication No 10/25/23 08:46 DERRICK BOAT LEVER OPERATORDimitrySHOL Anesthesia Complication Comment: Post-operative progress note Pt to PACU awake, 10/25/23 08:46 DERRICK BOAT LEVER OPERATORNELSON denies pain vss Anesthesia: Postop Eval II Evaluation Mental status: Awake and Calm Pain Level: 3 (Annoying from the catheter) nausea: No Vomiting: No Complications Anesthesia Complication: No
[2023-10-25] MEDS: Ciprofloxacin 200 MG/100 ML BAG 100 MG IV ×2 (09:45→22:05)
[2023-10-25] MEDS: Escitalopram Oxalate 10 MG Tablet PO (09:46)
[2023-10-25] MEDS: Pantoprazole Sodium 20 MG Tablet PO (09:47)
[2023-10-25] MEDS: Ketorolac 15 MG/ML Vial IV (16:11)
[2023-10-25] MEDS: 0.9% Saline Lock 10 ML Syringe IV (16:12)
[2023-10-25] MEDS: Acetaminophen 500 MG Tablet 1000 MG PO ×2 (16:12→22:05)
[2023-10-25] MEDS: POTASSIUM CITRATE 10 MEQ TABLET.ER 20 MEQ PO (18:11)
[2023-10-25] MEDS: Atorvastatin Calcium 10 MG Tablet PO (22:05)
[2023-10-26 03:54] LABS: Absolute Lymphocyte Count 1.62 X10^3/uL (0.83-4.51); Absolute Neutrophil Count 2.7 X10^3/uL (2.0-7.7); Basophil# 0.03 X10^3/uL; Basophil% 0.6 % (0-1); Eosinophil# 0.17 X10^3/uL; Eosinophils% 3.3 % (0-5); Hematocrit 26.7 % (37-47); Hemoglobin 8.6 g/dL (12.0-15.0); Lymphocyte # 1.62 X10^3/ul (0.83-4.51); Lymphocyte % 31.2 % (19-41); Mean Corp Hgb Conc 32.2 g/dL (32-36); Mean Corpuscular Hgb 29.4 pg (27.0-32.0); Mean Corpuscular Volume 91.1 fL (81-99); Mean Platelet Vol. 10.2 fl (6.2-12.0); Monocyte# 0.63 X10^3/uL; Monocyte% 12.1 % (0-10); NRBC Flagged by Analyzer 0 % (0-5); Neutrophil # 2.74 X10^3/uL (2.7-7.7); Neutrophil % 52.6 % (47-70); Platelet Count 170 K/mm3 (150-450); RBC Distribution Width CV 14.7 % (11.6-14.6); RBC Distribution Width SD 48.9 fl (35.1-43.9); Red Blood Count 2.93 M/mm3 (4.2-5.4); White Blood Count 5.2 K/mm3 (4.4-11.0)
[2023-10-26 04:08] LABS: Anion Gap 4 (5-15); BUN 30 mg/dL (7-18); BUN/Creat Ratio 10.5 RATIO (10-20); Calcium,Total 8.9 mg/dL (8.5-10.1); Chloride 108 mmol/L (98-107); Creatinine, Serum 2.85 mg/dL (0.55-1.02); EST Glomerular Filtration Rate 18 mL/min (>60); Est Glom Filt Rate - Afr Amer 22 mL/min (>60); Estimated Creatinine Clearance 31.56 ml/min; Glucose 105 mg/dL (74-106); Potassium 4.2 mmol/L (3.5-5.1); Sodium Level 137 mmol/L (136-145)
[2023-10-26] MEDS: Lactated Ringers 1,000 ML 125 ML IV (05:38)
[2023-10-26] MEDS: Levothyroxine 100 MCG Tablet 200 MCG PO (05:38)
[2023-10-26] MEDS: Acetaminophen 500 MG Tablet 1000 MG PO (05:38)
[2023-10-26 05:41] VITALS: BP 127/74; PULSE 81; RESP 16; TEMP 36.7; O2SAT 94
[2023-10-26 07:05] VITALS: O2SAT 96
--- NOTE | 2023-10-26 07:55 | PCM.PN.GU ---
Subjective Subjective Feeling much better today, pain is better. IV access has been lost.Her blood pressure, heart rate, renal function and everything is overall significantly improved.We discussed continuing intravenous antibiotics versus discharge home with plan for surgical intervention later this week.She would like to go home.She understands that if anything deteriorates, she will call the office immediately or return to the emergency room. Objective Data Objective Data Vital Signs: Vital Signs Temp Pulse Resp BP Pulse Ox O2 Del Method 98.0 F 81 16 127/74 H 94 Room Air 10/26/23 05:41 10/26/23 05:41 10/26/23 05:41 10/26/23 05:41 10/26/23 05:41 10/26/23 05:41 Oxygen Delivery Method Room Air Weight: 145.7 kg Body Mass Index (BMI) 50.3 Intake & Output: Intake and Output for Last 24 Hours 10/24/23 10/25/23 10/26/23 23:59 23:59 23:59 Intake Total 2529.59 / 2529.59 4025.42 / 4025.42 1100.00 / 1100.00 Output Total 500 / 500 550 / 550 1000 / 1000 Balance 2029.59 / 2029.59 3475.42 / 3475.42 100.00 / 100.00 Lab / Micro Data 10/26/23 03:23 10/26/23 03:23 Labs: Laboratory Results - last 24 hr 10/26/23 03:23: WBC 5.2, RBC 2.93 L, Hgb 8.6 L, Hct 26.7 L, MCV 91.1, MCH 29.4, MCHC 32.2, RDW Std Deviation 48.9 H, RDW Coeff of German 14.7 H, Plt Count 170, MPV 10.2, Immature Gran % (Auto) 0.200, Neut % (Auto) 52.6, Lymph % (Auto) 31.2, Mcmullen % (Auto) 12.1 H, Eos % (Auto) 3.3, Baso % (Auto) 0.6, Absolute Neuts (auto) 2.7, Absolute Lymphs (auto) 1.62, Nucleated RBC % 0, Sodium 137, Potassium 4.2, Chloride 108 H, Carbon Dioxide 25.0, Anion Gap 4 L, BUN 30 H, Creatinine 2.85 H, Estim Creat Clear Calc 31.56, Est GFR (MDRD) Af Amer 22 L, Est GFR (MDRD) Non-Af 18 L, BUN/Creatinine Ratio 10.5, Glucose 105, Calcium 8.9 Micro: Microbiology 10/23/23 18:16 Urine, Clean Catch Urine Culture - Final Klebsiella pneumoniae sp pneum Physical Exam Const alert, oriented x3 and no apparent distress General Appearance: cooperative and comfortable HEENT normocephalic and head/scalp atraumatic Eyes General Eye: normal appearance of both eyes Neck supple General: normal visual inspection and trachea midline Lymph Lymphatic: no lymphedema noted Chest inspection of chest normal Resp normal respiratory effort, normal air movement and no retractions Cardio regular rate GI soft to palpation, non-tender and non-distended Narrative: Portillo is draining cloudy dilute urine Back/Spine General Back: CVA tenderness left (Mild) Extremity normal to inspection Extremity Narrative: SCDs in place Skin no rashes or lesions noted, no jaundice, no petechiae and no mottling Neuro oriented x3, CN's II-XII intact bilaterally and moves all extremities Psych mental status grossly normal and thought process normal Assessment & Plan Assessment/Plan (1) Urinary tract infection: (2) Hydronephrosis: (3) Kidney stones: (4) Pyelonephritis: PLAN: Plan Cultures revealed resistance to Cipro, we will send her home on a cephalosporin for 10 days DC Portillo catheter Discharge home today Plans for surgical intervention late this week
--- NOTE | 2023-10-26 07:59 | DS.PCM_ITS ---
Providers Date of Admission: 10/23/23 Primary Care Physician: No Primary Care Phys Reason For Visit: UTI KIDNEY STONES Diagnosis Discharge Diagnosis (1) Urinary tract infection: Status: Acute Code(s): N39.0 - Urinary tract infection, site not specified Qualifiers: Urinary tract infection type: acute pyelonephritis Qualified Code(s): N 10 - Acute pyelonephritis (2) Hydronephrosis: Status: Acute Code(s): N13.30 - Unspecified hydronephrosis Qualifiers: Hydronephrosis type: with ureteral calculous obstruction Qualified Code(s): N13.2 - Hydronephrosis with renal and ureteral calculous obstruction (3) Kidney stones: Status: Acute Code(s): N20.0 - Calculus of kidney (4) Pyelonephritis: Status: Acute Code(s): N12 - Tubulo-interstitial nephritis, not specified as acute or chronic Plan Cultures revealed resistance to Cipro, we will send her home on a cephalosporin for 10 days DC Portillo catheter Discharge home today Plans for surgical intervention late this week Medications at Discharge Home Medications rosuvastatin 5 mg tablet 5 mg PO DAILY 12/21/20 potassium citrate 10 mEq (1,080 mg) tablet,extended release 20 meq PO BID 06/04/23 d-mannose 500 mg capsule (AZO D-Mannose) 500 mg PO DAILY 09/15/23 escitalopram oxalate 10 mg tablet (Lexapro) 10 mg PO DAILY 09/15/23 vitamin B complex (Complex B-100 tablet,extended release) 1 tab PO DAILY 09/15/23 NEW LIFE PROBIOTIC 1 cap PO DAILY 10/01/23 levothyroxine 200 mcg tablet 200 mcg PO DAILY 10/01/23 omeprazole 20 mg capsule,delayed release 20 mg PO DAILY 10/01/23 tramadol 50 mg tablet 50 mg PO Q8H PRN pain 3 days #10 tabs 10/08/23 tramadol 50 mg tablet 50 mg PO Q8H PRN pain 3 days #10 tabs 10/11/23 cephalexin 500 mg capsule 500 mg PO 3XD post-operative 10 days #30 CAPSULES 10/26/23 Hospital Course Operations - (Cystoscopy with removal of left ureteral calculus and left ureteral stent change) Summary of Care Provided Hospital Course: She was admitted for pain control, IV antibiotics and fluids. She developed fever and worsening renal function and was taken to the operating room for removal of a left ureteral stone and left ureteral stent change. She improved, her white blood count normalized, her pain resolved and her vital signs improved. Her renal function improved significantly. She was discharged home on antibiotics and plans for surgical intervention within the week. Physical Exam Const alert, oriented x3 and no apparent distress General Appearance: cooperative and comfortable HEENT normocephalic and head/scalp atraumatic Neck General: normal visual inspection and trachea midline Lymph Lymphatic: no lymphedema noted Chest inspection of chest normal Resp normal respiratory effort, normal air movement and no retractions Cardio regular rate GI soft to palpation, non-tender and non-distended Bladder / Kidney Exam: CVA tenderness left (mild) Extremity normal to inspection Skin no rashes or lesions noted, no jaundice, no petechiae and no mottling Neuro oriented x3, CN's II-XII intact bilaterally and moves all extremities Psych mental status grossly normal and thought process normal Weight / BMI Weight Weight: 145.7 kg Body Mass Index (BMI) 50.3 ABG / Lab / Microbiology Data 10/26/23 03:23 10/26/23 03:23 Laboratory: Laboratory Results - last 24 hr 10/26/23 03:23: WBC 5.2, RBC 2.93 L, Hgb 8.6 L, Hct 26.7 L, MCV 91.1, MCH 29.4, MCHC 32.2, RDW Std Deviation 48.9 H, RDW Coeff of German 14.7 H, Plt Count 170, MPV 10.2, Immature Gran % (Auto) 0.200, Neut % (Auto) 52.6, Lymph % (Auto) 31.2, M arvin % (Auto) 12.1 H, Eos % (Auto) 3.3, Baso % (Auto) 0.6, Absolute Neuts (auto) 2.7, Absolute Lymphs (auto) 1.62, Nucleated RBC % 0, Sodium 137, Potassium 4.2, Chloride 108 H, Carbon Dioxide 25.0, Anion Gap 4 L, BUN 30 H, Creatinine 2.85 H, Estim Creat Clear Calc 31.56, Est GFR (MDRD) Af Amer 22 L, Est GFR (MDRD) Non-Af 18 L, BUN/Creatinine Ratio 10.5, Glucose 105, Calcium 8.9 Microbiology: Microbiology 10/23/23 18:16 Urine, Clean Catch Urine Culture - Final Klebsiella pneumoniae sp pneum D/C Instructions Discharge Diet: No restrictions Call your doctor if you observe: Fever of 101 or Higher, Inability to urinate and Inability to have a bowel movement Please Follow Up With: Shantel Griggs MD When: The office will call with follow up plans. Meaningful Use Info Meaningful Use Meaningful Use Diagnoses (Choose all that apply): None applicable Ischemic Stroke Statin Dosing Therapy Reference: STATIN DOSE THERAPY REFERENCE: * Patients > 75 years receive moderate or high dose statin therapy. * Patients 75 years or YOUNGER should receive HIGH intensity statin dose unless contraindicated. You will be required to document reason for non-treatment if statin daily dose does not meet guidelines. HIGH DOSE STATIN THERAPY DAILY Atorvastatin > than or = to 40 mg Rosuvastatin > than or = to 20 mg Amlodipine + Atorvastatin > than or = to 2.5/40 mg Ezetimibe + Simvastatin 10/80 mg Simvastatin 80mg Discharge Plan Admission Admit Date/Time: 10/23/23 23:44 Attending Provider: Shantel Griggs Primary Care Provider: Care Physician,Pauline Primary Discharge Orders/Prescriptions Prescriptions: New cephalexin 500 mg capsule 500 mg PO 3XD 10 Days Qty: 30 0RF Continued potassium citrate 10 mEq (1,080 mg) tablet extended release 20 meq PO BID rosuvastatin 5 mg Tablet 5 mg PO DAILY escitalopram oxalate [Lexapro] 10 mg tablet 10 mg PO DAILY Patient Comments: needs new script AZO D-Mannose 500 mg capsule 500 mg PO DAILY Complex B-100 Tablet Extended Release 1 tab PO DAILY levothyroxine 200 mcg tablet 200 mcg PO DAILY omeprazole 20 mg capsule,delayed release(DR/EC) 20 mg PO DAILY NEW LIFE PROBIOTIC capsule 1 cap PO DAILY tramadol 50 mg tablet 50 mg PO Q8H PRN (Reason: pain) 3 Days Qty: 10 0RF tramadol 50 mg tablet 50 mg PO Q8H PRN (Reason: pain) 3 Days Qty: 10 0RF Referrals / Follow Up: Care Physician,Pauline Primary [Primary Care Provider] - Disposition Disposition (needs filled in before D/C Order can be placed): Home, Self Care
[2023-10-26] MEDS: POTASSIUM CITRATE 10 MEQ TABLET.ER 20 MEQ PO (08:56)
[2023-10-26] MEDS: Pantoprazole Sodium 20 MG Tablet PO (08:57)
[2023-10-26] MEDS: Escitalopram Oxalate 10 MG Tablet PO (08:57)
[2023-10-26] MEDS: Magnesium Hydroxide 30 ML UDC PO (09:02)
[2023-10-26 09:04] VITALS: BP 131/75; PULSE 78; RESP 16; TEMP 36.3; O2SAT 97
--- NOTE | 2023-10-26 11:03 | PHA.DC_ITS ---
Pharmacy [facility] has performed discharge medication reconciliation and counseling for this patient. PCN allergy, pt had ER dose of ceftriaxone, cephalexin okay for home. Klebsiella resistant to ciprofloxacin. 1. CEPHALEXIN 500MG PO TID X 10 DAYS The patient's discharge medication list was reviewed for discrepancies and discrepancies were resolved. The patient was counseled on the following discharge medications and changes in medications for homegoing were reviewed. The Reason for Use, instructions for use, and potential side effects were reviewed for all new medications. The patient's questions regarding all of their medications were answered. The patient was able to verbally demonstrate an understanding of their discharge medications. Medications at Discharge Home Medications rosuvastatin 5 mg tablet 5 mg PO DAILY 12/21/20 potassium citrate 10 mEq (1,080 mg) tablet,extended release 20 meq PO BID 06/04/23 d-mannose 500 mg capsule (AZO D-Mannose) 500 mg PO DAILY 09/15/23 escitalopram oxalate 10 mg tablet (Lexapro) 10 mg PO DAILY 09/15/23 vitamin B complex (Complex B-100 tablet,extended release) 1 tab PO DAILY 09/15/23 NEW LIFE PROBIOTIC 1 cap PO DAILY 10/01/23 levothyroxine 200 mcg tablet 200 mcg PO DAILY 10/01/23 omeprazole 20 mg capsule,delayed release 20 mg PO DAILY 10/01/23 tramadol 50 mg tablet 50 mg PO Q8H PRN pain 3 days #10 tabs 10/08/23 cephalexin 500 mg capsule 500 mg PO 3XD post-operative 10 days #30 CAPSULES 10/26/23
[2023-10-26 11:50] VITALS: BP 140/79; PULSE 82; RESP 16; TEMP 36.7; O2SAT 97
== END 2023-10-26 11:50 | disposition home or self-care (01) | DRG 655 ==
LOC: ED 21:09 → MS3 10-24 04:46
PROVIDERS: Anesthesiology; Admitting Provider Urology; Emergency Provider Emergency Medicine; Visit Provider Urology
PROC: 0T7B8DZ Dilation of Bladder with Intraluminal Device, Via Natural or Artificial Opening Endoscopic (ICD-10-PCS; principal; 2023-10-25 08:00)
DX: N10 Acute pyelonephritis (principal); N17.9 Acute kidney failure, unspecified; E07.9 Disorder of thyroid, unspecified; N13.2 Hydronephrosis with renal and ureteral calculous obstruction; Z87.891 Personal history of nicotine dependence; Z90.49 Acquired absence of other specified parts of digestive tract; Z87.442 Personal history of urinary calculi
CPT/HCPCS: 36415; 74176; 76000; 80048; 81001; 82360; 84443; 85025; 85610; 85730; 87077; 87086; 87088; 87186; 88300; 93005; 99284; J7050; J7120; A4216; J0744; J2405

== ENCOUNTER 2023-10-30 09:34 | Day surgery (SDC) | payer MEDICAID, SELFPAY ==
[2023-10-30] VITALS (15 sets, daily range): BP systolic 87–140; BP diastolic 47–89; PULSE 64–84; RESP 16–20; TEMP 36.1–37.2; O2SAT 97–100; BMI 49.1
--- NOTE | 2023-10-30 09:58 | EX.PCM.DISCH ---
Discharge Instructions Diet Discharge Diet: No restrictions Activity Discharge Activity: Return to Normal Activity Dressing / Incision Call your doctor if you observe: Fever of 101 or Higher, Inability to urinate and Inability to have a bowel movement Follow Up Care Please Follow Up With: Shantel Griggs MD When: The office will call to make follow-up arrangements Test Results: Test results from this visit will be discussed in further detail at your follow-up appointment, if applicable. Discharge Plan Admission Attending Provider: Shantel Griggs Primary Care Provider: Care PhysicianPauline Primary Instructions Print Language: Monegasque Discharge Orders/Prescriptions Prescriptions: New tramadol 50 mg tablet 50 mg PO Q8H PRN (Reason: pain) 3 Days Qty: 15 0RF Continued potassium citrate 10 mEq (1,080 mg) tablet extended release 20 meq PO BID rosuvastatin 5 mg Tablet 5 mg PO DAILY escitalopram oxalate [Lexapro] 10 mg tablet 10 mg PO DAILY Patient Comments: needs new script AZO D-Mannose 500 mg capsule 500 mg PO DAILY Complex B-100 Tablet Extended Release 1 tab PO DAILY levothyroxine 200 mcg tablet 200 mcg PO DAILY omeprazole 20 mg capsule,delayed release(DR/EC) 20 mg PO DAILY NEW LIFE PROBIOTIC capsule 1 cap PO DAILY tramadol 50 mg tablet 50 mg PO Q8H PRN (Reason: pain) 3 Days Qty: 10 0RF cephalexin 500 mg capsule 500 mg PO TID Referrals / Follow Up: Care PhysicianPauline Primary [Primary Care Provider] - Disposition Disposition (needs filled in before D/C Order can be placed): Home, Self Care
[2023-10-30] MEDS: Lactated Ringers 1,000 ML 15 ML IV (10:05)
--- NOTE | 2023-10-30 10:21 | PCM.PRE.AN2 ---
ASA Classification* ASA Classification ASA Classification: 3 Assessment & Plan Anesthesia* Anesthesia Assessment Anesthesia Assessment: Discussed sedation and/or anesthesia options, risks, benefits, and alternatives with patient/parents/legal guardian/POA. Questions invited. The patient/parents/legal guardian/POA seems to understand and agrees to proceed with anesthesia plan. Reviewed the physical assessment, medical history, allergy history and patient home medications list prior to surgery/procedure/anesthetic and documented any changes. Performed airway and anesthesia risk assessments. Anesthesia Type Anesthesia Type: General History Source History Obtained from:: Patient and Chart Anesthesia Focused Assessment* Temperature: 98.6 F Pulse Rate: 84 Blood Pressure: 140/89 Respiratory Rate: 16 Pulse Ox: 97 Oxygen Delivery Method: Room Air Airway Assessment Mouth opens: >3 cm Mallampati Score: I Teeth Condition: Caps/Crowns (Right lower crown. It is tight.) and Missing (Missing left lower tooth. There remains a wire PEG at that spot.) Neck Range of motion (ROM): Full ROM Pertinent Findings EKG Pertinent Findings:: December 21 2020. Normal sinus rhythm 66 bpm. Focused Labs Anesthesia Preop lab: CBC WBC 5.2 K/mm3 (4.4-11.0) 10/26/23 03:23 RBC 2.93 M/mm3 (4.2-5.4) L 10/26/23 03:23 Hgb 8.6 g/dL (12.0-15.0) L 10/26/23 03:23 Hct 26.7 % (37-47) L 10/26/23 03:23 Plt Count 170 K/mm3 (150-450) 10/26/23 03:23 CHEMISTRY Potassium 4.2 mmol/L (3.5-5.1) 10/26/23 03:23 Sodium 137 mmol/L (136-145) 10/26/23 03:23 Phosphorus 3.8 mg/dL (2.5-4.9) 02/03/18 16:48 BUN 30 mg/dL (7-18) H 10/26/23 03:23 Creatinine 2.85 mg/dL (0.55-1.02) H 10/26/23 03:23 Glucose 105 mg/dL (74-106) 10/26/23 03:23 TSH 24.600 uIU/mL (0.358-3.740) H 10/25/23 05:30 COAG PT 16.3 SECONDS (11.7-14.9) H 10/25/23 05:30 Pre-Assessment Diagnosis/Proposed Procedure Planned Operative Procedure(s): CYSTO LEFT URETEROSCOPY LASER LITHOTRIPSY STONE BASKET EXTRACTION LEFT URETERAL STONE Anesthesia History 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 When Was Last Pacemaker Check QUESTION #4 FULL TEXT: You/Your Family Experience fever (hyperthermia) with Anesthesia Last Oral Intake Last Oral intake: Last Oral Intake NPO since 00:00 10/30/23 10:02 Meds taken in AM with sips of water? Meds patient instructed to take am of surgery PONV PONV - dipping machine operator: PONV - dipping machine operator Female Yes 10/27/23 13:08 HX of Motion Sickness No 10/27/23 13:08 HX of N/V After Surgery No 10/27/23 13:08 Non-Smoker Yes 10/27/23 13:08 Duration of Surgery greater Yes 10/27/23 13:08 than 60 minutes Number of Risk Factors 3 10/27/23 13:08 PONV Score Moderate Risk 10/27/23 13:08 Height & Weight Height & Weight: Anesthesia: Height & Weight Height 5 ft 7 in 10/30/23 10:02 Weight: 142.428 kg 10/30/23 10:02 Body Mass Index (BMI) 49.1 10/30/23 10:02 Respiratory Assessment Respiratory Assessment - dipping machine operator: Respiratory Tract Infection Hx - dipping machine operator Hx Respiratory Tract Infection No 10/27/23 13:08 STOP Sleep Apnea STOP Sleep Apnea - dipping machine operator: STOP Sleep Apnea - dipping machine operator Hx Hypertension Yes: NO MEDS FOR 10-12 YRS 10/27/23 13:08 Hx Sleep Apnea No 10/27/23 13:08 CPAP No 10/25/23 08:40 BIPAP Yes: not used since mass 12/05/17 17:17 removal. Do you snore loudly (louder No 10/27/23 13:08 than talking or can be heard Do you often feel tired/ No 10/27/23 13:08 fatigued/ sleepy during daytime? Has anyone observed you stop No 10/27/23 13:08 breathing during sleep? STOP Results Negative 10/27/23 13:08 QUESTION #5 FULL TEXT : Do you snore loudly (louder than talking or can be heard through closed doors)? 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 Specify any problems Hx of Preganancy in last 3 No 10/27/23 13:08 Months Nurse Filling Out Transfusion DSCHRIBER 10/27/23 13:08 & Questions: Date: 10/27/23 10/27/23 13:08 Time: 13:09 10/27/23 13:08 Patient unable to answer at this time (ie. confused, unrespo /Reproduction History /Reproductive History - dipping machine operator: /Reproductive Hx- dipping machine operator Hx Now No 10/27/23 13:08 Gestational Age (in weeks): EDC: Hx Hx Para Hx Section SAB No 10/27/23 13:08 Active Medications Active Medications: Current Medications Generic Name Dose Route Start Last Admin Trade Name Freq PRN Reason Stop Dose Admin Ciprofloxacin 400 mg in 200 mls @ 200 mls/hr 10/30/23 11:10 Cipro IV 10/30/23 12:09 PREOP ONE Lactated Ringer's 1,000 mls @ 15 mls/hr 10/30/23 09:45 10/30/23 10:05 IV 15 mls/hr .Q48H BERYL Administration PFSH Medical History (Updated 10/27/23 @ 13:14 by Davina Nassar) History of diverticulitis History of pain when walking Urinary tract infection Difficult intravenous access Chronic cough Wears glasses Post-menopausal Arthritis Thyroid disease History of renal disease Anemia History of diverticulosis Former smoker History of stress test History of benign mediastinal tumor Depression GERD (gastroesophageal reflux disease) Home Medications ?Medication ?Instructions ?Recorded ?Last Taken ?Type rosuvastatin 5 mg tablet 5 mg PO DAILY 12/21/20 Unknown History potassium citrate 10 mEq (1,080 20 meq PO BID 06/04/23 10/29/23 History mg) tablet,extended release d-mannose 500 mg capsule (AZO 500 mg PO DAILY 09/15/23 10/06/23 History D-Mannose) escitalopram oxalate 10 mg tablet 10 mg PO DAILY 09/15/23 Unknown History (Lexapro) vitamin B complex (Complex B-100 1 tab PO DAILY 09/15/23 10/07/23 History tablet,extended release) NEW LIFE PROBIOTIC 1 cap PO DAILY 10/01/23 10/07/23 History levothyroxine 200 mcg tablet 200 mcg PO DAILY 10/01/23 10/29/23 History omeprazole 20 mg capsule,delayed 20 mg PO DAILY 10/01/23 10/29/23 History release tramadol 50 mg tablet 50 mg PO Q8H PRN pain 3 days #10 10/08/23 10/29/23 Rx tabs cephalexin 500 mg capsule 500 mg PO TID 10/27/23 10/29/23 History tramadol 50 mg tablet 50 mg PO Q8H PRN pain 3 days #15 10/30/23 Unknown Rx tabs Allergy/AdvReac Type Severity Reaction Status Date / Time Penicillins (PCN) Allergy Rash Verified 10/30/23 09:52 oxycodone (From Percocet) AdvReac Vomiting Verified 10/30/23 09:52 Surgical History (Updated 10/27/23 @ 13:15 by Davina Nassar) History of cystoscopy History of lithotripsy History of History of colonoscopy History of extraction of renal calculus History of thyroidectomy History of appendectomy History of cholecystectomy Social History Smoking Status: Former smoker substance use type: does not use Review of Systems (Anesthesia) ROS Narrative System reviewed and no additional complaints, except as documented.
[2023-10-30 10:33] LABS: Anion Gap 9 (5-15); BUN 23 mg/dL (7-18); BUN/Creat Ratio 9.9 RATIO (10-20); Calcium,Total 8.8 mg/dL (8.5-10.1); Chloride 109 mmol/L (98-107); Creatinine, Serum 2.33 mg/dL (0.55-1.02); EST Glomerular Filtration Rate 23 mL/min (>60); Est Glom Filt Rate - Afr Amer 27 mL/min (>60); Estimated Creatinine Clearance 38.07 ml/min; Glucose 98 mg/dL (74-106); Potassium 4.4 mmol/L (3.5-5.1); Sodium Level 137 mmol/L (136-145)
[2023-10-30] MEDS: Ciprofloxacin 400 MG/200 ML BAG 200 MG IV (10:50)
--- NOTE | 2023-10-30 11:10 | CALC_PTH ---
PATIENT: ALYSSA SLADE LOC: [facility] [place] U#:[id number] AGE/SX: 58/F ROOM: RE10/30/[address]: Dr. Shantel Griggs MD : 1965 BED: DIS: 10/30/2023 SPEC #: [id number] RECD: 10/30/23 13:40 STATUS: DARLINE BELL #: [id number] MILAD: 10/30/23 11:[address]: Shantel Griggs DEPT: SURGICAL PATHOLOGY RECD BY: Estrada Kim ENTERED: 10/30/23 13:40 SP TYPE: Calculi SAMIRA DR: No Primary Care Phys Tissues: CALCULI Procedures: Surgery Specimen Level I HEADER OPERATION: Cystoscopy, left ureteroscopy, stone basket extraction PRE-OP DIAGNOSIS: Left ureteral calculi TISSUE SUBMITTED: Left ureteral calculi for stone analysis GROSS DIAGNOSIS Fragments of stone, clinically left ureteral and kidney calculi (gross only). SJ/mr 10/30/2023 COMMENT The specimen is submitted in its entirety for chemical stone analysis. The results from this study will be reported separately. GROSS DESCRIPTION Received without fixative labeled with the patient's name and designated left ureteral and kidney calculi. The specimen consists of multiple fragments of brown stone measuring in aggregate 1.5 x 1.5 x 0.5 cm. The entire specimen is submitted for stone analysis. 10/30/2023 CPT: 12986
--- NOTE | 2023-10-30 13:17 | PCM.POST.ANE ---
Anesthesia: Postop Eval I Current Vital Signs Temperature: 97 F Pulse Rate: 64 Blood Pressure: 116/68 Respiratory Rate: 20 Pulse Ox: 99 Oxygen Delivery Method: Room Air Assessment Airway patent: Yes Spontaneous unlabored respirations: Yes Mental status: Awake and Calm nausea: No Vomiting: No Anesthesia Complication: No Fluid Hydration Crystalloid volume administer (ml): 800 Total IV fluid infused: 800 Progress Note Anesthesia document: Postop Eval 1 completed: Yes
--- NOTE | 2023-10-30 13:28 | OP.PCM_ITS ---
Report of Operation Date of Procedure: 10/30/23 Pre-Operative Diagnosis: Left renal calculi Post-Operative Diagnosis: Same Surgery/Procedure Performed:: Cystoscopy, left ureteroscopy, stone basket extraction, laser lithotripsy, bilateral ureteral stent change Surgeon: Shantel Griggs Type of Anesthesia: General Specimen's removed: Stone fragments Description of Procedure: The patient is a 58-year-old female with large bilateral renal stones who presents for surgical intervention on the left side. Informed consent was obtained. She was taken to the operating room and placed on the operating room table. Anesthesia monitored the head, neck, airway, IV access and vital signs throughout the case. Once anesthesia was appropriately administered she was placed into dorsolithotomy position and was prepped and draped in usual sterile fashion. The cystoscope was inserted through the urethra under direct visualization into the urinary bladder. 2 separate 0.035 Glidewire's were passed alongside the left ureteral stent which was then removed with a grasping forceps. When this was removed, the right ureteral stent inadvertently was removed as well. A semirigid ureteroscope was then inserted into the left ureteral orifice and advanced. Several stone fragments were identified and removed with a basket. When the entire length of the ureter was clear from laura ris, one of the wires was used for placement of a ureteral access sheath. This was inserted over the wire and under fluoroscopic visualization. At this time the flexible ureteroscope was inserted through the access sheath into the renal pelvis. There was no evidence of infection and no significant debris identified. A few stone fragments were identified and removed with the basket. At this time, the lower pole was further evaluated and a small diverticula was identified. The stone basket was inserted through the opening and grasped a stone fragment. This was then pulled into the renal pelvis and exited without difficulty into the sheath. Multiple passes were made through this diverticular opening which enlarged over time. For 2 hours, stone fragments were removed from this diverticula and a few others. Eventually there was a very large stone that was pulled into the renal pelvis which was too large for extraction with the basket. A 200 ?m laser fiber was then utilized to break the stone into smaller pieces. When this process was started, the area became edematous and bloody and visualization decreased. The decision was made to proceed with stent insertion. The ureteroscope was used to remove the access sheath under direct visualization revealing no evidence of injury to the ureter. There were no ureteral stones identified. The remaining safety wire was then backloaded through the cystoscope and used for placement of a 6 Jordanian 26 cm JJ stent with good positioning in the renal pelvis as well as the urinary bladder. This seemed to fit her better than the 28 cm stent. Another 6 Jordanian 26 cm JJ stent was then placed on the patient's right side utilizing the same wire. The bladder was then emptied. She was awakened and taken to the recovery room in good condition. There were no complications during this procedure. Grafts/Implants Used: 6 Jordanian by 26 cm JJ stents bilaterally Complications None Admit VTE Documentation VTE Present on Admission: Yes VTE Mechan Device Prophylaxis: SCD's VTE Pharm Prophylaxis ordered?: No Reason prophylaxis not ordered:: Treatment Not Indicated
[2023-10-30] MEDS: traMADol 50 MG Tablet PO (15:24)
--- NOTE | 2023-10-30 17:22 | POSTOPAN2_ITS ---
Anesthesia Postop Eval I Sum Postop Eval Completion status Anesthesia document: Postop Eval 1 completed: Yes Anesthesia Postop Eval I Summary Anesthesia Postop Eval I Summary: Anesthesia Postop Eval I: Assessment Summary Airway patent Yes 10/30/23 13:18 POWDER [email or web address] Spontaneous unlabored Yes 10/30/23 13:18 POWDER [email or web address].[email or web address] respirations Mental status Awake,Calm 10/30/23 13:18 POWDER [email or web address].[email or web address] nausea No 10/30/23 13:18 POWDER LOADER.JDEF Vomiting No 10/30/23 13:18 POWDER [email or web address].[email or web address] Anesthesia Postop Eval I: Fluid Summary Crystalloid volume administer 800 10/30/23 13:18 POWDER [email or web address].JDEF (ml) Colloids volume administered ( ml) Blood Product volume administered (ml) Total IV fluid infused 800 10/30/23 13:18 POWDER [email or web address].JDEF Anesthesia Postop Eval I: Summary Notes Anesthesia Complication No 10/30/23 13:18 POWDER [email or web address].JDEF Anesthesia Complication Comment: Post-operative progress note Anesthesia: Postop Eval II Evaluation Mental status: Awake and Calm Pain Level: 0 nausea: No Vomiting: No Complications Anesthesia Complication: No
--- NOTE | 2023-10-30 17:22 | PCM.POSTANE2 ---
Anesthesia Postop Eval I Sum Postop Eval Completion status Anesthesia document: Postop Eval 1 completed: Yes Anesthesia Postop Eval I Summary Anesthesia Postop Eval I Summary: Anesthesia Postop Eval I: Assessment Summary Airway patent Yes 10/30/23 13:18 ROUTE PROCESS ADMINISTRATOR.[email or web address] Spontaneous unlabored Yes 10/30/23 13:18 ROUTE PROCESS ADMINISTRATOR.JDEF respirations Mental status Awake,Calm 10/30/23 13:18 ROUTE PROCESS ADMINISTRATOR.JDEF nausea No 10/30/23 13:18 ROUTE PROCESS ADMINISTRATOR.JDEF Vomiting No 10/30/23 13:18 ROUTE PROCESS ADMINISTRATOR.JDEF Anesthesia Postop Eval I: Fluid Summary Crystalloid volume administer 800 10/30/23 13:18 ROUTE PROCESS ADMINISTRATOR.JDEF (ml) Colloids volume administered ( ml) Blood Product volume administered (ml) Total IV fluid infused 800 10/30/23 13:18 ROUTE PROCESS ADMINISTRATOR.JDEF Anesthesia Postop Eval I: Summary Notes Anesthesia Complication No 10/30/23 13:18 ROUTE PROCESS ADMINISTRATOR.JDEF Anesthesia Complication Comment: Post-operative progress note Anesthesia: Postop Eval II Evaluation Mental status: Awake and Calm Pain Level: 0 nausea: No Vomiting: No Complications Anesthesia Complication: No
[2023-11-16 15:23] LABS: Size 6x7 mm (.)
[2023-11-16 15:31] LABS: Ca Oxalate, Monohydrate 10
== END 2023-10-30 15:43 | disposition home or self-care (01) ==
LOC: SDC 09:34 → AC 09:35
PROVIDERS: Referring Provider Urology; Visit Provider Urology
PROC: 0TJ98ZZ Inspection of Ureter, Via Natural or Artificial Opening Endoscopic (ICD-10-PCS; CPT 52352; principal; 2023-10-30 11:00)
DX: N20.0 Calculus of kidney (principal); N18.4 Chronic kidney disease, stage 4 (severe); F32.A Depression, unspecified; Z87.19 Personal history of other diseases of the digestive system; E03.9 Hypothyroidism, unspecified; K21.9 Gastro-esophageal reflux disease without esophagitis; Z90.49 Acquired absence of other specified parts of digestive tract; Z87.442 Personal history of urinary calculi; Z87.891 Personal history of nicotine dependence; I12.9 Hypertensive chronic kidney disease with stage 1 through stage 4 chronic kidney disease, or unspecified chronic kidney disease; K59.09 Other constipation; N39.0 Urinary tract infection, site not specified
CPT/HCPCS: 52356; 00918; 76000; 80048; 82360; 88300; J7120; C2617; J0744; J2405

== ENCOUNTER → 2023-11-20 | Outpatient (CLI) | payer MEDICAID, SELFPAY ==
--- NOTE | 2023-11-20 09:20 | RAD_ITS ---
EXAM: XR ABDOMEN, 1 VIEW CLINICAL INDICATION: kidney stones TECHNIQUE: Frontal supine view of the abdomen/pelvis. COMPARISON: CT October 23, 2023. FINDINGS: LOWER THORAX: No acute pathology. GASTROINTESTINAL TRACT: Unremarkable. No dilated small bowel loops. ORGANS: Similar appearance of bilateral ureteral stents. Similar appearance of large coarse calcifications projecting inferior to the stents, shown to be in the lower poles of the kidneys on recent CT. Similar suggestion of faintly dense stones in the distal ureters adjacent to the stents appear to prior CT. Right upper quadrant cholecystectomy clips. BONES/JOINTS: No acute pathology. SOFT TISSUES: No acute pathology. RAD/Abdomen Single View IMPRESSION: Similar location and appearance of bilateral ureteral stents and suspicion of small ureter stones in the distal ureters adjacent to the stents, not well seen. Electronically Signed: Deborah Sheehan MD at 18:39 EDT ,
== END | disposition home or self-care (01) ==
LOC: MTRAD 09:17
PROVIDERS: PCP Family Medicine; Referring Provider Urology; Visit Provider Urology
DX: N20.0 Calculus of kidney (principal)
CPT/HCPCS: 74018

== ENCOUNTER → 2024-01-19 | Outpatient (CLI) | payer OTHER, SELFPAY ==
[2024-01-19 17:07] LABS: Absolute Lymphocyte Count 3.22 X10^3/uL (0.83-4.51); Absolute Neutrophil Count 3.4 X10^3/uL (2.0-7.7); Basophil# 0.06 X10^3/uL; Basophil% 0.8 % (0-1); Eosinophil# 0.15 X10^3/uL; Hematocrit 37.2 % (37-47); Hemoglobin 11.7 g/dL (12.0-15.0); Lymphocyte # 3.22 X10^3/ul (0.83-4.51); Lymphocyte % 43.3 % (19-41); Mean Corp Hgb Conc 31.5 g/dL (32-36); Mean Corpuscular Hgb 29.5 pg (27.0-32.0); Mean Corpuscular Volume 93.7 fL (81-99); Mean Platelet Vol. 10.1 fl (6.2-12.0); Monocyte# 0.59 X10^3/uL; Monocyte% 7.9 % (0-10); NRBC Flagged by Analyzer 0 % (0-5); Neutrophil # 3.39 X10^3/uL (2.7-7.7); Neutrophil % 45.6 % (47-70); Platelet Count 232 K/mm3 (150-450); RBC Distribution Width CV 14.2 % (11.6-14.6); RBC Distribution Width SD 49.1 fl (35.1-43.9); Red Blood Count 3.97 M/mm3 (4.2-5.4); White Blood Count 7.4 K/mm3 (4.4-11.0)
[2024-01-19 17:43] LABS: ALB/GLOB Ratio 0.9 RATIO (0.9-2.4); AST(SGOT) 12 U/L (15-37); Alanine Aminotransfer ALT/SGPT 17 U/L (13-56); Albumin, Serum 3.5 g/dL (3.2-5.0); Alkaline Phosphatase 134 U/L (45-117); Anion Gap 8 (5-15); BUN 30 mg/dL (7-18); BUN/Creat Ratio 14.7 RATIO (10-20); Calcium,Total 9.1 mg/dL (8.5-10.1); Chloride 108 mmol/L (98-107); Creatinine, Serum 2.04 mg/dL (0.55-1.02); EST Glomerular Filtration Rate 26 mL/min (>60); Est Glom Filt Rate - Afr Amer 32 mL/min (>60); Globulin 3.7 g/dL (2.2-4.2); Glucose 88 mg/dL (74-106); Potassium 4.1 mmol/L (3.5-5.1); Protein, Total 7.2 g/dL (6.4-8.2); Sodium Level 139 mmol/L (136-145)
== END | disposition home or self-care (01) ==
LOC: VSLAB 15:21
PROVIDERS: PCP Family Medicine; Visit Provider Family Medicine
DX: Z01.810 Encounter for preprocedural cardiovascular examination (principal); Z01.812 Encounter for preprocedural laboratory examination
CPT/HCPCS: 36415; 80053; 85025; 85610

== ENCOUNTER → 2024-05-31 | Outpatient (CLI) | payer BC, SELFPAY ==
[2024-05-31 11:40] LABS: Squamous Epithelial Cells - UA 0 SEEN /hpf (5-10)
[2024-05-31 12:51] LABS: Glucose, Dipstick Normal (Normal); Ketone-Dipstick Negative (Negative); Leukocyte Esterase-Dipstick 500 /ul (Negative); Nitrite-Dipstick Positive (Negative); Occult Blood-Urine 50 /ul (Negative); Protein-Dipstick 30 mg/dl (Negative); Specific Gravity, Urine 1.015 (1.002-1.030); Urine Bilirubin Dipstick Negative (Negative); Urine Urobilinogen Normal (Normal)
[2024-05-31 12:54] LABS: Color, Urine Straw (Yellow)
[2024-05-31 13:04] LABS: Urine Clarity Turbid (Clear); White Blood Cells >100 SEEN /hpf (0-5)
[2024-05-31 13:07] LABS: Red Blood Cells-Urine 10-25 SEEN /hpf (0-5)
[2024-05-31 13:09] LABS: Amorphous Sediment 2+; Mucous, Urine 1+ /hpf (<or=2+)
[2024-05-31 13:10] LABS: Bacteria 2+ /hpf (None Seen)
== END | disposition home or self-care (01) ==
LOC: LABSPEC 11:13
PROVIDERS: PCP Family Medicine
DX: R39.15 Urgency of urination (principal)
CPT/HCPCS: 81001; 87077; 87086; 87088; 87186

== ENCOUNTER → 2024-07-05 | Outpatient (CLI) | payer BC, SELFPAY ==
[2024-07-05 13:42] LABS: Color, Urine Yellow (Yellow); Glucose, Dipstick Normal (Normal); Ketone-Dipstick Negative (Negative); Leukocyte Esterase-Dipstick 500 /ul (Negative); Nitrite-Dipstick Negative (Negative); Occult Blood-Urine 150 /ul (Negative); Protein-Dipstick 30 mg/dl (Negative); Specific Gravity, Urine 1.015 (1.002-1.030); Urine Bilirubin Dipstick Negative (Negative); Urine Clarity Cloudy (Clear); Urine Urobilinogen Normal (Normal)
== END | disposition home or self-care (01) ==
LOC: LABSPEC 11:32
PROVIDERS: PCP Family Medicine; Visit Provider Family Medicine
DX: R39.15 Urgency of urination (principal)
CPT/HCPCS: 81002; 87077; 87086; 87088; 87186